=== PATIENT | male | born 1960 | race Caucasian/White ===

== ENCOUNTER 2017-03-08 12:59 | Observation (INO) | payer OTHER ==
--- NOTE | 2017-03-08 13:35 | PDOC ---
History of Present Illness - General Chief Complaint: Chest Pain Stated Complaint: CHEST PAIN Time Seen by Provider: 03/08/17 13:27 History Source: Safe Expert Used ([id number]) Exam Limitations: No Limitations - History of Present Illness Initial Comments: 56 yo Belarusian speaking M with h/o HTN, HLD, CAD s/p stent and [place] on coumadin and ASA, systolic CHF, embolic CVA, IDDM, ESRD on dialysis (M,W,F), and depression who presents to the ER along with his with chest pain since 10am. Patient's Rwandan is limited and cyrocom is used ([id number]). The pain occurred within half hour after breakfast, located in L chest, pressure-like intermittent, non-radiating, 10/10 at worst, 1-2/10 right now, associated with nausea and shortness of breath. Per , he stopped taking omeprazole 40mg daily 2 weeks ago. He also c/o neck pain on exertion, lower legs pain and abd pain located in upper quadrants which have been chronic. Denies fever, chills, headache, sore throat, constipation, diarrhea, urinary and bowel symptoms. Presenting Symptoms: Nausea, Short of Breath Timing/Duration: reports: intermittent Severity/Quality: reports: pressure Location: reports: other (L chest) Chest Pain Radiation: reports: no radiation Activities at Onset: reports: none Prior Chest Pain/Cardiac Workup: reports: Cardiac Cath Past History - Travel Traveled outside of the country in the last 30 days: No Close contact w/someone who was outside of country & ill: No - Past Medical History Allergies/Adverse Reactions: Allergies Allergy/AdvReac Type Severity Reaction Status Date / Time No Known Allergies Allergy Verified 03/08/17 13:06 Home Medications: Ambulatory Orders Aspirin [ASA -] 81 mg PO DAILY 03/08/17 Atorvastatin Ca [Lipitor] 40 mg PO HS 03/08/17 Calcitriol [Rocaltrol -] 0.25 mcg PO DAILY 03/08/17 Calcium Acetate [Phoslo -] 667 mg PO DAILY 03/08/17 Carvedilol [Coreg] 6.25 mg PO BID 03/08/17 Insulin Glargine,Hum.rec.anlog [Lantus (nf)] 0 units SQ HS 03/08/17 Isosorbide Mononitrate [Imdur -] 60 mg PO DAILY 03/08/17 Omeprazole 40 mg PO DAILY 03/08/17 Sevelamer Carbonate [Renvela *Powder Packet*] 2.4 gm PO DAILY 03/08/17 Warfarin Sodium [Coumadin] 2 mg PO DAILY 03/08/17 Anemia: Yes Cardiac Disorders: Yes (ppm,cad, WI,) Diabetes: Yes Dialysis: Yes (mon, wed , monday) Disorders: Yes (minimally urinates) HTN: Yes Hypercholesterolemia: Yes Suicide Attempt (Hx): No - Surgical History Cardiac Surgery: Yes (Stents) Orthopedic Surgery: Yes - Immunization History Immunization Up to Date: No - Psycho/Social/Smoking Cessation Hx Anxiety: No Suicidal Ideation: No Smoking Status: No Smoking History: Never smoked Have you smoked in the past 12 months: No Number of Cigarettes Smoked Daily: 0 If you are a former smoker, when did you quit?: 17 yrs ago Information on smoking cessation initiated: No 'Breaking Loose' booklet given: 12/12/15 Hx Alcohol Use: No Drug/Substance Use Hx: No Substance Use Type: None Hx Substance Use Treatment: No Cardiac Specific PMH - Complaint Specific PMHX Cardiac Stent: Yes Myocardial Infarction: Yes Review of Systems - Review of Systems Able to Perform ROS?: Yes Is the patient limited Rwandan proficient: Yes Constitutional: Yes: Night Sweats Respiratory: Yes: SOB with Exertion. No: SOB at Rest Cardiac (ROS): Yes: Chest Pain, Lightheadedness ABD/GI: Yes: Abdominal Distended, Nausea. No: Vomiting : Yes: Other (anuria) *Physical Exam - Vital Signs Last Vital Signs Temp Pulse Resp BP Pulse Ox 98.1 F 69 16 122/65 99 03/08/17 13:05 03/08/17 21:33 03/08/17 21:33 03/08/17 21:33 03/08/17 21:33 - Physical Exam General Appearance: Yes: Mild Distress, Cachetic HEENT: positive: [place]. negative: Tonsillar Exudate, Tonsillar Erythema Neck: positive: Trachea midline, Supple. negative: Lymphadenopathy (R), Lymphadenopathy (L) Respiratory/Chest: positive: Lungs Clear, Normal Breath Sounds. negative: Crackles, Rales, Rhonchi, Wheezing Cardiovascular: positive: Regular Rhythm, Regular Rate, Systolic Murmur ( holosystolic blowing) Gastrointestinal/Abdominal: positive: Normal Bowel Sounds, Distended, Tenderness (upper quadrants). negative: Rebound Extremity: positive: Tender (lower legs bilaterally). negative: Swelling Neurologic: positive: Fully Oriented, Alert ED Treatment Course - LABORATORY CBC & Chemistry Diagram: 03/09/17 06:45 03/09/17 06:45 - ADDITIONAL ORDERS Additional order review: 03/08/17 14:45 RBC 3.28 L MCV 102.0 H MCHC 33.5 RDW 15.4 D MPV 9.0 Neutrophils % 67.8 D Lymphocytes % 18.4 D Monocytes % 9.3 Eosinophils % 3.3 Basophils % 1.2 - RADIOLOGY Radiology Studies Ordered: Category Date Time Status CXRPORT [CHEST X-RAY PORTABLE*] [RAD] Stat Radiology 03/08/17 14:23 Completed - Medications Given in the ED: ED Medications Discontinued Medications Generic Name Dose Route Start Last Admin Trade Name Freq PRN Reason Stop Dose Admin Aspirin 243 mg 03/08/17 14:33 03/08/17 14:55 Asa - PO 03/08/17 14:34 243 mg ONCE ONE Administration Enoxaparin Sodium 70 mg 03/09/17 03:30 03/09/17 04:00 Lovenox - SQ 70 mg Q12H EVA Administration Warfarin Sodium 3 mg 03/09/17 03:19 03/09/17 04:00 Coumadin - PO 03/09/17 03:20 3 mg NOW ONE Administration Medical Decision Making - Medical Decision Making 03/08/17 14:45 EKG reads 1st degree AV block, rightward axis, intraventruclar block, T wave abnormality, consider inferolateral ischemia Compared to last EKG in 02/2016, there're minimal to moderate morphology changes. Will wait for official interpretation by international trade compliance manager. Will also obtain lab work including lipase, troponins 03/08/17 14:56 1st Trop 0.11 with minimal to moderate EKG morphology changes, heart score of 7 , will admit to obs under hospitalist service *DC/Admit/Observation/Transfer Diagnosis at time of Disposition: Chest pain Qualifiers: Chest pain type: unspecified Qualified Code(s): R07.9 - Chest pain, unspecified - Discharge Dispostion Admit: Yes Decision to Admit order Date/Time: Decision to Admit Order Category Date Time Status Decision to Admit to Hospital Routine Admission 03/08/17 16:37 Active - Referrals
[2017-03-08] MEDS ORDERED: ASPIRIN 81 MG CHEWABLE TABLETS PO ONE (14:33)
[2017-03-08] MEDS ORDERED: ASPIRIN 81 MG CHEWABLE TABLETS ONE (14:51)
--- NOTE | 2017-03-08 14:56 | PDOC ---
Attending Attestation - Resident Resident Name: Piter Myers - ED Attending Attestation I have performed the following: I have examined & evaluated the patient, The case was reviewed & discussed with the resident, I agree w/resident's findings & plan - HPI HPI: 03/08/17 16:51 56 Y M hx of htn, hl, cad s/p stent x 3, chf, esrd (dialysis mwf, last dialysis today), embolic cva on coumadin, presents with complaint of exetional cp radiating up to the L neck for the past several months. Pt also notes he has some epigastric pain after eating breakfast this morning which prompted his visit to the ED. The pt states he is currenlty not in pain. The pts ekg noted for some ST depressions in the lateral leads which were present during previous ekg in december, as pseudonormalization of twi in the inferior leads. pts s/p ASA pts exam was unremarkable, fistula w/ thrill on LUE. The pts labs were reivewed Trop .11 --> unclear significance due to his reanl insufficency - will trend lipase slightly elevated t 400 --> will obtain GB US case dw ALEX Pedersen - agree with observation under dr. srini hankins. Case discussed in detail with admitting physician including history, physical exam and ancillary studies. Admitting physician has assumed care for the patient, will follow all pending diagnostics and will complete the evaluation and treatment. - Physicial Exam PE: 03/09/17 08:40 see above - Medical Decision Making 03/09/17 08:40 see above Heart Score/ECG Review - History History: Slightly suspicious - Electrocardiogram EKG: Non specific repolarization disturbance - Age Age: 45-65 - Risk Factors Risk Factors Heart Score: Yes Hx Hypercholesterolemia, Yes Hx Hypertension, Yes Hx Diabetes Based on the list above the patient has:: >/=3 risk factors or Hx atherosclerotic disease - Troponin Troponin: </= normal limit - Score Heart Score - Total: 4 - ECG Impressions Comment:: 03/08/17 17:01 Twelve-lead EKG was performed and reviewed by me. There is normal sinus rhythm with a rate of 78 rightward axis 1st degree AV block STD in V5v6 (present on prior ekg jan 14 2016) tw flattening in inferior leads -> resolved TWI in inferior leads in prior ekg
[2017-03-08 15:00] LABS: BASOPHIL 1.2 % (0-2.0); EOSINOPHIL 3.3 % (0-4.5); MCH 34.2 pg (25.7-33.7); MCHC 33.5 g/dl (32.0-35.9); NEUTROPHILS 67.8 % (42.8-82.8); PLATELET COUNT 72 K/MM3 (134-434); RDW 15.4 % (11.9-15.9); WHITE BLOOD COUNT 4.1 K/mm3 (4.0-10.0)
[2017-03-08 15:25] LABS: ALBUMIN 3.2 g/dl (3.4-5.0); BILIRUBIN,TOTAL 0.9 mg/dL (0.2-1.0); CALCIUM 8.7 mg/dL (8.5-10.1); CREATININE 4.9 mg/dL (0.7-1.3); TOT PROT 7.3 g/dl (6.4-8.2)
[2017-03-08 15:26] LABS: MAGNESIUM 2.4 mg/dL (1.8-2.4); PHOSPHOROUS 3.3 mg/dL (2.5-4.9)
[2017-03-08 15:28] LABS: TROPONIN I 0.11 ng/ml (0.00-0.05)
--- NOTE | 2017-03-08 17:27 | HP ---
CHIEF COMPLAINT: chest pain PCP: HISTORY OF PRESENT ILLNESS: 56 yo who presents to the ER along with his with chest pain since 10am today. He had HD this morning prior to CP started. The pain occurred within half hour after breakfast, located in L chest, pressure-like intermittent, non- radiating, 10/10 at worst, 1-2/10 right now, associated with nausea and shortness of breath. Per , he stopped taking omeprazole 40mg daily 2 weeks ago due to prescription refill. He also c/o neck pain on exertion, lower legs pain and abd pain located in upper quadrants which have been chronic. Denies fever, chills, headache, sore throat, constipation, diarrhea, urinary and bowel symptoms. ER course was notable for: (1) cardiac work up; trop 0.11, flipped T in lateral leads, asa given (2) abd pain, lipase elevated, GB u/s ordered (3) Recent Travel: none PAST MEDICAL HISTORY: HTN, HLD, CAD s/p stent and [place] on coumadin and ASA, systolic CHF, embolic CVA, IDDM, ESRD on dialysis (M,W,F), and depression PAST SURGICAL HISTORY: Social History: Smoking: Alcohol: Drugs: Family History: Allergies NKA No Known Allergies Allergy (Verified 03/08/17 13:06) HOME MEDICATIONS: Home Medications Medication Instructions Recorded Aspirin [ASA -] 81 mg PO DAILY 03/08/17 Atorvastatin Ca [Lipitor] 40 mg PO HS 03/08/17 Calcitriol [Rocaltrol -] 0.25 mcg PO DAILY 03/08/17 Calcium Acetate [Phoslo -] 667 mg PO DAILY 03/08/17 Carvedilol [Coreg] 6.25 mg PO BID 03/08/17 Insulin Glargine,Hum.rec.anlog 0 units SQ HS 03/08/17 [Lantus (nf)] Isosorbide Mononitrate [Imdur -] 60 mg PO DAILY 03/08/17 Omeprazole 40 mg PO DAILY 03/08/17 Sevelamer Carbonate [Renvela 2.4 gm PO DAILY 03/08/17 *Powder Packet*] Warfarin Sodium [Coumadin] 2 mg PO DAILY 03/08/17 REVIEW OF SYSTEMS CONSTITUTIONAL: Absent: fever, chills, diaphoresis, generalized weakness, malaise, loss of appetite, weight change HEENT: Absent: rhinorrhea, nasal congestion, throat pain, throat swelling, difficulty swallowing, mouth swelling, ear pain, eye pain, visual changes CARDIOVASCULAR: Positive for left side chest pain, without syncope, palpitations, irregular heart rate, lightheadedness, peripheral edema RESPIRATORY: Absent: cough, shortness of breath, dyspnea with exertion, orthopnea, wheezing, stridor, hemoptysis GASTROINTESTINAL: Absent: abdominal distension, nausea, vomiting, diarrhea, constipation, melena, hematochezia with positive LUQ pain GENITOURINARY: Absent: dysuria, frequency, urgency, hesitancy, hematuria, flank pain, genital pain MUSCULOSKELETAL: Absent: myalgia, arthralgia, joint swelling, back pain, neck pain SKIN: Absent: rash, itching, pallor HEMATOLOGIC/IMMUNOLOGIC: Absent: easy bleeding, easy bruising, lymphadenopathy, frequent infections ENDOCRINE: Absent: unexplained weight gain, unexplained weight loss, heat intolerance, cold intolerance NEUROLOGIC: Absent: headache, focal weakness or paresthesias, dizziness, unsteady gait, seizure, mental status changes, bladder or bowel incontinence PSYCHIATRIC: Absent: anxiety, depression, suicidal or homicidal ideation, hallucinations. PHYSICAL EXAMINATION Vital Signs - 24 hr 03/08/17 13:05 Temperature 98.1 F Pulse Rate 76 Respiratory 18 Rate Blood Pressure 118/61 O2 Sat by Pulse 97 Oximetry (%) GENERAL: Awake, alert, and fully oriented, in no acute distress. Denies chest pain at current time HEAD: Normal with no signs of trauma. NECK: Normal range of motion, supple without lymphadenopathy, JVD, or masses. LUNGS: Breath sounds equal, clear to auscultation bilaterally. No wheezes, and no crackles. No accessory muscle use. HEART: Regular rate and rhythm, normal S1 and S2 without murmur, rub or gallop. ABDOMEN: Soft, nontender, not distended, normoactive bowel sounds, no guarding, no rebound, no masses. No hepatomegaly or splenomegaly. MUSCULOSKELETAL: Normal range of motion at all joints. No bony deformities or tenderness. No CVA tenderness. LUE with + AV fistula with + thrill UPPER EXTREMITIES: 2+ pulses, warm, well-perfused. No cyanosis. No clubbing. No peripheral edema. LOWER EXTREMITIES: 2+ pulses, warm, well-perfused. No calf tenderness. No peripheral edema. NEUROLOGICAL: Cranial nerves II-XII intact. Normal speech. Normal gait. PSYCHIATRIC: Cooperative. Good eye contact. Appropriate mood and affect. SKIN: Warm, dry, normal turgor, no rashes or lesions noted, normal capillary refill. Laboratory Results - last 24 hr 03/08/17 03/08/17 03/08/17 14:45 14:45 14:45 WBC 4.1 RBC 3.28 L Hgb 11.2 L Hct 33.5 L MCV 102.0 H MCHC 33.5 RDW 15.4 D Plt Count 72 L D MPV 9.0 Neutrophils % 67.8 D Lymphocytes % 18.4 D Monocytes % 9.3 Eosinophils % 3.3 Basophils % 1.2 Sodium 138 Potassium 3.8 D Chloride 98 Carbon Dioxide 27 Anion Gap 13 BUN 31 H D Creatinine 4.9 H D Creat Clearance w eGFR 12.31 Random Glucose 118 H D Calcium 8.7 Phosphorus 3.3 D Magnesium 2.4 Total Bilirubin 0.9 D AST 13 L ALT 14 Alkaline Phosphatase 182 H D Creatine Kinase 101 Troponin I 0.11 H D Total Protein 7.3 Albumin 3.2 L Lipase 03/08/17 14:45 WBC RBC Hgb Hct MCV MCHC RDW Plt Count MPV Neutrophils % Lymphocytes % Monocytes % Eosinophils % Basophils % Sodium Potassium Chloride Carbon Dioxide Anion Gap BUN Creatinine Creat Clearance w eGFR Random Glucose Calcium Phosphorus Magnesium Total Bilirubin AST ALT Alkaline Phosphatase Creatine Kinase Troponin I Total Protein Albumin Lipase 400 H ASSESSMENT/PLAN: A/P: 1. Chest pain -admit to obs/tele for cardiac rule/out -trops Q8h, next at 11 pm today -consult placed to cards, spoke with Dr. Sanchez -asa given in ER -no pain at this time, hemodynamic stable 2. ESRD -monitor labs/electrolytes -consult to Dr. Farooq -strict I and O 3. Diabetes -FS Qac and hs -diabetic diet -continue coverage of home meds 4. AFib -continue coumadin -monitor PT 5. Abd pain vs chest pain -elevated lipase, repeat monitor -ultrasound GB -restart omeprozole Visit type - Emergency Visit Emergency Visit: Yes ED Registration Date: 03/08/17 Care time: The patient presented to the Emergency Department on the above date and was hospitalized for further evaluation of their emergent condition. - New Patient This patient is new to me today: Yes Date on this admission: 03/08/17 - Critical Care Critical Care patient: No
--- NOTE | 2017-03-08 19:24 | CON.CARD ---
Cardiology Consult (text) - Consultation Consultation Note: 56 year old male with a significant past medical history of HTN, HPL, embolic cva, cad s/p multiple pci (states last was 6 months ago) who presents with cp. states he developed severe chest and LUQ abdominal pain with associatded nausea after eating. Lasted for a few hours, now resolved. non-exertional. not typical of his prior anginal pain. at baseline has chronic mild dyspnea on exertion, leg fatigue with exertion, stable. chronic neuropathy. intermittent abdominal pain. No loc, pnd, orthopnea, le edema, palps, dizziness. No cp/sob at present. PMhx: per hpi Past Surgical History: Yes: None, AV Fistula/Graft Social hx: Former smoker, no etoh or illicits Family Disease History: Heart Disease: Father ROS: Per hpi no cough, f/c/s, vomiting, diarrhea, cough, congestion, headache, visual disturbances, rash. Ambulatory Orders Aspirin [ASA -] 81 mg PO DAILY 03/08/17 Atorvastatin Ca [Lipitor] 40 mg PO HS 03/08/17 Calcitriol [Rocaltrol -] 0.25 mcg PO DAILY 03/08/17 Calcium Acetate [Phoslo -] 667 mg PO DAILY 03/08/17 Carvedilol [Coreg] 6.25 mg PO BID 03/08/17 Insulin Glargine,Hum.rec.anlog [Lantus (nf)] 0 units SQ HS 03/08/17 Isosorbide Mononitrate [Imdur -] 60 mg PO DAILY 03/08/17 Omeprazole 40 mg PO DAILY 03/08/17 Sevelamer Carbonate [Renvela *Powder Packet*] 2.4 gm PO DAILY 03/08/17 Warfarin Sodium [Coumadin] 2 mg PO DAILY 03/08/17 Current Medications Calcitriol (Rocaltrol -) 0.25 mcg PO DAILY [facility] Calcium Acetate (Phoslo -) 667 mg PO TIDCM [facility] Carvedilol (Coreg -) 6.25 mg PO BID EVA Isosorbide Mononitrate (Imdur -) 60 mg PO DAILY [facility] Pantoprazole Sodium (Protonix -) 40 mg PO DAILY [facility] Sevelamer Carbonate (Renvela Powder Packet -) 0.8 gm PO TIDCM [facility] Warfarin Sodium (Coumadin -) 2 mg PO DAILY [facility] Vital Signs - 24 hr 03/08/17 13:05 Temperature 98.1 F Pulse Rate 76 Respiratory 18 Rate Blood Pressure 118/61 O2 Sat by Pulse 97 Oximetry (%) Intake & Output 03/06/17 03/07/17 03/08/17 03/09/17 07:59 07:59 07:59 07:59 Weight 150 lb Nad, calm jvd flat, neck supple ctab, nl effor rrr nl s1, s2 no mrg + bs soft nt nd ext without e/c/c aaoxe no carotid bruit diminished dp/pt CBC, BMP 03/08/17 14:45 03/08/17 14:45 Laboratory Tests 03/08/17 03/08/17 03/08/17 14:45 14:45 14:45 Magnesium 2.4 Total Bilirubin 0.9 D AST 13 L ALT 14 Alkaline Phosphatase 182 H D Creatine Kinase 101 Troponin I 0.11 H D Albumin 3.2 L Lipase 400 H ekg: sr, rightward axis av delay, ivcd. inferolateral TWI, similar to priors echo 12/2015: low nl lvef, no wma, mild lvh, nl rv, mild lae, mod mr, mac, mild tr, rvsp 50-60 persantine MIBI here (12/2015): no ST changes vs baseline; large area of inferior and inferolat infarct (with akinesis) with small samantha-infarct ischemia ; EF 35% Cath/PCI @ [facility] 05/2015: Diag 2 : 100 % ISR of prior BMS at [facility] [place], distal LAD 90 % (small vessel), OM1 90%, large RPL stented (ESME)--felt to be culprit Assessment/Plan CAD - patient with intermediate range troponin in setting of ESRD. No elevation in ck or mb. EKG unchanged. CP atypical. Low suspicion for acs. Con't eric - paitent with known infarct, multiple ISR. States he may have had stent placed 6 months ago. 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 -cont ASA, AC, statin (resume), bb, imdur -cath @ [facility] 05/2015: Diag 2: 100 % ISR of prior BMS, distal LAD 90% (small vessel), OM1 90%, large RPL stented (ESME)--felt to be culprit lesion then; -cath 08/2015: cutting balloon ptca for ISR of RPL stent, no new stent placed; + residual dz: Diag 2: 100 % ISR of prior BMS, distal LAD 90% (small vessel), OM1 90%. -given that he has had recurrent and rapid in-stent restenosis (both BMS in Diag and then involving RPL ESME), and residual CAD is confined to branch disease or distal vessel dz and hence is low risk for CAD mortality, dr amin decided at that time he is likely not a good candidate for stent strategy and planned to continue aggressive OMT strategy only going forward; h/o embolic cva: -no hx afib, con't tele monitoring - prior tte/benson w/o etiology -cont asa, coumadin statin . INR dosing per pmd. ESRD on HD -HD per renal HTN: -controlled on current meds HPL: -continue statin
[2017-03-08 21:00] LABS: INR 1.36 (0.82-1.09)
[2017-03-08 21:51] LABS: TROPONIN I 0.35 ng/ml (0.00-0.05)
[2017-03-08] MEDS ORDERED: CARVEDILOL 3.125 MG TABLET (FP) ONE (22:35)
[2017-03-08] MEDS: CARVEDILOL 6.25 MG TABLET (FP) PO SCH (22:40)
[2017-03-09] MEDS ORDERED: WARFARIN NA 3 MG TABLET PO ONE (03:19)
[2017-03-09 03:30] LABS: TROPONIN I 0.57 ng/ml (0.00-0.05)
[2017-03-09] MEDS ORDERED: ENOXAPARIN NA (PORCINE) 80 MG/0.8 ML DISP.SYRIN SQ SCH (03:30)
--- NOTE | 2017-03-09 03:39 | HOSP ---
Physical Examination Vital Signs: Vital Signs Temperature 98.1 F 03/08/17 13:05 Pulse Rate 69 03/08/17 21:33 Respiratory Rate 16 03/08/17 21:33 Blood Pressure 122/65 03/08/17 21:33 O2 Sat by Pulse Oximetry (%) 99 03/08/17 21:33 Hospitalist Encounter Assessment: Troponin climbing 0.11, 0.35, 0.57. Pt already on ASA, BB. Pt on coumadin for CVA PPX at home but subtherapeutic. Will start lovenox for bridge and increase warfarin to 3mg.
[2017-03-09] MEDS ORDERED: WARFARIN NA 1 MG TABLET (FP) ONE (05:25)
[2017-03-09] MEDS ORDERED: ENOXAPARIN NA (PORCINE) 80 MG/0.8 ML DISP.SYRIN SQ ONE (05:26)
[2017-03-09 07:42] LABS: MCHC 34.1 g/dl (32.0-35.9); MEAN CELL VOLUME 102.6 fl (80-96); PLATELET COUNT 68 K/MM3 (134-434); RDW 15.7 % (11.9-15.9); WHITE BLOOD COUNT 3.9 K/mm3 (4.0-10.0)
[2017-03-09 08:08] LABS: ALBUMIN 3.1 g/dl (3.4-5.0); CALCIUM 8.7 mg/dL (8.5-10.1); MAGNESIUM 2.4 mg/dL (1.8-2.4); PHOSPHOROUS 5.6 mg/dL (2.5-4.9)
[2017-03-09 08:25] LABS: BILIRUBIN,TOTAL 0.8 mg/dL (0.2-1.0); COCKROFT - GAULT 12.44; CREATININE 6.3 mg/dL (0.7-1.3); TOT PROT 7.1 g/dl (6.4-8.2)
[2017-03-09] MEDS: PANTOPRAZOLE 40 MG TABLET (FP) PO SCH (10:13)
[2017-03-09] MEDS: CALCIUM ACETATE 667 MG CAPSULE (FP) PO SCH ×3 (10:13→18:44)
[2017-03-09] MEDS: CARVEDILOL 6.25 MG TABLET (FP) PO SCH ×2 (10:13→21:48)
[2017-03-09] MEDS: SEVELAMER CARBONATE 0.8 GM POWDER PACKET PO SCH ×2 (10:13→14:19)
[2017-03-09] MEDS: ISOSORBIDE MONONITRATE 60 MG TAB.SR.24H (FP) PO SCH (10:13)
[2017-03-09] MEDS: CALCITRIOL 0.25 MCG CAPSULE (FP) PO SCH (10:14)
--- NOTE | 2017-03-09 11:42 | EKG ---
Test Reason : Blood Pressure : / mmHG Vent. Rate : 078 BPM Atrial Rate : 078 BPM P-R Int : 258 ms QRS Dur : 126 ms QT Int : 424 ms P-R-T Axes : 085 101 183 degrees QTc Int : 483 ms SINUS RHYTHM WITH 1ST DEGREE A-V BLOCK RIGHTWARD AXIS NON-SPECIFIC INTRA-VENTRICULAR CONDUCTION BLOCK T WAVE ABNORMALITY, CONSIDER INFEROLATERAL ISCHEMIA ABNORMAL ECG WHEN COMPARED WITH ECG OF 22-MAR-2016 17:27, QRS DURATION HAS INCREASED T WAVE INVERSION LESS EVIDENT IN INFERIOR LEADS Confirmed by TAVIA MAYFIELD MD ([id number]) on 03/09/2017 11:42:29 AM Referred By: Confirmed By:TAVIA MAYFIELD MD
--- NOTE | 2017-03-09 12:53 | CONSULT ---
Consult - text type - Consultation Consultation Note: Renal Consult for ESRD on HD This is a 56 year old Gentleman with PMhx of ESRD on HD (MWF), CAD s/p NV and PCI, Hypertension, IDDM, Hyperlipidemia who presented with chest pain that started yesterday and admitted for r/o ACS. Pt reports that he developed the CP yesterday during dialysis. He had associated palliations but no Nausea, diaphoresis or radiation. Currently he does not have any chest pain. No fever, chills, CUADRA, SOB, abd pain. He does reports chronic claudication pain in b/l lower ext. Had a complete hd yesterday. No swelling in Legs. PMhx: As above Allergies: NKDA Family Hx: NC Social Hx: No T/A/D ROS: as per HPI Home Meds: Home Medications Medication Instructions Recorded Aspirin [ASA -] 81 mg PO DAILY 03/08/17 Atorvastatin Ca [Lipitor] 40 mg PO HS 03/08/17 Calcitriol [Rocaltrol -] 0.25 mcg PO DAILY 03/08/17 Calcium Acetate [Phoslo -] 667 mg PO DAILY 03/08/17 Carvedilol [Coreg] 6.25 mg PO BID 03/08/17 Insulin Glargine,Hum.rec.anlog 0 units SQ HS 03/08/17 [Lantus (nf)] Isosorbide Mononitrate [Imdur -] 60 mg PO DAILY 03/08/17 Omeprazole 40 mg PO DAILY 03/08/17 Sevelamer Carbonate [Renvela 2.4 gm PO DAILY 03/08/17 *Powder Packet*] Warfarin Sodium [Coumadin] 2 mg PO DAILY 03/08/17 Vital Signs Temperature 97.8 F 03/09/17 09:30 Pulse Rate 56 L 03/09/17 09:30 Respiratory Rate 18 03/09/17 09:30 Blood Pressure 107/59 03/09/17 09:30 O2 Sat by Pulse Oximetry (%) 99 03/08/17 21:33 Intake & Output 03/06/17 03/07/17 03/08/17 03/09/17 23:59 23:59 23:59 23:59 Weight 150 lb Gen: NAD, awake and alert HEENT: NC/AT, MMM, No JVD, Neck Supple CVS: RRR, No M/R Lungs: CTA, no rales or wheeze Abd: soft NT/ND Ext: No edema, clubbing or cyanosis. Decreased LE pulses Neuro: AAOx3, no focal defects Access: left ARM AVF + bruit CBC, BMP 03/09/17 06:45 03/09/17 06:45 Laboratory Tests 03/09/17 06:45 Calcium 8.7 Phosphorus 5.6 H D Magnesium 2.4 B-Natriuretic Peptide 372345.03 H Total Protein 7.1 Albumin 3.1 L Current Medications Calcitriol (Rocaltrol -) 0.25 mcg PO DAILY [facility] Last Admin: 03/09/17 10:14 Dose: 0.25 mcg Calcium Acetate (Phoslo -) 667 mg PO TIDCM [facility] Last Admin: 03/09/17 10:13 Dose: 667 mg Carvedilol (Coreg -) 6.25 mg PO BID [facility] Last Admin: 03/09/17 10:13 Dose: 6.25 mg Isosorbide Mononitrate (Imdur -) 60 mg PO DAILY [facility] Last Admin: 03/09/17 10:13 Dose: 60 mg Pantoprazole Sodium (Protonix -) 40 mg PO DAILY [facility] Last Admin: 03/09/17 10:13 Dose: 40 mg Sevelamer Carbonate (Renvela Powder Packet -) 0.8 gm PO TIDCM [facility] Last Admin: 03/09/17 10:13 Dose: 0.8 gm A/P 56 year old Gentleman with PMhx of ESRD on HD (MWF), CAD s/p NV and PCI, Hypertension, IDDM, Hyperlipidemia who presented with chest pain that started yesterday and admitted for r/o ACS. #Chest pain r/o ACS Troponin with mild up trend however CK stable Cardiology following #ESRD on HD no acute indication for dialysis today next treatment planned for tomorrow
[2017-03-09 15:54] VITALS: BMI 23.0
--- NOTE | 2017-03-09 17:40 | PN ---
Progress Note (short form) - Note Progress Note: CC: CP S: no further cp. no palps, dizziness, sob. Current Medications Calcitriol (Rocaltrol -) 0.25 mcg PO DAILY [facility] Last Admin: 03/09/17 10:14 Dose: 0.25 mcg Calcium Acetate (Phoslo -) 667 mg PO TIDCM [facility] Last Admin: 03/09/17 14:19 Dose: 667 mg Carvedilol (Coreg -) 6.25 mg PO BID [facility] Last Admin: 03/09/17 10:13 Dose: 6.25 mg Isosorbide Mononitrate (Imdur -) 60 mg PO DAILY [facility] Last Admin: 03/09/17 10:13 Dose: 60 mg Pantoprazole Sodium (Protonix -) 40 mg PO DAILY [facility] Last Admin: 03/09/17 10:13 Dose: 40 mg Sevelamer Carbonate (Renvela Powder Packet -) 0.8 gm PO TIDCM [facility] Last Admin: 03/09/17 14:19 Dose: 0.8 gm Vital Signs - 24 hr 03/08/17 03/09/17 03/09/17 21:33 09:00 09:30 Temperature 97.8 F Pulse Rate 56 L Pulse Rate [ 69 Left] Respiratory 16 20 18 Rate Blood Pressure 107/59 Blood Pressure 122/65 [Arm] O2 Sat by Pulse 99 99 Oximetry (%) 03/09/17 03/09/17 03/09/17 13:00 14:00 17:00 Temperature 97.4 F L 97.4 F L Pulse Rate 53 L 53 L Pulse Rate [ Left] Respiratory 20 16 16 Rate Blood Pressure 97/52 97/52 Blood Pressure [Arm] O2 Sat by Pulse 100 100 Oximetry (%) Intake & Output 03/07/17 03/08/17 03/09/17 03/10/17 07:59 07:59 07:59 07:59 Intake Total 300 Balance 300 Weight 150 lb 130 lb Nad, calm jvd flat, neck supple ctab, nl effor rrr nl s1, s2 no mrg + bs soft nt nd ext without e/c/c aaox3 no carotid bruit diminished dp/pt CBC, BMP 03/09/17 06:45 03/09/17 06:45 Laboratory Tests 03/08/17 03/08/17 03/08/17 14:45 20:25 20:30 INR 1.36 H D Magnesium Total Bilirubin AST ALT Alkaline Phosphatase Creatine Kinase 89 Troponin I 0.35 H D Albumin Lipase 400 H 03/09/17 03/09/17 02:40 06:45 INR Magnesium 2.4 Total Bilirubin 0.8 AST 9 L D ALT 13 Alkaline Phosphatase 174 H Creatine Kinase 82 Troponin I 0.57 H D Albumin 3.1 L Lipase ekg: sr, rightward axis av delay, ivcd. inferolateral TWI, similar to priors tele: SB 50's echo 12/2015: low nl lvef, no wma, mild lvh, nl rv, mild lae, mod mr, mac, mild tr, rvsp 50-60 librarian states most recent echo shows mildly depressed EF 40% persantine MIBI here (12/2015): no ST changes vs baseline; large area of inferior and inferolat infarct (with akinesis) with small samantha-infarct ischemia ; EF 35% -cath @ [facility] 05/2015: Diag 2: 100 % ISR of prior BMS, distal LAD 90% (small vessel), OM1 90%, large RPL stented (ESME)--felt to be culprit lesion then; -cath 08/2015: cutting balloon ptca for ISR of RPL stent, no new stent placed; + residual dz: Diag 2: 100 % ISR of prior BMS, distal LAD 90% (small vessel), OM1 90% Assessment/Plan 56 year old male with a significant past medical history of HTN, HPL, embolic cva, cad s/p multiple pci who presents with cp. CAD - patient with intermediate range troponin in setting of ESRD. No elevation in ck or mb. EKG unchanged. CP atypical. Low suspicion for acs. Con't eric - patient with known infarct, multiple ISR. I spoke with patient's librarian and last cardiac catheterizations showed small distal vessel disease not amenable to intervention. Therefore, would not recommend further ischemic work up. con't medical management. - low suspicion that this is cardiac pain and nor further recurrence, so will not adjust anti-anginals at this time. If recurs, can uptitrate regimen at that time. -cont ASA, AC, statin (resume), bb, imdur - eval/management of abdominal pain component of cp per pm. h/o embolic cva: -no hx afib, con't tele monitoring - prior tte/benson w/o etiology -cont asa, coumadin statin . INR dosing per pmd. ESRD on HD -HD per renal HTN: -controlled on current meds HPL: -continue statin
--- NOTE | 2017-03-09 17:45 | PN ---
Physical Exam: SUBJECTIVE: Patient seen and examined in ED. He c/o of abd pain referring to chest. Denies fever, chills, n/v. OBJECTIVE: Vital Signs Period Temp Pulse Resp BP Sys/Pahram Pulse Ox Last 24 Hr 97.4 F-97.8 F 53-69 16-20 97-122/52-65 99-100 PE Neuro: alert, awake, cn 2-12 intact Pulm: CTAB CV: s1 s2 rrr 2/6 systolic murmur Abd: distended, +bs no massess appreciated, tenderness Ext: no le edema CBCD WBC 3.9 K/mm3 (4.0-10.0) L 03/09/17 06:45 RBC 3.25 M/mm3 (4.00-5.60) L 03/09/17 06:45 Hgb 11.4 GM/dL (11.7-16.9) L 03/09/17 06:45 Hct 33.4 % (35.4-49) L 03/09/17 06:45 MCV 102.6 fl (80-96) H 03/09/17 06:45 MCHC 34.1 g/dl (32.0-35.9) 03/09/17 06:45 RDW 15.7 % (11.9-15.9) 03/09/17 06:45 Plt Count 68 K/MM3 (134-434) L 03/09/17 06:45 MPV 9.0 fl (7.5-11.1) 03/09/17 06:45 CMP Sodium 137 mmol/L (136-145) 03/09/17 06:45 Potassium 4.5 mmol/L (3.5-5.1) 03/09/17 06:45 Chloride 96 mmol/L (98-107) L 03/09/17 06:45 Carbon Dioxide 28 mmol/L (21-32) 03/09/17 06:45 Anion Gap 13 (8-16) 03/09/17 06:45 BUN 45 mg/dL (7-18) H D 03/09/17 06:45 Creatinine 6.3 mg/dL (0.7-1.3) H D 03/09/17 06:45 Creat Clearance w eGFR 9.21 (>60) 03/09/17 06:45 Calcium 8.7 mg/dL (8.5-10.1) 03/09/17 06:45 Total Bilirubin 0.8 mg/dL (0.2-1.0) 03/09/17 06:45 AST 9 U/L (15-37) L D 03/09/17 06:45 ALT 13 U/L (12-78) 03/09/17 06:45 Alkaline Phosphatase 174 U/L (45-117) H 03/09/17 06:45 Total Protein 7.1 g/dl (6.4-8.2) 03/09/17 06:45 Albumin 3.1 g/dl (3.4-5.0) L 03/09/17 06:45 03/08/17 03/08/17 03/08/17 14:45 14:45 20:25 Troponin I 0.11 H D 0.35 H D B-Natriuretic Peptide Lipase 400 H 03/09/17 03/09/17 02:40 06:45 Troponin I 0.57 H D B-Natriuretic Peptide 320230.03 H Lipase 393 Active Medications Generic Name Dose Route Start Last Admin Trade Name Freq PRN Reason Stop Dose Admin Calcitriol 0.25 mcg 03/09/17 10:00 03/09/17 10:14 Rocaltrol - PO 0.25 mcg DAILY [facility] Administration Calcium Acetate 667 mg 03/09/17 08:00 03/09/17 14:19 Phoslo - PO 667 mg TIDCM [facility] Administration Carvedilol 6.25 mg 03/08/17 22:00 03/09/17 10:13 Coreg - PO 6.25 mg BID [facility]A Administration Isosorbide Mononitrate 60 mg 03/09/17 10:00 03/09/17 10:13 Imdur - PO 60 mg DAILY [facility] Administration Pantoprazole Sodium 40 mg 03/09/17 10:00 03/09/17 10:13 Protonix - PO 40 mg DAILY [facility] Administration Sevelamer Carbonate 0.8 gm 03/09/17 08:00 03/09/17 14:19 Renvela Powder Packet - PO 0.8 gm TIDCM [facility]A Administration Assessment: 56 year old Gentleman with PMhx of ESRD on HD (MWF), CAD s/p RI and PCI, HTN, IDDM, Hyperlipidemia admitted with CP in HD. Plan: 1. Atypical Chest pain - Trops mid range - No ck changes - EKG no ischemia - CP possibly due to gallbladder - Cont ASA. statin - Coreg 6.25mg bID - Imdur 60mg daily 2. Abd pain/distention - Cholelithiasis seen on US, mild diffuse non specific wall thickening, ?acute jose raul - HIDA in AM - NPO after midnight 2. ESRD - Cont renvela - Cont phoslo - Cont Calcitriol - HD per renal service 3. DM II - ISS, BGM ACHS 4. AFib - Coumadin 5mg tonight - INR daily Visit type - Emergency Visit Emergency Visit: Yes ED Registration Date: 03/08/17 Care time: The patient presented to the Emergency Department on the above date and was hospitalized for further evaluation of their emergent condition. - New Patient This patient is new to me today: Yes Date on this admission: 03/09/17 - Critical Care Critical Care patient: No
[2017-03-09] MEDS ORDERED: WARFARIN NA 2 MG TABLET (UD) PO SCH (18:00)
[2017-03-09] MEDS ORDERED: WARFARIN NA 5 MG TABLET (UD) PO ONE (18:00)
[2017-03-09] MEDS: INSULIN SLIDING SCALE (NOVOLOG) 1 VIAL SQ SCH (21:49)
[2017-03-10] MEDS: INSULIN SLIDING SCALE (NOVOLOG) 1 VIAL SQ SCH ×4 (06:05→22:16)
[2017-03-10] MEDS: CALCIUM ACETATE 667 MG CAPSULE (FP) PO SCH ×3 (08:05→17:40)
[2017-03-10] MEDS: SEVELAMER CARBONATE 0.8 GM POWDER PACKET PO SCH ×3 (08:05→17:55)
--- NOTE | 2017-03-10 10:55 | PN ---
Progress Note (short form) - Note Progress Note: S: no further cp. no palps, dizziness, sob. having diarrhea today o: Vital Signs Period Temp Pulse Resp BP Sys/Parham Pulse Ox Last 24 Hr 97.2 F-98.8 F 52-58 16-20 93-112/46-58 98-100 Nad, calm jvd flat, neck supple cta bl, nl effor rrr nl s1, s2 no mrg + bs soft nt nd ext without e/c/c aaox3 no jaundice diaphoresis Current Medications Generic Name Dose Route Start Last Admin Trade Name Freq PRN Reason Stop Dose Admin Atorvastatin Calcium 40 mg 03/10/17 22:00 Lipitor - PO HS EV[facility] Calcitriol 0.25 mcg 03/09/17 10:00 03/09/17 10:14 Rocaltrol - PO 0.25 mcg DAILY [facility] Administration Calcium Acetate 667 mg 03/09/17 08:00 03/10/17 08:05 Phoslo - PO Not Given TIDCM [facility] Carvedilol 6.25 mg 03/08/17 22:00 03/09/17 21:48 Coreg - PO 6.25 mg BID [facility] Administration Epoetin Nolberto 2,000 units 03/10/17 12:00 Epogen - IVPUSH 03/10/17 12:01 ONCE ONE Insulin Aspart 1 vial 03/09/17 22:00 03/10/17 06:05 Novolog Vial Sliding Scale - SQ Not Given ACHS [facility] Protocol Isosorbide Mononitrate 60 mg 03/09/17 10:00 03/09/17 10:13 Imdur - PO 60 mg DAILY [facility] Administration Pantoprazole Sodium 40 mg 03/09/17 10:00 03/09/17 10:13 Protonix - PO 40 mg DAILY [facility] Administration Sevelamer Carbonate 0.8 gm 03/09/17 08:00 03/10/17 08:05 Renvela Powder Packet - PO Not Given TIDCM [facility] ekg: sr, rightward axis av delay, ivcd. 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 states most recent echo shows mildly depressed EF 40% persantine MIBI here (12/2015): no ST changes vs baseline; large area of inferior and inferolat infarct (with akinesis) with small samantha-infarct ischemia ; EF 35% -cath @ [facility] 05/2015: Diag 2: 100 % ISR of prior BMS, distal LAD 90% (small vessel), OM1 90%, large RPL stented (ESME)--felt to be culprit lesion then; -cath 08/2015: cutting balloon ptca for ISR of RPL stent, no new stent placed; + residual dz: Diag 2: 100 % ISR of prior BMS, distal LAD 90% (small vessel), OM1 90% Assessment/Plan 56 year old male with a significant past medical history of HTN, HPL, embolic cva, cad s/p multiple pci who presents with cp. CAD - patient with intermediate range troponin in setting of ESRD. No elevation in ck or mb. EKG unchanged. CP atypical. Low suspicion for acs. - patient with known infarct, multiple ISR. Spoke with patient's professor of history and last cardiac catheterizations showed small distal vessel disease not amenable to intervention. Therefore, would not recommend further ischemic work up. con't medical management. - low suspicion that this is cardiac pain and nor further recurrence, so will not adjust anti-anginals at this time. If recurs, can uptitrate regimen at that time. -cont ASA, AC, statin, bb, imdur - eval/management of abdominal pain component of cp per pmd. h/o embolic cva: -no hx afib, con't tele monitoring -prior tte/benson w/o etiology -cont asa, coumadin statin . INR dosing per pmd. ESRD on HD -HD per renal HTN: -controlled on current meds HPL: -continue statin can dc tele
[2017-03-10 11:03] LABS: MCH 34.8 pg (25.7-33.7); MCHC 33.9 g/dl (32.0-35.9); MEAN CELL VOLUME 102.8 fl (80-96); MEAN PLT VOLUME 9.1 fl (7.5-11.1); PLATELET COUNT 67 K/MM3 (134-434); RDW 15.4 % (11.9-15.9); WHITE BLOOD COUNT 3.6 K/mm3 (4.0-10.0)
[2017-03-10] MEDS: CARVEDILOL 6.25 MG TABLET (FP) PO SCH ×2 (11:17→22:09)
[2017-03-10] MEDS: PANTOPRAZOLE 40 MG TABLET (FP) PO SCH (11:17)
[2017-03-10] MEDS: ISOSORBIDE MONONITRATE 60 MG TAB.SR.24H (FP) PO SCH (11:17)
[2017-03-10] MEDS: CALCITRIOL 0.25 MCG CAPSULE (FP) PO SCH (11:18)
[2017-03-10 11:23] LABS: ALBUMIN 3.4 g/dl (3.4-5.0); BILIRUBIN,TOTAL 0.8 mg/dL (0.2-1.0); CALCIUM 8.9 mg/dL (8.5-10.1); PHOSPHOROUS 6.1 mg/dL (2.5-4.9)
[2017-03-10 11:30] LABS: TOT PROT 7.7 g/dl (6.4-8.2)
[2017-03-10] MEDS ORDERED: EPOETIN ALFA 2,000 UNITS/1 ML VIAL IVPUSH ONE (12:00)
--- NOTE | 2017-03-10 12:42 | PN ---
Progress Note (short form) - Note Progress Note: Renal follow up for ESRD on HD Pt seen and examined during dialysis bP stable, goal UF is 2L aVF with good flow no acute complaints no N/V/D Vital Signs Temperature 97.9 F 03/10/17 10:30 Pulse Rate 59 L 03/10/17 12:05 Respiratory Rate 18 03/10/17 12:05 Blood Pressure 109/59 03/10/17 12:05 O2 Sat by Pulse Oximetry (%) 98 03/10/17 09:00 Intake & Output 03/07/17 03/08/17 03/09/17 03/10/17 23:59 23:59 23:59 23:59 Intake Total 730 Balance 730 Weight 150 lb 130 lb 140 lb 2 oz Gen: NAD, awake and alert CVS: RRR, No M/R Lungs: CTA, no rales or wheeze Abd: soft NT/ND Ext: No edema, clubbing or cyanosis. Access: left ARM AVF + bruit CBC, BMP 03/10/17 10:35 03/10/17 10:35 Current Medications Atorvastatin Calcium (Lipitor -) 40 mg PO [facility] Calcitriol (Rocaltrol -) 0.25 mcg PO DAILY [facility] Last Admin: 03/10/17 11:18 Dose: Not Given Calcium Acetate (Phoslo -) 667 mg PO TIDCM [facility] Last Admin: 03/10/17 08:05 Dose: Not Given Carvedilol (Coreg -) 6.25 mg PO BID [facility] Last Admin: 03/10/17 11:17 Dose: Not Given Insulin Aspart (Novolog Vial Sliding Scale -) 1 vial SQ ACHS [facility] PRN Reason: Protocol Last Admin: 03/10/17 11:18 Dose: Not Given Isosorbide Mononitrate (Imdur -) 60 mg PO DAILY [facility] Last Admin: 03/10/17 11:17 Dose: Not Given Pantoprazole Sodium (Protonix -) 40 mg PO DAILY [facility] Last Admin: 03/10/17 11:17 Dose: Not Given Sevelamer Carbonate (Renvela Powder Packet -) 0.8 gm PO TIDCM [facility] Last Admin: 03/10/17 08:05 Dose: Not Given A/P 56 year old Gentleman with PMhx of ESRD on HD (MWF), CAD s/p DC and PCI, Hypertension, IDDM, Hyperlipidemia who presented with chest pain that started yesterday and admitted for r/o ACS. #Chest pain r/o ACS Cardiology following no chest pain at the present time #ESRD on HD/Hyperkalemia tolerating HD well UF goal 2L Renal diet #Cholecysitis HIDA scan pending GI Follow up #Thrombocytopenia Chronic no heparin with HD Thank you Yonis Farooq DO
--- NOTE | 2017-03-10 16:16 | PN ---
Physical Exam: SUBJECTIVE: Patient seen and examined in HD. He says he started having diarrhea in the middle of the night and x2 on HD. OBJECTIVE: Vital Signs Period Temp Pulse Resp BP Sys/Parham Pulse Ox Last 24 Hr 97.2 F-98.8 F 52-60 16-20 93-124/46-64 98-100 PE Neuro: alert, awake, cn 2-12 intact Pulm: CTAB CV: s1 s2 rrr 2/6 systolic murmur Abd: abd tenderness + diarrhea soft Ext: no le edema Laboratory Results - last 24 hr 03/10/17 03/10/17 10:35 10:35 WBC 3.6 L RBC 3.50 L Hgb 12.2 Hct 36.0 MCV 102.8 H MCHC 33.9 RDW 15.4 Plt Count 67 L MPV 9.1 Sodium 132 L Potassium 6.4 H* D Chloride 99 Carbon Dioxide 21 D Anion Gap 12 BUN 67 H D Creatinine 8.0 H* D Creat Clearance w eGFR 6.96 POC Glucometer Random Glucose 118 H Calcium 8.9 Phosphorus 6.1 H Total Bilirubin 0.8 AST 10 L ALT 13 Alkaline Phosphatase 181 H Total Protein 7.7 Albumin 3.4 Active Medications Generic Name Dose Route Start Last Admin Trade Name Freq PRN Reason Stop Dose Admin Atorvastatin Calcium 40 mg 03/10/17 22:00 Lipitor - PO HS [facility] Calcitriol 0.25 mcg 03/09/17 10:00 03/10/17 11:18 Rocaltrol - PO Not Given DAILY [facility] Calcium Acetate 667 mg 03/09/17 08:00 03/10/17 08:05 Phoslo - PO Not Given TIDCM [facility] Carvedilol 6.25 mg 03/08/17 22:00 03/10/17 11:17 Coreg - PO Not Given BID [facility] Insulin Aspart 1 vial 03/09/17 22:00 03/10/17 11:18 Novolog Vial Sliding Scale - SQ Not Given ACHS [facility] Protocol Isosorbide Mononitrate 60 mg 03/09/17 10:00 03/10/17 11:17 Imdur - PO Not Given DAILY [facility] Pantoprazole Sodium 40 mg 03/09/17 10:00 03/10/17 11:17 Protonix - PO Not Given DAILY [facility] Sevelamer Carbonate 0.8 gm 03/09/17 08:00 03/10/17 08:05 Renvela Powder Packet - PO Not Given TIDCM [facility] Imaging: - Cholelithiasis seen on US, mild diffuse non specific wall thickening, ?acute jose raul Assessment: 56 year old Gentleman with PMhx of ESRD on HD (MWF), CAD s/p DC and PCI, HTN, IDDM, Hyperlipidemia admitted with CP in HD. Plan: 1. Atypical Chest pain - Cardiac work up w/ mild trops - CP possibly due to gallbladder - Cont ASA/Statin - Coreg 6.25mg BID - Imdur 60mg daily - Cardiology seeing 2. Diarrhea - Stool cx - C diff 3. Abd pain/distention - HIDA scan done, awaiting results 4. ESRD - HD today - Cont renvela - Cont phoslo - Cont Calcitriol - HD per renal service 5. DM II - ISS, BGM ACHS 6. A Fib - Coumadin 5mg HS - INR daily Visit type - Emergency Visit Emergency Visit: Yes ED Registration Date: 03/08/17 Care time: The patient presented to the Emergency Department on the above date and was hospitalized for further evaluation of their emergent condition. - New Patient This patient is new to me today: No - Critical Care Critical Care patient: No
[2017-03-10] MEDS: ATORVASTATIN CA 40 MG TABLET (FP) PO SCH (22:09)
[2017-03-11] MEDS: INSULIN SLIDING SCALE (NOVOLOG) 1 VIAL SQ SCH ×5 (00:50→21:28)
[2017-03-11] MEDS ORDERED: PT OWN MED DRAWER 7, Y5N ONE ×3 (08:04→17:25)
[2017-03-11] MEDS: CALCIUM ACETATE 667 MG CAPSULE (FP) PO SCH ×3 (08:18→17:26)
[2017-03-11] MEDS: SEVELAMER CARBONATE 0.8 GM POWDER PACKET PO SCH ×4 (08:19→17:26)
[2017-03-11 08:35] LABS: INR 1.72 (0.82-1.09); PROTHROMBIN TIME (PATIENT) 19.1 SEC (9.98-11.88)
[2017-03-11 08:39] LABS: ALBUMIN 3.2 g/dl (3.4-5.0); CALCIUM 8.9 mg/dL (8.5-10.1); MAGNESIUM 2.2 mg/dL (1.8-2.4)
[2017-03-11 08:40] LABS: BILIRUBIN,TOTAL 0.8 mg/dL (0.2-1.0); COCKROFT - GAULT 12.08; CREATININE 5.9 mg/dL (0.7-1.3); TOT PROT 7.2 g/dl (6.4-8.2)
[2017-03-11] MEDS: PANTOPRAZOLE 40 MG TABLET (FP) PO SCH (09:54)
[2017-03-11] MEDS: CARVEDILOL 6.25 MG TABLET (FP) PO SCH ×2 (09:54→21:29)
[2017-03-11] MEDS: ISOSORBIDE MONONITRATE 60 MG TAB.SR.24H (FP) PO SCH (09:54)
[2017-03-11] MEDS: CALCITRIOL 0.25 MCG CAPSULE (FP) PO SCH (09:56)
--- NOTE | 2017-03-11 10:27 | PN ---
Physical Exam: SUBJECTIVE: Patient seen and examined Pt c/p mild LUQ pain, denies N/V/D, cp, sot palpitations. OBJECTIVE: Vital Signs Period Temp Pulse Resp BP Sys/Parham Pulse Ox Last 24 Hr 97.8 F-98 F 52-60 18-18 93-124/50-83 98-98 GENERAL: The patient is awake, alert, and fully oriented, in no acute distress. HEAD: Normal with no signs of trauma. EYES: PERRL, extraocular movements intact, sclera anicteric, conjunctiva clear. No ptosis. ENT: Ears normal, nares patent, oropharynx clear without exudates, moist mucous membranes. NECK: Trachea midline, full range of motion, supple. LUNGS: Breath sounds equal, clear to auscultation bilaterally, no wheezes, no crackles, no accessory muscle use. HEART: Regular rate and rhythm, S1, S2 without murmur, rub or gallop. ABDOMEN: Soft, nontender, nondistended, normoactive bowel sounds, no guarding, no rebound, no hepatosplenomegaly, no masses. EXTREMITIES: 2+ pulses, warm, well-perfused, no edema. NEUROLOGICAL: Cranial nerves II through XII grossly intact. Normal speech, gait not observed. PSYCH: Normal mood, normal affect. SKIN: Warm, dry, normal turgor, no rashes or lesions noted Laboratory Results - last 24 hr 03/10/17 03/10/17 03/10/17 10:12 10:35 10:35 WBC 3.6 L RBC 3.50 L Hgb 12.2 Hct 36.0 MCV 102.8 H MCHC 33.9 RDW 15.4 Plt Count 67 L MPV 9.1 INR Sodium 132 L Potassium 6.4 H* D Chloride 99 Carbon Dioxide 21 D Anion Gap 12 BUN 67 H D Creatinine 8.0 H* D Creat Clearance w eGFR 6.96 POC Glucometer 114 Random Glucose 118 H Calcium 8.9 Phosphorus 6.1 H Magnesium Total Bilirubin 0.8 AST 10 L ALT 13 Alkaline Phosphatase 181 H Total Protein 7.7 Albumin 3.4 Hepatitis C Antibody 03/10/17 03/10/17 03/10/17 10:35 17:37 22:14 WBC RBC Hgb Hct MCV MCHC RDW Plt Count MPV INR Sodium Potassium Chloride Carbon Dioxide Anion Gap BUN Creatinine Creat Clearance w eGFR POC Glucometer 224 89 Random Glucose Calcium Phosphorus Magnesium Total Bilirubin AST ALT Alkaline Phosphatase Total Protein Albumin Hepatitis C Antibody <0.1 03/11/17 03/11/17 03/11/17 00:43 05:38 05:38 WBC RBC Hgb Hct MCV MCHC RDW Plt Count MPV INR 1.72 H Sodium 141 Potassium 4.1 D Chloride 101 Carbon Dioxide 30 D Anion Gap 10 BUN 38 H D Creatinine 5.9 H D Creat Clearance w eGFR 9.90 POC Glucometer 194 Random Glucose 108 H Calcium 8.9 Phosphorus 4.0 D Magnesium 2.2 Total Bilirubin 0.8 AST 11 L ALT 12 Alkaline Phosphatase 180 H Total Protein 7.2 Albumin 3.2 L Hepatitis C Antibody 03/11/17 06:23 WBC RBC Hgb Hct MCV MCHC RDW Plt Count MPV INR Sodium Potassium Chloride Carbon Dioxide Anion Gap BUN Creatinine Creat Clearance w eGFR POC Glucometer 108 Random Glucose Calcium Phosphorus Magnesium Total Bilirubin AST ALT Alkaline Phosphatase Total Protein Albumin Hepatitis C Antibody Active Medications Generic Name Dose Route Start Last Admin Trade Name Freq PRN Reason Stop Dose Admin Atorvastatin Calcium 40 mg 03/10/17 22:00 03/10/17 22:09 Lipitor - PO 40 mg HS [facility] Administration Calcitriol 0.25 mcg 03/09/17 10:00 03/11/17 09:56 Rocaltrol - PO 0.25 mcg DAILY [facility] Administration Calcium Acetate 667 mg 03/09/17 08:00 03/11/17 08:18 Phoslo - PO 667 mg TIDCM [facility] Administration Carvedilol 6.25 mg 03/08/17 22:00 03/11/17 09:54 Coreg - PO 6.25 mg BID [facility] Administration Insulin Aspart 1 vial 03/09/17 22:00 03/11/17 06:40 Novolog Vial Sliding Scale - SQ Not Given ACHS [facility] Protocol Isosorbide Mononitrate 60 mg 03/09/17 10:00 03/11/17 09:54 Imdur - PO 60 mg DAILY [facility] Administration Pantoprazole Sodium 40 mg 03/09/17 10:00 03/11/17 09:54 Protonix - PO 40 mg DAILY [facility] Administration Sevelamer Carbonate 0.8 gm 03/09/17 08:00 03/11/17 08:22 Renvela Powder Packet - PO Not Given TIDCM [facility] Imaging: - Cholelithiasis seen on US, mild diffuse non specific wall thickening, ?acute jose raul Ekg: sr, rightward axis av delay, ivcd. 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 states most recent echo shows mildly depressed EF 40% persantine MIBI here (12/2015): no ST changes vs baseline; large area of inferior and inferolat infarct (with akinesis) with small samantha-infarct ischemia ; EF 35% -cath @ [facility] 05/2015: Diag 2: 100 % ISR of prior BMS, distal LAD 90% (small vessel), OM1 90%, large RPL stented (ESME)--felt to be culprit lesion then; -cath 08/2015: cutting balloon ptca for ISR of RPL stent, no new stent placed; + residual dz: Diag 2: 100 % ISR of prior BMS, distal LAD 90% (small vessel), OM1 90% Assessment: This is a 56 year old Gentleman with PMhx of ESRD on HD (MWF), CAD s/p RI and PCI, HTN, IDDM, Hyperlipidemia admitted with CP in HD. *Atypical Chest pain - resolved -abnormal Trop in setting of ESRD. - cardiology input appreciated - Cont ASA/Statin,Coreg 6.25mg BID and Imdur 60mg daily * Diarrhea- no further diarrhea reported - Stool cx - C diff *Abd pain/distention- improving - HIDA scan done, awaiting results - ALK- 180 *ESRD-(MWF) - Cont renvela, phoslo,Calcitriol - HD per renal service * DM II - ISS, BGM ACHS * Hx of CVA - Coumadin 5mg HS - INR 1.72 - will cont on Coumadin Visit type - Emergency Visit Emergency Visit: Yes ED Registration Date: 03/08/17 Care time: The patient presented to the Emergency Department on the above date and was hospitalized for further evaluation of their emergent condition. - New Patient This patient is new to me today: Yes Date on this admission: 03/11/17 - Critical Care Critical Care patient: No
--- NOTE | 2017-03-11 11:36 | PN ---
Progress Note (short form) - Note Progress Note: Renal follow up for ESRD on HD Pt seen and examined at the bedside reports RUQ pain no sob or chest pain s/p HIDA yesterday Vital Signs Temperature 98 F 03/11/17 09:00 Pulse Rate 59 L 03/11/17 09:00 Respiratory Rate 18 03/11/17 09:00 Blood Pressure 104/52 03/11/17 09:00 O2 Sat by Pulse Oximetry (%) 98 03/11/17 01:00 Intake & Output 03/08/17 03/09/17 03/10/17 03/11/17 23:59 23:59 23:59 23:59 Intake Total 730 Balance 730 Weight 150 lb 130 lb 140 lb 2 oz 138 lb Gen: NAD, awake and alert CVS: RRR, No M/R Lungs: CTA, no rales or wheeze Abd: soft NT/ND Ext: No edema, clubbing or cyanosis. Access: left ARM AVF + bruit CBC, BMP 03/10/17 10:35 03/11/17 05:38 Laboratory Tests 03/11/17 05:38 Calcium 8.9 Phosphorus 4.0 D Magnesium 2.2 Albumin 3.2 L Current Medications Atorvastatin Calcium (Lipitor -) 40 mg PO HS [facility] Last Admin: 03/10/17 22:09 Dose: 40 mg Calcitriol (Rocaltrol -) 0.25 mcg PO DAILY [facility] Last Admin: 03/11/17 09:56 Dose: 0.25 mcg Calcium Acetate (Phoslo -) 667 mg PO TIDCM [facility] Last Admin: 03/11/17 08:18 Dose: 667 mg Carvedilol (Coreg -) 6.25 mg PO BID [facility] Last Admin: 03/11/17 09:54 Dose: 6.25 mg Insulin Aspart (Novolog Vial Sliding Scale -) 1 vial SQ ACHS [facility] PRN Reason: Protocol Last Admin: 03/11/17 06:40 Dose: Not Given Isosorbide Mononitrate (Imdur -) 60 mg PO DAILY [facility] Last Admin: 03/11/17 09:54 Dose: 60 mg Pantoprazole Sodium (Protonix -) 40 mg PO DAILY [facility] Last Admin: 03/11/17 09:54 Dose: 40 mg Sevelamer Carbonate (Renvela Powder Packet -) 0.8 gm PO TIDCM [facility] Last Admin: 04/15/17 08:22 Dose: Not Given Warfarin Sodium (Coumadin -) 5 mg PO DAILY@1800 [facility] A/P 56 year old Gentleman with PMhx of ESRD on HD (MWF), CAD s/p [place] and PCI, Hypertension, IDDM, Hyperlipidemia who presented with chest pain that started yesterday and admitted for r/o ACS. #ESRD on HD/Hyperkalemia no acute inidcation for AIR BRAKE TESTER today REnal diet #Choleliathisis s/p HIDA scan - report pending GI follow up pain control #Thrombocytopenia Chronic no heparin with HD Thank you Yonis Farooq DO
[2017-03-11 16:11] LABS: HEP B SURFACE AB Reactive (.)
[2017-03-11] MEDS: WARFARIN NA 5 MG TABLET (UD) PO SCH (17:26)
[2017-03-11] MEDS ORDERED: INSULIN (NOVOLOG) ASPART 100 UNITS/ML 10ML VIAL ONE (21:27)
[2017-03-11] MEDS: ATORVASTATIN CA 40 MG TABLET (FP) PO SCH (21:28)
[2017-03-12] MEDS ORDERED: morphine CARPU-JECT 2 MG/1 ML DISP.SYRIN IVPUSH ONE (06:03)
[2017-03-12] MEDS: INSULIN SLIDING SCALE (NOVOLOG) 1 VIAL SQ SCH ×4 (06:26→21:38)
[2017-03-12 06:43] LABS: INR 1.66 (0.82-1.09); PROTHROMBIN TIME (PATIENT) 18.4 SEC (9.98-11.88)
[2017-03-12] MEDS ORDERED: PT OWN MED DRAWER 7, Y5N ONE ×3 (08:44→17:38)
[2017-03-12] MEDS: CALCIUM ACETATE 667 MG CAPSULE (FP) PO SCH ×3 (08:46→17:50)
[2017-03-12] MEDS: SEVELAMER CARBONATE 0.8 GM POWDER PACKET PO SCH ×3 (08:46→17:50)
--- NOTE | 2017-03-12 09:26 | PN ---
Physical Exam: SUBJECTIVE: Patient seen and examined. He complains of RUQ abdominal pain and dizziness when he is walking. OBJECTIVE: Vital Signs Period Temp Pulse Resp BP Sys/Parham Pulse Ox Last 24 Hr 97.8 F-98.1 F 56-58 18-19 100-104/50-50 98-98 GENERAL: The patient is awake, alert, and fully oriented, in no acute distress. LUNGS: Breath sounds equal, clear to auscultation bilaterally, no wheezes, no crackles, no accessory muscle use. HEART: Regular rate and rhythm, S1, S2 without murmur, rub or gallop. ABDOMEN: Soft, (+) RUQ tenderness, nondistended, normoactive bowel sounds, no guarding, no rebound, no hepatosplenomegaly, no masses. EXTREMITIES: 2+ pulses, warm, well-perfused, no edema. Laboratory Results - last 24 hr 03/10/17 03/11/17 03/11/17 10:35 10:55 16:58 INR POC Glucometer 318 58 Hep A IgM Ab Confirm Negative Hepatitis A Ab Total Positive H Hep Bs Antigen Negative Hep Bs Antibody Reactive Hep B Core Total Ab Negative 03/11/17 03/11/17 03/12/17 17:22 21:25 04:33 INR POC Glucometer 69 258 75 Hep A IgM Ab Confirm Hepatitis A Ab Total Hep Bs Antigen Hep Bs Antibody Hep B Core Total Ab 03/12/17 03/12/17 05:32 06:23 INR 1.66 H POC Glucometer 139 Hep A IgM Ab Confirm Hepatitis A Ab Total Hep Bs Antigen Hep Bs Antibody Hep B Core Total Ab Active Medications Generic Name Dose Route Start Last Admin Trade Name Tino PRN Reason Stop Dose Admin Atorvastatin Calcium 40 mg 03/10/17 22:00 03/11/17 21:28 Lipitor - PO 40 mg HS EVA Administration Calcitriol 0.25 mcg 03/09/17 10:00 03/11/17 09:56 Rocaltrol - PO 0.25 mcg DAILY EVA Administration Calcium Acetate 667 mg 03/09/17 08:00 03/12/17 08:46 Phoslo - PO 667 mg TIDCM EVA Administration Carvedilol 6.25 mg 03/08/17 22:00 03/11/17 21:29 Coreg - PO 6.25 mg BID EVA Administration Insulin Aspart 1 vial 03/09/17 22:00 03/12/17 06:26 Novolog Vial Sliding Scale - SQ Not Given ACHS [facility] Protocol Isosorbide Mononitrate 60 mg 03/09/17 10:00 03/11/17 09:54 Imdur - PO 60 mg DAILY EVA Administration Pantoprazole Sodium 40 mg 03/09/17 10:00 03/11/17 09:54 Protonix - PO 40 mg DAILY EVA Administration Sevelamer Carbonate 0.8 gm 03/09/17 08:00 03/12/17 08:46 Renvela Powder Packet - PO 0.8 gm TIDCM EVA Administration Warfarin Sodium 5 mg 03/11/17 18:00 03/11/17 17:26 Coumadin - PO 5 mg DAILY@1800 EVA Administration ASSESSMENT/PLAN: This is a 56-year-old man with a history of ESRD on HD, CAD, IL and PCI, HTN, type 2 DM, hyperlipidemia who was admitted for evaluation of chest pain. 1. Atypical chest pain, RUQ abdominal pain - Probable biliary colic - Abnormal troponin thought to be secondary to ESRD - RUQ US showed cholelithiasis and mild diffuse wall thickening - HIDA scan pending 2. Diarrhea - Resolved 3. ESRD - Continue Renvela, PhosLo, Calcitriol - Continue HD 4. CAD, history of IL, PCI - Continue Coreg, Imdur, Lipitor 5. Hyperlipidemia - Continue Lipitor 6. 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 - New Patient This patient is new to me today: Yes Date on this admission: 03/12/17 - Critical Care Critical Care patient: No - Discharge Referral Referred to [facility] Med P.C.: No
[2017-03-12] MEDS ORDERED: morphine CARPU-JECT 2 MG/1 ML DISP.SYRIN IVPUSH PRN (09:53)
[2017-03-12] MEDS: PANTOPRAZOLE 40 MG TABLET (FP) PO SCH (10:54)
[2017-03-12] MEDS: CARVEDILOL 6.25 MG TABLET (FP) PO SCH ×2 (10:54→21:35)
[2017-03-12] MEDS: ASPIRIN 81 MG CHEWABLE TABLETS PO SCH (10:54)
[2017-03-12] MEDS: ISOSORBIDE MONONITRATE 60 MG TAB.SR.24H (FP) PO SCH (10:54)
[2017-03-12] MEDS: CALCITRIOL 0.25 MCG CAPSULE (FP) PO SCH (10:54)
[2017-03-12] MEDS: WARFARIN NA 5 MG TABLET (UD) PO SCH (17:50)
[2017-03-12] MEDS: ATORVASTATIN CA 40 MG TABLET (FP) PO SCH (21:35)
[2017-03-13] MEDS: INSULIN SLIDING SCALE (NOVOLOG) 1 VIAL SQ SCH ×4 (06:25→16:54)
[2017-03-13 07:57] LABS: BASOPHIL 1.1 % (0-2.0); EOSINOPHIL 3.3 % (0-4.5); MCH 34.3 pg (25.7-33.7); MCHC 33.1 g/dl (32.0-35.9); MEAN CELL VOLUME 103.6 fl (80-96); MEAN PLT VOLUME 8.6 fl (7.5-11.1); NEUTROPHILS 55.5 % (42.8-82.8); PLATELET COUNT 61 K/MM3 (134-434); RDW 15.5 % (11.9-15.9); WHITE BLOOD COUNT 4.2 K/mm3 (4.0-10.0)
[2017-03-13 08:17] LABS: INR 1.92 (0.82-1.09); PROTHROMBIN TIME (PATIENT) 21.4 SEC (9.98-11.88)
[2017-03-13 08:22] LABS: CALCIUM 9.6 mg/dL (8.5-10.1)
[2017-03-13 08:29] LABS: COCKROFT - GAULT 8.12
[2017-03-13] MEDS ORDERED: PT OWN MED DRAWER 7, Y5N ONE ×2 (08:45→14:42)
[2017-03-13 08:47] LABS: CREATININE 9.1 mg/dL (0.7-1.3)
[2017-03-13] MEDS: CALCIUM ACETATE 667 MG CAPSULE (FP) PO SCH ×3 (08:58→16:55)
[2017-03-13] MEDS: SEVELAMER CARBONATE 0.8 GM POWDER PACKET PO SCH ×3 (08:59→16:55)
[2017-03-13] MEDS ORDERED: SODIUM POLYSTYRENE SULFONATE 15 GM/60 ML BOTTLE PO ONE (10:03)
--- NOTE | 2017-03-13 10:09 | PN ---
Physical Exam: SUBJECTIVE: Patient seen and examined. Having mild RUQ pain. No nausea/ vomiting. OBJECTIVE: K. 5.5 > given kayexalate x 1 Dialysis today (MWF) + bruit + thrill on left upper arm fistula Pt still has mild RUQ pain, without any nausea/vomiting/diarrhea No chest pain Follow up with outpatient GI HID Scan reviewed Vital Signs Period Temp Pulse Resp BP Sys/Parham Pulse Ox Last 24 Hr 97.9 F-98.2 F 20-53 18-20 98-111/53-57 98-98 GENERAL: The patient is awake, alert, and fully oriented, in no acute distress. HEAD: Normal with no signs of trauma. LUNGS: Breath sounds equal, clear to auscultation bilaterally, no wheezes, no crackles, no accessory muscle use. HEART: Regular rate and rhythm, S1, S2 without murmur, rub or gallop. ABDOMEN: Soft, nontender, nondistended, normoactive bowel sounds, no guarding, no EXTREMITIES: 2+ pulses, warm, well-perfused, no edema. NEUROLOGICAL: Normal speech, gait not observed. PSYCH: Normal mood, normal affect. SKIN: Warm, dry, normal turgor, no rashes or lesions noted Laboratory Results - last 24 hr 03/12/17 03/12/17 03/12/17 11:22 16:46 19:51 WBC RBC Hgb Hct MCV MCHC RDW Plt Count MPV Neutrophils % Lymphocytes % Monocytes % Eosinophils % Basophils % INR Sodium Potassium Chloride Carbon Dioxide Anion Gap BUN Creatinine POC Glucometer 205 104 233 Random Glucose Calcium 03/12/17 03/13/17 03/13/17 21:36 05:38 07:10 WBC RBC Hgb Hct MCV MCHC RDW Plt Count MPV Neutrophils % Lymphocytes % Monocytes % Eosinophils % Basophils % INR 1.92 H Sodium Potassium Chloride Carbon Dioxide Anion Gap BUN Creatinine POC Glucometer 196 116 Random Glucose Calcium 03/13/17 03/13/17 07:10 07:10 WBC 4.2 RBC 3.36 L Hgb 11.5 L Hct 34.8 L MCV 103.6 H MCHC 33.1 RDW 15.5 Plt Count 61 L MPV 8.6 Neutrophils % 55.5 Lymphocytes % 32.0 D Monocytes % 8.1 Eosinophils % 3.3 Basophils % 1.1 INR Sodium 134 L Potassium 5.9 H D Chloride 95 L Carbon Dioxide 26 Anion Gap 13 BUN 73 H D Creatinine 9.1 H* D POC Glucometer Random Glucose 139 H D Calcium 9.6 Active Medications Generic Name Dose Route Start Last Admin Trade Name Freq PRN Reason Stop Dose Admin Aspirin 81 mg 03/12/17 10:00 03/12/17 10:54 Asa - PO 81 mg DAILY EVA Administration Atorvastatin Calcium 40 mg 03/10/17 22:00 03/12/17 21:35 Lipitor - PO 40 mg HS EVA Administration Calcitriol 0.25 mcg 03/09/17 10:00 03/12/17 10:54 Rocaltrol - PO 0.25 mcg DAILY EVA Administration Calcium Acetate 667 mg 03/09/17 08:00 03/13/17 08:58 Phoslo - PO 667 mg TIDCM EVA Administration Carvedilol 6.25 mg 03/08/17 22:00 03/12/17 21:35 Coreg - PO 6.25 mg BID EVA Administration Insulin Aspart 1 vial 03/09/17 22:00 03/13/17 06:25 Novolog Vial Sliding Scale - SQ Not Given ACHS [facility] Protocol Isosorbide Mononitrate 60 mg 03/09/17 10:00 03/12/17 10:54 Imdur - PO 60 mg DAILY EVA Administration Morphine Sulfate 1 mg 03/12/17 09:53 Morphine Injection - IVPUSH Q4H PRN PAIN Pantoprazole Sodium 40 mg 03/09/17 10:00 03/12/17 10:54 Protonix - PO 40 mg DAILY EVA Administration Sevelamer Carbonate 0.8 gm 03/09/17 08:00 03/13/17 08:59 Renvela Powder Packet - PO 0.8 gm TIDCM EVA Administration Sodium Polystyrene Sulfonate 30 gm 03/13/17 10:03 Kayexalate - PO 03/13/17 10:04 ONCE ONE Warfarin Sodium 5 mg 03/11/17 18:00 03/12/17 17:50 Coumadin - PO 5 mg DAILY@1800 EVA Administration ASSESSMENT/PLAN: Patient is a 56 year old Gentleman with PMhx of ESRD on HD (MWF), CAD s/p [place], Hypertension, diabetes, hyperlipidemia. He presented to the ED on 03/08/2017 with chest pain and admitted to r/o ACS. Chest Pain-atypical/RUQ abdominal pain - mild/improving Assessment/Plan: Troponinins 0.11>0.35>0.57, likely secondary to ESRD As per cardiology, low suspicion for ACS Atypical chest pain, RUQ abdominal pain - mild - improving HIDA scan negative/no obstruction GI/surgical consult as an outpatient Denies chest pain, denies shortness of breath Surgical and GI evaluation as outpatient He is tolerating diet, no nausea/vomiting CAD Assessment/Plan: CAD s/p [place] On Coreq, Imdur and Lipitor Neuro: CVA history Assessment/Plan: On Coumadin Monitor INR Renal: End Stage Renal Disease Assessment/Plan: On dialysis MWF - for dialysis today Left arm fistula +bruit + thrill Hematology: Thrombocytopenia - chronic Assessment/Plan: no heparin with dialysis Disposition: d/c today with PCP followup. Follow up with GI/Surgery as outpatient. Full Code. Visit type - Emergency Visit Emergency Visit: Yes ED Registration Date: 03/08/17 Care time: The patient presented to the Emergency Department on the above date and was hospitalized for further evaluation of their emergent condition. - New Patient This patient is new to me today: Yes Date on this admission: 03/17/17 - Critical Care Critical Care patient: No - Discharge Referral Referred to [facility] Med P.C.: No
[2017-03-13 11:29] LABS: MCH 34.1 pg (25.7-33.7); MCHC 32.8 g/dl (32.0-35.9); MEAN CELL VOLUME 103.9 fl (80-96); MEAN PLT VOLUME 8.8 fl (7.5-11.1); PLATELET COUNT 62 K/MM3 (134-434); RDW 15.6 % (11.9-15.9); WHITE BLOOD COUNT 4.4 K/mm3 (4.0-10.0)
[2017-03-13 11:57] LABS: ALBUMIN 3.4 g/dl (3.4-5.0); BILIRUBIN,TOTAL 0.8 mg/dL (0.2-1.0); CALCIUM 9.1 mg/dL (8.5-10.1); PHOSPHOROUS 4.6 mg/dL (2.5-4.9); TOT PROT 7.5 g/dl (6.4-8.2)
--- NOTE | 2017-03-13 11:58 | PN ---
Progress Note (short form) - Note Progress Note: Renal follow up for ESRD on HD Pt seen and examined during dialysis BP stable Goal UF is 2.5L has mild abd pain still low appetite Vital Signs Temperature 97.4 F L 03/13/17 10:40 Pulse Rate 58 L 03/13/17 11:45 Respiratory Rate 18 03/13/17 11:45 Blood Pressure 102/56 03/13/17 11:45 O2 Sat by Pulse Oximetry (%) 98 03/13/17 01:00 Intake & Output 03/10/17 03/11/17 03/12/17 03/13/17 23:59 23:59 23:59 23:59 Intake Total 600 Output Total 0 1 Balance 0 599 Weight 140 lb 2 oz 138 lb 142 lb 143 lb 3 oz Gen: NAD, awake and alert CVS: RRR, No M/R Lungs: CTA, no rales or wheeze Abd: soft NT/ND Ext: No edema, clubbing or cyanosis. Access: left ARM AVF + bruit CBC, BMP 03/13/17 10:45 Current Medications Aspirin (Asa -) 81 mg PO DAILY [facility] Last Admin: 03/12/17 10:54 Dose: 81 mg Atorvastatin Calcium (Lipitor -) 40 mg PO HS [facility] Last Admin: 03/12/17 21:35 Dose: 40 mg Calcitriol (Rocaltrol -) 0.25 mcg PO DAILY [facility] Last Admin: 03/12/17 10:54 Dose: 0.25 mcg Calcium Acetate (Phoslo -) 667 mg PO TIDCM [facility] Last Admin: 03/13/17 08:58 Dose: 667 mg Carvedilol (Coreg -) 6.25 mg PO BID EVA Last Admin: 03/12/17 21:35 Dose: 6.25 mg Insulin Aspart (Novolog Vial Sliding Scale -) 1 vial SQ ACHS EVA PRN Reason: Protocol Last Admin: 03/13/17 06:25 Dose: Not Given Isosorbide Mononitrate (Imdur -) 60 mg PO DAILY [facility] Last Admin: 03/12/17 10:54 Dose: 60 mg Morphine Sulfate (Morphine Injection -) 1 mg IVPUSH Q4H PRN PRN Reason: PAIN Pantoprazole Sodium (Protonix -) 40 mg PO DAILY [facility] Last Admin: 03/12/17 10:54 Dose: 40 mg Sevelamer Carbonate (Renvela Powder Packet -) 0.8 gm PO TIDCM [facility] Last Admin: 03/13/17 08:59 Dose: 0.8 gm Warfarin Sodium (Coumadin -) 5 mg PO DAILY@1800 [facility] Last Admin: 03/12/17 17:50 Dose: 5 mg A/P 56 year old Gentleman with PMhx of ESRD on HD (MWF), CAD s/p [place] and PCI, Hypertension, IDDM, Hyperlipidemia who presented with chest pain that started yesterday and admitted for r/o ACS. #ESRD on HD/Hyperkalemia tolerating dialysis well continue HD on MWF scheudle #Choleliathisis HIDA showed no obstruction pt continues to have Consider GI/Surgial Eval #Thrombocytopenia Chronic no heparin with HD Thank you Yonis Farooq DO
[2017-03-13 12:05] LABS: COCKROFT - GAULT 8.12
[2017-03-13 12:20] LABS: CREATININE 9.1 mg/dL (0.7-1.3)
--- NOTE | 2017-03-13 14:03 | PN ---
Physical Exam: SUBJECTIVE: Patient seen and examined OBJECTIVE: Vital Signs Period Temp Pulse Resp BP Sys/Parham Pulse Ox Last 24 Hr 97.4 F-98.2 F 20-59 18-20 93-117/50-61 98-98 GENERAL: The patient is awake, alert, and fully oriented, in no acute distress. HEAD: Normal with no signs of trauma. EYES: PERRL, extraocular movements intact, sclera anicteric, conjunctiva clear. No ptosis. ENT: Ears normal, nares patent, oropharynx clear without exudates, moist mucous membranes. NECK: Trachea midline, full range of motion, supple. LUNGS: Breath sounds equal, clear to auscultation bilaterally, no wheezes, no crackles, no accessory muscle use. HEART: Regular rate and rhythm, S1, S2 without murmur, rub or gallop. ABDOMEN: Soft, nontender, nondistended, normoactive bowel sounds, no guarding, no rebound, no hepatosplenomegaly, no masses. EXTREMITIES: 2+ pulses, warm, well-perfused, no edema. NEUROLOGICAL: Cranial nerves II through XII grossly intact. Normal speech, gait not observed. PSYCH: Normal mood, normal affect. SKIN: Warm, dry, normal turgor, no rashes or lesions noted Laboratory Results - last 24 hr 03/12/17 03/12/17 03/12/17 16:46 19:51 21:36 WBC RBC Hgb Hct MCV MCHC RDW Plt Count MPV Neutrophils % Lymphocytes % Monocytes % Eosinophils % Basophils % INR Sodium Potassium Chloride Carbon Dioxide Anion Gap BUN Creatinine Creat Clearance w eGFR POC Glucometer 104 233 196 Random Glucose Calcium Phosphorus Total Bilirubin AST ALT Alkaline Phosphatase Total Protein Albumin 03/13/17 03/13/17 03/13/17 05:38 07:10 07:10 WBC 4.2 RBC 3.36 L Hgb 11.5 L Hct 34.8 L MCV 103.6 H MCHC 33.1 RDW 15.5 Plt Count 61 L MPV 8.6 Neutrophils % 55.5 Lymphocytes % 32.0 D Monocytes % 8.1 Eosinophils % 3.3 Basophils % 1.1 INR 1.92 H Sodium Potassium Chloride Carbon Dioxide Anion Gap BUN Creatinine Creat Clearance w eGFR POC Glucometer 116 Random Glucose Calcium Phosphorus Total Bilirubin AST ALT Alkaline Phosphatase Total Protein Albumin 03/13/17 03/13/17 03/13/17 07:10 10:45 10:45 WBC 4.4 RBC 3.44 L Hgb 11.7 Hct 35.8 MCV 103.9 H MCHC 32.8 RDW 15.6 Plt Count 62 L MPV 8.8 Neutrophils % Lymphocytes % Monocytes % Eosinophils % Basophils % INR Sodium 134 L 134 L Potassium 5.9 H D 5.9 H Chloride 95 L 96 L Carbon Dioxide 26 23 Anion Gap 13 15 BUN 73 H D 76 H Creatinine 9.1 H* D 9.1 H* Creat Clearance w eGFR 6.00 POC Glucometer Random Glucose 139 H D 166 H Calcium 9.6 9.1 Phosphorus 4.6 Total Bilirubin 0.8 AST 7 L D ALT 12 Alkaline Phosphatase 166 H Total Protein 7.5 Albumin 3.4 Active Medications Generic Name Dose Route Start Last Admin Trade Name Freq PRN Reason Stop Dose Admin Aspirin 81 mg 03/12/17 10:00 03/12/17 10:54 Asa - PO 81 mg DAILY EVA Administration Atorvastatin Calcium 40 mg 03/10/17 22:00 03/12/17 21:35 Lipitor - PO 40 mg HS EVA Administration Calcitriol 0.25 mcg 03/09/17 10:00 03/12/17 10:54 Rocaltrol - PO 0.25 mcg DAILY EVA Administration Calcium Acetate 667 mg 03/09/17 08:00 03/13/17 08:58 Phoslo - PO 667 mg TIDCM EVA Administration Carvedilol 6.25 mg 03/08/17 22:00 03/12/17 21:35 Coreg - PO 6.25 mg BID EVA Administration Insulin Aspart 1 vial 03/09/17 22:00 03/13/17 06:25 Novolog Vial Sliding Scale - SQ Not Given ACHS [facility] Protocol Isosorbide Mononitrate 60 mg 03/09/17 10:00 03/12/17 10:54 Imdur - PO 60 mg DAILY EVA Administration Morphine Sulfate 1 mg 03/12/17 09:53 Morphine Injection - IVPUSH Q4H PRN PAIN Pantoprazole Sodium 40 mg 03/09/17 10:00 03/12/17 10:54 Protonix - PO 40 mg DAILY EVA Administration Sevelamer Carbonate 0.8 gm 03/09/17 08:00 03/13/17 08:59 Renvela Powder Packet - PO 0.8 gm TIDCM EVA Administration Warfarin Sodium 5 mg 03/11/17 18:00 03/12/17 17:50 Coumadin - PO 5 mg DAILY@1800 [facility] Administration ASSESSMENT/PLAN:
[2017-03-13] MEDS: ISOSORBIDE MONONITRATE 60 MG TAB.SR.24H (FP) PO SCH (14:45)
[2017-03-13] MEDS: PANTOPRAZOLE 40 MG TABLET (FP) PO SCH (14:45)
[2017-03-13] MEDS: ASPIRIN 81 MG CHEWABLE TABLETS PO SCH (14:45)
[2017-03-13] MEDS: CALCITRIOL 0.25 MCG CAPSULE (FP) PO SCH (14:46)
[2017-03-13 14:48] VITALS: PULSE 55
[2017-03-13 14:49] VITALS: BP 124/68
[2017-03-13 14:56] VITALS: TEMP 97.3
--- NOTE | 2017-03-13 14:56 | DS ---
Physical Exam: SUBJECTIVE: Patient seen and examined. Reports mild RUQ discomfort. No Nausea/vomiting/diarrhea. OBJECTIVE: K. 5.5 > given kayexalate x 1 Dialysis today (MWF) + bruit + thrill on left upper arm fistula Pt still has mild RUQ pain, without any nausea/vomiting/diarrhea No chest pain Follow up with outpatient GI HIDA Scan reviewed Vital Signs Period Temp Pulse Resp BP Sys/Parham Pulse Ox Last 24 Hr 97.3 F-98.2 F 20-59 17-20 93-127/50-68 98-98 PHYSICAL EXAM GENERAL: The patient is awake, alert, and fully oriented, in no acute distress. HEAD: Normal with no signs of trauma. LUNGS: Breath sounds equal, clear to auscultation bilaterally, no wheezes, no crackles, no accessory muscle use. HEART: Regular rate and rhythm, S1, S2 without murmur, rub or gallop. ABDOMEN: Soft, nontender, nondistended, normoactive bowel sounds, no guarding, no EXTREMITIES: 2+ pulses, warm, well-perfused, no edema. NEUROLOGICAL: Normal speech, gait not observed. PSYCH: Normal mood, normal affect. SKIN: Warm, dry, normal turgor, no rashes or lesions noted LABS Laboratory Results - last 24 hr 03/12/17 03/12/17 03/12/17 16:46 19:51 21:36 WBC RBC Hgb Hct MCV MCHC RDW Plt Count MPV Neutrophils % Lymphocytes % Monocytes % Eosinophils % Basophils % INR Sodium Potassium Chloride Carbon Dioxide Anion Gap BUN Creatinine Creat Clearance w eGFR POC Glucometer 104 233 196 Random Glucose Calcium Phosphorus Total Bilirubin AST ALT Alkaline Phosphatase Total Protein Albumin 03/13/17 03/13/17 03/13/17 05:38 07:10 07:10 WBC 4.2 RBC 3.36 L Hgb 11.5 L Hct 34.8 L MCV 103.6 H MCHC 33.1 RDW 15.5 Plt Count 61 L MPV 8.6 Neutrophils % 55.5 Lymphocytes % 32.0 D Monocytes % 8.1 Eosinophils % 3.3 Basophils % 1.1 INR 1.92 H Sodium Potassium Chloride Carbon Dioxide Anion Gap BUN Creatinine Creat Clearance w eGFR POC Glucometer 116 Random Glucose Calcium Phosphorus Total Bilirubin AST ALT Alkaline Phosphatase Total Protein Albumin 03/13/17 03/13/17 03/13/17 07:10 10:45 10:45 WBC 4.4 RBC 3.44 L Hgb 11.7 Hct 35.8 MCV 103.9 H MCHC 32.8 RDW 15.6 Plt Count 62 L MPV 8.8 Neutrophils % Lymphocytes % Monocytes % Eosinophils % Basophils % INR Sodium 134 L 134 L Potassium 5.9 H D 5.9 H Chloride 95 L 96 L Carbon Dioxide 26 23 Anion Gap 13 15 BUN 73 H D 76 H Creatinine 9.1 H* D 9.1 H* Creat Clearance w eGFR 6.00 POC Glucometer Random Glucose 139 H D 166 H Calcium 9.6 9.1 Phosphorus 4.6 Total Bilirubin 0.8 AST 7 L D ALT 12 Alkaline Phosphatase 166 H Total Protein 7.5 Albumin 3.4 HOSPITAL COURSE: Date of Admission:03/08/17 Date of Discharge: 03/13/17 ASSESSMENT/PLAN: Patient is a 56 year old Gentleman with PMhx of ESRD on HD (MWF), CAD s/p [place], Hypertension, diabetes, hyperlipidemia. He presented to the ED on 03/08/2017 with chest pain and admitted to r/o ACS. Chest Pain-atypical/RUQ abdominal pain - resolved Assessment/Plan: Troponinins 0.11>0.35>0.57, likely secondary to ESRD As per cardiology, low suspicion for ACS Atypical chest pain, RUQ abdominal pain - mild - improving HIDA scan negative/no obstruction GI/surgical consult as an outpatient Denies chest pain, denies shortness of breath Surgical and GI evaluation as outpatient He is tolerating diet, no nausea/vomiting CAD Assessment/Plan: CAD s/p [place] On Coreq, Imdur and Lipitor Neuro: CVA history Assessment/Plan: On Coumadin - continue home dose Monitor INR Renal: End Stage Renal Disease Assessment/Plan: On dialysis MWF Left arm fistula +bruit + thrill Hematology: Thrombocytopenia - chronic Assessment/Plan: no heparin with dialysis Minutes to complete discharge: 45 Discharge Summary Reason For Visit: CHEST PAIN Current Active Problems 1St degree AV block (Acute) CHF (congestive heart failure) (Acute) Cardiac ischemia (Acute) Chest pain (Acute) Confusion and disorientation (Acute) DVT prophylaxis (Acute) Diabetes (Acute) Diarrhea (Acute) Dizziness (Acute) Dizzy spells (Acute) ESRD on hemodialysis (Acute) Headache (Acute) Stroke (Acute) DM Diabetes mellitus type 2 (Chronic) Condition: Stable - Instructions Diet, Activity, Other Instructions: Dr. Anthony for Gi follow up Please return to the ER with persistent or worsening symptoms. Referrals: Chico Anthony MD [Staff Physician] - Radha Zarate MD [Staff Physician] - Disposition: HOME - Home Medications Comprehensive Discharge Medication List: Ambulatory Orders Aspirin [ASA -] 81 mg PO DAILY 03/08/17 Atorvastatin Ca [Lipitor] 40 mg PO HS 03/08/17 Calcitriol [Calcitriol -] 0.25 mcg PO DAILY 03/08/17 Calcium Acetate [Phoslo -] 667 mg PO DAILY 03/08/17 Carvedilol [Coreg] 6.25 mg PO BID 03/08/17 Insulin Glargine,Hum.rec.anlog [Lantus (10mL VIAL) -] 5 units SQ HS 03/08/17 Isosorbide Mononitrate [Imdur -] 60 mg PO DAILY 03/08/17 Omeprazole 40 mg PO DAILY 03/08/17 Sevelamer Carbonate [Renvela Powder Packet -] 2.4 gm PO DAILY 03/08/17 Warfarin Sodium [Coumadin] 2 mg PO DAILY 03/08/17 This patient is new to me today: Yes Date on this admission: 03/13/17 Emergency Visit: Yes ED Registration Date: 03/08/17 Care time: The patient presented to the Emergency Department on the above date and was hospitalized for further evaluation of their emergent condition. Critical Care patient: No - Discharge Referral Referred to [facility] Med P.C.: No
[2017-03-13] MEDS: CARVEDILOL 6.25 MG TABLET (FP) PO SCH (15:01)
[2017-03-13 15:26] LABS: CALCIUM 8.7 mg/dL (8.5-10.1); COCKROFT - GAULT 18.49
[2017-03-13] MEDS: WARFARIN NA 5 MG TABLET (UD) PO SCH (16:56)
== END 2017-03-13 18:21 | disposition home or self-care (01) ==
LOC: JER 12:59 → INTOOBSV 16:37 → JERBED 16:37 → UNDOADMOB 16:37 → JERBED 17:30 → J4W 03-09 18:05 → J6S 03-10 11:14
PROVIDERS: ADMIT Internal Medicine; ATTEND Nurse Practitioner Family
PROC: 3E033NZ Introduction of Analgesics, Hypnotics, Sedatives into Peripheral Vein, Percutaneous Approach (ICD-10-PCS; principal; 2017-03-09)
PROC: 3E033GC Introduction of Other Therapeutic Substance into Peripheral Vein, Percutaneous Approach (ICD-10-PCS; 2017-03-09)
PROC: 3E013GC Introduction of Other Therapeutic Substance into Subcutaneous Tissue, Percutaneous Approach (ICD-10-PCS; 2017-03-09)
PROC: 3E013VG Introduction of Insulin into Subcutaneous Tissue, Percutaneous Approach (ICD-10-PCS; 2017-03-09)
DX: R07.89 Other chest pain (principal); I12.0 Hypertensive chronic kidney disease with stage 5 chronic kidney disease or end stage renal disease; E11.22 Type 2 diabetes mellitus with diabetic chronic kidney disease; N18.6 End stage renal disease; Z99.2 Dependence on renal dialysis; Z79.4 Long term (current) use of insulin; I44.0 Atrioventricular block, first degree; I25.10 Atherosclerotic heart disease of native coronary artery without angina pectoris; I48.91 Unspecified atrial fibrillation; Z79.01 Long term (current) use of anticoagulants; I25.2 Old myocardial infarction; I50.20 Unspecified systolic (congestive) heart failure; E78.5 Hyperlipidemia, unspecified; F32.9 Major depressive disorder, single episode, unspecified; D64.9 Anemia, unspecified; D69.6 Thrombocytopenia, unspecified; K80.20 Calculus of gallbladder without cholecystitis without obstruction; R19.7 Diarrhea, unspecified; R10.31 Right lower quadrant pain; R14.0 Abdominal distension (gaseous); Z86.73 Personal history of transient ischemic attack (TIA), and cerebral infarction without residual deficits; Z79.82 Long term (current) use of aspirin; Z95.0 Presence of cardiac pacemaker; Z95.5 Presence of coronary angioplasty implant and graft
CPT/HCPCS: 36415; 71010-TC; 76705-TC; 78226-TC; 80048; 80053; 82150; 82550; 83690; 83735; 83880; 84100; 84484; 85025; 85027; 85610; 86704; 86706; 86708; 87340; 93005; 93010; 99285-25; A9537; G0378; J0885

== ENCOUNTER 2017-04-04 07:24 | Observation (INO) | payer OTHER ==
--- NOTE | 2017-04-04 07:59 | PDOC ---
History of Present Illness - General Chief Complaint: Injury Stated Complaint: FALL, LEG PAIN Time Seen by Provider: 04/04/17 07:42 History Source: Patient Exam Limitations: No Limitations - History of Present Illness Initial Comments: 04/04/17 07:54 57-year-old male currently on Coumadin and receiving hemodialysis had fallen yesterday now presenting with left shoulder and left hip pain. Patient states was trying to change a light bulb while standing or chair when the chair had slipped causing him to land on his left side including the left side of his head. Patient states had no LOC but today the pain to his hip increase so decided come to the ER. Occurred: reports: yesterday Severity: reports: moderate, severe Pain Location: reports: head, lower extremity, upper extremity Method of Injury: Yes: direct blow, fall Loss of Consciousness: no loss of consciousness Associated Symptoms (Fall): trouble walking Past History - Past Medical History Allergies/Adverse Reactions: Allergies Allergy/AdvReac Type Severity Reaction Status Date / Time No Known Allergies Allergy Verified 04/04/17 07:26 Home Medications: Ambulatory Orders Aspirin [ASA -] 81 mg PO DAILY 03/08/17 Atorvastatin Ca [Lipitor] 40 mg PO HS 03/08/17 Calcitriol [Calcitriol -] 0.25 mcg PO DAILY 03/08/17 Calcium Acetate [Phoslo -] 667 mg PO DAILY 03/08/17 Carvedilol [Coreg] 6.25 mg PO BID 03/08/17 Insulin Glargine,Hum.rec.anlog [Lantus (10mL VIAL) -] 5 units SQ HS 03/08/17 Isosorbide Mononitrate [Imdur -] 60 mg PO DAILY 03/08/17 Omeprazole 40 mg PO DAILY 03/08/17 Sevelamer Carbonate [Renvela Powder Packet -] 2.4 gm PO DAILY 03/08/17 Warfarin Sodium [Coumadin] 2 mg PO DAILY 03/08/17 Anemia: Yes Cardiac Disorders: Yes (ppm,cad, PA,) CHF: Yes Diabetes: Yes (iddm) Dialysis: Yes (m-w-f lt arm fistula) Disorders: Yes (minimally urinates) HTN: Yes Hypercholesterolemia: Yes Suicide Attempt (Hx): No - Surgical History Cardiac Surgery: Yes (Stents) Orthopedic Surgery: Yes - Immunization History Immunization Up to Date: No - Psycho/Social/Smoking Cessation Hx Anxiety: No Suicidal Ideation: No Smoking Status: No Smoking History: Never smoked Have you smoked in the past 12 months: No Number of Cigarettes Smoked Daily: 0 If you are a former smoker, when did you quit?: 17 yrs ago Information on smoking cessation initiated: No 'Breaking Loose' booklet given: 12/12/15 Hx Alcohol Use: No Drug/Substance Use Hx: No Substance Use Type: None Hx Substance Use Treatment: No Patient Lives Alone: No Lives with/in: spouse/SO Review of Systems - Review of Systems Able to Perform ROS?: Yes Constitutional: No: Symptoms Reported HEENTM: No: Symptoms Reported, Blurred Vision Respiratory: No: Symptoms reported Cardiac (ROS): No: Symptoms Reported ABD/GI: No: Symptoms Reported : No: Symptoms Reported Musculoskeletal: Yes: Joint Pain (left shoulder) Integumentary: No: Symptoms Reported, Erythema, Lumps Neurological: No: Headache, Weakness, Dizziness Hematologic/Lymphatic: Yes: Easy Bleeding *Physical Exam - Vital Signs Last Vital Signs Temp Pulse Resp BP Pulse Ox 98.0 F 65 18 107/65 95 04/04/17 07:29 04/04/17 07:29 04/04/17 07:29 04/04/17 07:29 04/04/17 07:29 - Physical Exam General Appearance: Yes: Nourished, Appropriately Dressed. No: Apparent Distress HEENT: positive: EOMI, SOCORRO (noted bilateral cataract surgery), TMs Normal, Pharynx Normal. negative: Pale Conjunctivae Neck: positive: Supple Respiratory/Chest: positive: Lungs Clear, Normal Breath Sounds. negative: Chest Tender, Respiratory Distress, Accessory Muscle Use Cardiovascular: positive: Regular Rhythm, Regular Rate. negative: Murmur Gastrointestinal/Abdominal: positive: Soft. negative: Tenderness Extremity: positive: Normal Capillary Refill, Normal Inspection, Normal Range of Motion (left shoulder), Tender (to posterior aspect of left shoulder, generalized tenderness to left hip region. No srepitus of deformity with full weight bearing noted) Integumentary: positive: Normal Color, Warm, Moist. negative: Swelling, Ecchymosis Neurologic: positive: Motor Strength 5/5 (ambulatory) Heart Score/ECG Review - ECG Intrepretation Rhythm: Regular Rhythm (rate [address] depression in V5 V6 unchanged from previous February 2016) ED Treatment Course - LABORATORY CBC & Chemistry Diagram: 04/04/17 08:25 04/04/17 08:25 - RADIOLOGY Radiology Studies Ordered: Category Date Time Status CERVICAL SPINE CT W/O CONTR [CT] Stat CT Scan 04/04/17 07:[address] WITHOUT CONTRAST [CT] Stat CT Scan 04/04/17 07:51 Ordered CHEST X-RAY PORTABLE* [RAD] Stat Radiology 04/04/17 07:52 Ordered HIP & PELVIS-LEFT [RAD] Stat Radiology 04/04/17 07:51 Ordered SHOULDER-LEFT [RAD] Stat Radiology 04/04/17 07:51 Ordered Medical Decision Making - Medical Decision Making 04/04/17 08:18 Patient status post fall off a chair yesterday on his left side.. Patient currently on Coumadin secondary to permanent pacemaker and is on dialysis. Patient did strike his head on the floor but complaining of left hip and left shoulder pain. Patient ordered for her head and neck CT, labs including coags, shoulder and left hip and pelvis x-ray. 04/04/17 10:47 04/04/17 10:47 Laboratory Tests 03/08/17 03/09/17 03/13/17 20:25 02:40 07:10 WBC Hgb Hct Plt Count 61 L Sodium Potassium Chloride Carbon Dioxide Anion Gap BUN Creatinine Creat Clearance w eGFR Random Glucose Calcium Total Bilirubin AST ALT Alkaline Phosphatase Creatine Kinase Troponin I 0.35 H D 0.57 H D Total Protein Blood Type 03/13/17 04/04/17 04/04/17 10:45 08:25 08:25 WBC 3.9 L Hgb 11.7 Hct 34.7 L Plt Count 62 L 63 L Sodium 135 L Potassium 5.1 D Chloride 96 L Carbon Dioxide 26 D Anion Gap 13 BUN 49 H D Creatinine 6.9 H D Creat Clearance w eGFR 8.26 Random Glucose 252 H D Calcium 9.2 Total Bilirubin 0.9 AST 17 D ALT 18 D Alkaline Phosphatase 204 H D Creatine Kinase 139 Troponin I 0.34 H D Total Protein 8.0 Blood Type 04/04/17 08:25 WBC Hgb Hct Plt Count Sodium Potassium Chloride Carbon Dioxide Anion Gap BUN Creatinine Creat Clearance w eGFR Random Glucose Calcium Total Bilirubin AST ALT Alkaline Phosphatase Creatine Kinase Troponin I Total Protein Blood Type A POSITIVE 04/04/17 10:[address] negative for acute findings. Cervical CT negative for acute findings. Patient shoulder x-ray shows degenerative changes along with his left hip showing degenerative changes. Chest x-ray shows no acute disease and notes cardiomegaly. 04/04/17 11:00 Patient requesting something for pain to the groin .and one Percocet was ordered. Patient reports he did not take his medication this morning and will admit to hospital since Dr. Mcguire his PCP does not admit here. Call also placed to Dr. Roxanna Laughlin, patient's genetics nurse since he is due for dialysis tomorrow at 5 AM. *DC/Admit/Observation/Transfer Diagnosis at time of Disposition: ESRD on hemodialysis, Anticoagulated with warfarin Injury of head Qualifiers: Encounter type: initial encounter Qualified Code(s): S09.90XA - Unspecified injury of head, initial encounter - Discharge Dispostion Admit: Yes - Referrals Referrals: Radha Zarate MD [Primary Care Provider] -
[2017-04-04 08:40] LABS: EOSINOPHIL 2.4 % (0-4.5); MCHC 33.8 g/dl (32.0-35.9); MEAN CELL VOLUME 103.7 fl (80-96); MEAN PLT VOLUME 9.1 fl (7.5-11.1); NEUTROPHILS 67.3 % (42.8-82.8); PLATELET COUNT 63 K/MM3 (134-434); WHITE BLOOD COUNT 3.9 K/mm3 (4.0-10.0)
[2017-04-04 09:05] LABS: INR 1.66 (0.82-1.09); PROTHROMBIN TIME (PATIENT) 18.4 SEC (9.98-11.88)
[2017-04-04 09:07] LABS: ALBUMIN 3.5 g/dl (3.4-5.0); BILIRUBIN,TOTAL 0.9 mg/dL (0.2-1.0); CALCIUM 9.2 mg/dL (8.5-10.1); COCKROFT - GAULT 10.1; CREATININE 6.9 mg/dL (0.7-1.3)
[2017-04-04 09:09] LABS: TROPONIN I 0.34 ng/ml (0.00-0.05)
--- NOTE | 2017-04-04 10:35 | EKG ---
Test Reason : Blood Pressure : / mmHG Vent. Rate : 061 BPM Atrial Rate : 061 BPM P-R Int : 236 ms QRS Dur : 116 ms QT Int : 458 ms P-R-T Axes : 065 123 -87 degrees QTc Int : 461 ms SINUS RHYTHM WITH 1ST DEGREE A-V BLOCK LEFT POSTERIOR FASCICULAR BLOCK PROLONGED QT ABNORMAL ECG WHEN COMPARED WITH ECG OF 08-MAR-2017 13:02, T WAVE INVERSION MORE EVIDENT IN INFERIOR LEADS CLINICAL CORRELATION IS RECOMMENDED Confirmed by GERMAN DALTON, KATIE ([id number]) on 04/04/2017 10:34:32 AM Referred By: Confirmed By:KATIE PORTER MD
[2017-04-04] MEDS ORDERED: OXYCODONE/APAP 5/325MG COMBO TABLET PO ONE (10:59)
[2017-04-04] MEDS ORDERED: OXYCODONE/APAP 5/325MG COMBO TABLET ONE (11:41)
[2017-04-04] MEDS ORDERED: ACETAMINOPHEN 325 MG TABLET (FP) PO PRN (12:01)
--- NOTE | 2017-04-04 13:09 | HP ---
CHIEF COMPLAINT: I fell PCP: Dr. Mcguire Lining Stitcher: Dr. Laughlin Assembler Musical Instruments: Dr. Ambriz Neurologist: Dr. Espinosa HISTORY OF PRESENT ILLNESS: 56 yo Mexican speaking M with h/o HTN, HLD, CAD s/p stent and [place] on coumadin and ASA, systolic CHF, embolic CVA, IDDM, ESRD on dialysis (M,W,F), and depression who presents to the ER s/p mechanical fall. Patient was standing on a chair and changing a light bulb in his house. He lost balance, chair collapsed , and he fell onto the floor on his L side. He stated he hurt his entire L side including his leg, arm, and head and his inner thigh hurts the most. Denies loss of consciousness, confusion, chest pain, pain on breathing, shortness of breath. ER course was notable for: (1) All lab works at baseline (2) Negative CT head andspine, X-ray of shoulder, chest, and pelvis Recent Travel: Denies PAST MEDICAL HISTORY: As above PAST SURGICAL HISTORY: None Social History: Smoking: Denies Alcohol: Denies Drugs: Denies Family History: Non-contributory Allergies No Known Allergies Allergy (Verified 04/04/17 07:26) HOME MEDICATIONS: Home Medications Medication Instructions Recorded Aspirin [ASA -] 81 mg PO DAILY 03/08/17 Atorvastatin Ca [Lipitor] 40 mg PO HS 03/08/17 Calcitriol [Calcitriol -] 0.25 mcg PO DAILY 03/08/17 Calcium Acetate [Phoslo -] 667 mg PO DAILY 03/08/17 Carvedilol [Coreg] 6.25 mg PO BID 03/08/17 Insulin Glargine,Hum.rec.anlog 5 units SQ HS 03/08/17 [Lantus (10mL VIAL) -] Isosorbide Mononitrate [Imdur -] 60 mg PO DAILY 03/08/17 Omeprazole 40 mg PO DAILY 03/08/17 Sevelamer Carbonate [Renvela 2.4 gm PO DAILY 03/08/17 Powder Packet -] Warfarin Sodium [Coumadin] 2 mg PO DAILY 03/08/17 REVIEW OF SYSTEMS CONSTITUTIONAL: Absent: fever, chills, diaphoresis, generalized weakness, malaise, loss of appetite, weight change HEENT: Absent: rhinorrhea, nasal congestion, throat pain, throat swelling, difficulty swallowing, mouth swelling, ear pain, eye pain, visual changes CARDIOVASCULAR: Absent: chest pain, syncope, palpitations, irregular heart rate, lightheadedness , peripheral edema RESPIRATORY: Absent: cough, shortness of breath, dyspnea with exertion, orthopnea, wheezing, stridor, hemoptysis GASTROINTESTINAL: Absent: abdominal pain, abdominal distension, nausea, vomiting, diarrhea, constipation, melena, hematochezia GENITOURINARY: Absent: dysuria, frequency, urgency, hesitancy, hematuria, flank pain, genital pain MUSCULOSKELETAL: L arm pain, L thigh pain Absent: myalgia, arthralgia, joint swelling, back pain, neck pain SKIN: Absent: rash, itching, pallor HEMATOLOGIC/IMMUNOLOGIC: Absent: easy bleeding, easy bruising, lymphadenopathy, frequent infections ENDOCRINE: Absent: unexplained weight gain, unexplained weight loss, heat intolerance, cold intolerance NEUROLOGIC: Absent: headache, focal weakness or paresthesias, dizziness, unsteady gait, seizure, mental status changes, bladder or bowel incontinence PSYCHIATRIC: Absent: anxiety, depression, suicidal or homicidal ideation, hallucinations. PHYSICAL EXAMINATION GENERAL: AAO x 3, not in cardiopulmonary distress HEAD: NC, AT EYES: extraocular movements intact, sclera anicteric, conjunctiva clear. No lid lag. LUNGS: CTAB. No wheezes, and no crackles. No accessory muscle use. HEART: Regular rate and rhythm, normal S1 and S2 without murmur, rub or gallop. ABDOMEN: Soft, nontender, not distended, normoactive bowel sounds, no guarding, no rebound, no masses. MUSCULOSKELETAL: Normal range of motion at all joints. UPPER EXTREMITIES: L lateral arm tenderness upon pressing LOWER EXTREMITIES: L medial and lateral thigh tenderness upon pressing NEUROLOGICAL: Cranial nerves II-XII intact. Normal speech. Normal gait. SKIN: bruises on L arm and lateral thigh CBCD WBC 3.9 K/mm3 (4.0-10.0) L 04/04/17 08:25 RBC 3.34 M/mm3 (4.00-5.60) L 04/04/17 08:25 Hgb 11.7 GM/dL (11.7-16.9) 04/04/17 08:25 Hct 34.7 % (35.4-49) L 04/04/17 08:25 MCV 103.7 fl (80-96) H 04/04/17 08:25 MCHC 33.8 g/dl (32.0-35.9) 04/04/17 08:25 RDW 16.0 % (11.9-15.9) H 04/04/17 08:25 Plt Count 63 K/MM3 (134-434) L 04/04/17 08:25 MPV 9.1 fl (7.5-11.1) 04/04/17 08:25 CMP Sodium 135 mmol/L (136-145) L 04/04/17 08:25 Potassium 5.1 mmol/L (3.5-5.1) D 04/04/17 08:25 Chloride 96 mmol/L (98-107) L 04/04/17 08:25 Carbon Dioxide 26 mmol/L (21-32) D 04/04/17 08:25 Anion Gap 13 (8-16) 04/04/17 08:25 BUN 49 mg/dL (7-18) H D 04/04/17 08:25 Creatinine 6.9 mg/dL (0.7-1.3) H D 04/04/17 08:25 Creat Clearance w eGFR 8.26 (>60) 04/04/17 08:25 Calcium 9.2 mg/dL (8.5-10.1) 04/04/17 08:25 Total Bilirubin 0.9 mg/dL (0.2-1.0) 04/04/17 08:25 AST 17 U/L (15-37) D 04/04/17 08:25 ALT 18 U/L (12-78) D 04/04/17 08:25 Alkaline Phosphatase 204 U/L (45-117) H D 04/04/17 08:25 Total Protein 8.0 g/dl (6.4-8.2) 04/04/17 08:25 Albumin 3.5 g/dl (3.4-5.0) 04/04/17 08:25 Imaging: CXR on 04/04: Cardiomegaly, no acute disease. X-ray of pelvis, shoulder: Mild degenerative arthritis with no fracture or acute bone CT head and cervical spine on 04/04: no fracture or bleed ASSESSMENT/PLAN: 56 yo Mexican speaking M admitted for s/p mechanical fall while on coumadin. L sided bodily contusion, s/p mechanical fall - Accident, mild injury - On coumadin, HGB at baseline, INR therapeutic - Tynelol for pain control - Head and cervical CT and X-ray of L extremity negative - Repeat head CT tomorrow h/o A-fib and CAD s/p stent and [place] - Cont. coreg, liptor, coumadin and ASA ESRD on HD - Scheduled in-house HD tomorrow - Dr. Laughlin aware - Cont. renvela, phoslo and calcitriol - Monitor BMP IDDM - On sliding scale and lantus 2 units HS - BGM FEN - IVF not indicated - Cont. to monitor lytes - Diabetic diet Prophylaxis - DVT: On coumadin and asa - GI: on home PPI Disposition - March discharge after HD and CT head tomorrow Code status - Full code Visit type - Emergency Visit Emergency Visit: Yes ED Registration Date: 04/04/17 Care time: The patient presented to the Emergency Department on the above date and was hospitalized for further evaluation of their emergent condition. - New Patient This patient is new to me today: Yes Date on this admission: 04/04/17 - Critical Care Critical Care patient: No
[2017-04-04] MEDS ORDERED: ACETAMINOPHEN 325 MG TABLET (FP) ONE (14:52)
[2017-04-04] MEDS ORDERED: PANTOPRAZOLE 40 MG TABLET (FP) ONE (14:53)
[2017-04-04] MEDS ORDERED: ASPIRIN 81 MG CHEWABLE TABLETS ONE (14:53)
[2017-04-04] MEDS: CARVEDILOL 6.25 MG TABLET (FP) PO SCH ×2 (14:53→21:36)
[2017-04-04] MEDS: WARFARIN NA 2 MG TABLET (UD) PO SCH (14:53)
[2017-04-04] MEDS: ASPIRIN 81 MG CHEWABLE TABLETS PO SCH (14:53)
[2017-04-04] MEDS ORDERED: ISOSORBIDE MONONITRATE 60 MG TAB.SR.24H (FP) PO ONE (14:54)
[2017-04-04] MEDS ORDERED: HEPARIN NA (PORCINE) 5,000 UNITS/ML 1ML VIAL ONE (14:55)
[2017-04-04] MEDS ORDERED: WARFARIN NA 1 MG TABLET (FP) ONE (14:56)
[2017-04-04] MEDS: HEPARIN NA (PORCINE) 5,000 UNITS/ML 1ML VIAL SQ SCH ×2 (14:57→21:38)
[2017-04-04] MEDS: ISOSORBIDE MONONITRATE 60 MG TAB.SR.24H (FP) PO SCH (14:57)
[2017-04-04] MEDS: PANTOPRAZOLE 40 MG TABLET (FP) PO SCH (14:57)
--- NOTE | 2017-04-04 15:12 | PN ---
Teaching Attending Note Name of Resident: Piter Myers ATTENDING PHYSICIAN STATEMENT I saw and evaluated the patient. I reviewed the resident's note and discussed the case with the resident. I agree with the resident's findings and plan as documented. SUBJECTIVE: This is a 57-year-old man with a history of CAD, DE, stents, pacemaker, type 2 DM, ESRD on HD, CVA, chronic systolic heart failure, depression who came to the ER with left shoulder and left hip pain after falling yesterday. While standing on a chair changing a light bulb, he lost his balance and the chair slid out from under him. He fell, landing on his left side , hitting the left side of his head. He denies LOC. OBJECTIVE: Vital Signs Period Temp Pulse Resp BP Sys/Parham Pulse Ox Last 24 Hr 98.0 F 65 18 107/65 95 HEART: S1S2, RRR LUNGS: Clear ABDOMEN: Soft, non-tender, non-distended, normal BS EXTREMITIES: No edema, FROM, ecchymoses left arm and thigh ASSESSMENT AND PLAN: This is a 57-year-old man with a history of CAD, DE, stents, pacemaker, type 2 DM, ESRD on HD, CVA, chronic systolic heart failure, depression who fell yesterday and presents to the ER today with left shoulder and left hip pain. 1. Fall with head trauma and contusions of left arm and left thigh - Head CT negative - CT C-spine negative for fracture - Left hip and pelvis x-rays negative for fracture - Patient is on Coumadin so will place in observation and repeat head CT tomorrow 2. ESRD - Continue HD M/W/F - Continue Renvela, Rocaltrol 3. Chronic systolic heart failure - Stable 4. CAD, history of DE, stents - Continue Coreg, Imdur, Lipitor 5. Type 2 diabetes mellitus - Continue Lantus 6. History of pacemaker 7. Depression
[2017-04-04] MEDS: INSULIN SLIDING SCALE (NOVOLOG) 1 VIAL SQ SCH ×2 (18:34→21:34)
[2017-04-04 20:42] VITALS: BMI 25.1
[2017-04-04 20:52] LABS: TROPONIN I 0.29 ng/ml (0.00-0.05)
[2017-04-04] MEDS: CALCIUM ACETATE 667 MG CAPSULE (FP) PO SCH (21:36)
[2017-04-04] MEDS: SEVELAMER CARBONATE 2.4 GM POWDER PACKET PO SCH (21:36)
[2017-04-04] MEDS: CALCITRIOL 0.25 MCG CAPSULE (FP) PO SCH (21:37)
[2017-04-04] MEDS ORDERED: ATORVASTATIN CA 40 MG TABLET (FP) PO SCH (22:00)
[2017-04-04] MEDS ORDERED: INSULIN GLARGINE SQ SCH (22:00)
[2017-04-04] MEDS ORDERED: INSULIN GLARGINE HUM REC ANLOG 5 UNIT SQ SCH (22:00)
[2017-04-04] MEDS ORDERED: INSULIN DETEMIR 100 UNITS/ML MDV SQ SCH (22:00)
[2017-04-05] MEDS: HEPARIN NA (PORCINE) 5,000 UNITS/ML 1ML VIAL SQ SCH ×2 (06:36→15:14)
[2017-04-05] MEDS: INSULIN SLIDING SCALE (NOVOLOG) 1 VIAL SQ SCH ×3 (06:38→17:39)
[2017-04-05 07:44] LABS: INR 1.58 (0.82-1.09); PROTHROMBIN TIME (PATIENT) 17.5 SEC (9.98-11.88)
[2017-04-05 07:47] LABS: ACTIVATED PTT 39.5 SECONDS (26.9-34.4)
[2017-04-05 08:08] LABS: CALCIUM 9.2 mg/dL (8.5-10.1)
[2017-04-05 08:24] LABS: PHOSPHOROUS 5.2 mg/dL (2.5-4.9); TROPONIN I 0.24 ng/ml (0.00-0.05)
[2017-04-05 08:37] LABS: CREATININE 8.2 mg/dL (0.7-1.3)
[2017-04-05 09:11] LABS: MCH 34.6 pg (25.7-33.7); MCHC 33.3 g/dl (32.0-35.9); MEAN CELL VOLUME 104.2 fl (80-96); MEAN PLT VOLUME 9.1 fl (7.5-11.1); PLATELET COUNT 60 K/MM3 (134-434); RDW 16.1 % (11.9-15.9); WHITE BLOOD COUNT 3.6 K/mm3 (4.0-10.0)
--- NOTE | 2017-04-05 11:34 | CONSULT ---
Consult - text type - Consultation Consultation Note: Renal Consult for ESRD on HD This is a 56 year old Gentleman with PMhx of ESRD on HD (MWF), CAD s/p CT and PCI, Hypertension, IDDM, Hyperlipidemia who presented s/p fall at home with complaints of left sided shoulder, rib and leg pain. Pt did have head trauma but did not have any LOC. Last dialysis was on Monday. Denies any chest pain, sob, fever or chills. Imaging studies showed no fractures. CT of the head showed no bleed. Pt is currently on dialysis. Tolerating it well. PMhx: As above Allergies: NKDA Family Hx: NC Social Hx: No T/A/D ROS: as per HPI Home Meds: Home Medications Medication Instructions Recorded Aspirin [ASA -] 81 mg PO DAILY 03/08/17 Atorvastatin Ca [Lipitor] 40 mg PO HS 03/08/17 Calcitriol [Calcitriol -] 0.5 mcg PO .TUTHFR DAILY 03/08/17 Calcium Acetate [Phoslo -] 1,134 mg PO TIDCM 03/08/17 Carvedilol [Coreg] 6.25 mg PO BID 03/08/17 Insulin Glargine,Hum.rec.anlog 5 units SQ HS 03/08/17 [Lantus (10mL VIAL) -] Isosorbide Mononitrate [Imdur -] 60 mg PO DAILY 03/08/17 Omeprazole 40 mg PO DAILY 03/08/17 Sevelamer Carbonate [Renvela 2.4 gm PO DAILY 03/08/17 Powder Packet -] Warfarin Sodium [Coumadin] 2 mg PO DAILY 03/08/17 Vital Signs Temperature 97.8 F 04/05/17 06:00 Pulse Rate 55 L 04/05/17 09:50 Respiratory Rate 18 04/05/17 09:50 Blood Pressure 116/63 04/05/17 09:50 O2 Sat by Pulse Oximetry (%) 95 04/04/17 20:58 Intake & Output 04/02/17 04/03/17 04/04/17 04/05/17 23:59 23:59 23:59 23:59 Intake Total 100 300 Balance 100 300 Weight 142 lb 143 lb 4.8 oz Gen: NAD, awake and alert HEENT: NC/AT, MMM, NO JVD, neck supple CVS: RRR, No M/R Lungs: CTA Abd: Soft NT/ND Ext: No edema, clubbing or cyanosis MS: left sided rib pain, mild, left thigh pain, no bruising or hematoma seen Access: Left ARM AVF CBC, BMP 04/05/17 08:30 04/05/17 06:15 Laboratory Tests 04/04/17 04/04/17 04/05/17 08:25 20:00 06:15 Random Glucose 89 D Calcium 9.2 Phosphorus 5.2 H Troponin I 0.34 H D 0.29 H 04/05/17 06:15 Random Glucose Calcium Phosphorus Troponin I 0.24 H Current Medications Acetaminophen (Tylenol -) 650 mg PO Q4H PRN PRN Reason: FEVER OR PAIN Aspirin (Asa -) 81 mg PO DAILY [facility] Last Admin: 04/04/17 14:53 Dose: 81 mg Atorvastatin Calcium (Lipitor -) 40 mg PO HS [facility] Last Admin: 04/04/17 21:37 Dose: 40 mg Calcitriol (Rocaltrol -) 0.25 mcg PO DAILY [facility] Last Admin: 04/04/17 21:37 Dose: 0.25 mcg Calcium Acetate (Phoslo -) 667 mg PO DAILY [facility] Last Admin: 04/04/17 21:36 Dose: 667 mg Carvedilol (Coreg -) 6.25 mg PO BID [facility] Last Admin: 04/04/17 21:36 Dose: 6.25 mg Heparin Sodium (Porcine) (Heparin -) 5,000 unit SQ TID [facility] Last Admin: 04/05/17 06:36 Dose: 5,000 unit Insulin Aspart (Novolog Vial Sliding Scale -) 1 vial SQ [facility] PRN Reason: Protocol Last Admin: 04/05/17 06:38 Dose: Not Given Insulin Detemir (Levemir Vial) 5 units SQ HS [facility] Last Admin: 04/04/17 21:35 Dose: 5 unit Isosorbide Mononitrate (Imdur -) 60 mg PO DAILY [facility] Last Admin: 04/04/17 14:57 Dose: 60 mg Pantoprazole Sodium (Protonix -) 40 mg PO DAILY [facility] Last Admin: 04/04/17 14:57 Dose: 40 mg Sevelamer Carbonate (Renvela Powder Packet -) 2.4 gm PO DAILY [facility] Last Admin: 05/09/17 21:36 Dose: 2.4 gm Warfarin Sodium (Coumadin -) 2 mg PO DAILY [facility] Last Admin: 04/04/17 14:53 Dose: 2 mg A/P 56 year old Gentleman with PMhx of ESRD on HD (MWF), CAD s/p CT and PCI, Hypertension, IDDM, Hyperlipidemia who presented s/p fall at home with complaints of left sided shoulder, rib and leg pain #S/p Mechanical fall on Coumadin imaging studies showed no fractures CT head showed no bleeding pt continues to have thigh pain, if persists may be prudent to image the thigh to r/o hematoma #ESRD on HD Pt is currently on dialysis Will continue HD on MW schedule Dose all meds for intermittent HD #Renal Osteodystrphy continue RenJuan main D/c Phos low trend phos #CAD Continue Coreg, ASA Thank you Will follow Yonis Farooq DO
[2017-04-05] MEDS: WARFARIN NA 2 MG TABLET (UD) PO SCH (12:36)
[2017-04-05] MEDS: CARVEDILOL 6.25 MG TABLET (FP) PO SCH (12:36)
[2017-04-05] MEDS: ASPIRIN 81 MG CHEWABLE TABLETS PO SCH (12:36)
[2017-04-05] MEDS: ISOSORBIDE MONONITRATE 60 MG TAB.SR.24H (FP) PO SCH (12:36)
[2017-04-05] MEDS: CALCIUM ACETATE 667 MG CAPSULE (FP) PO SCH (12:36)
[2017-04-05] MEDS: SEVELAMER CARBONATE 2.4 GM POWDER PACKET PO SCH (12:37)
[2017-04-05] MEDS: PANTOPRAZOLE 40 MG TABLET (FP) PO SCH (12:37)
[2017-04-05] MEDS: CALCITRIOL 0.25 MCG CAPSULE (FP) PO SCH (12:37)
--- NOTE | 2017-04-05 16:52 | DS ---
Physical Exam: SUBJECTIVE: Patient seen and examined at bedside. He's getting ready for dialysis. c/o persistent L inner thigh pain which prevents him from ambulating. Denies fever, chills, chest pain, sob, urinary or bowel symptoms. OBJECTIVE: Vital Signs Period Temp Pulse Resp BP Sys/Parham Pulse Ox Last 24 Hr 97.9 F-98.1 F 52-62 18-18 103-122/50-72 95 PHYSICAL EXAM GENERAL: AAO x 3, not in cardiopulmonary distress HEAD: NC, AT EYES: extraocular movements intact, sclera anicteric, conjunctiva clear. No lid lag. LUNGS: CTAB. No wheezes, and no crackles. No accessory muscle use. HEART: Regular rate and rhythm, normal S1 and S2 without murmur, rub or gallop. ABDOMEN: Soft, nontender, not distended, normoactive bowel sounds, no guarding, no rebound, no masses. MUSCULOSKELETAL: Normal range of motion at all joints. UPPER EXTREMITIES: L lateral arm tenderness upon pressing LOWER EXTREMITIES: L medial and lateral thigh tenderness upon pressing NEUROLOGICAL: Cranial nerves II-XII intact. Normal speech. Normal gait. SKIN: bruises on L arm and lateral thigh LABS Laboratory Results - last 24 hr 04/05/17 04/05/17 04/05/17 08:30 12:00 12:00 WBC 3.6 L RBC 3.40 L Hgb 11.8 Hct 35.5 MCV 104.2 H MCHC 33.3 RDW 16.1 H Plt Count 60 L MPV 9.1 BUN 18 D Creatinine 2.7 H HOSPITAL COURSE: Date of Admission:04/05/17 56 yo Divehi speaking M admitted for s/p mechanical fall while on coumadin. On admission, his first CT head was negative and repeat CT today was negative too. CXR showed Cardiomegaly, no acute disease. X-ray of pelvis, shoulder show mild degenerative arthritis with no fracture or acute bone. Today he received hemodialysis in the hospital but he still c/o persistent L inner thigh pain on ambulation, CT pelvis and hip does not show any fracture. He's now in stable condition to be discharged home and follow up with his piccoloist for ESRD management. Date of Discharge: 04/05/17 Minutes to complete discharge: 35 Discharge Summary Reason For Visit: HEAD INJURY Current Active Problems Accident due to mechanical fall without injury (Acute) ESRD on hemodialysis (Acute) Head injury (Acute) Condition: Stable - Instructions Diet, Activity, Other Instructions: You were admitted to the hospital after a mechanical fall. All imaging of your brain and bones are negative for bleed or fracture. You also received hemodialysis during your stay. You are not in stable condition to be discharged. You may take motrin 600mg as needed for musculoskeletal pain. Referrals: Roxanna Laughlin MD [Staff Physician] - Radha Zarate MD [Primary Care Provider] - Disposition: HOME - Home Medications Comprehensive Discharge Medication List: Ambulatory Orders Aspirin [ASA -] 81 mg PO DAILY 03/08/17 Atorvastatin Ca [Lipitor] 40 mg PO HS 03/08/17 Calcitriol [Calcitriol -] 0.5 mcg PO .TUTHFR DAILY 03/08/17 Calcium Acetate [Phoslo -] 1,134 mg PO TIDCM 03/08/17 Carvedilol [Coreg] 6.25 mg PO BID 03/08/17 Insulin Glargine,Hum.rec.anlog [Lantus (10mL VIAL) -] 5 units SQ HS 03/08/17 Isosorbide Mononitrate [Imdur -] 60 mg PO DAILY 03/08/17 Omeprazole 40 mg PO DAILY 03/08/17 Sevelamer Carbonate [Renvela Powder Packet -] 2.4 gm PO DAILY 03/08/17 Warfarin Sodium [Coumadin] 2 mg PO DAILY 03/08/17 This patient is new to me today: No Emergency Visit: No Critical Care patient: No - Discharge Referral Referred to [facility] No
--- NOTE | 2017-04-05 17:54 | PN ---
Teaching Attending Note Name of Resident: Piter Myers ATTENDING PHYSICIAN STATEMENT I saw and evaluated the patient. I reviewed the resident's note and discussed the case with the resident. I agree with the resident's findings and plan as documented. SUBJECTIVE: OBJECTIVE: Vital Signs Period Temp Pulse Resp BP Sys/Parham Pulse Ox Last 24 Hr 97.2 F-98.1 F 52-65 18-20 93-124/50-72 95-95 HEART: S1S2, RRR LUNGS: Clear ABDOMEN: Soft, non-tender, non-distended, normal BS EXTREMITIES: No edema, FROM, ecchymoses left arm and thigh ASSESSMENT AND PLAN: This is a 57-year-old man with a history of CAD, ND, stents, pacemaker, type 2 DM, ESRD on HD, CVA, chronic systolic heart failure, depression who presented to the ER with left shoulder and left hip pain one day after falling. 1. Fall with head trauma and contusions of left arm and left thigh - Repeat head CT negative - Ok for discharge home 2. ESRD - Continue HD M/W/F - Continue Renvela, Rocaltrol 3. Chronic systolic heart failure - Stable 4. CAD, history of ND, stents - Continue Coreg, Imdur, Lipitor 5. Type 2 diabetes mellitus - Continue Lantus 6. History of pacemaker 7. Depression
[2017-04-05] MEDS ORDERED: WARFARIN NA 2 MG TABLET (UD) PO SCH (18:00)
[2017-04-05 18:45] VITALS: BP 108/48; PULSE 68; TEMP 97.7
== END 2017-04-05 20:38 | disposition home or self-care (01) ==
LOC: JER 07:24 → JERBED 11:02 → UNDOADMOB 11:02 → INTOOBSV 12:03 → OBSVTOIN 12:03 → JERBED 18:05 → J8W 18:05 → JERBED 04-05 08:00
PROVIDERS: ADMIT Internal Medicine; ATTEND Internal Medicine
PROC: 3E013VG Introduction of Insulin into Subcutaneous Tissue, Percutaneous Approach (ICD-10-PCS; principal; 2017-04-05)
DX: S09.90XA Unspecified injury of head, initial encounter (principal); I12.0 Hypertensive chronic kidney disease with stage 5 chronic kidney disease or end stage renal disease; E11.22 Type 2 diabetes mellitus with diabetic chronic kidney disease; N18.6 End stage renal disease; Z99.2 Dependence on renal dialysis; Z79.4 Long term (current) use of insulin; Z79.01 Long term (current) use of anticoagulants; Z79.82 Long term (current) use of aspirin; E78.5 Hyperlipidemia, unspecified; D64.9 Anemia, unspecified; I25.10 Atherosclerotic heart disease of native coronary artery without angina pectoris; I25.2 Old myocardial infarction; I50.20 Unspecified systolic (congestive) heart failure; Z95.0 Presence of cardiac pacemaker; Z86.79 Personal history of other diseases of the circulatory system; S40.022A Contusion of left upper arm, initial encounter; S70.12XA Contusion of left thigh, initial encounter; W07.XXXA Fall from chair, initial encounter; Y93.89 Activity, other specified; Y92.009 Unspecified place in unspecified non-institutional (private) residence as the place of occurrence of the external cause
CPT/HCPCS: 36415; 70450-TC; 71010-TC; 72125-TC; 72192-TC; 73030-TC-LT; 73523-TC; 73700-TC-RT; 80048; 80053; 82550; 82565; 84100; 84484; 84520; 85025; 85027; 85610; 85730; 86850; 86900; 86901; 93005; 93010; 99283-25; G0378; J1644

== ENCOUNTER 2017-05-17 03:47 | Inpatient (IN) | payer OTHER ==
--- NOTE | 2017-05-17 04:14 | PDOC ---
History of Present Illness - General Stated Complaint: DIFFICULTY BREATHING, PAIN/NECK Time Seen by Provider: 05/17/17 03:52 - History of Present Illness Initial Comments: 05/17/17 04:13 CHIEF COMPLAINT: SOB, headache, neck pain HISTORY OF PRESENT ILLNESS: 57 yo M with h/o HTN, HLD, CAD s/p stent and MN on coumadin and ASA, systolic CHF, embolic CVA, IDDM, ESRD on dialysis (M,W,F), and depression presents to ED s/p syncopal episode with c/o of SOB, left sided head/neck pain. Patient's is at bedside and reports that approximately on hour ago, he lost consciousness in bed sitting next to her but then regained consciousness. He went to the bathroom twice and after the second time when he sat back down on the bed felt as if he were going to lose consciousness again. He reports severe pain to the left side of his head and neck. He reports minimal chest pain but does report that he is having difficulty breathing. PAST MEDICAL HISTORY: Denies past medical history FAMILY HISTORY: Denies SOCIAL HISTORY: Denies tobacco, alcohol, illicit drug use. SURGICAL HISTORY: Denies ALLERGIES: No known drug allergies REVIEW OF SYSTEMS General/Constitutional: Denies fever or chills. Denies weakness, weight change. HEENT: Denies change in vision. Denies ear pain or discharge. Denies sore throat. Cardiovascular: Denies chest pain or shortness of breath. Respiratory: Denies cough, wheezing, or hemoptysis. Gastrointestinal: Denies nausea, vomiting, diarrhea or constipation. Denies rectal bleeding. Genitourinary: Denies dysuria, frequency, or change in urination. Musculoskeletal: Denies joint or muscle swelling or pain. Denies neck or back pain. Skin and breasts: Denies rash or easy bruising. Neurologic: Syncope with LOC. L sided headache. Denies loss of sensation. PHYSICAL EXAM General Appearance: Well-appearing, appropriately dressed. No apparent distress , no intoxication. HEENT: Bilateral irregularly shaped pupils with minimal constriction s/p cataract surgery. No conjunctival pallor. No photophobia, scleral icterus. Neck: Supple. Trachea midline. No tenderness, rigidity, carotid bruit, stridor , lymphadenopathy, or thyromegaly. Respiratory/Chest: Lungs CTAB. No shortness of breath, chest tenderness, respiratory distress, accessory muscle use. No crackles, rales, rhonchi, stridor , wheezing, dullness Cardiovascular: RRR. S1, S2. No JVD, murmur, bradycardia, tachycardia. Vascular Pulses: Dorsalis-Pedis (R): 2+, Dorsalis-Pedis (L): 2+ Gastrointestinal/Abdominal: Normal bowel sounds. Abdomen soft, non-distended. No tenderness or rebound tenderness. No organomegaly, pulsatile mass, guarding , hernia, hepatomegaly, splenomegaly. Lymphatic: No adenopathy, tenderness. Musculoskeletal/Extremities: Dialysis shunt to left upper arm. Normal inspection. FROM of all extremities, normal capillary refill. Pelvis Stable. No CVA tenderness. No tenderness to extremities, pedal edema, swelling, erythema or deformity. Integumentary: Appropriate color, dry, warm. 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 Fully oriented, alert. Appropriate mood/affect. Motor strength 5/5. No appreciable EOM palsy, facial droop or sensory deficit. 05/17/17 04:49 Past History - Past Medical History Allergies/Adverse Reactions: Allergies Allergy/AdvReac Type Severity Reaction Status Date / Time No Known Allergies Allergy Verified 05/17/17 04:51 Home Medications: Ambulatory Orders Aspirin [ASA -] 81 mg PO DAILY 03/08/17 Atorvastatin Ca [Lipitor] 40 mg PO HS 03/08/17 Calcitriol [Calcitriol -] 0.5 mcg PO .TUTHFR DAILY 03/08/17 Isosorbide Mononitrate [Imdur -] 30 mg PO DAILY 03/08/17 Omeprazole 40 mg PO DAILY 03/08/17 Sevelamer Carbonate [Renvela Powder Packet -] 2.4 gm PO DAILY 03/08/17 Warfarin Sodium [Coumadin] 2 mg PO DAILY 03/08/17 Calcium Acetate [Phoslo -] 667 mg PO DAILY 05/17/17 Carvedilol [Coreg -] 3.125 mg PO BID 05/17/17 Insulin Glargine,Hum.rec.anlog [Lantus (nf)] 0 units SQ DAILY 05/17/17 Anemia: Yes Cardiac Disorders: (,stent) CHF: Yes Diabetes: Yes Dialysis: Yes (m-w-f lt arm fistula) Disorders: Yes (minimally urinates) HTN: Yes Hypercholesterolemia: Yes Suicide Attempt (Hx): No - Surgical History Cardiac Surgery: Yes (Stents) Orthopedic Surgery: Yes - Immunization History Immunization Up to Date: No - Psycho/Social/Smoking Cessation Hx Anxiety: No Suicidal Ideation: No Smoking Status: No Smoking History: Never smoked Have you smoked in the past 12 months: No Number of Cigarettes Smoked Daily: 0 If you are a former smoker, when did you quit?: 17 yrs ago 'Breaking Loose' booklet given: 12/12/15 Hx Alcohol Use: No Drug/Substance Use Hx: No Substance Use Type: None Hx Substance Use Treatment: No Cardiac Specific PMH - Complaint Specific PMHX Cardiac Stent: Yes *Physical Exam - Vital Signs Last Vital Signs Temp Pulse Resp BP Pulse Ox 97.7 F 53 L 20 105/53 95 05/21/17 17:30 05/21/17 17:30 05/21/17 17:30 05/21/17 17:30 05/21/17 16:22 ED Treatment Course - LABORATORY CBC & Chemistry Diagram: 05/21/17 06:25 05/21/17 06:25 - ADDITIONAL ORDERS Additional order review: 05/19/17 05/19/17 05/18/17 06:01 03:08 22:00 RBC MCV MCHC RDW MPV Neutrophils % Lymphocytes % Monocytes % Eosinophils % Basophils % POC Glucometer 119 172 179 05/18/17 05/18/17 05/18/17 15:59 10:54 06:00 RBC 3.46 L MCV 105.9 H MCHC 32.9 RDW 16.6 H MPV 9.3 Neutrophils % 65.4 Lymphocytes % 18.9 Monocytes % 8.7 Eosinophils % 5.8 H Basophils % 1.2 POC Glucometer 205 83 05/18/17 05/18/17 05/18/17 05:27 02:58 02:06 RBC MCV MCHC RDW MPV Neutrophils % Lymphocytes % Monocytes % Eosinophils % Basophils % POC Glucometer 113 170 48 05/17/17 05/17/17 05/17/17 21:02 17:20 12:38 RBC MCV MCHC RDW MPV Neutrophils % Lymphocytes % Monocytes % Eosinophils % Basophils % POC Glucometer 174 185 125.04259 05/17/17 04:25 RBC 3.26 L MCV 105.8 H MCHC 32.4 RDW 17.1 H MPV 9.2 Neutrophils % 64.4 Lymphocytes % 22.2 Monocytes % 8.6 Eosinophils % 3.5 Basophils % 1.3 POC Glucometer - RADIOLOGY Radiology Studies Ordered: Category Date Time Status CHEST CTA [CT] Stat CT Scan 05/17/17 05:[address] WITHOUT CONTRAST [CT] Stat CT Scan 05/17/17 04:22 Completed CHEST PA & LAT [RAD] Stat Radiology 05/17/17 04:07 Completed - Medications Given in the ED: ED Medications Discontinued Medications Generic Name Dose Route Start Last Admin Trade Name Aidanq PRN Reason Stop Dose Admin Aspirin 81 mg 05/21/17 10:00 05/21/17 09:33 Asa - PO 81 mg DAILY EVA Administration Dextrose 50 ml 05/18/17 02:14 05/18/17 02:23 D50w (Vial) - IVPUSH 05/18/17 02:15 50 ml NOW ONE Administration Sodium Chloride 1,000 mls @ 75 mls/hr 05/17/17 13:00 05/17/17 13:30 Normal Saline - IV 75 mls/hr ASDIR EVA Administration Metronidazole 100 mls @ 100 mls/hr 05/19/17 10:00 05/20/17 17:46 Flagyl 500mg Premixed Ivpb - IVPB 100 mls/hr Q8H-IV EVA Administration Isosorbide Mononitrate 60 mg 05/17/17 11:00 05/17/17 12:31 Imdur - PO Not Given DAILY EVA Isosorbide Mononitrate 30 mg 05/18/17 10:00 05/21/17 09:33 Imdur - PO 30 mg DAILY EVA Administration Metronidazole 500 mg 05/18/17 15:00 05/19/17 06:07 Flagyl - PO 500 mg TID EVA Administration Sodium Chloride 500 ml 05/17/17 05:43 05/17/17 05:48 Normal Saline - IV 05/17/17 05:44 500 ml ONCE ONE Administration Warfarin Sodium 5 mg 05/17/17 18:00 05/17/17 17:07 Coumadin - PO Not Given DAILY@1800 EVA Warfarin Sodium 3 mg 05/17/17 18:00 05/17/17 17:45 Coumadin - PO 3 mg DAILY@1800 EVA Administration Medical Decision Making - Medical Decision Making 05/17/17 04:55 57 yo M with h/o HTN, HLD, CAD s/p stent and MN on coumadin and ASA, systolic CHF, embolic CVA, IDDM, ESRD on dialysis (M,W,F), and depression presents to ED s/p syncopal episode with c/o of SOB, left sided head/neck pain. -EKG, CXR -CBC, CMP, PT/INR, Mg, D-dimer, BNP, card profile -Head CT EKG unchanged from prior. Labs: D-dimer 1031 CTA indicated. Patient with ESRD, will consult nephrology for dialysis in am. 05/17/17 05:[address]: FINDINGS:Brain parenchyma is normal in attenuation with no mass or hematoma. There is no midline shift. Desai and white matter differentiation is normal. Ventricles are normal. Sulci and extra-axial CSF spaces are normal. Intracranial vascular structures are normal in attenuation. There is no calvarial fracture. There is mucosal thickening and fluid in the inferior right maxillary sinus and to a lesser degree the left maxillary sinus. Read by : Rock Thakkar MD Troponin 0.43, will repeat 6 hours from initial draw as well as repeat EKG. Case discussed in detail with oncoming emergency provider including history, physical exam and ancillary studies. In brief, this patient is being seen in the ED for a chief complaint of: I have completed the initial assessment interview note and have ordered the following labs: as above I have reviewed the following results: labs, head CT Pending results: CTA Please call the PCP: Tessa Plan for disposition as follows: admit Oncoming BERRY Servin has assumed care for the patient and will complete the evaluation and treatment. *DC/Admit/Observation/Transfer Diagnosis at time of Disposition: ESRD on hemodialysis, DM Diabetes mellitus type 2 Chest pain Qualifiers: Qualified Code(s): R07.9 - Chest pain, unspecified Syncope Qualifiers: Qualified Code(s): R55 - Syncope and collapse
[2017-05-17 04:30] LABS: BASOPHIL 1.3 % (0-2.0); EOSINOPHIL 3.5 % (0-4.5); MCH 34.3 pg (25.7-33.7); MCHC 32.4 g/dl (32.0-35.9); MEAN CELL VOLUME 105.8 fl (80-96); NEUTROPHILS 64.4 % (42.8-82.8); RDW 17.1 % (11.9-15.9); WHITE BLOOD COUNT 4.2 K/mm3 (4.0-10.0)
[2017-05-17 04:43] LABS: INR 1.58 (0.82-1.09); PROTHROMBIN TIME (PATIENT) 17.5 SEC (9.98-11.88)
[2017-05-17 05:07] LABS: ALBUMIN 3.3 g/dl (3.4-5.0); ANION GAP 9 (8-16); BILIRUBIN,TOTAL 0.9 mg/dL (0.2-1.0); CALCIUM 8.7 mg/dL (8.5-10.1); CO2 30 mmol/L (21-32); GLUCOSE,RANDOM 76 mg/dL (74-106); MAGNESIUM 2.6 mg/dL (1.8-2.4); SGOT/AST 9 U/L (15-37); SGPT/ALT 12 U/L (12-78); TOT PROT 7.3 g/dl (6.4-8.2)
[2017-05-17 05:12] LABS: ALK PHOS 163 U/L (45-117); TROPONIN I 0.43 ng/ml (0.00-0.05)
[2017-05-17 05:38] LABS: CREATININE 7.6 mg/dL (0.7-1.3)
[2017-05-17] MEDS ORDERED: SODIUM CHLORIDE 0.9% 1000 ML INFUS.BAG IV ONE (05:43)
[2017-05-17 06:38] LABS: MEAN PLT VOLUME 9.2 fl (7.5-11.1); PLATELET COUNT 58 K/MM3 (134-434)
--- NOTE | 2017-05-17 07:02 | PDOC ---
*Physical Exam - Vital Signs Last Vital Signs Temp Pulse Resp BP Pulse Ox 98.3 F 83 18 106/57 98 05/17/17 03:50 05/17/17 03:50 05/17/17 03:50 05/17/17 03:50 05/17/17 03:50 ED Treatment Course - LABORATORY CBC & Chemistry Diagram: 05/17/17 04:25 05/17/17 04:25 - ADDITIONAL ORDERS Additional order review: Laboratory Results 05/17/17 05/17/17 05/17/17 04:25 04:25 04:25 INR D-Dimer 1031 H Sodium Potassium Chloride Carbon Dioxide Anion Gap BUN Creatinine Creat Clearance w eGFR Random Glucose Calcium Magnesium Total Bilirubin AST ALT Alkaline Phosphatase Creatine Kinase Creatine Kinase Index CK-MB (CK-2) CK-MB (CK-2) Rel Index Cancelled Troponin I B-Natriuretic Peptide 403059.6 H Total Protein Albumin 05/17/17 05/17/17 04:25 04:25 INR 1.58 H D-Dimer Sodium 137 Potassium 4.6 D Chloride 98 Carbon Dioxide 30 D Anion Gap 9 BUN 47 H D Creatinine 7.6 H* Creat Clearance w eGFR 7.39 Random Glucose 76 Calcium 8.7 Magnesium 2.6 H Total Bilirubin 0.9 AST 9 L D ALT 12 D Alkaline Phosphatase 163 H D Creatine Kinase 155 D Creatine Kinase Index 1.7 CK-MB (CK-2) 2.596 CK-MB (CK-2) Rel Index Troponin I 0.43 H D B-Natriuretic Peptide Total Protein 7.3 Albumin 3.3 L 05/17/17 04:25 RBC 3.26 L MCV 105.8 H MCHC 32.4 RDW 17.1 H MPV 9.2 Neutrophils % 64.4 Lymphocytes % 22.2 Monocytes % 8.6 Eosinophils % 3.5 Basophils % 1.3 - Medications Given in the ED: ED Medications Discontinued Medications Generic Name Dose Route Start Last Admin Trade Name Freq PRN Reason Stop Dose Admin Sodium Chloride 500 ml 05/17/17 05:43 05/17/17 05:48 Normal Saline - IV 05/17/17 05:44 500 ml ONCE ONE Administration Medical Decision Making - Medical Decision Making 05/17/17 06:02 Patient received in sign out from ALEX Rios. Patient is syncopal episode and mild shortness of breath. Patient also with complaints of chest pain. Patient had elevated d-dimer is pending a chest CTA. Patient receives dialysis Monday and Monday. Patient will be admitted with consultation to nephrology 05/17/17 09:05 Patient CTA shows no emboli but notes a 1.6 right pretracheal node that will need follow-up. There is noted cholelithiasis without cholecystitis. There is a small amount of ascites and possible cirrhosis . Awaiting callback from hospitalist for admission. Awaiting callback from Veneer Redrier. 05/17/17 09:21 Awaiting callback from [employer] [facility] the [employer] director. Case discussed with hospitalist team and patient will be admitted to telemetry for syncopal episode and chest pain. *DC/Admit/Observation/Transfer Diagnosis at time of Disposition: ESRD on hemodialysis, DM Diabetes mellitus type 2, Syncope Chest pain Qualifiers: Chest pain type: unspecified Qualified Code(s): R07.9 - Chest pain, unspecified - Discharge Dispostion Admit: Yes
--- NOTE | 2017-05-17 09:19 | HP ---
CHIEF COMPLAINT: "I passed out and my neck hurts." PCP: Kasey HISTORY OF PRESENT ILLNESS: This is a 57 yo man with h/o HTN, HLD, CAD s/p stent and HI on coumadin and ASA, systolic CHF, embolic CVA, IDDM, ESRD on dialysis (M,W,F), and depression presents to ED s/p syncopal episode with c/o of SOB, left sided head/neck pain. Patient states he lost consciousness in bed sitting next to his but then regained consciousness. He went to the bathroom twice and after the second time when he sat back down on the bed felt as if he were going to lose consciousness again. He reports severe pain to the left side of his head and neck. He reports minimal chest pain but does report that he is having difficulty breathing. ER course was notable for: (1) troponin 0.43 (2) subtherapuetic INR, thrombocytopenia (3) CTA negative for PE Recent Travel: denies PAST MEDICAL HISTORY: see HPI PAST SURGICAL HISTORY: see HPI Social History: Smoking: denies Alcohol: denies Drugs: denies Family History: Allergies No Known Allergies Allergy (Verified 05/17/17 04:51) HOME MEDICATIONS: Home Medications 3 Medication Instructions Recorded Aspirin [ASA -] 81 mg PO DAILY 03/08/17 Atorvastatin Ca [Lipitor] 40 mg PO HS 03/08/17 Calcitriol [Calcitriol -] 0.5 mcg PO .TUTHFR DAILY 03/08/17 Isosorbide Mononitrate [Imdur -] 30 mg PO DAILY 03/08/17 Omeprazole 40 mg PO DAILY 03/08/17 Sevelamer Carbonate [Renvela 2.4 gm PO DAILY 03/08/17 Powder Packet -] Warfarin Sodium [Coumadin] 2 mg PO DAILY 03/08/17 Calcium Acetate [Phoslo -] 667 mg PO DAILY 05/17/17 Carvedilol [Coreg -] 3.125 mg PO BID 05/17/17 Insulin Glargine,Hum.rec.anlog 0 units SQ DAILY 05/17/17 [Lantus (nf)] REVIEW OF SYSTEMS CONSTITUTIONAL: Absent: fever, chills, diaphoresis, generalized weakness, malaise, loss of appetite, weight change HEENT: Present- left lateral neck pain Absent: rhinorrhea, nasal congestion, throat pain, throat swelling, difficulty swallowing, mouth swelling, ear pain, eye pain, visual changes CARDIOVASCULAR: Absent: chest pain, syncope, palpitations, irregular heart rate, lightheadedness , peripheral edema RESPIRATORY: Absent: cough, shortness of breath, dyspnea with exertion, orthopnea, wheezing, stridor, hemoptysis GASTROINTESTINAL: Absent: abdominal pain, abdominal distension, nausea, vomiting, diarrhea, constipation, melena, hematochezia GENITOURINARY: Absent: dysuria, frequency, urgency, hesitancy, hematuria, flank pain, genital pain MUSCULOSKELETAL: Absent: myalgia, arthralgia, joint swelling, back pain, neck pain SKIN: Absent: rash, itching, pallor HEMATOLOGIC/IMMUNOLOGIC: Absent: easy bleeding, easy bruising, lymphadenopathy, frequent infections ENDOCRINE: Absent: unexplained weight gain, unexplained weight loss, heat intolerance, cold intolerance NEUROLOGIC: Present- dizziness Absent: headache, focal weakness or paresthesias, unsteady gait, seizure, mental status changes, bladder or bowel incontinence PSYCHIATRIC: Absent: anxiety, depression, suicidal or homicidal ideation, hallucinations. PHYSICAL EXAMINATION Vital Signs - 24 hr 3 05/17/17 05/17/17 03:50 07:50 Temperature 98.3 F 97.6 F Pulse Rate 83 Pulse Rate [ 62 Apical] Respiratory 18 Rate Blood Pressure 106/57 Blood Pressure 165/57 [Left Arm] O2 Sat by Pulse 98 97 Oximetry (%) GENERAL: Awake, alert, and fully oriented, in no acute distress. HEAD: Normal with no signs of trauma. EYES: Pupils equal, round and non-reactive to light s/p cataract surgery, extraocular movements intact, sclera anicteric, conjunctiva clear. No lid lag. EARS, NOSE, THROAT: Ears normal, nares patent, oropharynx clear without exudates. Moist mucous membranes. NECK: Normal range of motion, supple without lymphadenopathy, or masses. JVD present>10cm. LUNGS: Breath sounds equal, clear to auscultation bilaterally. No wheezes. Fine crackles bibasally. No accessory muscle use. HEART: Regular rate and rhythm, normal S1 and S2 without murmur, rub or gallop. Increased dizziness with change of position from sitting to standing. No othostatic changes. Transient hypotension while supine. No changes on telemetry during episode of dizziness. ABDOMEN: Soft, nontender, not distended, normoactive bowel sounds, no guarding, no rebound, no masses. No hepatomegaly or splenomegaly. MUSCULOSKELETAL: Normal range of motion at all joints. No bony deformities or tenderness. No CVA tenderness. UPPER EXTREMITIES: 2+ pulses, warm, well-perfused. No cyanosis. No clubbing. No peripheral edema. LUE dialysis shunt. +bruit. +thrill LOWER EXTREMITIES: 2+ pulses, warm, well-perfused. No calf tenderness. No peripheral edema. NEUROLOGICAL: Cranial nerves II-XII intact. Normal speech. Normal gait. PSYCHIATRIC: Cooperative. Good eye contact. Appropriate mood and affect. SKIN: Warm, dry, normal turgor, no rashes or lesions noted, normal capillary refill. Laboratory Results - last 24 hr 3 05/17/17 05/17/17 05/17/17 04:25 04:25 04:25 WBC 4.2 RBC 3.26 L Hgb 11.2 L Hct 34.5 L MCV 105.8 H MCHC 32.4 RDW 17.1 H Plt Count 58 L MPV 9.2 Neutrophils % 64.4 Lymphocytes % 22.2 Monocytes % 8.6 Eosinophils % 3.5 Basophils % 1.3 Platelet Comment No clumping noted INR 1.58 H D-Dimer Sodium 137 Potassium 4.6 D Chloride 98 Carbon Dioxide 30 D Anion Gap 9 BUN 47 H D Creatinine 7.6 H* Creat Clearance w eGFR 7.39 Random Glucose 76 Calcium 8.7 Magnesium 2.6 H Total Bilirubin 0.9 AST 9 L D ALT 12 D Alkaline Phosphatase 163 H D Creatine Kinase 155 D Creatine Kinase Index 1.7 CK-MB (CK-2) 2.596 CK-MB (CK-2) Rel Index Troponin I 0.43 H D B-Natriuretic Peptide Total Protein 7.3 Albumin 3.3 L 3 05/17/17 05/17/17 05/17/17 04:25 04:25 04:25 WBC RBC Hgb Hct MCV MCHC RDW Plt Count MPV Neutrophils % Lymphocytes % Monocytes % Eosinophils % Basophils % Platelet Comment INR D-Dimer 1031 H Sodium Potassium Chloride Carbon Dioxide Anion Gap BUN Creatinine Creat Clearance w eGFR Random Glucose Calcium Magnesium Total Bilirubin AST ALT Alkaline Phosphatase Creatine Kinase Creatine Kinase Index CK-MB (CK-2) CK-MB (CK-2) Rel Index Cancelled Troponin I B-Natriuretic Peptide 433402.6 H Total Protein Albumin EKG- sinus rhythm with 1 degree AV block Repeat unchanged from initial Last stress 12/2015- Large zone of inferolateral focal deficit c/w infarct with small samantha-infarct ischemia. EF-35% CTA read by Errol- No emboli seen. Prominent 1.6 cm right peritracheal node. Cholelithiasis, ascites and possible cirrhosis. ASSESSMENT/PLAN: A: 57 yo man with ESRD on HD , HTN, IDDM, CAD s/p stent and HI on coumadin and ASA, systolic CHF, embolic CVA and HLD who presents with multiple syncopal episodes over the past 2 days. Patient reports epistaxis and hematuria 3 weeks ago. No bleeding since then. Sudden onset RUQ pain radiating to epigastrum and left sided chest pain. Denies nausea or vomiting. P: 1. Syncope - trend troponins - echo - carotid dopplers - repeat EKG - cards consult Daniel - telemetry monitoring - hold antihypertensives now - orthostatics 2. CAD - ASA 81 - telemetry - Cards consult Daniel 3. CHF - echo - HD -- 4. ESRD - renal [place] following - HD - - Phoslo 667 - renagel- 2.4 - calcitriol 0.5 5. RUQ pain - sono abdomen - trend LFT's 6. Subtherapuetic INR - increase coumadin from 2mg to 3mg - daily INR - hold for bleeding 7. Thrombocytopenia - no active bleeding - currently near baseline per previous admissions - trend CBC 8. HLD - home liptior 40 - AM lipid panel 9. HTN - hold antihypertensives given episodes of hypotension - restart home Coreg 3.125 and Isosorbide MN 30 if hypotension resolves 10. IDDM - FSBG qACHS - ISS 11. F/E/N - diabetic diet - replete prn 12. PPX - Omeprazole 40 - Warfarin as above Dispo- patient requires inpatient care of his acute medical condition. Visit type - Emergency Visit Emergency Visit: Yes ED Registration Date: 05/17/17 Care time: The patient presented to the Emergency Department on the above date and was hospitalized for further evaluation of their emergent condition. - New Patient This patient is new to me today: Yes Date on this admission: 05/17/17 - Critical Care Critical Care patient: No
[2017-05-17] MEDS ORDERED: ISOSORBIDE MONONITRATE 60 MG TAB.SR.24H (FP) PO SCH ×2 (11:00→18:18)
[2017-05-17 12:09] LABS: TROPONIN I 0.38 ng/ml (0.00-0.05)
--- NOTE | 2017-05-17 12:40 | CONSULT ---
Consult - text type - Consultation Consultation Note: Renal Consult for ESRD on HD with fluid overload This is a 56 year old Gentleman with PMhx of ESRD on HD (MWF), CAD s/p DC and PCI, Hypertension, IDDM, Hyperlipidemia who presented with syncope and SOB and found to have fluid overload. Pt last had dialysis on Monday w/o complication. Denies any chest pain. Started to feel very dizzy yesterday afternoon and had improved but now again in the ED has dizziness. Pt was intially hypertensive on presentation but not low low/marginal BP. Denies any N/V/D. No cough. + orthopnea. No CUADRA, confusion, lethargy, weakness. PMhx: As above Allergies: NKDA Family Hx: NC Social Hx: No T/A/D ROS: as per HPI Home Meds: Home Medications Medication Instructions Recorded Aspirin [ASA -] 81 mg PO DAILY 03/08/17 Atorvastatin Ca [Lipitor] 40 mg PO HS 03/08/17 Calcitriol [Calcitriol -] 0.5 mcg PO .TUTHFR DAILY 03/08/17 Isosorbide Mononitrate [Imdur -] 30 mg PO DAILY 03/08/17 Omeprazole 40 mg PO DAILY 03/08/17 Sevelamer Carbonate [Renvela 2.4 gm PO DAILY 03/08/17 Powder Packet -] Warfarin Sodium [Coumadin] 2 mg PO DAILY 03/08/17 Calcium Acetate [Phoslo -] 667 mg PO DAILY 05/17/17 Carvedilol [Coreg -] 3.125 mg PO BID 05/17/17 Insulin Glargine,Hum.rec.anlog 0 units SQ DAILY 05/17/17 [Lantus (nf)] Vital Signs Temperature 97.6 F 05/17/17 10:50 Pulse Rate 60 05/17/17 10:50 Respiratory Rate 18 05/17/17 03:50 Blood Pressure 99/54 05/17/17 10:50 O2 Sat by Pulse Oximetry (%) 95 05/17/17 10:50 Intake & Output 05/14/17 05/15/17 05/16/17 05/17/17 23:59 23:59 23:59 23:59 Weight 138 lb Gen: NAD, awake and alert HEENT: NC/AT, + JVD, Neck supple CVS: RRR, No M/R Lungs: + rales at lung bases Abd: soft NT/ND Ext: Trace edema in LE Neuro: no focal defects Access: left ARM AVF CBC, BMP 05/17/17 04:25 05/17/17 04:25 Laboratory Tests 05/17/17 05/17/17 04:25 11:11 Calcium 8.7 Magnesium 2.6 H Troponin I 0.43 H D 0.38 H Albumin 3.3 L Current Medications Aspirin (Asa -) 81 mg PO DAILY [facility] Atorvastatin Calcium (Lipitor -) 40 mg PO HS [facility] Calcitriol (Rocaltrol -) 0.5 mcg PO TuThFr@1000 [facility] Calcium Acetate (Phoslo -) 667 mg PO DAILY@0800 [facility] Carvedilol (Coreg -) 3.125 mg PO BID [facility] Insulin Aspart (Novolog Vial Sliding Scale -) 1 vial SQ ACHS [facility] PRN Reason: Protocol Isosorbide Mononitrate (Imdur -) 60 mg PO DAILY [facility] Last Admin: 05/17/17 12:31 Dose: Not Given Pantoprazole Sodium (Protonix -) 40 mg PO DAILY [facility] Sevelamer Carbonate (Renvela Powder Packet -) 2.4 gm PO DAILY [facility] Warfarin Sodium (Coumadin -) 5 mg PO DAILY@1800 [facility] A/P 56 year old Gentleman with PMhx of ESRD on HD (MWF), CAD s/p DC and PCI, Hypertension, IDDM, Hyperlipidemia who presented with syncope and SOB and found to have fluid overload. Pt last had dialysis on Monday w/o complication. Denies any chest pain. #ESRD on HD with fluid overload will plan for HD as inpatient with UF as tolerated Dose all meds for intermittent HD 1.2L fluid restriction daily low salt diet #Syncope Tele monitoring Cardiology follow up CTA showed no acute pathology #CHF UF with HD as tolerated Fluid and salt restriction #CAD Cardiology follow up #Hx of Hypertension now with marginal BP hold BP meds for now pending dialysis #Renal Osteodystrophy Trend Phos levels continue Renvela TID with meals Thank you Yonis Farooq DO
[2017-05-17] MEDS: INSULIN SLIDING SCALE (NOVOLOG) 1 VIAL SQ SCH ×4 (12:46→21:10)
[2017-05-17] MEDS: CALCITRIOL 0.25 MCG CAPSULE (FP) PO SCH (12:48)
[2017-05-17] MEDS ORDERED: SODIUM CHLORIDE 1,000 ML IV SCH (13:00)
--- NOTE | 2017-05-17 13:38 | EKG ---
Test Reason : Blood Pressure : / mmHG Vent. Rate : 063 BPM Atrial Rate : 063 BPM P-R Int : 230 ms QRS Dur : 118 ms QT Int : 460 ms P-R-T Axes : 056 128 265 degrees QTc Int : 470 ms SINUS RHYTHM WITH 1ST DEGREE A-V BLOCK LEFT POSTERIOR FASCICULAR BLOCK PROLONGED QT ABNORMAL ECG WHEN COMPARED WITH ECG OF 17-MAY-2017 04:09, NO SIGNIFICANT CHANGE WAS FOUND Confirmed by CARLYLE FOURNIER MD ([id number]) on 05/17/2017 1:38:41 PM Referred By: Confirmed By:CARLYLE FOURNIER MD
--- NOTE | 2017-05-17 13:39 | EKG ---
Test Reason : Blood Pressure : / mmHG Vent. Rate : 062 BPM Atrial Rate : 062 BPM P-R Int : 242 ms QRS Dur : 120 ms QT Int : 458 ms P-R-T Axes : 086 121 248 degrees QTc Int : 464 ms SINUS RHYTHM WITH 1ST DEGREE A-V BLOCK RIGHT AXIS DEVIATION PULMONARY DISEASE PATTERN NON-SPECIFIC INTRA-VENTRICULAR CONDUCTION DELAY ABNORMAL ECG WHEN COMPARED WITH ECG OF 04-APR-2017 09:31, NO SIGNIFICANT CHANGE WAS FOUND Confirmed by CARLYLE FOURNIER MD ([id number]) on 05/17/2017 1:39:33 PM Referred By: Confirmed By:CARLYLE FOURNIER MD
[2017-05-17 16:33] VITALS: BMI 23.9
--- NOTE | 2017-05-17 17:02 | CON.CARD ---
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 Pateint states he has been having dizziness with exertion for the past few months. Symptoms of associated with distension/discomfort of neck veins. By history (describes sensation as spinning-vertigo like). Recently saw his veterinary livestock inspector who decreased his imdur and coreg doses. Last night had episode of severe dizziness that woke him up from sleep. Was lying down when symptoms occurred. Over the past few months also with symptoms of worsened lower extremity edema and decreased blood pressure. (denies reduced HD sessions as a result). at baseline has chronic mild dyspnea on exertion, leg fatigue with exertion, stable. chronic neuropathy. intermittent abdominal pain. No loc, pnd, orthopnea, palps, dizziness. Since arriving denies recurrence of syncope. + chest discomfort/reproducible to palpation after initiation of dialysis. PMhx: per hpi Past Surgical History: Yes: None, AV Fistula/Graft Social hx: Former smoker, no etoh or illicits Family Disease History: Heart Disease: Father ROS: Per hpi no cough, f/c/s, vomiting, diarrhea, cough, congestion, headache, visual disturbances, rash. Ambulatory Orders Aspirin [ASA -] 81 mg PO DAILY 03/08/17 Atorvastatin Ca [Lipitor] 40 mg PO HS 03/08/17 Calcitriol [Calcitriol -] 0.5 mcg PO .TUTHFR DAILY 03/08/17 Isosorbide Mononitrate [Imdur -] 30 mg PO DAILY 03/08/17 Omeprazole 40 mg PO DAILY 03/08/17 Sevelamer Carbonate [Renvela Powder Packet -] 2.4 gm PO DAILY 03/08/17 Warfarin Sodium [Coumadin] 2 mg PO DAILY 03/08/17 Calcium Acetate [Phoslo -] 667 mg PO DAILY 05/17/17 Carvedilol [Coreg -] 3.125 mg PO BID 05/17/17 Insulin Glargine,Hum.rec.anlog [Lantus (nf)] 0 units SQ DAILY 06/21/17 Current Medications Aspirin (Asa -) 81 mg PO DAILY [facility] Atorvastatin Calcium (Lipitor -) 40 mg PO HS [facility] Calcitriol (Rocaltrol -) 0.5 mcg PO TuThFr@1000 [facility] Last Admin: 05/17/17 12:48 Dose: Not Given Calcium Acetate (Phoslo -) 667 mg PO DAILY@0800 [facility] Carvedilol (Coreg -) 3.125 mg PO BID [facility] Sodium Chloride (Normal Saline -) 1,000 mls @ 75 mls/hr IV ASDIR [facility] Last Admin: 05/17/17 13:30 Dose: 75 mls/hr Insulin Aspart (Novolog Vial Sliding Scale -) 1 vial SQ ACHS [facility] PRN Reason: Protocol Last Admin: 05/17/17 12:46 Dose: Not Given Isosorbide Mononitrate (Imdur -) 60 mg PO DAILY [facility] Last Admin: 05/17/17 12:31 Dose: Not Given Pantoprazole Sodium (Protonix -) 40 mg PO DAILY [facility] Sevelamer Carbonate (Renvela Powder Packet -) 2.4 gm PO DAILY [facility] Warfarin Sodium (Coumadin -) 5 mg PO DAILY@1800 [facility] Vital Signs - 24 hr 05/17/17 05/17/17 05/17/17 03:50 07:50 10:50 Temperature 98.3 F 97.6 F 97.6 F Pulse Rate 83 Pulse Rate [ 62 60 Apical] Respiratory 18 Rate Blood Pressure 106/57 Blood Pressure 165/57 99/54 [Left Arm] O2 Sat by Pulse 98 97 95 Oximetry (%) 05/17/17 05/17/17 05/17/17 12:50 15:01 15:40 Temperature 97.9 F Pulse Rate 65 Pulse Rate [ 65 66 Apical] Respiratory 18 Rate Blood Pressure 107/47 Blood Pressure 137/68 135/77 [Left Arm] O2 Sat by Pulse 97 95 Oximetry (%) 05/17/17 05/17/17 05/17/17 15:45 16:15 16:18 Temperature 98.0 F Pulse Rate 59 L 65 64 Pulse Rate [ Apical] Respiratory 18 18 20 Rate Blood Pressure 103/47 116/42 116/66 Blood Pressure [Left Arm] O2 Sat by Pulse Oximetry (%) Intake & Output 05/15/17 05/16/17 05/17/17 05/18/17 07:59 07:59 07:59 07:59 Weight 138 lb 135 lb Nad, calm jvd distended, neck supple bibasilar rales, nl effor rrr nl s1, s2 2/6 murmur at apex ttp of sternum + bs soft nt nd ext with trace edema. no c/c aaox3 no carotid bruit diminished dp/pt no jaundice, diaphoresis CBC, BMP 05/17/17 04:25 05/17/17 04:25 Laboratory Tests 04/05/17 05/17/17 05/17/17 06:15 04:25 04:25 INR 1.58 H D-Dimer Magnesium 2.6 H Total Bilirubin 0.9 ALT 12 D Alkaline Phosphatase 163 H D Troponin I 0.24 H 0.43 H D Creatine Kinase 155 D Creatine Kinase Index 1.7 CK-MB (CK-2) 2.596 Albumin 3.3 L 05/17/17 05/17/17 04:25 11:11 INR D-Dimer 1031 H Magnesium Total Bilirubin ALT Alkaline Phosphatase Troponin I 0.38 H Creatine Kinase 142 Creatine Kinase Index CK-MB (CK-2) Albumin ekg: sr, rightward axis av delay, ivcd. inferolateral TWI, similar to priors tele: sr echo here 04/2017: mild lv dilation. mod-sev decreased LV fn (global). nl rv mild eli. 1+ mr, severe tr. echo 12/2015: low nl lvef, no wma, mild lvh, nl rv, mild lae, mod mr, mac, mild tr, rvsp 50-60 persantine MIBI here (12/2015): no ST changes vs baseline; large area of inferior and inferolat infarct (with akinesis) with small samantha-infarct ischemia ; EF 35% Cath/PCI @ [place] 08/2015 : CBPTCA of ISR of RPL stent , rest of anatomy unchanged from 05/2015--decided not to stent OM or RPL--he has recurrent and fast ISR of stents and likely will not do not well with PCI strategy Cath/PCI @ [facility] 05/2015: Diag 2 : 100 % ISR of prior BMS at [facility], distal LAD 90 % (small vessel), OM1 90%, large RPL stented (ESME)--felt to be culprit Assessment/Plan 57 yo with h/o HTN, HPL, 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 CAD/ischemic CM/elevated troponin - patient with intermediate range troponin in setting of ESRD. No elevation in ck or mb. EKG unchanged. CP atypical. Low suspicion for acs. - Per outpatient cardiology record has known systolic cardiomyopathy, which is also seen on echo from today. Will discuss with his outpatient veterinary livestock inspector tomorrow to clarify. - currently with significant thrombocytopenia without clear etiology. Would hold coumadin and ASA for now. Consider hematology consult to guide anti- platelet therapy, patient with high risk of ISR. -cont statin. con't bb, imdur for now. monitor for hypotension/bradycardia. Low threshold to hold. h/o embolic cva/s/p loop recorder now removed/afib - with afib on hx from outpatient veterinary livestock inspector. On coumadin. Currently in SR. given low platelets will hold coumadin as mentioned above. Telemetry monitoring to observe for conversion to afib. presyncope - will get carotid ultrasound. Tele monitoring. - head CT negative for bleed - orthostatic vitals - tsh - additional work up per pmd thrombocytopenia - holding antiplatelets/AC as mentioned. -W0uld benefit form hematology consult, will discuss with pmd. ESRD on HD -HD per renal HTN: -running low on current meds, monitor HPL: -continue statin
[2017-05-17] MEDS: ACETAMINOPHEN 325 MG TABLET (FP) PO PRN (17:45)
[2017-05-17] MEDS ORDERED: WARFARIN NA 3 MG TABLET PO SCH (18:00)
[2017-05-17] MEDS ORDERED: WARFARIN NA 5 MG TABLET (UD) PO SCH (18:00)
[2017-05-17] MEDS: ATORVASTATIN CA 40 MG TABLET (FP) PO SCH (21:13)
[2017-05-17] MEDS ORDERED: CARVEDILOL 3.125 MG TABLET (FP) PO SCH (22:00)
[2017-05-18] MEDS ORDERED: DEXTROSE 50%-WATER - 25 GM/50 ML VIAL IVPUSH ONE (02:14)
[2017-05-18] MEDS ORDERED: DEXTROSE 50%-WATER 50 ML DISP.SYRIN ONE (02:16)
[2017-05-18] MEDS: INSULIN SLIDING SCALE (NOVOLOG) 1 VIAL SQ SCH ×4 (06:18→22:01)
[2017-05-18 07:18] LABS: BASOPHIL 1.2 % (0-2.0); EOSINOPHIL 5.8 % (0-4.5); MCH 34.9 pg (25.7-33.7); MCHC 32.9 g/dl (32.0-35.9); MEAN CELL VOLUME 105.9 fl (80-96); MEAN PLT VOLUME 9.3 fl (7.5-11.1); NEUTROPHILS 65.4 % (42.8-82.8); PLATELET COUNT 55 K/MM3 (134-434); RDW 16.6 % (11.9-15.9); WHITE BLOOD COUNT 3.6 K/mm3 (4.0-10.0)
[2017-05-18 07:44] LABS: MAGNESIUM 2.2 mg/dL (1.8-2.4); PHOSPHOROUS 3.9 mg/dL (2.5-4.9)
[2017-05-18 07:46] LABS: ALBUMIN 3.3 g/dl (3.4-5.0); ANION GAP 10 (8-16); CALCIUM 8.8 mg/dL (8.5-10.1); CO2 32 mmol/L (21-32); GLUCOSE,RANDOM 86 mg/dL (74-106)
[2017-05-18 07:51] LABS: ALK PHOS 165 U/L (45-117); BILIRUBIN,TOTAL 1.2 mg/dL (0.2-1.0); CHOLESTEROL 106 mg/dL (50-200); CREATININE 5.3 mg/dL (0.7-1.3); LDL CHOLESTEROL (ONLY SJRH) 67 mg/dL (5-100); SGOT/AST 11 U/L (15-37); SGPT/ALT 11 U/L (12-78); TOT PROT 7.5 g/dl (6.4-8.2)
[2017-05-18 07:53] LABS: INR 1.76 (0.82-1.09); PROTHROMBIN TIME (PATIENT) 19.6 SEC (9.98-11.88)
[2017-05-18] MEDS: CALCIUM ACETATE 667 MG CAPSULE (FP) PO SCH (09:09)
[2017-05-18] MEDS: ISOSORBIDE MONONITRATE 30 MG TAB.SR.24H (FP) PO SCH ×2 (09:21→11:13)
[2017-05-18] MEDS: CARVEDILOL 3.125 MG TABLET (FP) PO SCH ×3 (09:21→21:55)
[2017-05-18] MEDS: CALCITRIOL 0.25 MCG CAPSULE (FP) PO SCH (09:21)
[2017-05-18] MEDS: SEVELAMER CARBONATE 2.4 GM POWDER PACKET PO SCH (09:21)
[2017-05-18] MEDS: PANTOPRAZOLE 40 MG TABLET (FP) PO SCH ×2 (09:21→11:13)
[2017-05-18] MEDS ORDERED: ASPIRIN 81 MG CHEWABLE TABLETS PO SCH (10:00)
--- NOTE | 2017-05-18 11:09 | PN ---
Progress Note (short form) - Note Progress Note: s: feeling better, no sob palps dizzy cp o: Vital Signs Period Temp Pulse Resp BP Sys/Parham Pulse Ox Last 24 Hr 97.9 F-98.9 F 59-77 18-20 98-158/40-102 95-98 Nad, calm no jvd cta bl nl eff rrr nl s1, s2 2/6 murmur at apex + bs soft nt nd no le e/c/c aaox3 no jaundice, diaphoresis Current Medications Generic Name Dose Route Start Last Admin Trade Name Freq PRN Reason Stop Dose Admin Acetaminophen 650 mg 05/17/17 17:11 05/17/17 17:45 Tylenol - PO 650 mg Q6H PRN Administration FEVER OR PAIN Atorvastatin Calcium 40 mg 05/17/17 22:00 05/17/17 21:13 Lipitor - PO 40 mg HS [facility] Administration Calcitriol 0.5 mcg 05/17/17 10:15 05/18/17 09:21 Rocaltrol - PO Not Given TuThFr@1000 [facility] Calcium Acetate 667 mg 05/18/17 10:00 05/18/17 09:09 Phoslo - PO Not Given DAILY@0800 [facility] Carvedilol 3.125 mg 05/18/17 10:00 05/18/17 09:21 Coreg - PO Not Given BID [facility] Insulin Aspart 1 vial 05/17/17 11:00 05/18/17 06:18 Novolog Vial Sliding Scale - SQ Not Given ACHS [facility] Protocol Isosorbide Mononitrate 30 mg 05/18/17 10:00 05/18/17 09:21 Imdur - PO Not Given DAILY [facility] Pantoprazole Sodium 40 mg 05/18/17 10:00 05/18/17 09:21 Protonix - PO Not Given DAILY [facility] Sevelamer Carbonate 2.4 gm 05/18/17 10:00 05/18/17 09:21 Renvela Powder Packet - PO Not Given DAILY [facility] CBC, BMP 05/18/17 06:00 05/18/17 06:00 ekg: sr, rightward axis av delay, ivcd. inferolateral TWI, similar to priors tele: sr carotids 04/2017: mod diz, no sig stenosis echo here 04/2017: mild lv dilation. mod-sev decreased LV fn (global). nl rv mild eli. 1+ mr, severe tr. echo 12/2015: low nl lvef, no wma, mild lvh, nl rv, mild lae, mod mr, mac, mild tr, rvsp 50-60 persantine MIBI here (12/2015): no ST changes vs baseline; large area of inferior and inferolat infarct (with akinesis) with small samantha-infarct ischemia ; EF 35% Cath/PCI @ [place] 08/2015 : CBPTCA of ISR of RPL stent , rest of anatomy unchanged from 05/2015--decided not to stent OM or RPL--he has recurrent and fast ISR of stents and likely will not do not well with PCI strategy Cath/PCI @ [facility] 05/2015: Diag 2 : 100 % ISR of prior BMS at [facility], distal LAD 90 % (small vessel), OM1 90%, large RPL stented (ESME)--felt to be culprit Assessment/Plan 57 yo with h/o HTN, HPL, 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 CAD/ischemic CM/elevated troponin - patient with intermediate range troponin in setting of ESRD. No elevation in ck or mb. EKG unchanged. CP atypical. No suspicion of acs. - Per outpatient cardiology record has known systolic cardiomyopathy, which is also seen on echo here. - currently with significant thrombocytopenia without clear etiology. Would hold coumadin and ASA for now. Consider hematology consult to guide anti- platelet therapy, patient with high risk of ISR. -cont statin. con't bb, imdur for now. 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 On coumadin. Currently in SR. given low platelets will hold coumadin as mentioned above. - in sr now presyncope - carotid us, tele unremarkable - head CT negative for bleed - additional work up per pmd thrombocytopenia -holding antiplatelets/AC as mentioned. -consider hematology consult ESRD on HD -HD per renal HTN: -running low on current meds, monitor HPL: -continue statin
--- NOTE | 2017-05-18 12:24 | EKG ---
Test Reason : Blood Pressure : / mmHG Vent. Rate : 063 BPM Atrial Rate : 063 BPM P-R Int : 222 ms QRS Dur : 116 ms QT Int : 464 ms P-R-T Axes : 074 112 200 degrees QTc Int : 474 ms POOR DATA QUALITY, INTERPRETATION MAY BE ADVERSELY AFFECTED SINUS RHYTHM WITH 1ST DEGREE A-V BLOCK LEFT POSTERIOR FASCICULAR BLOCK PROLONGED QT ABNORMAL ECG WHEN COMPARED WITH ECG OF 17-MAY-2017 11:02, NO SIGNIFICANT CHANGE WAS FOUND Confirmed by TAVIA MAYFIELD MD ([id number]) on 05/18/2017 12:24:37 PM Referred By: Confirmed By:TAVIA MAYFIELD MD
--- NOTE | 2017-05-18 15:26 | PN ---
Progress Note (short form) - Note Progress Note: Renal Follow up for ESRD on HD Pt seen and examined at the bedside s/p dialysis yesterday, pt had chills during hd but was using a low temp HD bath as pt with marginal BP no chest pain or sob has some tenderness on the left side of his neck no N/V/D Vital Signs Temperature 97.7 F 05/18/17 14:00 Pulse Rate 62 05/18/17 14:00 Respiratory Rate 20 05/18/17 14:00 Blood Pressure 104/67 05/18/17 14:00 O2 Sat by Pulse Oximetry (%) 98 05/18/17 09:51 Intake & Output 05/15/17 05/16/17 05/17/17 05/18/17 23:59 23:59 23:59 23:59 Intake Total 440 240 Balance 440 240 Weight 135 lb 148 lb 4 oz Gen: NAD, awake and alert CVS: RRR, No M/R Lungs: + rales at lung bases Abd: soft NT/ND Ext: Trace edema in LE Access: left ARM AVF CBC, BMP 05/18/17 06:00 05/18/17 06:00 Current Medications Acetaminophen (Tylenol -) 650 mg PO Q6H PRN PRN Reason: FEVER OR PAIN Last Admin: 05/17/17 17:45 Dose: 650 mg Atorvastatin Calcium (Lipitor -) 40 mg PO HS [facility] Last Admin: 05/17/17 21:13 Dose: 40 mg Calcitriol (Rocaltrol -) 0.5 mcg PO TuThFr@1000 [facility] Last Admin: 05/18/17 09:21 Dose: Not Given Calcium Acetate (Phoslo -) 667 mg PO DAILY@0800 [facility] Last Admin: 05/18/17 09:09 Dose: Not Given Carvedilol (Coreg -) 3.125 mg PO BID [facility] Last Admin: 05/18/17 11:13 Dose: 3.125 mg Insulin Aspart (Novolog Vial Sliding Scale -) 1 vial SQ ACHS [facility] PRN Reason: Protocol Last Admin: 05/18/17 11:12 Dose: Not Given Isosorbide Mononitrate (Imdur -) 30 mg PO DAILY [facility] Last Admin: 05/18/17 11:13 Dose: 30 mg Metronidazole (Flagyl -) 500 mg PO TID [facility] Pantoprazole Sodium (Protonix -) 40 mg PO DAILY [facility] Last Admin: 05/18/17 11:13 Dose: 40 mg Sevelamer Carbonate (Renvela Powder Packet -) 2.4 gm PO DAILY [facility] Last Admin: 05/18/17 09:21 Dose: Not Given A/P 56 year old Gentleman with PMhx of ESRD on HD (MWF), CAD s/p MN and PCI, Hypertension, IDDM, Hyperlipidemia who presented with syncope and SOB and found to have fluid overload. Pt last had dialysis on Monday w/o complication. Denies any chest pain. #ESRD on HD with fluid overload no acute indication for dialysis today next treatment is tomorrow UF as tolerated #Syncope Tele monitoring Cardiology follow up CTA showed no acute pathology #CHF UF with HD as tolerated Fluid and salt restriction #CAD Cardiology follow up #Hx of Hypertension now with marginal BP hold BP meds for now pending dialysis #Renal Osteodystrophy Trend Phos levels continue Renvela TID with meals Thank you Yonis Farooq DO
--- NOTE | 2017-05-18 15:30 | PN ---
Teaching Attending Note Name of Resident: Chandler Duncan ATTENDING PHYSICIAN STATEMENT I saw and evaluated the patient. I reviewed the resident's note and discussed the case with the resident. I agree with the resident's findings and plan as documented. SUBJECTIVE: Comfrotablle c/o having Diarrhea OBJECTIVE: Vital Signs Temperature 97.7 F 05/18/17 14:00 Pulse Rate 62 05/18/17 14:00 Respiratory Rate 20 05/18/17 14:00 Blood Pressure 104/67 05/18/17 14:00 O2 Sat by Pulse Oximetry (%) 98 05/18/17 09:51 CBCD WBC 3.6 K/mm3 (4.0-10.0) L 05/18/17 06:00 RBC 3.46 M/mm3 (4.00-5.60) L 05/18/17 06:00 Hgb 12.1 GM/dL (11.7-16.9) 05/18/17 06:00 Hct 36.6 % (35.4-49) 05/18/17 06:00 MCV 105.9 fl (80-96) H 05/18/17 06:00 MCHC 32.9 g/dl (32.0-35.9) 05/18/17 06:00 RDW 16.6 % (11.9-15.9) H 05/18/17 06:00 Plt Count 55 K/MM3 (134-434) L 05/18/17 06:00 MPV 9.3 fl (7.5-11.1) 05/18/17 06:00 CMP Sodium 142 mmol/L (136-145) 05/18/17 06:00 Potassium 4.0 mmol/L (3.5-5.1) 05/18/17 06:00 Chloride 100 mmol/L (98-107) 05/18/17 06:00 Carbon Dioxide 32 mmol/L (21-32) 05/18/17 06:00 Anion Gap 10 (8-16) 05/18/17 06:00 BUN 28 mg/dL (7-18) H D 05/18/17 06:00 Creatinine 5.3 mg/dL (0.7-1.3) H D 05/18/17 06:00 Creat Clearance w eGFR 11.20 (>60) 05/18/17 06:00 Random Glucose 86 mg/dL (74-106) 05/18/17 06:00 Calcium 8.8 mg/dL (8.5-10.1) 05/18/17 06:00 Total Bilirubin 1.2 mg/dL (0.2-1.0) H D 05/18/17 06:00 AST 11 U/L (15-37) L D 05/18/17 06:00 ALT 11 U/L (12-78) L 05/18/17 06:00 Alkaline Phosphatase 165 U/L (45-117) H 05/18/17 06:00 Total Protein 7.5 g/dl (6.4-8.2) 05/18/17 06:00 Albumin 3.3 g/dl (3.4-5.0) L 05/18/17 06:00 CARDIAC ENZYMES Creatine Kinase 142 IU/L (39-308) 05/17/17 11:11 Troponin I 0.31 ng/ml (0.00-0.05) H 05/17/17 17:10 Current Medications Generic Name Dose Route Start Last Admin Trade Name Freq PRN Reason Stop Dose Admin Acetaminophen 650 mg 05/17/17 17:11 05/17/17 17:45 Tylenol - PO 650 mg Q6H PRN Administration FEVER OR PAIN Atorvastatin Calcium 40 mg 05/17/17 22:00 05/17/17 21:13 Lipitor - PO 40 mg HS [facility] Administration Calcitriol 0.5 mcg 05/17/17 10:15 05/18/17 09:21 Rocaltrol - PO Not Given TuThFr@1000 [facility] Calcium Acetate 667 mg 05/18/17 10:00 05/18/17 09:09 Phoslo - PO Not Given DAILY@0800 [facility] Carvedilol 3.125 mg 05/18/17 10:00 05/18/17 11:13 Coreg - PO 3.125 mg BID [facility] Administration Insulin Aspart 1 vial 05/17/17 11:00 05/18/17 11:12 Novolog Vial Sliding Scale - SQ Not Given ACHS [facility] Protocol Isosorbide Mononitrate 30 mg 05/18/17 10:00 05/18/17 11:13 Imdur - PO 30 mg DAILY [facility] Administration Metronidazole 500 mg 05/18/17 15:00 Flagyl - PO TID [facility] Pantoprazole Sodium 40 mg 05/18/17 10:00 05/18/17 11:13 Protonix - PO 40 mg DAILY [facility] Administration Sevelamer Carbonate 2.4 gm 05/18/17 10:00 05/18/17 09:21 Renvela Powder Packet - PO Not Given DAILY [facility] Home Medications Medication Instructions Recorded Aspirin [ASA -] 81 mg PO DAILY 03/08/17 Atorvastatin Ca [Lipitor] 40 mg PO HS 03/08/17 Calcitriol [Calcitriol -] 0.5 mcg PO .TUTHFR DAILY 03/08/17 Isosorbide Mononitrate [Imdur -] 30 mg PO DAILY 03/08/17 Omeprazole 40 mg PO DAILY 03/08/17 Sevelamer Carbonate [Renvela 2.4 gm PO DAILY 03/08/17 Powder Packet -] Warfarin Sodium [Coumadin] 2 mg PO DAILY 03/08/17 Calcium Acetate [Phoslo -] 667 mg PO DAILY 05/17/17 Carvedilol [Coreg -] 3.125 mg PO BID 05/17/17 Insulin Glargine,Hum.rec.anlog 0 units SQ DAILY 05/17/17 [Lantus (nf)] ASSESSMENT AND PLAN: 57 yo man with ESRD on HD --, HTN, IDDM, CAD s/p stent and KS on coumadin and ASA, systolic CHF, embolic CVA and HLD who presents with multiple syncopal episodes over the past 2 days # Acute syncope :Echo shows global decrease in LV function , carotid shows no significant stenosis. CT head was negative for IC bleed. # Acute Diarrhea stool for O&P ,cultures ,C-diff ,will start the patient on PO Flagyl #Ischemic cardiomyopathy systolic cardiomyopathy appreciated on ECHO # CAD (coronary artery disease) Low suspicion for ACS given no EKG changes and elevated trops in setting of ESRD. # ESRD on hemodialysis MWF dialysis scheduled # Hyperlipidemia continue statin therapy. # H/O: CVA (cerebrovascular accident) ;ASA held secondary to thrombocytopenia # Thrombocytopenia continues with worsening discussed with landing support specialist , will need Hem consult to evaluate further ,since it's important for the patient on aspirin. Consult
--- NOTE | 2017-05-18 15:47 | PN ---
Physical Exam: SUBJECTIVE: Patient seen and examined at bedside. No overnight events. He continues to have loose foul smelling stools x5 which he describes as yellow and very watery. He also reports continued dizziness. Denies CP,CUADRA, SOB, palpitations, N/V. OBJECTIVE: Vital Signs Period Temp Pulse Resp BP Sys/Parham Pulse Ox Last 24 Hr 97.5 F-98.9 F 59-91 18-20 98-158/40-102 95-98 GENERAL: AAOx3, mild distress. HEAD: AT/NC EYES: PERRL, EOMI, sclera anicteric, conjunctiva clear. No ptosis. ENT: moist mucous membranes. NECK: supple, JVD LUNGS:CTAB, no wheezing or rales. HEART: RRR, No M/G/R ABDOMEN: distended, tympanic, epigastric tenderness, normal bowel sounds EXTREMITIES: 2+ pulses, warm, well-perfused, no edema. NEUROLOGICAL: Cranial nerves II through XII grossly intact. Normal speech, gait not observed. PSYCH: Normal mood, normal affect. SKIN: Bilateral LE stasis dermatitis. Laboratory Results - last 24 hr 05/17/17 05/17/17 05/17/17 12:38 15:45 17:10 WBC RBC Hgb Hct MCV MCHC RDW Plt Count MPV Neutrophils % Lymphocytes % Monocytes % Eosinophils % Basophils % INR Sodium Potassium Chloride Carbon Dioxide Anion Gap BUN Creatinine Creat Clearance w eGFR POC Glucometer [phone] Random Glucose Calcium Phosphorus Magnesium Total Bilirubin AST ALT Alkaline Phosphatase Troponin I 0.31 H Total Protein Albumin Triglycerides Cholesterol Total LDL Cholesterol HDL Cholesterol Hepatitis C Antibody Cancelled 05/17/17 05/17/17 05/18/17 17:20 21:02 02:06 WBC RBC Hgb Hct MCV MCHC RDW Plt Count MPV Neutrophils % Lymphocytes % Monocytes % Eosinophils % Basophils % INR Sodium Potassium Chloride Carbon Dioxide Anion Gap BUN Creatinine Creat Clearance w eGFR POC Glucometer 185 174 48 Random Glucose Calcium Phosphorus Magnesium Total Bilirubin AST ALT Alkaline Phosphatase Troponin I Total Protein Albumin Triglycerides Cholesterol Total LDL Cholesterol HDL Cholesterol Hepatitis C Antibody 05/18/17 05/18/17 05/18/17 02:58 05:27 06:00 WBC 3.6 L RBC 3.46 L Hgb 12.1 Hct 36.6 MCV 105.9 H MCHC 32.9 RDW 16.6 H Plt Count 55 L MPV 9.3 Neutrophils % 65.4 Lymphocytes % 18.9 Monocytes % 8.7 Eosinophils % 5.8 H Basophils % 1.2 INR Sodium Potassium Chloride Carbon Dioxide Anion Gap BUN Creatinine Creat Clearance w eGFR POC Glucometer 170 113 Random Glucose Calcium Phosphorus Magnesium Total Bilirubin AST ALT Alkaline Phosphatase Troponin I Total Protein Albumin Triglycerides Cholesterol Total LDL Cholesterol HDL Cholesterol Hepatitis C Antibody 05/18/17 05/18/17 05/18/17 06:00 06:00 06:00 WBC RBC Hgb Hct MCV MCHC RDW Plt Count MPV Neutrophils % Lymphocytes % Monocytes % Eosinophils % Basophils % INR 1.76 H Sodium 142 Potassium 4.0 Chloride 100 Carbon Dioxide 32 Anion Gap 10 BUN 28 H D Creatinine 5.3 H D Creat Clearance w eGFR 11.20 POC Glucometer Random Glucose 86 Calcium 8.8 Phosphorus 3.9 D Magnesium 2.2 Total Bilirubin 1.2 H D AST 11 L D ALT 11 L Alkaline Phosphatase 165 H Troponin I Total Protein 7.5 Albumin 3.3 L Triglycerides 75 D Cholesterol 106 D Total LDL Cholesterol 67 D HDL Cholesterol 39 L D Hepatitis C Antibody 05/18/17 10:54 WBC RBC Hgb Hct MCV MCHC RDW Plt Count MPV Neutrophils % Lymphocytes % Monocytes % Eosinophils % Basophils % INR Sodium Potassium Chloride Carbon Dioxide Anion Gap BUN Creatinine Creat Clearance w eGFR POC Glucometer 83 Random Glucose Calcium Phosphorus Magnesium Total Bilirubin AST ALT Alkaline Phosphatase Troponin I Total Protein Albumin Triglycerides Cholesterol Total LDL Cholesterol HDL Cholesterol Hepatitis C Antibody Active Medications Generic Name Dose Route Start Last Admin Trade Name Freq PRN Reason Stop Dose Admin Acetaminophen 650 mg 05/17/17 17:11 05/17/17 17:45 Tylenol - PO 650 mg Q6H PRN Administration FEVER OR PAIN Atorvastatin Calcium 40 mg 05/17/17 22:00 05/17/17 21:13 Lipitor - PO 40 mg HS EVA Administration Calcitriol 0.5 mcg 05/17/17 10:15 05/18/17 09:21 Rocaltrol - PO Not Given TuThFr@1000 [facility] Calcium Acetate 667 mg 05/18/17 10:00 05/18/17 09:09 Phoslo - PO Not Given DAILY@0800 [facility] Carvedilol 3.125 mg 05/18/17 10:00 05/18/17 11:13 Coreg - PO 3.125 mg BID EVA Administration Insulin Aspart 1 vial 05/17/17 11:00 05/18/17 11:12 Novolog Vial Sliding Scale - SQ Not Given ACHS [facility] Protocol Isosorbide Mononitrate 30 mg 05/18/17 10:00 05/18/17 11:13 Imdur - PO 30 mg DAILY [facility] Administration Metronidazole 500 mg 05/18/17 15:00 Flagyl - PO TID EVA Pantoprazole Sodium 40 mg 05/18/17 10:00 05/18/17 11:13 Protonix - PO 40 mg DAILY [facility] Administration Sevelamer Carbonate 2.4 gm 05/18/17 10:00 05/18/17 09:21 Renvela Powder Packet - PO Not Given DAILY [facility] IMAGING: * Ekg: Sinus Rhythm , rightward axis av delay, ivcd. inferolateral TWI, similar to priors tele: Sinus Rhythm * Carotids 04/2017: mod diz, no sig stenosis * Echo 04/2017: mild lv dilation. mod-sev decreased LV fn (global). nl rv mild eli. 1+ mr, severe tr. ASSESSMENT/PLAN: 57 yo man with ESRD on HD --, HTN, IDDM, CAD s/p stent and [place] on coumadin and ASA, systolic CHF, embolic CVA and HLD who presents with multiple syncopal episodes over the past 2 days Problem List - Problems (1) Syncope Assessment/Plan: * Echo shows global decrease in LV funciton. * Carotid shows no significant stenosis. * CT head was negative for IC bleed. * Continue tele monitoring. (2) Diarrhea Assessment/Plan: * Stool for O&P * Stool cultures * C-diff sent * Started on PO Flagyl (3) Ischemic cardiomyopathy Assessment/Plan: * Systolic cardiomyopathy appreciated on ECHO * Fluid and salt restriction. (4) CAD (coronary artery disease) Assessment/Plan: * Low suspicion for ACS given no EKG changes and elevated trops in setting of ESRD. (5) ESRD on hemodialysis Assessment/Plan: * MWF dialysis scheduled * Renal consult appreciated * UF as tolerated * trend phos. levels (6) Hyperlipidemia Assessment/Plan: * Continue statin therapy. (7) H/O: CVA (cerebrovascular accident) Assessment/Plan: * ASA held secondary to thrombocytopenia * Neuro checks qshift. (8) Thrombocytopenia Assessment/Plan: * Chronic issue * Possible secondary to hypersplenism noted on abd. US Visit type - Emergency Visit Emergency Visit: Yes ED Registration Date: 05/17/17 Care time: The patient presented to the Emergency Department on the above date and was hospitalized for further evaluation of their emergent condition. - New Patient This patient is new to me today: Yes Date on this admission: 05/18/17 - Critical Care Critical Care patient: No - Discharge Referral Referred to [facility] No
[2017-05-18] MEDS: metroNIDAZOLE 250 MG TABLET PO SCH ×3 (16:07→21:55)
[2017-05-18] MEDS ORDERED: PT OWN MED DRAWER 7, Y5N ONE (21:52)
[2017-05-18] MEDS: SIMETHICONE 80 MG TAB.CHEW (FP) PO PRN (21:54)
[2017-05-18] MEDS: ATORVASTATIN CA 40 MG TABLET (FP) PO SCH (21:55)
[2017-05-19] MEDS: INSULIN SLIDING SCALE (NOVOLOG) 1 VIAL SQ SCH ×4 (06:04→21:45)
[2017-05-19] MEDS: metroNIDAZOLE 250 MG TABLET PO SCH (06:07)
[2017-05-19] MEDS: CALCIUM ACETATE 667 MG CAPSULE (FP) PO SCH (10:03)
[2017-05-19] MEDS: CARVEDILOL 3.125 MG TABLET (FP) PO SCH ×2 (10:03→21:46)
[2017-05-19] MEDS: CALCITRIOL 0.25 MCG CAPSULE (FP) PO SCH (10:04)
[2017-05-19] MEDS: METRONIDAZOLE 500 MG PREMIXED 100 ML IVPB SCH ×2 (10:04→17:16)
[2017-05-19] MEDS: PANTOPRAZOLE 40 MG TABLET (FP) PO SCH (10:04)
[2017-05-19] MEDS: ISOSORBIDE MONONITRATE 30 MG TAB.SR.24H (FP) PO SCH (10:04)
[2017-05-19] MEDS: SEVELAMER CARBONATE 2.4 GM POWDER PACKET PO SCH (10:04)
--- NOTE | 2017-05-19 10:51 | PN ---
Progress Note (short form) - Note Progress Note: s: no sob palps cp; still with occasional dizziness o: Vital Signs Period Temp Pulse Resp BP Sys/Parham Pulse Ox Last 24 Hr 97.2 F-98.6 F 59-91 18-20 93-135/29-67 98-98 Nad, calm no jvd cta bl nl eff rrr nl s1, s2 2/6 murmur at apex + bs soft nt nd no le e/c/c aaox3 no jaundice, diaphoresis Current Medications Generic Name Dose Route Start Last Admin Trade Name Freq PRN Reason Stop Dose Admin Acetaminophen 650 mg 05/17/17 17:11 05/17/17 17:45 Tylenol - PO 650 mg Q6H PRN Administration FEVER OR PAIN Atorvastatin Calcium 40 mg 05/17/17 22:00 05/18/17 21:55 Lipitor - PO 40 mg HS EVA Administration Calcitriol 0.5 mcg 05/17/17 10:15 05/19/17 10:04 Rocaltrol - PO Not Given TuThFr@1000 [facility] Calcium Acetate 667 mg 05/18/17 10:00 05/19/17 10:03 Phoslo - PO Not Given DAILY@0800 [facility] Carvedilol 3.125 mg 05/18/17 10:00 05/19/17 10:03 Coreg - PO Not Given BID [facility] Metronidazole 100 mls @ 100 mls/hr 05/19/17 10:00 05/19/17 10:04 Flagyl 500mg Premixed Ivpb - IVPB Not Given Q8H-IV [facility] Insulin Aspart 1 vial 05/17/17 11:00 05/19/17 06:04 Novolog Vial Sliding Scale - SQ Not Given ACHS [facility] Protocol Isosorbide Mononitrate 30 mg 05/18/17 10:00 05/19/17 10:04 Imdur - PO Not Given DAILY [facility] Pantoprazole Sodium 40 mg 05/18/17 10:00 05/19/17 10:04 Protonix - PO Not Given DAILY [facility] Sevelamer Carbonate 2.4 gm 05/18/17 10:00 05/19/17 10:04 Renvela Powder Packet - PO Not Given DAILY [facility] Simethicone 80 mg 05/18/17 15:46 05/18/17 21:54 Mylicon - PO 80 mg QID PRN Administration GAS CBC, BMP 06/22/17 06:00 05/18/17 06:00 ekg: sr, rightward axis av delay, ivcd. inferolateral TWI, similar to priors tele: sr carotids 04/2017: mod diz, no sig stenosis echo here 04/2017: mild lv dilation. mod-sev decreased LV fn (global). nl rv mild eli. 1+ mr, severe tr. echo 12/2015: low nl lvef, no wma, mild lvh, nl rv, mild lae, mod mr, mac, mild tr, rvsp 50-60 persantine MIBI here (12/2015): no ST changes vs baseline; large area of inferior and inferolat infarct (with akinesis) with small samantha-infarct ischemia ; EF 35% Cath/PCI @ [place] 08/2015 : CBPTCA of ISR of RPL stent , rest of anatomy unchanged from 05/2015--decided not to stent OM or RPL--he has recurrent and fast ISR of stents and likely will not do not well with PCI strategy Cath/PCI @ [facility] 05/2015: Diag 2 : 100 % ISR of prior [place] [facility] [place], distal LAD 90 % (small vessel), OM1 90%, large RPL stented (ESME)--felt to be culprit Assessment/Plan 57 yo with h/o HTN, HPL, 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 CAD/ischemic CM/elevated troponin - patient with intermediate range troponin in setting of ESRD. No elevation in ck or mb. EKG unchanged. CP atypical. No suspicion of acs. - Per outpatient cardiology record has known systolic cardiomyopathy, which is also seen on echo here. - currently with significant thrombocytopenia without clear etiology. Would hold coumadin and ASA for now. Consider hematology consult to guide anti- platelet therapy, patient with high risk of ISR. -cont statin. con't bb, imdur for now. 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 On coumadin. Currently in SR. given low platelets will hold coumadin as mentioned above. - in sr now presyncope - carotid us, tele unremarkable - head CT negative for bleed - check orthostatics - additional work up per pmd thrombocytopenia -holding antiplatelets/AC as mentioned. -hematology consulted ESRD on HD -HD per renal HTN: -running low on current meds, monitor HPL: -continue statin
--- NOTE | 2017-05-19 12:13 | PN ---
Physical Exam: SUBJECTIVE: Patient seen and examined at bedside. No overnight events. No new complaints. One loose yellow watery BM since last encounter. Continues to have neck discomfort and dizziness. Denies CP, palpitations, SOB,N/V. OBJECTIVE: Vital Signs Period Temp Pulse Resp BP Sys/Parham Pulse Ox Last 24 Hr 97.2 F-98.6 F 59-62 18-20 93-135/29-67 98-98 GENERAL: AAOx3,no acute distress. HEAD: AT/NC EYES: PERRL, EOMI, sclera anicteric, conjunctiva clear. No ptosis. ENT: moist mucous membranes. NECK: supple, (+) JVD on left side LUNGS:CTAB, no wheezing or rales. HEART: RRR, No M/G/R ABDOMEN: soft, NT, mild distention improved. normal bowel sounds EXTREMITIES: 2+ pulses, warm, well-perfused, no edema. NEUROLOGICAL: Cranial nerves II through XII grossly intact. Normal speech, gait not observed. PSYCH: Normal mood, normal affect. SKIN: Bilateral LE stasis dermatitis. Laboratory Results - last 24 hr 05/17/17 05/18/17 05/18/17 15:45 15:59 22:00 POC Glucometer 205 179 Vitamin B12 Serum Folate Hepatitis A Ab Total Positive Hep Bs Antigen Negative Hep Bs Antibody Reactive Hep B Core Total Ab Negative Hepatitis C Antibody <0.1 05/19/17 05/19/17 05/19/17 03:08 06:01 09:55 POC Glucometer 172 119 Vitamin B12 1424 H D Serum Folate 7 Hepatitis A Ab Total Hep Bs Antigen Hep Bs Antibody Hep B Core Total Ab Hepatitis C Antibody Active Medications Generic Name Dose Route Start Last Admin Trade Name Freq PRN Reason Stop Dose Admin Acetaminophen 650 mg 05/17/17 17:11 05/17/17 17:45 Tylenol - PO 650 mg Q6H PRN Administration FEVER OR PAIN Atorvastatin Calcium 40 mg 05/17/17 22:00 05/18/17 21:55 Lipitor - PO 40 mg HS EVA Administration Calcitriol 0.5 mcg 05/17/17 10:15 05/19/17 10:04 Rocaltrol - PO Not Given TuThFr@1000 [facility] Calcium Acetate 667 mg 05/18/17 10:00 05/19/17 10:03 Phoslo - PO Not Given DAILY@0800 [facility] Carvedilol 3.125 mg 05/18/17 10:00 05/19/17 10:03 Coreg - PO Not Given BID [facility] Metronidazole 100 mls @ 100 mls/hr 05/19/17 10:00 05/19/17 10:04 Flagyl 500mg Premixed Ivpb - IVPB Not Given Q8H-IV [facility] Insulin Aspart 1 vial 05/17/17 11:00 05/19/17 06:04 Novolog Vial Sliding Scale - SQ Not Given ACHS [facility] Protocol Isosorbide Mononitrate 30 mg 05/18/17 10:00 05/19/17 10:04 Imdur - PO Not Given DAILY [facility] Pantoprazole Sodium 40 mg 05/18/17 10:00 05/19/17 10:04 Protonix - PO Not Given DAILY [facility] Sevelamer Carbonate 2.4 gm 05/18/17 10:00 05/19/17 10:04 Renvela Powder Packet - PO Not Given DAILY [facility] Simethicone 80 mg 05/18/17 15:46 05/18/17 21:54 Mylicon - PO 80 mg QID PRN Administration GAS IMAGING: * Ekg: Sinus Rhythm , rightward axis av delay, ivcd. inferolateral TWI, similar to priors tele: Sinus Rhythm * Carotids 04/2017: mod diz, no sig stenosis * Echo 04/2017: mild lv dilation. mod-sev decreased LV fn (global). nl rv mild eli. 1+ mr, severe tr. ASSESSMENT/PLAN: 57 yo man with ESRD on HD M-W-F, HTN, IDDM, CAD s/p stent and [place] on coumadin and ASA, systolic CHF, embolic CVA and HLD who presents with multiple syncopal episodes . Problem List - Problems (1) Syncope Assessment/Plan: * Continues to have neck pain and dizziness- will consult Dr. Schwab * Orthostatic blood pressure as this could be carotid sinus dysfunction. * Echo shows global decrease in LV funciton. * Carotid shows no significant stenosis. * CT head was negative for IC bleed. * Continue tele monitoring. (2) Diarrhea Assessment/Plan: * improved; only one loose BM in 24hrs * Stool for O&P * Stool cultures * C-diff sent * continue Flagyl 500mg IV Q8H (3) Ischemic cardiomyopathy Assessment/Plan: * Systolic cardiomyopathy appreciated on ECHO * Fluid and salt restriction. * daily weights and strict I/O's (4) CAD (coronary artery disease) Assessment/Plan: * Low suspicion for ACS given no EKG changes and elevated trops in setting of ESRD. (5) ESRD on hemodialysis Assessment/Plan: * dialyzed today * Renal consult appreciated * UF as tolerated * trend phos. levels (6) Hyperlipidemia Assessment/Plan: * Continue statin therapy. (7) H/O: CVA (cerebrovascular accident) Assessment/Plan: * ASA held secondary to thrombocytopenia * Neuro checks qshift. (8) Thrombocytopenia Assessment/Plan: * Chronic issue * Possible secondary to hypersplenism noted on abd. US * Heme consult Visit type - Emergency Visit Emergency Visit: Yes ED Registration Date: 05/19/17 Care time: The patient presented to the Emergency Department on the above date and was hospitalized for further evaluation of their emergent condition. - New Patient This patient is new to me today: No - Critical Care Critical Care patient: No
[2017-05-19 15:18] LABS: CREATININE 2.4 mg/dL (0.7-1.3)
--- NOTE | 2017-05-19 15:42 | PN ---
Progress Note (short form) - Note Progress Note: Renal Follow up for ESRD on HD Pt seen and examined during dialysis BP stable, AVF with good flow, UF goal is 3L no acute complaints Vital Signs Temperature 97.2 F L 05/19/17 06:00 Pulse Rate 95 H 05/19/17 14:00 Respiratory Rate 18 05/19/17 14:00 Blood Pressure 116/61 05/19/17 14:00 O2 Sat by Pulse Oximetry (%) 98 05/19/17 14:00 Intake & Output 05/16/17 05/17/17 05/18/17 05/19/17 23:59 23:59 23:59 23:59 Intake Total 440 840 20 Output Total 0 Balance 440 840 20 Weight 135 lb 148 lb 4 oz 149 lb 3.2 oz Gen: NAD, awake and alert CVS: RRR, No M/R Lungs: + rales at lung bases Abd: soft NT/ND Ext: Trace edema in LE Access: left ARM AVF CBC, BMP 05/18/17 06:00 05/19/17 13:50 Current Medications Acetaminophen (Tylenol -) 650 mg PO Q6H PRN PRN Reason: FEVER OR PAIN Last Admin: 05/17/17 17:45 Dose: 650 mg Atorvastatin Calcium (Lipitor -) 40 mg PO HS [facility] Last Admin: 05/18/17 21:55 Dose: 40 mg Calcitriol (Rocaltrol -) 0.5 mcg PO TuThFr@1000 [facility] Last Admin: 05/19/17 10:04 Dose: Not Given Calcium Acetate (Phoslo -) 667 mg PO DAILY@0800 [facility] Last Admin: 05/19/17 10:03 Dose: Not Given Carvedilol (Coreg -) 3.125 mg PO BID [facility] Last Admin: 05/19/17 10:03 Dose: Not Given Metronidazole (Flagyl 500mg Premixed Ivpb -) 100 mls @ 100 mls/hr IVPB Q8H-IV [facility] Last Admin: 05/19/17 10:04 Dose: Not Given Insulin Aspart (Novolog Vial Sliding Scale -) 1 vial SQ ACHS [facility] PRN Reason: Protocol Last Admin: 05/19/17 12:29 Dose: Not Given Isosorbide Mononitrate (Imdur -) 30 mg PO DAILY [facility] Last Admin: 05/19/17 10:04 Dose: Not Given Pantoprazole Sodium (Protonix -) 40 mg PO DAILY [facility] Last Admin: 05/19/17 10:04 Dose: Not Given Sevelamer Carbonate (Renvela Powder Packet -) 2.4 gm PO DAILY [facility] Last Admin: 05/19/17 10:04 Dose: Not Given Simethicone (Mylicon -) 80 mg PO QID PRN PRN Reason: GAS Last Admin: 05/18/17 21:54 Dose: 80 mg A/P 56 year old Gentleman with PMhx of ESRD on HD (MWF), CAD s/p NC and PCI, Hypertension, IDDM, Hyperlipidemia who presented with syncope and SOB and found to have fluid overload. Pt last had dialysis on Monday w/o complication. Denies any chest pain. #ESRD on HD with fluid overload tolerating HD well will maintain on [facility] HD schedule as inpatient #Syncope Tele monitoring Cardiology follow up CTA showed no acute pathology #CHF UF with HD as tolerated Fluid and salt restriction #CAD Cardiology follow up #Hx of Hypertension now with marginal BP hold BP meds for now pending dialysis #Renal Osteodystrophy Trend Phos levels continue Renvela TID with meals Thank you Yonis Farooq DO
[2017-05-19] MEDS: ATORVASTATIN CA 40 MG TABLET (FP) PO SCH (21:46)
[2017-05-19] MEDS: SIMETHICONE 80 MG TAB.CHEW (FP) PO PRN (21:47)
--- NOTE | 2017-05-19 23:23 | CONSULT ---
Consult - text type - Consultation Consultation Note: This is a 56 year old Gentleman with PMhx of ESRD on HD (MWF), CAD s/p SC and PCI, Hypertension, IDDM, Hyperlipidemia who presented with syncope and SOB and found to have fluid overload. Denies any N/V/D. No cough. + orthopnea. No CUADRA, confusion, lethargy, weakness. PMhx: As above Allergies: NKDA Family Hx: NC Social Hx: No T/A/D ROS: as per HPI Home Meds: Home Medications Medication Instructions Recorded Aspirin [ASA -] 81 mg PO DAILY 03/08/17 Atorvastatin Ca [Lipitor] 40 mg PO HS 03/08/17 Calcitriol [Calcitriol -] 0.5 mcg PO .TUTHFR DAILY 03/08/17 Isosorbide Mononitrate [Imdur -] 30 mg PO DAILY 03/08/17 Omeprazole 40 mg PO DAILY 03/08/17 Sevelamer Carbonate [Renvela 2.4 gm PO DAILY 03/08/17 Powder Packet -] Warfarin Sodium [Coumadin] 2 mg PO DAILY 03/08/17 Calcium Acetate [Phoslo -] 667 mg PO DAILY 05/17/17 Carvedilol [Coreg -] 3.125 mg PO BID 05/17/17 Insulin Glargine,Hum.rec.anlog 0 units SQ DAILY 05/17/17 [Lantus (nf)] Last Vital Signs Temp Pulse Resp BP Pulse Ox 97.9 F 58 L 18 105/66 98 05/20/17 09:04 05/20/17 09:04 05/20/17 09:04 05/20/17 09:04 05/19/17 22:00 Gen: NAD, awake and alert HEENT: NC/AT, + JVD, Neck supple CVS: RRR, No M/R Lungs: + rales at lung bases Abd: soft NT/ND Ext: Trace edema in LE Neuro: no focal defects Access: left ARM AVF Abnormal Lab Results 05/17/17 05/19/17 05/19/17 15:45 09:55 13:50 WBC RBC MCV RDW Plt Count Chloride BUN Creatinine 2.4 H D Random Glucose Total Bilirubin AST ALT Alkaline Phosphatase Vitamin B12 1424 H D Hepatitis A Ab Total Positive H 05/20/17 05/20/17 06:00 06:00 WBC 3.8 L RBC 3.53 L MCV 106.1 H RDW 16.6 H Plt Count 55 L Chloride 95 L BUN 35 H D Creatinine 5.4 H D Random Glucose 120 H D Total Bilirubin 1.2 H AST 13 L ALT 11 L Alkaline Phosphatase 186 H Vitamin B12 Hepatitis A Ab Total Active Medications Generic Name Dose Route Start Last Admin Trade Name Freq PRN Reason Stop Dose Admin Acetaminophen 650 mg 05/17/17 17:11 05/17/17 17:45 Tylenol - PO 650 mg Q6H PRN Administration FEVER OR PAIN Atorvastatin Calcium 40 mg 05/17/17 22:00 05/19/17 21:46 Lipitor - PO 40 mg HS EVA Administration Calcitriol 0.5 mcg 05/17/17 10:15 05/20/17 08:49 Rocaltrol - PO 0.5 mcg TuThFr@1000 [facility] Administration Calcium Acetate 667 mg 05/18/17 10:00 05/20/17 08:47 Phoslo - PO 667 mg DAILY@0800 [facility] Administration Carvedilol 3.125 mg 05/18/17 10:00 05/20/17 09:03 Coreg - PO 3.125 mg BID [facility] Administration Metronidazole 100 mls @ 100 mls/hr 05/19/17 10:00 05/20/17 09:03 Flagyl 500mg Premixed Ivpb - IVPB 100 mls/hr Q8H-IV [facility] Administration Insulin Aspart 1 vial 05/17/17 11:00 05/20/17 06:47 Novolog Vial Sliding Scale - SQ Not Given ACHS [facility] Protocol Isosorbide Mononitrate 30 mg 05/18/17 10:00 05/20/17 09:03 Imdur - PO 30 mg DAILY [facility] Administration Pantoprazole Sodium 40 mg 05/18/17 10:00 05/20/17 09:03 Protonix - PO 40 mg DAILY [facility] Administration Sevelamer Carbonate 2.4 gm 05/18/17 10:00 05/20/17 09:03 Renvela Powder Packet - PO 2.4 gm DAILY [facility] Administration Simethicone 80 mg 05/18/17 15:46 05/19/17 21:47 Mylicon - PO 80 mg QID PRN Administration GAS A/P 56 year old Gentleman with PMhx of ESRD on HD (MWF), CAD s/p SC and PCI, Hypertension, IDDM, Hyperlipidemia who presented with syncope and SOB and found to have fluid overload. Chronic thrombocytopenia also macrocytosis worsening since 12/12 differential is liver disease with hypersplenism, ascites, versus MDS versus passive congestion from CHF check B12/folate/TSH Patient had been on asa/coumadin would continue aslong as platelets > 50,000 will discuss with cardiology
[2017-05-20 00:07] LABS: HEP B SURFACE AB Reactive (.)
[2017-05-20] MEDS: METRONIDAZOLE 500 MG PREMIXED 100 ML IVPB SCH ×3 (03:08→17:46)
[2017-05-20] MEDS: INSULIN SLIDING SCALE (NOVOLOG) 1 VIAL SQ SCH ×4 (06:47→21:03)
[2017-05-20 08:35] LABS: BASOPHIL 1.1 % (0-2.0); EOSINOPHIL 3.6 % (0-4.5); MCH 35.3 pg (25.7-33.7); MCHC 33.3 g/dl (32.0-35.9); MEAN CELL VOLUME 106.1 fl (80-96); MEAN PLT VOLUME 9.1 fl (7.5-11.1); PLATELET COUNT 55 K/MM3 (134-434); RDW 16.6 % (11.9-15.9); WHITE BLOOD COUNT 3.8 K/mm3 (4.0-10.0)
[2017-05-20 08:42] LABS: ALBUMIN 3.4 g/dl (3.4-5.0); ANION GAP 11 (8-16); BILIRUBIN,TOTAL 1.2 mg/dL (0.2-1.0); CALCIUM 9.1 mg/dL (8.5-10.1); CO2 30 mmol/L (21-32); CREATININE 5.4 mg/dL (0.7-1.3); GLUCOSE,RANDOM 120 mg/dL (74-106); SGOT/AST 13 U/L (15-37); SGPT/ALT 11 U/L (12-78); TOT PROT 7.6 g/dl (6.4-8.2)
[2017-05-20 08:43] LABS: ALK PHOS 186 U/L (45-117)
[2017-05-20] MEDS: CALCIUM ACETATE 667 MG CAPSULE (FP) PO SCH (08:47)
[2017-05-20] MEDS: CALCITRIOL 0.25 MCG CAPSULE (FP) PO SCH (08:49)
[2017-05-20] MEDS: CARVEDILOL 3.125 MG TABLET (FP) PO SCH ×2 (09:03→21:05)
[2017-05-20] MEDS: PANTOPRAZOLE 40 MG TABLET (FP) PO SCH (09:03)
[2017-05-20] MEDS: ISOSORBIDE MONONITRATE 30 MG TAB.SR.24H (FP) PO SCH (09:03)
[2017-05-20] MEDS: SEVELAMER CARBONATE 2.4 GM POWDER PACKET PO SCH (09:03)
--- NOTE | 2017-05-20 09:22 | PN ---
Progress Note (short form) - Note Progress Note: Renal Follow up for ESRD on HD Pt seen and examined at the bedside reported a left sided occipital headache and nausea this am now resolved no sob or chest pain s/p HD yesterday Vital Signs Temperature 97.9 F 05/20/17 09:04 Pulse Rate 58 L 05/20/17 09:04 Respiratory Rate 18 05/20/17 09:04 Blood Pressure 105/66 05/20/17 09:04 O2 Sat by Pulse Oximetry (%) 98 05/19/17 22:00 Intake & Output 05/17/17 05/18/17 05/19/17 05/20/17 23:59 23:59 23:59 23:59 Intake Total 440 840 840 100 Output Total 0 Balance 440 840 840 100 Weight 135 lb 148 lb 4 oz 149 lb 3.2 oz Gen: NAD, awake and alert CVS: RRR, No M/R Lungs: + rales at lung bases Abd: soft NT/ND Ext: Trace edema in LE Access: left ARM AVF CBC, BMP 05/20/17 06:00 05/20/17 06:00 Current Medications Acetaminophen (Tylenol -) 650 mg PO Q6H PRN PRN Reason: FEVER OR PAIN Last Admin: 05/17/17 17:45 Dose: 650 mg Atorvastatin Calcium (Lipitor -) 40 mg PO HS [facility] Last Admin: 05/19/17 21:46 Dose: 40 mg Calcitriol (Rocaltrol -) 0.5 mcg PO TuThFr@1000 [facility] Last Admin: 05/20/17 08:49 Dose: 0.5 mcg Calcium Acetate (Phoslo -) 667 mg PO DAILY@0800 [facility] Last Admin: 05/20/17 08:47 Dose: 667 mg Carvedilol (Coreg -) 3.125 mg PO BID [facility] Last Admin: 05/20/17 09:03 Dose: 3.125 mg Metronidazole (Flagyl 500mg Premixed Ivpb -) 100 mls @ 100 mls/hr IVPB Q8H-IV [facility] Last Admin: 05/20/17 09:03 Dose: 100 mls/hr Insulin Aspart (Novolog Vial Sliding Scale -) 1 vial SQ ACHS [facility] PRN Reason: Protocol Last Admin: 05/20/17 06:47 Dose: Not Given Isosorbide Mononitrate (Imdur -) 30 mg PO DAILY [facility] Last Admin: 05/20/17 09:03 Dose: 30 mg Pantoprazole Sodium (Protonix -) 40 mg PO DAILY [facility] Last Admin: 05/20/17 09:03 Dose: 40 mg Sevelamer Carbonate (Renvela Powder Packet -) 2.4 gm PO DAILY [facility] Last Admin: 05/20/17 09:03 Dose: 2.4 gm Simethicone (Mylicon -) 80 mg PO QID PRN PRN Reason: GAS Last Admin: 05/19/17 21:47 Dose: 80 mg A/P 56 year old Gentleman with PMhx of ESRD on HD (MWF), CAD s/p VT and PCI, Hypertension, IDDM, Hyperlipidemia who presented with syncope and SOB and found to have fluid overload. Pt last had dialysis on Monday w/o complication. Denies any chest pain. 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
--- NOTE | 2017-05-20 10:46 | CON.NEURO ---
Consult Consult Specialty:: neurology - History of Present Illness History of Present Illness: 57 yo man with h/o HTN, HLD, CAD s/p stent and NM on coumadin and ASA, systolic CHF, embolic CVA, IDDM, ESRD on dialysis (M,W,F), and depression presents to ED s/p syncopal episode with c/o of SOB, left sided head/neck pain. Patient states he lost consciousness in bed sitting next to his but then regained consciousness. He went to the bathroom twice and after the second time when he sat back down on the bed felt as if he were going to lose consciousness again. After he fell, He reports severe pain to the left side of his head and neck. dizziness positional initially, though this has imporved. Was able to walk back and fourth without sig issue. legs feels tired. no focal weakness, no hx of seizure. CTA negative for PE. CT HD : sinusitis, no acute CVA. 05/17/17 CT/HEAD CT WITHOUT CONTRAST HISTORY PROVIDED: Head and neck pain TECHNIQUE: Sequential axial images were obtained from the base of the skull to the vertex. There is no evidence of acute intracranial hemorrhage, mass lesions or infarctions. There is a mild degree of diffuse cerebral atrophy with sulcal widening and ventricular dilatation. There is partial opacification of both maxillary sinuses, right greater than left, as well as fluid within the left sphenoid sinus. This suggests acute/chronic sinusitis. Clinical correlation is advised. IMPRESSION: No evidence of acute intracranial pathology. Acute/chronic sinusitis as described above. - Past Medical History Cardio/Vascular: Yes: CAD (patient reports having cath and PCI one year ago at [facility]), HTN, Hyperlipdemia Renal/: Yes: Renal Failure, Hemodialysis Endocrine: Yes: Diabetes Mellitus - Past Surgical History Past Surgical History: Yes: None, AV Fistula/Graft - Alcohol/Substance Use Hx Alcohol Use: No History of Substance Use: reports: None - Smoking History Smoking history: Never smoked Have you smoked in the past 12 months: No Aproximately how many cigarettes per day: 0 If you are a former smoker, when did you quit?: 17 yrs ago - Social History ADL: Independent History of Recent Travel: No Home Medications - Allergies Allergies/Adverse Reactions: Allergies Allergy/AdvReac Type Severity Reaction Status Date / Time No Known Allergies Allergy Verified 05/17/17 04:51 - Home Medications Home Medications: Ambulatory Orders Aspirin [ASA -] 81 mg PO DAILY 03/08/17 Atorvastatin Ca [Lipitor] 40 mg PO HS 03/08/17 Calcitriol [Calcitriol -] 0.5 mcg PO .TUTHFR DAILY 03/08/17 Isosorbide Mononitrate [Imdur -] 30 mg PO DAILY 03/08/17 Omeprazole 40 mg PO DAILY 03/08/17 Sevelamer Carbonate [Renvela Powder Packet -] 2.4 gm PO DAILY 03/08/17 Warfarin Sodium [Coumadin] 2 mg PO DAILY 03/08/17 Calcium Acetate [Phoslo -] 667 mg PO DAILY 05/17/17 Carvedilol [Coreg -] 3.125 mg PO BID 05/17/17 Insulin Glargine,Hum.rec.anlog [Lantus (nf)] 0 units SQ DAILY 05/17/17 Family Disease History - Family Disease History Family Disease History: Heart Disease: Father Physical Exam-Neuro Vital Signs: Vital Signs Temperature 97.9 F 05/20/17 09:04 Pulse Rate 58 L 05/20/17 09:04 Respiratory Rate 18 05/20/17 09:04 Blood Pressure 105/66 05/20/17 09:04 O2 Sat by Pulse Oximetry (%) 98 05/19/17 22:00 Constitutional: Yes: Well Nourished, No Distress Labs: CBC, BMP 05/20/17 06:00 05/20/17 06:00 INR, PTT INR 1.76 (0.82-1.09) H 05/18/17 06:00 - Neuro Exam Level Of Consciousness: Yes: Alert, Oriented to Person (awake and conversive, no dysrthria, no aphasia, EOMI, VFF, no facial, motor 5/5, no drift, no asterxis or tremor, reflexes trace) NIH Stroke Scale - Total Score NIH Stroke Scale Score: 0 Imaging - Results Cat Scan: Report Reviewed, Image Reviewed Problem List - Problems (1) Accident due to mechanical fall without injury Code(s): W19.XXXA - UNSPECIFIED FALL, INITIAL ENCOUNTER (2) CAD (coronary artery disease) Code(s): I25.10 - ATHSCL HEART DISEASE OF [place] CORONARY ARTERY W/O ANG PCTRS Qualifiers: Coronary Disease-Associated Artery/Lesion type: [place] artery [place] vs. transplanted heart: [place] heart Associated angina: with stable angina Qualified Code(s): I25.118 - Atherosclerotic heart disease of [place] coronary artery with other forms of angina pectoris (3) ESRD on hemodialysis Code(s): N18.6 - END STAGE RENAL DISEASE Z99.2 - DEPENDENCE ON RENAL DIALYSIS (4) Syncope Code(s): R55 - SYNCOPE AND COLLAPSE Qualifiers: Syncope type: unspecified Qualified Code(s): R55 - Syncope and collapse Assessment/Plan 57 yo man with h/o HTN, HLD, CAD s/p stent and NM on coumadin and ASA, systolic CHF, embolic CVA, IDDM, ESRD on dialysis (M,W,F), and depression presents to ED s/p syncopal episode with c/o of SOB, left sided head/neck pain. Patient states he lost consciousness in bed sitting next to his but then regained consciousness. He went to the bathroom twice and after the second time when he sat back down on the bed felt as if he were going to lose consciousness again. no hx of seizure. CTA negative for PE. vertigo has improved and neuro status at baseline. CT HD : sinusitis, no acute CVA/bleed. Dopplers (-) for Hemodynamic stenosis Syncope likely vasovagal vs cardiac (known Afib , cardiomyopathy) ; no evidence of stroke or vertbrobasilar insufficiency/TIA less likely. No clear evidence for a seizure. --FU CARD rec --low platelets, AC on hold-await HEM eval. Dr Chaparro (covering for Dr Schwab) [phone]
--- NOTE | 2017-05-20 15:30 | PN ---
Physical Exam: SUBJECTIVE: Patient seen and examined Patient is comfortable today with no acute distress. No further diarrhea today but feels bloated on IV Flagyl. OBJECTIVE: Vital Signs Temperature 98.3 F 05/20/17 14:35 Pulse Rate 60 05/20/17 14:35 Respiratory Rate 16 05/20/17 14:35 Blood Pressure 129/57 05/20/17 14:35 O2 Sat by Pulse Oximetry (%) 97 05/20/17 17:31 GENERAL: The patient is awake, alert, and fully oriented, in no acute distress. HEAD: Normal with no signs of trauma. EYES: PERRL, extraocular movements intact, sclera anicteric, conjunctiva clear. ENT: Ears normal, oropharynx clear without exudates, moist mucous membranes. NECK: Trachea midline, full range of motion, supple. LUNGS: Breath sounds equal, clear to auscultation bilaterally, no wheezes, no crackles, no accessory muscle use. HEART: Regular rate and rhythm, S1, S2 , YAAKOV 2/6 . ABDOMEN: Soft, mildly distended ,NT, normoactive bowel sounds, no guarding, no rebound, no hepatosplenomegaly, no masses. EXTREMITIES: 2+ pulses, warm, well-perfused, no edema. NEUROLOGICAL: Cranial nerves II through XII grossly intact. Normal speech, gait not observed. PSYCH: Normal mood, normal affect. SKIN: Warm, dry, normal turgor, no rashes or lesions noted CBCD WBC 3.8 K/mm3 (4.0-10.0) L 05/20/17 06:00 RBC 3.53 M/mm3 (4.00-5.60) L 05/20/17 06:00 Hgb 12.5 GM/dL (11.7-16.9) 05/20/17 06:00 Hct 37.4 % (35.4-49) 05/20/17 06:00 MCV 106.1 fl (80-96) H 05/20/17 06:00 MCHC 33.3 g/dl (32.0-35.9) 05/20/17 06:00 RDW 16.6 % (11.9-15.9) H 05/20/17 06:00 Plt Count 55 K/MM3 (134-434) L 05/20/17 06:00 MPV 9.1 fl (7.5-11.1) 05/20/17 06:00 CMP Sodium 136 mmol/L (136-145) 05/20/17 06:00 Potassium 4.4 mmol/L (3.5-5.1) 05/20/17 06:00 Chloride 95 mmol/L (98-107) L 05/20/17 06:00 Carbon Dioxide 30 mmol/L (21-32) 05/20/17 06:00 Anion Gap 11 (8-16) 05/20/17 06:00 BUN 35 mg/dL (7-18) H D 05/20/17 06:00 Creatinine 5.4 mg/dL (0.7-1.3) H D 05/20/17 06:00 Creat Clearance w eGFR 10.96 (>60) 05/20/17 06:00 Random Glucose 120 mg/dL (74-106) H D 05/20/17 06:00 Calcium 9.1 mg/dL (8.5-10.1) 05/20/17 06:00 Total Bilirubin 1.2 mg/dL (0.2-1.0) H 05/20/17 06:00 AST 13 U/L (15-37) L 05/20/17 06:00 ALT 11 U/L (12-78) L 05/20/17 06:00 Alkaline Phosphatase 186 U/L (45-117) H 05/20/17 06:00 Total Protein 7.6 g/dl (6.4-8.2) 05/20/17 06:00 Albumin 3.4 g/dl (3.4-5.0) 05/20/17 06:00 CARDIAC ENZYMES Creatine Kinase 142 IU/L (39-308) 05/17/17 11:11 Troponin I 0.31 ng/ml (0.00-0.05) H 05/17/17 17:10 Active Medications Generic Name Dose Route Start Last Admin Trade Name Freq PRN Reason Stop Dose Admin Acetaminophen 650 mg 05/17/17 17:11 05/17/17 17:45 Tylenol - PO 650 mg Q6H PRN Administration FEVER OR PAIN Atorvastatin Calcium 40 mg 05/17/17 22:00 05/19/17 21:46 Lipitor - PO 40 mg HS [facility]A Administration Calcitriol 0.5 mcg 05/17/17 10:15 05/20/17 08:49 Rocaltrol - PO 0.5 mcg TuThFr@1000 [facility] Administration Calcium Acetate 667 mg 05/18/17 10:00 05/20/17 08:47 Phoslo - PO 667 mg DAILY@0800 [facility] Administration Carvedilol 3.125 mg 05/18/17 10:00 05/20/17 09:03 Coreg - PO 3.125 mg BID EVA Administration Metronidazole 100 mls @ 100 mls/hr 05/19/17 10:00 05/20/17 09:03 Flagyl 500mg Premixed Ivpb - IVPB 100 mls/hr Q8H-IV [facility] Administration Insulin Aspart 1 vial 05/17/17 11:00 05/20/17 12:21 Novolog Vial Sliding Scale - SQ 2 units ACHS [facility] Administration Protocol Isosorbide Mononitrate 30 mg 05/18/17 10:00 05/20/17 09:03 Imdur - PO 30 mg DAILY [facility] Administration Pantoprazole Sodium 40 mg 05/18/17 10:00 05/20/17 09:03 Protonix - PO 40 mg DAILY [facility] Administration Sevelamer Carbonate 2.4 gm 05/18/17 10:00 05/20/17 09:03 Renvela Powder Packet - PO 2.4 gm DAILY [facility] Administration Simethicone 80 mg 05/18/17 15:46 05/19/17 21:47 Mylicon - PO 80 mg QID PRN Administration GAS Home Medications Medication Instructions Recorded Aspirin [ASA -] 81 mg PO DAILY 03/08/17 Atorvastatin Ca [Lipitor] 40 mg PO HS 03/08/17 Calcitriol [Calcitriol -] 0.5 mcg PO .TUTHFR DAILY 03/08/17 Isosorbide Mononitrate [Imdur -] 30 mg PO DAILY 03/08/17 Omeprazole 40 mg PO DAILY 03/08/17 Sevelamer Carbonate [Renvela 2.4 gm PO DAILY 03/08/17 Powder Packet -] Warfarin Sodium [Coumadin] 2 mg PO DAILY 03/08/17 Calcium Acetate [Phoslo -] 667 mg PO DAILY 05/17/17 Carvedilol [Coreg -] 3.125 mg PO BID 05/17/17 Insulin Glargine,Hum.rec.anlog 0 units SQ DAILY 05/17/17 [Lantus (nf)] Microbiology 05/19/17 10:30 Stool Gram Stain - Final 05/19/17 10:30 Stool Salmonella/Shigella Culture - Preliminary Pending Organism Non Lactose Fermenting Gnb 05/19/17 10:30 Stool Yersinia Culture - Preliminary NO ENTERIC PATHOGENS, 24 HOURS, ON PRIMARY PLATES 05/19/17 10:30 Stool Vibrio Culture - Preliminary NO ENTERIC PATHOGENS, 24 HOURS, ON PRIMARY PLATES 05/19/17 10:30 Stool Escherichia coli 0157 Culture - Preliminary NO ENTERIC PATHOGENS, 24 HOURS, ON PRIMARY PLATES 05/19/17 10:30 Stool Clostridium difficile Antigen (VANI) - Final 05/19/17 10:30 Stool Clostridium difficile Toxin Assay - Final ASSESSMENT/PLAN: Patient is a 57 yo man with ESRD on HD , HTN, IDDM, CAD s/p stent and OK on coumadin and ASA, systolic CHF, embolic CVA and HLD who presents with multiple syncopal episodes over the past 2 days. # s/p Acute Diarrhea resolved , Stool cdiff negative, will dc the Flagyl IV tool for O&P ,cultures ,C-diff still pending the final result. On Iv Flagyl continue. # Acute syncope ,presyncope :Echo shows global decrease in LV function , carotid shows no significant stenosis. CT head was negative for IC bleed. #Ischemic cardiomyopathy with with systolic CM with CAD, with elevated troponin in the setting of ESRD. without any elevation of CKMB , no change in EKG, As per glass tinter with hx of embolic cva/s/p loop recorder which was removed showed afib, was on coumadin. Currently in SR. given low platelets held coumadin was held, as per traffic engineer; OK to resume asa/coumadin as long as platelets are > 50. cont statin, bb, imdur for now. # CAD (coronary artery disease) Low suspicion for ACS given no EKG changes and elevated trops in setting of ESRD. # ESRD on hemodialysis MWF dialysis scheduled # Hyperlipidemia continue statin therapy. # H/O: CVA (cerebrovascular accident) ;ASA held secondary to thrombocytopenia # Acute thrombocytopenia continues ,Hem. consult possible dc in am. Visit type - Emergency Visit Emergency Visit: Yes ED Registration Date: 05/19/17 Care time: The patient presented to the Emergency Department on the above date and was hospitalized for further evaluation of their emergent condition. - New Patient This patient is new to me today: No - Critical Care Critical Care patient: No
--- NOTE | 2017-05-20 15:31 | PN ---
Teaching Attending Note Name of Resident: Chandler Duncan ATTENDING PHYSICIAN STATEMENT I saw and evaluated the patient. I reviewed the resident's note and discussed the case with the resident. I agree with the resident's findings and plan as documented. SUBJECTIVE: No new complaints. One loose watery BM. OBJECTIVE: Period Temp Pulse Resp BP Sys/[place] Pulse Ox Last 24 Hr 97.2 F-98.6 F 59-62 18-20 93-135/29-67 98-98 Laboratory Results - last 24 hr 05/17/17 05/18/17 05/18/17 15:45 15:59 22:00 POC Glucometer 205 179 Vitamin B12 Serum Folate Hepatitis A Ab Total Positive Hep Bs Antigen Negative Hep Bs Antibody Reactive Hep B Core Total Ab Negative Hepatitis C Antibody <0.1 05/19/17 05/19/17 05/19/17 03:08 06:01 09:55 POC Glucometer 172 119 Vitamin B12 1424 H D Serum Folate 7 Hepatitis A Ab Total Hep Bs Antigen Hep Bs Antibody Hep B Core Total Ab Hepatitis C Antibody Active Medications Generic Name Dose Route Start Last Admin Trade Name Freq PRN Reason Stop Dose Admin Acetaminophen 650 mg 05/17/17 17:11 05/17/17 17:45 Tylenol - PO 650 mg Q6H PRN Administration FEVER OR PAIN Atorvastatin Calcium 40 mg 05/17/17 22:00 05/18/17 21:55 Lipitor - PO 40 mg HS EVA Administration Calcitriol 0.5 mcg 05/17/17 10:15 05/19/17 10:04 Rocaltrol - PO Not Given TuThFr@1000 [facility] Calcium Acetate 667 mg 05/18/17 10:00 05/19/17 10:03 Phoslo - PO Not Given DAILY@0800 [facility] Carvedilol 3.125 mg 05/18/17 10:00 05/19/17 10:03 Coreg - PO Not Given BID [facility] Metronidazole 100 mls @ 100 mls/hr 05/19/17 10:00 05/19/17 10:04 Flagyl 500mg Premixed Ivpb - IVPB Not Given Q8H-IV [facility] Insulin Aspart 1 vial 05/17/17 11:00 05/19/17 06:04 Novolog Vial Sliding Scale - SQ Not Given ACHS [facility] Protocol Isosorbide Mononitrate 30 mg 05/18/17 10:00 05/19/17 10:04 Imdur - PO Not Given DAILY [facility] Pantoprazole Sodium 40 mg 05/18/17 10:00 05/19/17 10:04 Protonix - PO Not Given DAILY [facility] Sevelamer Carbonate 2.4 gm 05/18/17 10:00 05/19/17 10:04 Renvela Powder Packet - PO Not Given DAILY [facility] Simethicone 80 mg 05/18/17 15:46 05/18/17 21:54 Mylicon - PO 80 mg QID PRN Administration GAS Microbiology 05/19/17 10:30 Stool Gram Stain - Final 05/19/17 10:30 Stool Salmonella/Shigella Culture - Preliminary Pending Organism Non Lactose Fermenting Gnb 05/19/17 10:30 Stool Yersinia Culture - Preliminary NO ENTERIC PATHOGENS, 24 HOURS, ON PRIMARY PLATES 05/19/17 10:30 Stool Vibrio Culture - Preliminary NO ENTERIC PATHOGENS, 24 HOURS, ON PRIMARY PLATES 05/19/17 10:30 Stool Escherichia coli 0157 Culture - Preliminary NO ENTERIC PATHOGENS, 24 HOURS, ON PRIMARY PLATES 05/19/17 10:30 Stool Clostridium difficile Antigen (VANI) - Final 05/19/17 10:30 Stool Clostridium difficile Toxin Assay - Final PE: per resident's note ASSESSMENT AND PLAN: 57 yo man with ESRD on HD , HTN, IDDM, CAD s/p stent and MD on coumadin and ASA, systolic CHF, embolic CVA and HLD who presents with multiple syncopal episodes over the past 2 days. # Acute Diarrhea continues x 1 only last night ,stool for O&P ,cultures ,C-diff still pending the final result. On Iv Flagyl continue. # Acute syncope :Echo shows global decrease in LV function , carotid shows no significant stenosis. CT head was negative for IC bleed. #Ischemic cardiomyopathy systolic cardiomyopathy appreciated on ECHO # CAD (coronary artery disease) Low suspicion for ACS given no EKG changes and elevated trops in setting of ESRD. # ESRD on hemodialysis MWF dialysis scheduled # Hyperlipidemia continue statin therapy. # H/O: CVA (cerebrovascular accident) ;ASA held secondary to thrombocytopenia # Acute thrombocytopenia continues ,Hem. consult
--- NOTE | 2017-05-20 15:49 | PN ---
Progress Note (short form) - Note Progress Note: CC: syncope s: no sob palps cp bleeding; still with occasional dizziness o: Current Medications Acetaminophen (Tylenol -) 650 mg PO Q6H PRN PRN Reason: FEVER OR PAIN Last Admin: 05/17/17 17:45 Dose: 650 mg Atorvastatin Calcium (Lipitor -) 40 mg PO HS [facility] Last Admin: 05/19/17 21:46 Dose: 40 mg Calcitriol (Rocaltrol -) 0.5 mcg PO TuThFr@1000 [facility] Last Admin: 05/20/17 08:49 Dose: 0.5 mcg Calcium Acetate (Phoslo -) 667 mg PO DAILY@0800 [facility] Last Admin: 05/20/17 08:47 Dose: 667 mg Carvedilol (Coreg -) 3.125 mg PO BID [facility] Last Admin: 05/20/17 09:03 Dose: 3.125 mg Metronidazole (Flagyl 500mg Premixed Ivpb -) 100 mls @ 100 mls/hr IVPB Q8H-IV [facility] Last Admin: 05/20/17 09:03 Dose: 100 mls/hr Insulin Aspart (Novolog Vial Sliding Scale -) 1 vial SQ ACHS [facility] PRN Reason: Protocol Last Admin: 05/20/17 12:21 Dose: 2 units Isosorbide Mononitrate (Imdur -) 30 mg PO DAILY [facility] Last Admin: 05/20/17 09:03 Dose: 30 mg Pantoprazole Sodium (Protonix -) 40 mg PO DAILY [facility] Last Admin: 05/20/17 09:03 Dose: 40 mg Sevelamer Carbonate (Renvela Powder Packet -) 2.4 gm PO DAILY [facility] Last Admin: 05/20/17 09:03 Dose: 2.4 gm Simethicone (Mylicon -) 80 mg PO QID PRN PRN Reason: GAS Last Admin: 05/19/17 21:47 Dose: 80 mg Vital Signs - 24 hr 05/19/17 05/19/17 05/19/17 16:05 18:45 22:00 Temperature 98.5 F 97.9 F Pulse Rate 63 62 Pulse Rate [ 65 Right side Sitting] Pulse Rate [ 62 Right side Supine] Pulse Rate [ 68 Standing] Respiratory 18 18 18 Rate Blood Pressure 124/55 126/63 Blood Pressure 128/35 [Right side Sitting] Blood Pressure 126/35 [Right side Supine] Blood Pressure 119/38 [Standing] O2 Sat by Pulse 98 Oximetry (%) 05/20/17 05/20/17 05/20/17 02:00 05:41 09:04 Temperature 99.5 F 97.9 F Pulse Rate 60 58 L Pulse Rate [ 58 L Right side Sitting] Pulse Rate [ 59 L Right side Supine] Pulse Rate [ 59 L Standing] Respiratory 18 18 Rate Blood Pressure 100/26 105/66 Blood Pressure 121/29 [Right side Sitting] Blood Pressure 114/35 [Right side Supine] Blood Pressure 135/37 [Standing] O2 Sat by Pulse Oximetry (%) 05/20/17 05/20/17 11:46 14:35 Temperature 98.3 F Pulse Rate 67 60 Pulse Rate [ Right side Sitting] Pulse Rate [ Right side Supine] Pulse Rate [ Standing] Respiratory 16 Rate Blood Pressure 129/57 Blood Pressure [Right side Sitting] Blood Pressure [Right side Supine] Blood Pressure [Standing] O2 Sat by Pulse 97 Oximetry (%) Intake & Output 05/18/17 05/19/17 05/20/17 05/21/17 07:59 07:59 07:59 07:59 Intake Total 680 680 246 1341 Output Total 0 Balance 680 538 470 3785 Weight 148 lb 4 oz 149 lb 3.2 oz Nad, calm no jvd cta bl nl eff rrr nl s1, s2 2/6 murmur at apex + bs soft nt nd no le e/c/c aaox3 no jaundice, diaphoresis CBC, BMP 05/20/17 06:00 05/20/17 06:00 Laboratory Tests 05/20/17 06:00 Total Bilirubin 1.2 H AST 13 L ALT 11 L Alkaline Phosphatase 186 H Albumin 3.4 ekg: sr, rightward axis av delay, ivcd. inferolateral TWI, similar to priors tele: sr carotids 04/2017: mod diz, no sig stenosis echo here 04/2017: mild lv dilation. mod-sev decreased LV fn (global). nl rv mild eli. 1+ mr, severe tr. echo 12/2015: low nl lvef, no wma, mild lvh, nl rv, mild lae, mod mr, mac, mild tr, rvsp 50-60 persantine MIBI here (12/2015): no ST changes vs baseline; large area of inferior and inferolat infarct (with akinesis) with small samantha-infarct ischemia ; EF 35% Cath/PCI @ [place] 08/2015 : CBPTCA of ISR of RPL stent , rest of anatomy unchanged from 05/2015--decided not to stent OM or RPL--he has recurrent and fast ISR of stents and likely will not do not well with PCI strategy Cath/PCI @ [facility] 05/2015: Diag 2 : 100 % ISR of prior [place] [facility] distal LAD 90 % (small vessel), OM1 90%, large RPL stented (ESME)--felt to be culprit Assessment/Plan 57 yo with h/o HTN, HPL, 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 CAD/ischemic CM/elevated troponin - patient with intermediate range troponin in setting of ESRD. No elevation in ck or mb. EKG unchanged. CP atypical. No suspicion of acs. - Per outpatient cardiology record has known systolic cardiomyopathy, which is also seen on echo here. - currently with significant thrombocytopenia without clear etiology. Held coumadin and ASA. Per hematology, OK to resume asa/coumadin as long as platelets are > 50. Patient with high risk of ISR and h/o possible embolic CVA. Will resume ASA/coumadin. -cont statin. con't bb, imdur for now. h/o embolic cva/s/p loop recorder now removed/afib - with afib on hx from outpatient diagnostic technologist. On coumadin. Currently in SR. given low platelets held coumadin. Per hematology, OK to resume asa/coumadin as long as platelets are > 50. Can resume coumadin. - in sr now presyncope - carotid us, tele unremarkable - head CT negative for bleed - orthostatics negative - additional work up per pmd thrombocytopenia -holding antiplatelets/AC as mentioned. -hematology consulted ESRD on HD -HD per renal HTN: -running low on current meds, monitor HPL: -continue statin
[2017-05-20] MEDS: WARFARIN NA 2 MG TABLET (UD) PO SCH (18:45)
[2017-05-20] MEDS: ATORVASTATIN CA 40 MG TABLET (FP) PO SCH (21:05)
[2017-05-21] MEDS: ACETAMINOPHEN 325 MG TABLET (FP) PO PRN (02:30)
[2017-05-21] MEDS: INSULIN SLIDING SCALE (NOVOLOG) 1 VIAL SQ SCH ×4 (06:16→21:23)
[2017-05-21 07:33] LABS: BASOPHIL 1.4 % (0-2.0); EOSINOPHIL 3.2 % (0-4.5); MCH 34.8 pg (25.7-33.7); MCHC 33.2 g/dl (32.0-35.9); MEAN CELL VOLUME 104.6 fl (80-96); MEAN PLT VOLUME 8.8 fl (7.5-11.1); NEUTROPHILS 56.6 % (42.8-82.8); PLATELET COUNT 52 K/MM3 (134-434); RDW 15.9 % (11.9-15.9); WHITE BLOOD COUNT 3.5 K/mm3 (4.0-10.0)
[2017-05-21 07:47] LABS: INR 1.58 (0.82-1.09); PROTHROMBIN TIME (PATIENT) 17.5 SEC (9.98-11.88)
[2017-05-21 08:12] LABS: ANION GAP 13 (8-16); CO2 27 mmol/L (21-32); CREATININE 7.1 mg/dL (0.7-1.3); GLUCOSE,RANDOM 133 mg/dL (74-106)
[2017-05-21 08:48] LABS: FREE T4 0.33 ng/dl (0.76-1.16)
[2017-05-21] MEDS ORDERED: PT OWN MED DRAWER 7, Y5N ONE (08:51)
[2017-05-21] MEDS: CARVEDILOL 3.125 MG TABLET (FP) PO SCH ×2 (09:33→21:17)
[2017-05-21] MEDS: ISOSORBIDE MONONITRATE 30 MG TAB.SR.24H (FP) PO SCH (09:33)
[2017-05-21] MEDS: PANTOPRAZOLE 40 MG TABLET (FP) PO SCH (09:33)
[2017-05-21] MEDS: CALCIUM ACETATE 667 MG CAPSULE (FP) PO SCH (09:33)
[2017-05-21] MEDS: SEVELAMER CARBONATE 2.4 GM POWDER PACKET PO SCH (09:33)
[2017-05-21] MEDS ORDERED: ASPIRIN 81 MG CHEWABLE TABLETS PO SCH (10:00)
[2017-05-21] MEDS: WARFARIN NA 2 MG TABLET (UD) PO SCH (18:02)
--- NOTE | 2017-05-21 18:25 | PN ---
Progress Note (short form) - Note Progress Note: CC: syncope s: no sob palps cp bleeding; still with occasional dizziness waking him up from sleep. endorses mild le edema today. o: Current Medications Acetaminophen (Tylenol -) 650 mg PO Q6H PRN PRN Reason: FEVER OR PAIN Last Admin: 05/21/17 02:30 Dose: 650 mg Aspirin (Asa -) 81 mg PO DAILY [facility] Last Admin: 05/21/17 09:33 Dose: 81 mg Atorvastatin Calcium (Lipitor -) 40 mg PO HS [facility] Last Admin: 05/20/17 21:05 Dose: 40 mg Calcitriol (Rocaltrol -) 0.5 mcg PO TuThFr@1000 [facility] Last Admin: 05/20/17 08:49 Dose: 0.5 mcg Calcium Acetate (Phoslo -) 667 mg PO DAILY@0800 [facility] Last Admin: 05/21/17 09:33 Dose: 667 mg Carvedilol (Coreg -) 3.125 mg PO BID [facility] Last Admin: 05/21/17 09:33 Dose: 3.125 mg Insulin Aspart (Novolog Vial Sliding Scale -) 1 vial SQ ACHS [facility] PRN Reason: Protocol Last Admin: 05/21/17 18:01 Dose: Not Given Isosorbide Mononitrate (Imdur -) 30 mg PO DAILY [facility] Last Admin: 05/21/17 09:33 Dose: 30 mg Pantoprazole Sodium (Protonix -) 40 mg PO DAILY [facility] Last Admin: 05/21/17 09:33 Dose: 40 mg Sevelamer Carbonate (Renvela Powder Packet -) 2.4 gm PO DAILY [facility] Last Admin: 05/21/17 09:33 Dose: 2.4 gm Simethicone (Mylicon -) 80 mg PO QID PRN PRN Reason: GAS Last Admin: 05/19/17 21:47 Dose: 80 mg Warfarin Sodium (Coumadin -) 2 mg PO DAILY@1800 [facility] Last Admin: 05/21/17 18:02 Dose: 2 mg Vital Signs - 24 hr 05/20/17 05/21/17 05/21/17 22:00 01:59 06:00 Temperature 98.0 F 97.6 F 98.0 F Pulse Rate 60 58 L 57 L Respiratory 18 18 18 Rate Blood Pressure 99/71 94/43 107/39 O2 Sat by Pulse 96 96 Oximetry (%) 05/21/17 05/21/17 05/21/17 09:34 10:48 14:00 Temperature 98.0 F Pulse Rate 58 L 57 L Respiratory 18 18 Rate Blood Pressure 98/38 O2 Sat by Pulse 95 95 Oximetry (%) 05/21/17 05/21/17 05/21/17 14:43 16:22 17:30 Temperature 97.7 F 97.7 F Pulse Rate 56 L 53 L Respiratory 18 20 Rate Blood Pressure 108/53 105/53 O2 Sat by Pulse 95 Oximetry (%) Intake & Output 05/19/17 05/20/17 05/21/17 05/22/17 07:59 07:59 07:59 07:59 Intake Total 657 745 9739 300 Output Total 0 Balance 689 628 3878 300 Weight 149 lb 3.2 oz 149 lb Nad, calm no jvd cta bl nl eff rrr nl s1, s2 2/6 murmur at apex + bs soft nt nd no le e/c/c aaox3 no jaundice, diaphoresis CBC, BMP 05/21/17 06:25 05/21/17 06:25 Laboratory Tests 05/21/17 05/21/17 05/21/17 06:25 06:25 06:25 INR 1.58 H TSH Pending Free T4 0.33 L ekg 05/17 4am: sr, rightward axis av delay, ivcd. inferolateral TWI, similar to priors tele: SB 50's, av delay carotids 04/2017: mod diz, no sig stenosis echo here 04/2017: mild lv dilation. mod-sev decreased LV fn (global). nl rv mild eli. 1+ mr, severe tr. echo 12/2015: low nl lvef, no wma, mild lvh, nl rv, mild lae, mod mr, mac, mild tr, rvsp 50-60 persantine MIBI here (12/2015): no ST changes vs baseline; large area of inferior and inferolat infarct (with akinesis) with small samantha-infarct ischemia ; EF 35% Cath/PCI @ [place] 08/2015 : CBPTCA of ISR of RPL stent , rest of anatomy unchanged from 05/2015--decided not to stent OM or RPL--he has recurrent and fast ISR of stents and likely will not do not well with PCI strategy Cath/PCI @ [facility] 05/2015: Diag 2 : 100 % ISR of prior BMS at [facility] [place], distal LAD 90 % (small vessel), OM1 90%, large RPL stented (ESME)--felt to be culprit Assessment/Plan 57 yo with h/o HTN, HPL, 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 CAD/ischemic CM/elevated troponin - patient with intermediate range troponin in setting of ESRD. No elevation in ck or mb. EKG unchanged. CP atypical. No suspicion of acs. - Per outpatient cardiology record has known systolic cardiomyopathy, which is also seen on echo here. Not a candidate for further revascularization due to coagulopathy. - currently with significant thrombocytopenia without clear etiology. Held coumadin and ASA. Per heme, asa/coumadin OK as long as platelets are > 50. Patient with high risk of ISR and h/o possible embolic CVA. Resumed ASA/ coumadin 05/20 - 05/21 platelets con't to trend down, now 52. Discussed with pmd, will hold ASA /coumadin. -cont statin. con't bb (monitor for worsening hypotension/bradycardia), Will stop imdur 05/21 bp's trending down. ischemic cardiomyopathy - Per outpatient cardiology record has known systolic cardiomyopathy, which is also seen on echo here. - Was not on ADELINE, will defer to renal/outpatient cardiology. Con't coreg for now with tele monitoring for worsened bradycardia given ongoing dizziness. Management of thyroid abnormalities per pmd. 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 Currently in SR. Coumadin as discussed above. - in sr now presyncope - carotid us without significant stenosis. head CT negative for bleed - orthostatics negative - additional work up per pmd - patient with progression of bradycardia on tele. ? contribution to dizziness. Currently SB in 50's with AV delay. con't coreg b/c of cardiomyopathy. sinus bradycardia - Also with underlying conduction abnormality, AV delay, LPFB. - FT4 low, ? contributing factore. Monitor while on coreg. Thyroid management per pmd. thrombocytopenia -holding antiplatelets/AC as mentioned. -hematology consulted ESRD on HD -HD per renal HTN: -running low on current meds, monitor HPL: -continue statin discussed with pmd.
--- NOTE | 2017-05-21 18:41 | PN ---
Progress Note (short form) - Note Progress Note: Has no new complains. feels tired. Temperature 97.7 F 05/21/17 17:30 Pulse Rate 53 L 05/21/17 17:30 Respiratory Rate 20 05/21/17 17:30 Blood Pressure 105/53 05/21/17 17:30 O2 Sat by Pulse Oximetry (%) 95 05/21/17 16:22 GENERAL: The patient is awake, alert, and fully oriented, in no acute distress. HEAD: Normal with no signs of trauma. EYES: PERRL, extraocular movements intact, sclera anicteric, conjunctiva clear. ENT: Ears normal, oropharynx clear without exudates, moist mucous membranes. NECK: Trachea midline, full range of motion, supple. LUNGS: Breath sounds equal, clear to auscultation bilaterally, no wheezes, no crackles, no accessory muscle use. HEART: Regular rate and rhythm, S1, S2 , YAAKOV 2/6 . ABDOMEN: Soft, mildly distended ,NT, normoactive bowel sounds, no guarding, no rebound, no hepatosplenomegaly, no masses appreciated. EXTREMITIES: 2+ pulses, warm, well-perfused, no edema. NEUROLOGICAL: Cranial nerves II through XII grossly intact. Normal speech, gait is stable. PSYCH: Normal mood, normal affect. SKIN: Warm, dry, normal turgor, no rashes or lesions noted CBCD WBC 3.5 K/mm3 (4.0-10.0) L 05/21/17 06:25 RBC 3.33 M/mm3 (4.00-5.60) L 05/21/17 06:25 Hgb 11.6 GM/dL (11.7-16.9) L 05/21/17 06:25 Hct 34.8 % (35.4-49) L 05/21/17 06:25 MCV 104.6 fl (80-96) H 05/21/17 06:25 MCHC 33.2 g/dl (32.0-35.9) 05/21/17 06:25 RDW 15.9 % (11.9-15.9) 05/21/17 06:25 Plt Count 52 K/MM3 (134-434) L 05/21/17 06:25 MPV 8.8 fl (7.5-11.1) 05/21/17 06:25 CMP Sodium 136 mmol/L (136-145) 05/21/17 06:25 Potassium 4.7 mmol/L (3.5-5.1) 05/21/17 06:25 Chloride 96 mmol/L (98-107) L 05/21/17 06:25 Carbon Dioxide 27 mmol/L (21-32) 05/21/17 06:25 Anion Gap 13 (8-16) 05/21/17 06:25 BUN 57 mg/dL (7-18) H D 05/21/17 06:25 Creatinine 7.1 mg/dL (0.7-1.3) H D 05/21/17 06:25 Creat Clearance w eGFR 10.96 (>60) 05/20/17 06:00 Random Glucose 133 mg/dL (74-106) H 05/21/17 06:25 Calcium 9.0 mg/dL (8.5-10.1) 05/21/17 06:25 Total Bilirubin 1.2 mg/dL (0.2-1.0) H 05/20/17 06:00 AST 13 U/L (15-37) L 05/20/17 06:00 ALT 11 U/L (12-78) L 05/20/17 06:00 Alkaline Phosphatase 186 U/L (45-117) H 05/20/17 06:00 Total Protein 7.6 g/dl (6.4-8.2) 05/20/17 06:00 Albumin 3.4 g/dl (3.4-5.0) 05/20/17 06:00 CARDIAC ENZYMES Creatine Kinase 142 IU/L (39-308) 05/17/17 11:11 Troponin I 0.31 ng/ml (0.00-0.05) H 05/17/17 17:10 Current Medications Generic Name Dose Route Start Last Admin Trade Name Freq PRN Reason Stop Dose Admin Acetaminophen 650 mg 05/17/17 17:11 05/21/17 02:30 Tylenol - PO 650 mg Q6H PRN Administration FEVER OR PAIN Atorvastatin Calcium 40 mg 05/17/17 22:00 05/20/17 21:05 Lipitor - PO 40 mg HS [facility] Administration Calcitriol 0.5 mcg 05/17/17 10:15 05/20/17 08:49 Rocaltrol - PO 0.5 mcg TuThFr@1000 REPLACED BY [facility] Administration Calcium Acetate 667 mg 05/18/17 10:00 05/21/17 09:33 Phoslo - PO 667 mg DAILY@0800 REPLACED BY [facility] Administration Carvedilol 3.125 mg 05/18/17 10:00 05/21/17 09:33 Coreg - PO 3.125 mg BID REPLACED BY [facility] Administration Insulin Aspart 1 vial 05/17/17 11:00 05/21/17 18:01 Novolog Vial Sliding Scale - SQ Not Given [facility] Protocol Pantoprazole Sodium 40 mg 05/18/17 10:00 05/21/17 09:33 Protonix - PO 40 mg DAILY REPLACED BY [facility] Administration Sevelamer Carbonate 2.4 gm 05/18/17 10:00 05/21/17 09:33 Renvela Powder Packet - PO 2.4 gm DAILY REPLACED BY [facility] Administration Simethicone 80 mg 05/18/17 15:46 05/19/17 21:47 Mylicon - PO 80 mg QID PRN Administration GAS Warfarin Sodium 2 mg 05/20/17 18:00 05/21/17 18:02 Coumadin - PO 2 mg DAILY@1800 REPLACED BY [facility] Administration Home Medications Medication Instructions Recorded Aspirin [ASA -] 81 mg PO DAILY 03/08/17 Atorvastatin Ca [Lipitor] 40 mg PO HS 03/08/17 Calcitriol [Calcitriol -] 0.5 mcg PO .TUTHFR DAILY 03/08/17 Isosorbide Mononitrate [Imdur -] 30 mg PO DAILY 03/08/17 Omeprazole 40 mg PO DAILY 03/08/17 Sevelamer Carbonate [Renvela 2.4 gm PO DAILY 03/08/17 Powder Packet -] Warfarin Sodium [Coumadin] 2 mg PO DAILY 03/08/17 Calcium Acetate [Phoslo -] 667 mg PO DAILY 05/17/17 Carvedilol [Coreg -] 3.125 mg PO BID 05/17/17 Insulin Glargine,Hum.rec.anlog 0 units SQ DAILY 05/17/17 [Lantus (nf)] Microbiology 05/19/17 10:30 Stool Salmonella/Shigella Culture - Final 05/19/17 10:30 Stool Campylobacter Culture - Final NO GROWTH OF CAMPYLOBACTER SPECIES OBTAINED 05/19/17 10:30 Stool Yersinia Culture - Final NO GROWTH OF YERSINIA SPECIES OBTAINED 05/19/17 10:30 Stool Vibrio Culture - Final NO GROWTH OF VIBRIO SPECIES OBTAINED 05/19/17 10:30 Stool Escherichia coli 0157 Culture - Final NO GROWTH OF E COLI 0157 OBTAINED 05/20/17 10:30 Blood - Peripheral Venous Blood Culture - Preliminary NO GROWTH OBTAINED AFTER 24 HOURS, INCUBATION TO CONTINUE FOR 4 DAYS. 05/20/17 10:30 Blood - Peripheral Venous Blood Culture - Preliminary NO GROWTH OBTAINED AFTER 24 HOURS, INCUBATION TO CONTINUE FOR 4 DAYS. 05/19/17 10:30 Stool Gram Stain - Final 05/19/17 10:30 Stool Clostridium difficile Antigen (VANI) - Final 05/19/17 10:30 Stool Clostridium difficile Toxin Assay - Final A/P: Patient is a 57 yo man with ESRD on HD , HTN, IDDM, CAD s/p stent and [place] on coumadin and ASA, systolic CHF, embolic CVA and HLD who presents with multiple syncopal episodes over the past 2 days. # s/p Acute Diarrhea resolved , Stool cdiff negative, will dc the Flagyl IV , stool for O&P ,cultures ,C-diff still pending the final result. # Acute syncope ,presyncope :Echo shows global decrease in LV function , carotid shows no significant stenosis. CT head was negative for IC bleed. #Ischemic cardiomyopathy with with systolic CM with CAD, with elevated troponin in the setting of ESRD. without any elevation of CKMB , no change in EKG, As per master in chancery with hx of embolic cva/s/p loop recorder which was removed showed afib, was on coumadin. Currently in SR. given low platelets coumadin was on hold, as per internal control analyst; OK to resume asa/coumadin as long as platelets are > 50. Today Platelets dropped to 52K, Discussed with master in chancery ,will hold the coumadin since patient is at risk for Bleed. # Acute sinus bradycardia on low dose Coreg, patient has underlying conduction abnormality, AV delay, LPFB. Pending thyroid function w/u , FT4 low, possible contributing factor. Patient might need a pacemaker, discussed with master in chancery. # CAD (coronary artery disease) Low suspicion for ACS given no EKG changes and elevated trops in setting of ESRD. # ESRD on hemodialysis MWF dialysis scheduled # Hyperlipidemia continue statin therapy. # H/O: CVA (cerebrovascular accident) ;ASA held secondary to thrombocytopenia # Acute thrombocytopenia continues ,Hem. consult DVT Px: warfarin but will discontinue for now since he is a high risk for bleed. Visit type - Emergency Visit Emergency Visit: Yes ED Registration Date: 05/19/17 Care time: The patient presented to the Emergency Department on the above date and was hospitalized for further evaluation of their emergent condition. - New Patient This patient is new to me today: No - Critical Care Critical Care patient: No
[2017-05-21] MEDS: ATORVASTATIN CA 40 MG TABLET (FP) PO SCH (21:22)
[2017-05-22] MEDS: SIMETHICONE 80 MG TAB.CHEW (FP) PO PRN (03:20)
[2017-05-22] MEDS: ACETAMINOPHEN 325 MG TABLET (FP) PO PRN ×2 (03:20→23:28)
[2017-05-22] MEDS: INSULIN SLIDING SCALE (NOVOLOG) 1 VIAL SQ SCH ×4 (06:20→21:13)
[2017-05-22 08:08] LABS: BASOPHIL 1.7 % (0-2.0); MCH 35.4 pg (25.7-33.7); MCHC 33.5 g/dl (32.0-35.9); MEAN CELL VOLUME 105.6 fl (80-96); MEAN PLT VOLUME 8.8 fl (7.5-11.1); NEUTROPHILS 61.3 % (42.8-82.8); PLATELET COUNT 58 K/MM3 (134-434); RDW 16.3 % (11.9-15.9); WHITE BLOOD COUNT 3.3 K/mm3 (4.0-10.0)
[2017-05-22 08:26] LABS: INR 1.45 (0.82-1.09); PROTHROMBIN TIME (PATIENT) 16.1 SEC (9.98-11.88)
[2017-05-22 08:50] LABS: ALBUMIN 3.3 g/dl (3.4-5.0); ANION GAP 12 (8-16); BILIRUBIN,DIRECT 0.5 mg/dL (0.0-0.2); BILIRUBIN,TOTAL 1.2 mg/dL (0.2-1.0); CALCIUM 9.3 mg/dL (8.5-10.1); CO2 28 mmol/L (21-32); GLUCOSE,RANDOM 171 mg/dL (74-106); MAGNESIUM 2.1 mg/dL (1.8-2.4); SGOT/AST 7 U/L (15-37); SGPT/ALT 10 U/L (12-78); TOT PROT 7.2 g/dl (6.4-8.2)
[2017-05-22 09:02] LABS: ALK PHOS 161 U/L (45-117)
[2017-05-22 09:24] LABS: CREATININE 8.4 mg/dL (0.7-1.3)
--- NOTE | 2017-05-22 10:00 | PN ---
Progress Note, Physician Chief Complaint: presyncope History of Present Illness: a little sob no cp no leg swelling no palpitations - Current Medication List Current Medications: Active Medications Acetaminophen (Tylenol -) 650 mg PO Q6H PRN PRN Reason: FEVER OR PAIN Last Admin: 05/22/17 03:20 Dose: 650 mg Atorvastatin Calcium (Lipitor -) 40 mg PO HS [facility] Last Admin: 05/21/17 21:22 Dose: 40 mg Calcitriol (Rocaltrol -) 0.5 mcg PO TuThFr@1000 [facility] Last Admin: 05/20/17 08:49 Dose: 0.5 mcg Calcium Acetate (Phoslo -) 667 mg PO DAILY@0800 [facility] Last Admin: 05/21/17 09:33 Dose: 667 mg Carvedilol (Coreg -) 3.125 mg PO BID [facility] Last Admin: 05/21/17 21:17 Dose: Not Given Insulin Aspart (Novolog Vial Sliding Scale -) 1 vial SQ ACHS [facility] PRN Reason: Protocol Last Admin: 05/22/17 06:20 Dose: Not Given Pantoprazole Sodium (Protonix -) 40 mg PO DAILY [facility] Last Admin: 05/21/17 09:33 Dose: 40 mg Sevelamer Carbonate (Renvela Powder Packet -) 2.4 gm PO DAILY [facility] Last Admin: 05/21/17 09:33 Dose: 2.4 gm Simethicone (Mylicon -) 80 mg PO QID PRN PRN Reason: GAS Last Admin: 05/22/17 03:20 Dose: 80 mg - Objective Vital Signs: Vital Signs Temperature 98.1 F 05/22/17 06:00 Pulse Rate 57 L 05/22/17 06:00 Respiratory Rate 20 05/22/17 06:00 Blood Pressure 112/58 05/22/17 06:00 O2 Sat by Pulse Oximetry (%) 98 05/21/17 22:00 Constitutional: Yes: No Distress, Calm Eyes: No: Sclera Icterus HENT: No: Nasal Congestion Cardiovascular: Yes: Regular Rate and Rhythm, S1, S2, Other (PMI non diplaced). No: JVD, Gallop, Murmur Respiratory: Yes: CTA Bilaterally. No: Accessory Muscle Use, Rales, Wheezes Gastrointestinal: Yes: Normal Bowel Sounds, Soft. No: Tenderness Musculoskeletal: Yes: Other (No kyphosis) Extremities: No: Cold Edema: No Integumentary: No: Jaundice Neurological: Yes: Alert. No: Seizure Psychiatric: No: Agitated Labs: CBC, BMP 05/22/17 06:00 05/22/17 06:00 INR, PTT INR 1.45 (0.82-1.09) H 05/22/17 06:00 - ....Imaging EKG: Other (tele: sinus hung 50s) Assessment/Plan ekg 05/17 4am: sr, rightward axis av delay, ivcd. inferolateral TWI, similar to priors echo here 04/2017: mild lv dilation. mod-sev decreased LV fn (global). nl rv mild eli. 1+ mr, severe tr. echo 12/2015: low nl lvef, no wma, mild lvh, nl rv, mild lae, mod mr, mac, mild tr, rvsp 50-60 persantine MIBI here (12/2015): no ST changes vs baseline; large area of inferior and inferolat infarct (with akinesis) with small samantha-infarct ischemia ; EF 35% Cath/PCI @ [place] 08/2015 : CBPTCA of ISR of RPL stent , rest of anatomy unchanged from 05/2015--decided not to stent OM or RPL--he has recurrent and fast ISR of stents and likely will not do not well with PCI strategy Cath/PCI @ [facility] 05/2015: Diag 2 : 100 % ISR of prior BMS at [facility] [place], distal LAD 90 % (small vessel), OM1 90%, large RPL stented (ESME)--felt to be culprit Assessment/Plan 57 yo with h/o HTN, HPL, 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 CAD/ischemic CM/elevated troponin (sees dr portillo at [facility] for cardio): - patient with intermediate range troponin in setting of ESRD. No elevation in ck or mb. EKG unchanged. CP atypical. No suspicion of acs. - per outpatient cardiology record has known systolic cardiomyopathy, which is also seen on echo here. - currently with significant thrombocytopenia without clear etiology. Held coumadin and ASA. Per heme, asa/coumadin OK as long as platelets are > 50. Patient with high risk of ISR and h/o possible embolic CVA. - 05/22: ASA and AC on hold for PLTs 50sK--thus far holding in this range; if remains stable, consider resuming one or both anti-thrombotic agents in am -cont statin. con't bb (monitor for worsening hypotension/bradycardia). - imdur held for low bp's ischemic cardiomyopathy - Per outpatient cardiology record, pt has known systolic cardiomyopathy, which is also seen on echo here. - Was not on ADELINE, will defer to renal/outpatient cardiology. Con't coreg for now with tele monitoring for worsened bradycardia given ongoing dizziness. - Management of thyroid abnormalities per pmd. 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 Currently in SR. Coumadin as discussed above. - further f/u with dr portillo after discharge presyncope - carotid us without significant stenosis. head CT negative for bleed - orthostatics negative - patient with mild bradycardia on tele (HR reported in 50s since admit), ? contribution to dizziness--suspect this will improve once his severe hypothyroidism is corrected (TSH > 200!) - no indication for pacemaker at present - cont tele hypothyroidism, uncontrolled - replacement per hospitalist thrombocytopenia - stable 50sK at present - w/u per heme - ASA/AC decisions as above ESRD on HD -HD per renal HTN: -running low on current meds, monitor HPL: -continue statin
[2017-05-22] MEDS ORDERED: LEVOTHYROXINE NA 50 MCG TABLET (FP) PO ONE (10:10)
[2017-05-22] MEDS ORDERED: PT OWN MED DRAWER 7, Y5N ONE (11:20)
[2017-05-22] MEDS: CALCIUM ACETATE 667 MG CAPSULE (FP) PO SCH (11:27)
[2017-05-22] MEDS: CARVEDILOL 3.125 MG TABLET (FP) PO SCH ×2 (11:27→21:09)
[2017-05-22] MEDS: PANTOPRAZOLE 40 MG TABLET (FP) PO SCH (11:27)
[2017-05-22] MEDS: SEVELAMER CARBONATE 2.4 GM POWDER PACKET PO SCH (11:28)
--- NOTE | 2017-05-22 14:22 | PN ---
Physical Exam: SUBJECTIVE:Patient seen and examined at bedside. No overnight events. No new complaints. Denies CP, palpitations, SOB,N/V. OBJECTIVE: Vital Signs Period Temp Pulse Resp BP Sys/Parham Pulse Ox Last 24 Hr 97.7 F-98.1 F 53-57 18-20 98-112/45-58 95-100 GENERAL: AAOx3,no acute distress. HEAD: AT/NC EYES: PERRL, EOMI, sclera anicteric, conjunctiva clear. No ptosis. ENT: moist mucous membranes. NECK: supple, LUNGS:CTAB, no wheezing or rales. HEART: RRR, No M/G/R ABDOMEN: soft, NT, mild distention normal bowel sounds EXTREMITIES: 2+ pulses, warm, well-perfused, no edema. NEUROLOGICAL: Cranial nerves II through XII grossly intact. Normal speech, gait not observed. PSYCH: Normal mood, normal affect. SKIN: Bilateral LE stasis dermatitis. Laboratory Results - last 24 hr 05/21/17 05/21/17 05/21/17 06:25 17:10 21:20 WBC RBC Hgb Hct MCV MCHC RDW Plt Count MPV Neutrophils % Lymphocytes % Monocytes % Eosinophils % Basophils % INR Sodium 136 Potassium 4.7 Chloride 96 L Carbon Dioxide 27 Anion Gap 13 BUN 57 H D Creatinine 7.1 H D Creat Clearance w eGFR POC Glucometer 134 181 Random Glucose 133 H Calcium 9.0 Magnesium Total Bilirubin Direct Bilirubin AST ALT Alkaline Phosphatase Total Protein Albumin TSH 219.00 H D 05/22/17 05/22/17 05/22/17 05:50 06:00 06:00 WBC 3.3 L RBC 3.35 L Hgb 11.8 Hct 35.3 L MCV 105.6 H MCHC 33.5 RDW 16.3 H Plt Count 58 L MPV 8.8 Neutrophils % 61.3 Lymphocytes % 25.7 Monocytes % 8.3 Eosinophils % 3.0 Basophils % 1.7 INR 1.45 H Sodium Potassium Chloride Carbon Dioxide Anion Gap BUN Creatinine Creat Clearance w eGFR POC Glucometer 159 Random Glucose Calcium Magnesium Total Bilirubin Direct Bilirubin AST ALT Alkaline Phosphatase Total Protein Albumin TSH 05/22/17 05/22/17 06:00 11:13 WBC RBC Hgb Hct MCV MCHC RDW Plt Count MPV Neutrophils % Lymphocytes % Monocytes % Eosinophils % Basophils % INR Sodium 135 L Potassium 5.1 Chloride 95 L Carbon Dioxide 28 Anion Gap 12 BUN 70 H D Creatinine 8.4 H* Creat Clearance w eGFR 6.58 POC Glucometer 255 Random Glucose 171 H D Calcium 9.3 Magnesium 2.1 Total Bilirubin 1.2 H Direct Bilirubin 0.5 H AST 7 L D ALT 10 L Alkaline Phosphatase 161 H Total Protein 7.2 Albumin 3.3 L TSH Active Medications Generic Name Dose Route Start Last Admin Trade Name Freq PRN Reason Stop Dose Admin Acetaminophen 650 mg 05/17/17 17:11 05/22/17 03:20 Tylenol - PO 650 mg Q6H PRN Administration FEVER OR PAIN Atorvastatin Calcium 40 mg 05/17/17 22:00 05/21/17 21:22 Lipitor - PO 40 mg HS EVA Administration Calcitriol 0.5 mcg 05/17/17 10:15 05/20/17 08:49 Rocaltrol - PO 0.5 mcg TuThFr@1000 EVA Administration Calcium Acetate 667 mg 05/18/17 10:00 05/22/17 11:27 Phoslo - PO 667 mg DAILY@0800 EVA Administration Carvedilol 3.125 mg 05/18/17 10:00 05/22/17 11:27 Coreg - PO 3.125 mg BID EVA Administration Cholestyramine Resin 8 gm 05/22/17 22:00 Questran Light Packet - PO BID EVA Insulin Aspart 1 vial 05/17/17 11:00 05/22/17 11:31 Novolog Vial Sliding Scale - SQ 4 units ACHS EVA Administration Protocol Levothyroxine Sodium 50 mcg 05/23/17 07:00 Synthroid - PO DAILY@0700 EVA Pantoprazole Sodium 40 mg 05/18/17 10:00 05/22/17 11:27 Protonix - PO 40 mg DAILY EVA Administration Sevelamer Carbonate 2.4 gm 05/18/17 10:00 05/22/17 11:28 Renvela Powder Packet - PO 2.4 gm DAILY EVA Administration Simethicone 80 mg 05/18/17 15:46 05/22/17 03:20 Mylicon - PO 80 mg QID PRN Administration GAS ASSESSMENT/PLAN: IMAGING: * Ekg: Sinus Rhythm , rightward axis av delay, ivcd. inferolateral TWI, similar to priors tele: Sinus Rhythm * Carotids 04/2017: mod diz, no sig stenosis * Echo 04/2017: mild lv dilation. mod-sev decreased LV fn (global). nl rv mild eli. 1+ mr, severe tr. ASSESSMENT/PLAN: 57 yo man with ESRD on HD M-W-F, HTN, IDDM, CAD s/p stent and [place] on coumadin and ASA, systolic CHF, embolic CVA and HLD who presents with multiple syncopal episodes . Problem List - Problems (1) Syncope Assessment/Plan: * Neuro consult appreciated. * Patient found to have TSH >200; Will start Levothyroxin 50mcg po daily. * Echo shows global decrease in LV funciton. * Carotid shows no significant stenosis. * CT head was negative for IC bleed. * Continue tele monitoring. (2) Hypothyroidism Assessment/Plan: * TSH 219 and Free T4 0.33 * Will start thyroid replacement therapy with Levothyroxin 50mcg PO daily * Endocrine consult pending. (3) Diarrhea Assessment/Plan: * Continues to have intermittent diarrhea. * Stool cultures have been negative. * This could represent IBS will start on Cholestyramine 4mg BID * Also consider hypothyroidism as cause of diarrhea. * Stool for O&P was negative * Stool cultures negative * C-diff negative. (4) Ischemic cardiomyopathy Assessment/Plan: * Systolic cardiomyopathy appreciated on ECHO * Fluid and salt restriction. * daily weights and strict I/O's (5) CAD (coronary artery disease) Assessment/Plan: * Low suspicion for ACS given no EKG changes and elevated trops in setting of ESRD. * continue Coreg 3.125mg PO BID and lipitor 40mg PO HS (6) ESRD on hemodialysis Assessment/Plan: * dialyzed today * Renal consult appreciated * UF as tolerated * trend phos. levels (7) Hyperlipidemia Assessment/Plan: * Continue statin therapy. (8) H/O: CVA (cerebrovascular accident) Assessment/Plan: * ASA held secondary to thrombocytopenia * Neuro checks qshift. (9) Thrombocytopenia Assessment/Plan: * Chronic issue * Possible secondary to hypersplenism noted on abd. US * Heme consult appreciated * will restart anticoagulation with ASA. Visit type - Emergency Visit Emergency Visit: Yes ED Registration Date: 05/19/17 Care time: The patient presented to the Emergency Department on the above date and was hospitalized for further evaluation of their emergent condition. - New Patient This patient is new to me today: No - Critical Care Critical Care patient: No - Discharge Referral Referred to [facility] No
[2017-05-22] MEDS ORDERED: EPOETIN ALFA 3,000 UNIT/1 ML ML IVPUSH ONE (16:00)
--- NOTE | 2017-05-22 19:03 | PN ---
Progress Note (short form) - Note Progress Note: Last Vital Signs Temp Pulse Resp BP Pulse Ox 98.6 F 55 L 18 119/61 100 05/22/17 14:00 05/22/17 18:15 05/22/17 18:15 05/22/17 18:15 05/22/17 11:25 Cor: RSR, No murmurs, No gallops Lungs: Clear to P&A Abd: Soft, Normal bowel sounds, No organomegaly Ext:No significant edema Skin: No rashes, Integument intact Abnormal Lab Results 05/21/17 05/22/17 05/22/17 06:25 06:00 06:00 WBC 3.3 L RBC 3.35 L Hct 35.3 L MCV 105.6 H RDW 16.3 H Plt Count 58 L INR 1.45 H Sodium Chloride 96 L BUN 57 H D Creatinine 7.1 H D Random Glucose 133 H Total Bilirubin Direct Bilirubin AST ALT Alkaline Phosphatase Albumin TSH 219.00 H D 05/22/17 06:00 WBC RBC Hct MCV RDW Plt Count INR Sodium 135 L Chloride 95 L BUN 70 H D Creatinine 8.4 H* Random Glucose 171 H D Total Bilirubin 1.2 H Direct Bilirubin 0.5 H AST 7 L D ALT 10 L Alkaline Phosphatase 161 H Albumin 3.3 L TSH Home Medication List Medication Instructions Recorded Confirmed Type Aspirin [ASA -] 81 mg PO DAILY 03/08/17 05/17/17 History Atorvastatin Ca [Lipitor] 40 mg PO HS 03/08/17 05/17/17 History Calcitriol [Calcitriol -] 0.5 mcg PO .TUTHFR DAILY 03/08/17 05/17/17 History Isosorbide Mononitrate [Imdur -] 30 mg PO DAILY 03/08/17 05/17/17 History Omeprazole 40 mg PO DAILY 03/08/17 05/17/17 History Sevelamer Carbonate [Renvela 2.4 gm PO DAILY 03/08/17 05/17/17 History Powder Packet -] Warfarin Sodium [Coumadin] 2 mg PO DAILY 03/08/17 05/17/17 History Calcium Acetate [Phoslo -] 667 mg PO DAILY 05/17/17 05/17/17 History Carvedilol [Coreg -] 3.125 mg PO BID 05/17/17 05/17/17 History Insulin Glargine,Hum.rec.anlog 0 units SQ DAILY 05/17/17 05/17/17 History [Lantus (nf)] Active Medications Generic Name Dose Route Start Last Admin Trade Name Freq PRN Reason Stop Dose Admin Acetaminophen 650 mg 05/17/17 17:11 05/22/17 03:20 Tylenol - PO 650 mg Q6H PRN Administration FEVER OR PAIN Atorvastatin Calcium 40 mg 05/17/17 22:00 05/21/17 21:22 Lipitor - PO 40 mg HS EVA Administration Calcitriol 0.5 mcg 05/17/17 10:15 05/20/17 08:49 Rocaltrol - PO 0.5 mcg TuThFr@1000 EVA Administration Calcium Acetate 667 mg 05/18/17 10:00 05/22/17 11:27 Phoslo - PO 667 mg DAILY@0800 EVA Administration Carvedilol 3.125 mg 05/18/17 10:00 05/22/17 11:27 Coreg - PO 3.125 mg BID EVA Administration Cholestyramine Resin 4 gm 05/22/17 22:00 Questran Light Packet - PO BID EVA Insulin Aspart 1 vial 05/17/17 11:00 05/22/17 17:35 Novolog Vial Sliding Scale - SQ Not Given ACHS [facility] Protocol Levothyroxine Sodium 50 mcg 05/23/17 07:00 Synthroid - PO DAILY@0700 EVA Pantoprazole Sodium 40 mg 05/18/17 10:00 05/22/17 11:27 Protonix - PO 40 mg DAILY EVA Administration Sevelamer Carbonate 2.4 gm 05/18/17 10:00 05/22/17 11:28 Renvela Powder Packet - PO 2.4 gm DAILY EVA Administration Simethicone 80 mg 05/18/17 15:46 05/22/17 03:20 Mylicon - PO 80 mg QID PRN Administration GAS A/P 57 year old Gentleman with PMhx of ESRD on HD (MWF), CAD s/p [place] and PCI, Hypertension, IDDM, Hyperlipidemia who presented with syncope and SOB and found to have fluid overload. Chronic thrombocytopenia also macrocytosis worsening since 12/12 SUSPECT DUE TO LIVER DISEASE( CIRRHOSIS/ASCITES/SPLENOMEGALY) noted on CTA--- GI consult Also severe hypothyroidism--- TSH --219---endocrine consult B12 high folate nl ASA/Coumadin to be decided by cardio/GI Platelets<50,000 are a relative contraindication but patients plts have been above 50,000 to get GI input on varices /liver disease
--- NOTE | 2017-05-22 20:23 | PN ---
Progress Note, Physician Chief Complaint: The patient seen on dialysis. Has abdominal pain, and frequent loose BM. Stool cultures and C. diff negative. BP and other vital signs are stable on dialysis. - Current Medication List Current Medications: Active Medications Acetaminophen (Tylenol -) 650 mg PO Q6H PRN PRN Reason: FEVER OR PAIN Last Admin: 05/22/17 03:20 Dose: 650 mg Atorvastatin Calcium (Lipitor -) 40 mg PO HS [facility] Last Admin: 05/21/17 21:22 Dose: 40 mg Calcitriol (Rocaltrol -) 0.5 mcg PO TuThFr@1000 [facility] Last Admin: 05/20/17 08:49 Dose: 0.5 mcg Calcium Acetate (Phoslo -) 667 mg PO DAILY@0800 [facility] Last Admin: 05/22/17 11:27 Dose: 667 mg Carvedilol (Coreg -) 3.125 mg PO BID [facility] Last Admin: 05/22/17 11:27 Dose: 3.125 mg Cholestyramine Resin (Questran Light Packet -) 4 gm PO BID [facility] Insulin Aspart (Novolog Vial Sliding Scale -) 1 vial SQ ACHS [facility] PRN Reason: Protocol Last Admin: 05/22/17 17:35 Dose: Not Given Levothyroxine Sodium (Synthroid -) 50 mcg PO DAILY@0700 [facility] Pantoprazole Sodium (Protonix -) 40 mg PO DAILY [facility] Last Admin: 05/22/17 11:27 Dose: 40 mg Sevelamer Carbonate (Renvela Powder Packet -) 2.4 gm PO DAILY [facility] Last Admin: 05/22/17 11:28 Dose: 2.4 gm Simethicone (Mylicon -) 80 mg PO QID PRN PRN Reason: GAS Last Admin: 05/22/17 03:20 Dose: 80 mg - Objective Vital Signs: Vital Signs Temperature 98.2 F 05/22/17 18:45 Pulse Rate 58 L 05/22/17 19:00 Respiratory Rate 18 05/22/17 19:00 Blood Pressure 119/67 05/22/17 19:00 O2 Sat by Pulse Oximetry (%) 100 05/22/17 11:25 Constitutional: Yes: Anxious, Mild Distress, Moderate Distress (abd pain) Eyes: Yes: Conjunctiva Clear HENT: Yes: Atraumatic Neck: Yes: Trachea Midline Cardiovascular: Yes: S1, S2 Respiratory: Yes: CTA Bilaterally Gastrointestinal: Yes: Distention, Hyperactive Bowel Sounds, Hypoactive Bowel Sounds, Tenderness Edema: No Neurological: Yes: Alert, Oriented Psychiatric: Yes: Oriented Labs: CBC, BMP 05/22/17 06:00 05/22/17 06:00 INR, PTT INR 1.45 (0.82-1.09) H 05/22/17 06:00 Problem List - Problems (1) CAD (coronary artery disease) Code(s): I25.10 - ATHSCL HEART DISEASE OF [place] CORONARY ARTERY W/O ANG PCTRS Qualifiers: Coronary Disease-Associated Artery/Lesion type: [place] artery [place] vs. transplanted heart: [place] heart Associated angina: with stable angina Qualified Code(s): I25.118 - Atherosclerotic heart disease of [place] coronary artery with other forms of angina pectoris (2) ESRD on hemodialysis Code(s): N18.6 - END STAGE RENAL DISEASE Z99.2 - DEPENDENCE ON RENAL DIALYSIS (3) H/O: CVA (cerebrovascular accident) Code(s): Z86.73 - PRSNL HX OF TIA (TIA), AND CEREB INFRC W/O RESID DEFICITS (4) DM Diabetes mellitus type 2 Code(s): E11.9 - TYPE 2 DIABETES MELLITUS WITHOUT COMPLICATIONS (5) Pulmonary edema Code(s): J81.1 - CHRONIC PULMONARY EDEMA (6) CHF (congestive heart failure) Code(s): I50.9 - HEART FAILURE, UNSPECIFIED (7) Cardiac ischemia Code(s): I25.9 - CHRONIC ISCHEMIC HEART DISEASE, UNSPECIFIED (8) Diabetes Code(s): E11.9 - TYPE 2 DIABETES MELLITUS WITHOUT COMPLICATIONS (9) Diarrhea Code(s): R19.7 - DIARRHEA, UNSPECIFIED Qualifiers: Diarrhea type: unspecified type Qualified Code(s): R19.7 - Diarrhea , unspecified (10) Anemia in CKD (chronic kidney disease) Code(s): N18.9 - CHRONIC KIDNEY DISEASE, UNSPECIFIED D63.1 - ANEMIA IN CHRONIC KIDNEY DISEASE (11) ESRD (end stage renal disease) Code(s): N18.6 - END STAGE RENAL DISEASE (12) Hypertension Code(s): I10 - ESSENTIAL (PRIMARY) HYPERTENSION Qualifiers: Hypertension type: renovascular hypertension Qualified Code(s): I15.0 - Renovascular hypertension Assessment/Plan 57 y/o male with ESRD, admitted with syncope. Work up so far inconclusive. The patient has profound diarrhea. [place] studies are negative so far. The patient was seen on Hemodialysis today. Tolerated well. The TSH was markedly elevated, and is now on Synthroid. Will need to monitor the TFT's to ensure that the patient attains euthyroid status. Concur with the work up in progress. Roxanna Laughlin MD
[2017-05-22] MEDS: ATORVASTATIN CA 40 MG TABLET (FP) PO SCH (21:09)
[2017-05-22] MEDS: CHOLESTYRAMINE/ASPARTAME 4 GM PACKET PO SCH (21:10)
[2017-05-22] MEDS ORDERED: INSULIN (NOVOLOG) ASPART 100 UNITS/ML 10ML VIAL ONE (21:16)
--- NOTE | 2017-05-22 21:19 | PN ---
Teaching Attending Note Name of Resident: Chandler Duncan ATTENDING PHYSICIAN STATEMENT I saw and evaluated the patient. I reviewed the resident's note and discussed the case with the resident. I agree with the resident's findings and plan as documented. SUBJECTIVE: Lower extremities weakness improved , No acute distress.No fever or chills. OBJECTIVE: Vital Signs Temperature 98.2 F 05/22/17 18:45 Pulse Rate 58 L 05/22/17 19:00 Respiratory Rate 18 05/22/17 19:00 Blood Pressure 119/67 05/22/17 19:00 O2 Sat by Pulse Oximetry (%) 100 05/22/17 11:25 CBCD WBC 3.3 K/mm3 (4.0-10.0) L 05/22/17 06:00 RBC 3.35 M/mm3 (4.00-5.60) L 05/22/17 06:00 Hgb 11.8 GM/dL (11.7-16.9) 05/22/17 06:00 Hct 35.3 % (35.4-49) L 05/22/17 06:00 MCV 105.6 fl (80-96) H 05/22/17 06:00 MCHC 33.5 g/dl (32.0-35.9) 05/22/17 06:00 RDW 16.3 % (11.9-15.9) H 05/22/17 06:00 Plt Count 58 K/MM3 (134-434) L 05/22/17 06:00 MPV 8.8 fl (7.5-11.1) 05/22/17 06:00 CMP Sodium 135 mmol/L (136-145) L 05/22/17 06:00 Potassium 5.1 mmol/L (3.5-5.1) 05/22/17 06:00 Chloride 95 mmol/L (98-107) L 05/22/17 06:00 Carbon Dioxide 28 mmol/L (21-32) 05/22/17 06:00 Anion Gap 12 (8-16) 05/22/17 06:00 BUN 70 mg/dL (7-18) H D 05/22/17 06:00 Creatinine 8.4 mg/dL (0.7-1.3) H* 05/22/17 06:00 Creat Clearance w eGFR 6.58 (>60) 05/22/17 06:00 Random Glucose 171 mg/dL (74-106) H D 05/22/17 06:00 Calcium 9.3 mg/dL (8.5-10.1) 05/22/17 06:00 Total Bilirubin 1.2 mg/dL (0.2-1.0) H 05/22/17 06:00 AST 7 U/L (15-37) L D 05/22/17 06:00 ALT 10 U/L (12-78) L 05/22/17 06:00 Alkaline Phosphatase 161 U/L (45-117) H 05/22/17 06:00 Total Protein 7.2 g/dl (6.4-8.2) 05/22/17 06:00 Albumin 3.3 g/dl (3.4-5.0) L 05/22/17 06:00 CARDIAC ENZYMES Creatine Kinase 142 IU/L (39-308) 05/17/17 11:11 Troponin I 0.31 ng/ml (0.00-0.05) H 05/17/17 17:10 Current Medications Generic Name Dose Route Start Last Admin Trade Name Freq PRN Reason Stop Dose Admin Acetaminophen 650 mg 05/17/17 17:11 05/22/17 03:20 Tylenol - PO 650 mg Q6H PRN Administration FEVER OR PAIN Atorvastatin Calcium 40 mg 05/17/17 22:00 05/22/17 21:09 Lipitor - PO 40 mg HS EVA Administration Calcitriol 0.5 mcg 05/17/17 10:15 05/20/17 08:49 Rocaltrol - PO 0.5 mcg TuThFr@1000 EVA Administration Calcium Acetate 667 mg 05/18/17 10:00 05/22/17 11:27 Phoslo - PO 667 mg DAILY@0800 EVA Administration Carvedilol 3.125 mg 05/18/17 10:00 05/22/17 21:09 Coreg - PO 3.125 mg BID EVA Administration Cholestyramine Resin 4 gm 05/22/17 22:00 05/22/17 21:10 Questran Light Packet - PO 4 gm BID EVA Administration Insulin Aspart 1 vial 05/17/17 11:00 05/22/17 21:13 Novolog Vial Sliding Scale - SQ 4 units ACHS EVA Administration Protocol Levothyroxine Sodium 50 mcg 05/23/17 07:00 Synthroid - PO DAILY@0700 EVA Pantoprazole Sodium 40 mg 05/18/17 10:00 05/22/17 11:27 Protonix - PO 40 mg DAILY EVA Administration Sevelamer Carbonate 2.4 gm 05/18/17 10:00 05/22/17 11:28 Renvela Powder Packet - PO 2.4 gm DAILY EVA Administration Simethicone 80 mg 05/18/17 15:46 05/22/17 03:20 Mylicon - PO 80 mg QID PRN Administration GAS Home Medications Medication Instructions Recorded Aspirin [ASA -] 81 mg PO DAILY 03/08/17 Atorvastatin Ca [Lipitor] 40 mg PO HS 03/08/17 Calcitriol [Calcitriol -] 0.5 mcg PO .TUTHFR DAILY 03/08/17 Isosorbide Mononitrate [Imdur -] 30 mg PO DAILY 03/08/17 Omeprazole 40 mg PO DAILY 03/08/17 Sevelamer Carbonate [Renvela 2.4 gm PO DAILY 03/08/17 Powder Packet -] Warfarin Sodium [Coumadin] 2 mg PO DAILY 03/08/17 Calcium Acetate [Phoslo -] 667 mg PO DAILY 05/17/17 Carvedilol [Coreg -] 3.125 mg PO BID 05/17/17 Insulin Glargine,Hum.rec.anlog 0 units SQ DAILY 05/17/17 [Lantus (nf)] PE: per resident's note Microbiology 05/20/17 10:30 Blood - Peripheral Venous Blood Culture - Preliminary NO GROWTH OBTAINED AFTER 96 HOURS, INCUBATION TO CONTINUE FOR 1 DAYS. 05/20/17 10:30 Blood - Peripheral Venous Blood Culture - Preliminary NO GROWTH OBTAINED AFTER 96 HOURS, INCUBATION TO CONTINUE FOR 1 DAYS. 05/19/17 10:30 Stool Salmonella/Shigella Culture - Final 05/19/17 10:30 Stool Campylobacter Culture - Final NO GROWTH OF CAMPYLOBACTER SPECIES OBTAINED 05/19/17 10:30 Stool Yersinia Culture - Final NO GROWTH OF YERSINIA SPECIES OBTAINED 05/19/17 10:30 Stool Vibrio Culture - Final NO GROWTH OF VIBRIO SPECIES OBTAINED 05/19/17 10:30 Stool Escherichia coli 0157 Culture - Final NO GROWTH OF E COLI 0157 OBTAINED 05/19/17 10:30 Stool Gram Stain - Final 05/19/17 10:30 Stool Clostridium difficile Antigen (VANI) - Final 05/19/17 10:30 Stool Clostridium difficile Toxin Assay - Final ASSESSMENT AND PLAN: Patient is a 57 yo man with ESRD on HD --, HTN, IDDM, CAD s/p stent and [place] on coumadin and ASA, systolic CHF, embolic CVA and HLD who presents with multiple syncopal episodes over the past 2 days. # Acute hypothyroidism started on Levoxyl 50mcg improving his symptoms # s/p Acute Diarrhea resolved , Stool cdiff negative, will dc the Flagyl IV . # Acute syncope ,presyncope :Echo shows global decrease in LV function , carotid shows no significant stenosis. CT head was negative for IC bleed. #Ischemic cardiomyopathy with with systolic CM with CAD, with elevated troponin in the setting of ESRD. without any elevation of CKMB , no change in EKG, As per community outreach coordinator with hx of embolic cva/s/p loop recorder which was removed showed afib, was on coumadin. Currently in SR. given low platelets coumadin was on hold, as per sequencing machine operator; OK to resume asa/coumadin as long as platelets are > 50. Today Platelets dropped to 52K-->58 will resume coumadin and dc aspirin as Discussed with community outreach coordinator. # Acute sinus bradycardia on low dose Coreg, patient has underlying conduction abnormality, AV delay, LPFB. started on Levoxyl # CAD (coronary artery disease) Low suspicion for ACS given no EKG changes and elevated trops in setting of ESRD. # ESRD on hemodialysis MWF dialysis scheduled # Hyperlipidemia continue statin therapy. # H/O: CVA (cerebrovascular accident) ;ASA held secondary to thrombocytopenia # Acute thrombocytopenia continues ,Hem. consult DVT Px: warfarin
[2017-05-22] MEDS ORDERED: CHOLESTYRAMINE/ASPARTAME 4 GM PACKET PO SCH (22:00)
--- NOTE | 2017-05-23 00:37 | HOSP ---
Subjective - Review of Symptoms Events since last encounter: called to evaluate patient for bilateral feet swelling. General: Yes: Malaise. No: Chills, Night Sweats HEENT: No: Head Aches, Visual Changes Pulmonary: No: Dyspnea, Cough, Pleuritic Chest Pain Cardiovascular: No: Chest Pain, Palpitations, Orthopnea Gastrointestinal: No: Nausea, Vomiting, Abdominal Pain, Diarrhea Musculoskeletal: Yes: Back Pain, Other (neck pain). No: Muscle Weakness Neurological: No: Weakness, Numbness, Incoordination Physical Examination Vital Signs: Vital Signs Temperature 98.2 F 05/22/17 18:45 Pulse Rate 58 L 05/22/17 19:00 Respiratory Rate 18 05/22/17 19:00 Blood Pressure 119/67 05/22/17 19:00 O2 Sat by Pulse Oximetry (%) 100 05/22/17 11:25 Constitutional: Yes: Well Nourished, No Distress Neck: Yes: Supple, Trachea Midline. No: Rigid, Tenderness Cardiovascular: Yes: Regular Rate and Rhythm, S1, S2. No: Murmur Respiratory: Yes: Regular, CTA Bilaterally Gastrointestinal: Yes: Normal Bowel Sounds, Soft Musculoskeletal: Yes: Back Pain Extremities: Yes: Calf Tenderness, Other (bilateral feet swelling;) Edema: (bilateral feet swelling) Peripheral Pulses: Left Radial: 2+, Right Radial: 2+, Left Doralis Pedis: 2+, Right Dorsalis Pedis: 2+ Neurological: Yes: Alert, Oriented Labs: CBC, BMP 05/22/17 06:00 05/22/17 06:00 Hospitalist Encounter Assessment: 57 yo man with ESRD on HD M-W-, HTN, IDDM, CAD s/p stent and [place] on coumadin and ASA, systolic CHF, embolic CVA and HLD who presents with multiple syncopal episodes. #bilateral feet swelling -nurse states that he had this swelling yesterday as well -patient states that feet are cold; on exam l feet are warm with normal pedal pulses -bilateral duplex r/o dvt -could just be due to CHF vs fluid overload from ESRD -lungs clear/no other signs of fluid overload -not currently on diuretic -ESRD ON HD -CAD -H/O CVA -DM -Pulmonary Edema -sytolic CHF -cardiac ischemia -HTN Visit type - Emergency Visit Emergency Visit: Yes ED Registration Date: 05/19/17 Care time: The patient presented to the Emergency Department on the above date and was hospitalized for further evaluation of their emergent condition. - New Patient This patient is new to me today: Yes Date on this admission: 05/23/17 - Critical Care Critical Care patient: No
[2017-05-23] MEDS: INSULIN SLIDING SCALE (NOVOLOG) 1 VIAL SQ SCH ×4 (06:22→22:44)
[2017-05-23] MEDS: LEVOTHYROXINE NA 50 MCG TABLET (FP) PO SCH (06:25)
[2017-05-23 07:30] LABS: BASOPHIL 1.4 % (0-2.0); EOSINOPHIL 3.1 % (0-4.5); MCHC 33.4 g/dl (32.0-35.9); MEAN CELL VOLUME 104.5 fl (80-96); MEAN PLT VOLUME 8.9 fl (7.5-11.1); NEUTROPHILS 66.4 % (42.8-82.8); PLATELET COUNT 60 K/MM3 (134-434); RDW 16.1 % (11.9-15.9); WHITE BLOOD COUNT 3.4 K/mm3 (4.0-10.0)
[2017-05-23 07:40] LABS: ANION GAP 12 (8-16); CALCIUM 8.9 mg/dL (8.5-10.1); CO2 29 mmol/L (21-32); CREATININE 5.9 mg/dL (0.7-1.3); GLUCOSE,RANDOM 175 mg/dL (74-106)
[2017-05-23 07:46] LABS: INR 1.43 (0.82-1.09); PROTHROMBIN TIME (PATIENT) 15.9 SEC (9.98-11.88)
[2017-05-23] MEDS: CALCIUM ACETATE 667 MG CAPSULE (FP) PO SCH (08:41)
--- NOTE | 2017-05-23 09:13 | CONSULT ---
Consult Consult Specialty:: Endocrinology Referred by:: Dr Musa Reason for Consultation:: Hypothyroidism - History of Present Illness Chief Complaint: Syncope History of Present Illness: This is a 57 yo M with h/o HTN, HLD, CAD s/p stent and CT on coumadin and ASA, systolic CHF, embolic CVA, DM, ESRD on dialysis (M,W,F), and depression Eho was admitted s/p syncopal episode with c/o of SOB, left sided head/neck pain. He lost consciousness in bed sitting next to his but then regained consciousness. He went to the bathroom twice and after the second time when he sat back down on the bed felt as if he were going to lose consciousness again. He reported severe pain to the left side of his head and neck. Also complained of CP and SOB. Pt found to have TSHof 219 and FT4 of 0.33 and referred to evaluation. Pt says he has been feeling tired and cold intolerant for about 3 weeks. Denies any recent wt gain. No family h/o thyroid disorder. - History Source History Provided By: Patient, Medical Record - Past Medical History Cardio/Vascular: Yes: CAD (patient reports having cath and PCI one year ago at [facility]), HTN, Hyperlipdemia Renal/: Yes: Renal Failure, Hemodialysis Endocrine: Yes: Diabetes Mellitus - Past Surgical History Past Surgical History: Yes: None, AV Fistula/Graft - Alcohol/Substance Use Hx Alcohol Use: No History of Substance Use: reports: None - Smoking History Smoking history: Never smoked Have you smoked in the past 12 months: No Aproximately how many cigarettes per day: 0 If you are a former smoker, when did you quit?: 17 yrs ago - Social History ADL: Independent History of Recent Travel: No Home Medications - Allergies Allergies/Adverse Reactions: Allergies Allergy/AdvReac Type Severity Reaction Status Date / Time No Known Allergies Allergy Verified 05/17/17 04:51 - Home Medications Home Medications: Ambulatory Orders Aspirin [ASA -] 81 mg PO DAILY 03/08/17 Atorvastatin Ca [Lipitor] 40 mg PO HS 03/08/17 Calcitriol [Calcitriol -] 0.5 mcg PO .TUTHFR DAILY 03/08/17 Isosorbide Mononitrate [Imdur -] 30 mg PO DAILY 03/08/17 Omeprazole 40 mg PO DAILY 03/08/17 Sevelamer Carbonate [Renvela Powder Packet -] 2.4 gm PO DAILY 03/08/17 Warfarin Sodium [Coumadin] 2 mg PO DAILY 03/08/17 Calcium Acetate [Phoslo -] 667 mg PO DAILY 05/17/17 Carvedilol [Coreg -] 3.125 mg PO BID 05/17/17 Insulin Glargine,Hum.rec.anlog [Lantus (nf)] 0 units SQ DAILY 05/17/17 Family Disease History - Family Disease History Family Disease History: Heart Disease: Father Other Family History: No family h/o thyroid disorder Review of Systems - Review of Systems Constitutional: reports: Other (Tiredness) Eyes: reports: No Symptoms HENT: reports: No Symptoms Neck: reports: No Symptoms Cardiovascular: reports: No Symptoms Respiratory: reports: No Symptoms Gastrointestinal: reports: No Symptoms Genitourinary: reports: No Symptoms Musculoskeletal: reports: Extremity Pain Integumentary: reports: No Symptoms Neurological: reports: No Symptoms Endocrine: reports: No Symptoms Physical Exam Vital Signs: Vital Signs Temperature 99.3 F 05/23/17 06:00 Pulse Rate 59 L 05/23/17 06:00 Respiratory Rate 20 05/23/17 06:00 Blood Pressure 116/62 05/23/17 06:00 O2 Sat by Pulse Oximetry (%) 98 05/22/17 22:00 Constitutional: Yes: No Distress, Calm Eyes: Yes: Conjunctiva Clear, EOM Intact HENT: Yes: Atraumatic, Normocephalic Neck: Yes: Supple, Trachea Midline Cardiovascular: Yes: Regular Rate and Rhythm Respiratory: Yes: Regular, CTA Bilaterally, Other (Basal crackles) Gastrointestinal: Yes: Normal Bowel Sounds, Soft Musculoskeletal: Yes: WNL Extremities: Yes: WNL Edema: Yes (Trace edema of legs) Neurological: Yes: Alert, Oriented Labs: CBC, BMP 05/23/17 06:30 05/23/17 06:30 Imaging - Results Chest X-ray: Report Reviewed Cat Scan: Report Reviewed Problem List - Problems (1) Chest pain Code(s): R07.9 - CHEST PAIN, UNSPECIFIED Qualifiers: Chest pain type: unspecified Qualified Code(s): R07.9 - Chest pain, unspecified (2) ESRD on hemodialysis Code(s): N18.6 - END STAGE RENAL DISEASE Z99.2 - DEPENDENCE ON RENAL DIALYSIS (3) Hypothyroidism Code(s): E03.9 - HYPOTHYROIDISM, UNSPECIFIED Qualifiers: Hypothyroidism type: unspecified Qualified Code(s): E03.9 - Hypothyroidism, unspecified (4) Syncope Code(s): R55 - SYNCOPE AND COLLAPSE Qualifiers: Syncope type: unspecified Qualified Code(s): R55 - Syncope and collapse (5) DM Diabetes mellitus type 2 Code(s): E11.9 - TYPE 2 DIABETES MELLITUS WITHOUT COMPLICATIONS Assessment/Plan AP: Hypotthyroidism: TSH 219 FT4 0.3, TSH was 3.12 on 03/24/16 ?>Secondary to thyroiditis check TPO Ab and repeat TFT Continue LT4 50 for now. Increase dose slowly in view of CAD and CHF DM Syncope ESRD on HD Ischemic Cardiomyopathy
--- NOTE | 2017-05-23 09:30 | PN ---
Progress Note (short form) - Note Progress Note: Chief Complaint: presyncope History of Present Illness: Endorses mild LE edema. dizziness improved. no cp, sob no palpitations never smoker Current Medications Acetaminophen (Tylenol -) 650 mg PO Q6H PRN PRN Reason: FEVER OR PAIN Last Admin: 05/22/17 23:28 Dose: 650 mg Aspirin (Ecotrin -) 81 mg PO DAILY [facility] Atorvastatin Calcium (Lipitor -) 40 mg PO HS [facility] Last Admin: 05/22/17 21:09 Dose: 40 mg Calcitriol (Rocaltrol -) 0.5 mcg PO TuThFr@1000 [facility] Last Admin: 05/20/17 08:49 Dose: 0.5 mcg Calcium Acetate (Phoslo -) 667 mg PO DAILY@0800 [facility] Last Admin: 05/23/17 08:41 Dose: 667 mg Carvedilol (Coreg -) 3.125 mg PO BID [facility] Last Admin: 05/22/17 21:09 Dose: 3.125 mg Cholestyramine Resin (Questran Light Packet -) 4 gm PO BID [facility] Last Admin: 05/22/17 21:10 Dose: 4 gm Insulin Aspart (Novolog Vial Sliding Scale -) 1 vial SQ ACHS [facility] PRN Reason: Protocol Last Admin: 05/23/17 06:22 Dose: Not Given Levothyroxine Sodium (Synthroid -) 50 mcg PO DAILY@0700 [facility] Last Admin: 05/23/17 06:25 Dose: 50 mcg Pantoprazole Sodium (Protonix -) 40 mg PO DAILY [facility] Last Admin: 05/22/17 11:27 Dose: 40 mg Sevelamer Carbonate (Renvela Powder Packet -) 2.4 gm PO DAILY [facility] Last Admin: 05/22/17 11:28 Dose: 2.4 gm Simethicone (Mylicon -) 80 mg PO QID PRN PRN Reason: GAS Last Admin: 05/22/17 03:20 Dose: 80 mg Vital Signs - 24 hr 05/22/17 05/22/17 05/22/17 10:00 11:25 14:00 Temperature 97.5 F L 98.6 F Pulse Rate 54 L 53 L 53 L Respiratory 20 20 Rate Blood Pressure 114/62 112/57 O2 Sat by Pulse 100 Oximetry (%) 05/22/17 05/22/17 05/22/17 15:00 15:15 15:45 Temperature Pulse Rate 53 L 51 L 55 L Respiratory 18 18 18 Rate Blood Pressure 115/66 114/61 114/65 O2 Sat by Pulse Oximetry (%) 05/22/17 05/22/17 05/22/17 16:15 16:45 17:15 Temperature Pulse Rate 52 L 54 L 58 L Respiratory 18 18 18 Rate Blood Pressure 113/63 112/61 114/58 O2 Sat by Pulse Oximetry (%) 05/22/17 05/22/17 05/22/17 17:45 18:15 18:45 Temperature 98.2 F Pulse Rate 54 L 55 L 58 L Respiratory 18 18 18 Rate Blood Pressure 109/59 119/61 117/60 O2 Sat by Pulse Oximetry (%) 05/22/17 05/22/17 05/22/17 19:00 21:00 22:00 Temperature Pulse Rate 58 L Respiratory 18 20 Rate Blood Pressure 119/67 O2 Sat by Pulse 100 98 Oximetry (%) 05/23/17 05/23/17 01:16 06:00 Temperature 99.3 F Pulse Rate 59 L 59 L Respiratory 20 20 Rate Blood Pressure 109/47 116/62 O2 Sat by Pulse Oximetry (%) Intake & Output 05/21/17 05/22/17 05/23/17 05/24/17 07:59 07:59 07:59 07:59 Intake Total 1430 420 320 Output Total 0 Balance 1430 420 320 Weight 149 lb 150 lb 145 lb 6 oz Constitutional: Yes: No Distress, Calm Eyes: No: Sclera Icterus HENT: No: Nasal Congestion Cardiovascular: Yes: Regular Rate and Rhythm, S1, S2, Other (PMI non diplaced). No: JVD, Gallop, Murmur Respiratory: Yes: ctab. No: Accessory Muscle Use, Rales, Wheezes Gastrointestinal: Yes: Normal Bowel Sounds, Soft. No: Tenderness Musculoskeletal: Yes: Other (No kyphosis) Extremities: No: Cold Edema: trace Integumentary: No: Jaundice Neurological: Yes: Alert. No: Seizure Psychiatric: No: Agitated Labs: CBC, BMP 05/23/17 06:30 05/23/17 06:30 - ....Imaging EKG: Other (tele: sinus hung 50s) Assessment/Plan ekg 05/17 4am: sr, rightward axis av delay, ivcd. inferolateral TWI, similar to priors echo here 04/2017: mild lv dilation. mod-sev decreased LV fn (global). nl rv mild eli. 1+ mr, severe tr. echo 12/2015: low nl lvef, no wma, mild lvh, nl rv, mild lae, mod mr, mac, mild tr, rvsp 50-60 persantine MIBI here (12/2015): no ST changes vs baseline; large area of inferior and inferolat infarct (with akinesis) with small samantha-infarct ischemia ; EF 35% Cath/PCI @ [place] 08/2015 : CBPTCA of ISR of RPL stent , rest of anatomy unchanged from 05/2015--decided not to stent OM or RPL--he has recurrent and fast ISR of stents and likely will not do not well with PCI strategy Cath/PCI @ [facility] 05/2015: Diag 2 : 100 % ISR of prior BMS at [facility], distal LAD 90 % (small vessel), OM1 90%, large RPL stented (ESME)--felt to be culprit Assessment/Plan 57 yo with h/o HTN, HPL, 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 CAD/ischemic CM/elevated troponin (sees dr portillo at [facility] for cardio): - patient with intermediate range troponin in setting of ESRD. No elevation in ck or mb. EKG unchanged. CP atypical. No suspicion of acs. - per outpatient cardiology record has known systolic cardiomyopathy, which is also seen on echo here. - currently with significant thrombocytopenia without clear etiology. Held coumadin and ASA. Per heme, asa/coumadin OK as long as platelets are > 50. Patient with high risk of ISR and h/o possible embolic CVA. - 05/22: ASA and AC on hold for PLTs 50sK--thus far holding in this range; if remains stable, consider resuming one or both anti-thrombotic agents in am - 05/23 plat up to 60, ASA resumed -cont statin. con't bb (monitor for worsening hypotension/bradycardia). - imdur held for low bp's ischemic cardiomyopathy - Per outpatient cardiology record, pt has known systolic cardiomyopathy ( confirmed with discussion with outpatient crystal mounter), which is also seen on echo here. - Was not on ADELINE, will defer to renal/outpatient cardiology. Con't coreg for now with tele monitoring for worsened bradycardia given ongoing dizziness. - Management of thyroid abnormalities per pmd. - EF needs precise quantification and ICD decisions need to be made by outpt cardio (dr portillo)--will defer until his hematologic w/u is complete h/o embolic cva/s/p loop recorder now removed/afib - discussed with outpatient crystal mounter --> confirmed afib. Feels coumadin is priority, would prefer continuing coumadin over ASA if one has to take priority over other. Currently in SR. Discussed with pmd and heme --> heme would like to defer heparin bridge until HIT results are available and we have more info regarding patients risk for varices. Will defer to heme/pmd regarding when heparin bridge can be started. - further f/u with dr portillo after discharge presyncope - carotid us without significant stenosis. head CT negative for bleed - orthostatics negative - patient with mild bradycardia on tele (HR reported in 50s since admit), ? contribution to dizziness--suspect this will improve once his severe hypothyroidism is corrected (TSH > 200!), endo following - no indication for pacemaker at present - cont tele hypothyroidism, uncontrolled - replacement per hospitalist/endo thrombocytopenia - stable 50sK-60 at present - w/u per heme - ASA/AC decisions as above ESRD on HD -HD per renal HTN: -running low on current meds, monitor HPL: -continue statin
[2017-05-23] MEDS: CARVEDILOL 3.125 MG TABLET (FP) PO SCH ×2 (09:49→22:44)
[2017-05-23] MEDS: CHOLESTYRAMINE/ASPARTAME 4 GM PACKET PO SCH ×2 (09:49→22:45)
[2017-05-23] MEDS: SEVELAMER CARBONATE 2.4 GM POWDER PACKET PO SCH (09:49)
[2017-05-23] MEDS: PANTOPRAZOLE 40 MG TABLET (FP) PO SCH (09:49)
[2017-05-23] MEDS ORDERED: ASPIRIN COATED 81 MG TABLET.EC PO SCH (10:00)
[2017-05-23] MEDS ORDERED: INSULIN (NOVOLOG) ASPART 100 UNITS/ML 10ML VIAL ONE ×2 (11:42→22:40)
--- NOTE | 2017-05-23 12:33 | PN ---
Progress Note, Physician Chief Complaint: The patient seen on dialysis. Has abdominal pain, and frequent loose BM. Stool cultures and C. diff negative. BP and other vital signs are stable on dialysis. The patient has Coronary artery disease and Cardiomyopathy. - Current Medication List Current Medications: Active Medications Acetaminophen (Tylenol -) 650 mg PO Q6H PRN PRN Reason: FEVER OR PAIN Last Admin: 05/22/17 23:28 Dose: 650 mg Atorvastatin Calcium (Lipitor -) 40 mg PO HS [facility] Last Admin: 05/22/17 21:09 Dose: 40 mg Calcitriol (Rocaltrol -) 0.5 mcg PO TuThFr@1000 [facility] Last Admin: 05/20/17 08:49 Dose: 0.5 mcg Calcium Acetate (Phoslo -) 667 mg PO DAILY@0800 [facility] Last Admin: 05/23/17 08:41 Dose: 667 mg Carvedilol (Coreg -) 3.125 mg PO BID [facility] Last Admin: 05/23/17 09:49 Dose: 3.125 mg Cholestyramine Resin (Questran Light Packet -) 4 gm PO BID [facility] Last Admin: 05/23/17 09:49 Dose: 4 gm Insulin Aspart (Novolog Vial Sliding Scale -) 1 vial SQ ACHS [facility] PRN Reason: Protocol Last Admin: 05/23/17 11:43 Dose: 4 units Levothyroxine Sodium (Synthroid -) 50 mcg PO DAILY@0700 [facility] Last Admin: 05/23/17 06:25 Dose: 50 mcg Pantoprazole Sodium (Protonix -) 40 mg PO DAILY [facility] Last Admin: 05/23/17 09:49 Dose: 40 mg Sevelamer Carbonate (Renvela Powder Packet -) 2.4 gm PO DAILY [facility] Last Admin: 05/23/17 09:49 Dose: 2.4 gm Simethicone (Mylicon -) 80 mg PO QID PRN PRN Reason: GAS Last Admin: 05/22/17 03:20 Dose: 80 mg Warfarin Sodium (Coumadin -) 5 mg PO ONCE@1800 [facility] Stop: 05/23/17 18:01 - Objective Vital Signs: Vital Signs Temperature 98.4 F 05/23/17 09:41 Pulse Rate 59 L 05/23/17 09:41 Respiratory Rate 18 05/23/17 09:41 Blood Pressure 100/52 05/23/17 09:41 O2 Sat by Pulse Oximetry (%) 96 05/23/17 09:00 Constitutional: Yes: Anxious Eyes: Yes: Conjunctiva Clear HENT: Yes: Normocephalic Cardiovascular: Yes: S1, S2 Respiratory: Yes: Diminished, Rales Musculoskeletal: Yes: Back Pain Neurological: Yes: Alert, Oriented Labs: CBC, BMP 05/23/17 06:30 05/23/17 06:30 INR, PTT INR 1.43 (0.82-1.09) H 05/23/17 06:30 Problem List - Problems (1) CAD (coronary artery disease) Code(s): I25.10 - ATHSCL HEART DISEASE OF [place] CORONARY ARTERY W/O ANG PCTRS Qualifiers: Coronary Disease-Associated Artery/Lesion type: [place] artery [place] vs. transplanted heart: [place] heart Associated angina: with stable angina Qualified Code(s): I25.118 - Atherosclerotic heart disease of [place] coronary artery with other forms of angina pectoris (2) ESRD on hemodialysis Code(s): N18.6 - END STAGE RENAL DISEASE Z99.2 - DEPENDENCE ON RENAL DIALYSIS (3) H/O: CVA (cerebrovascular accident) Code(s): Z86.73 - PRSNL HX OF TIA (TIA), AND CEREB INFRC W/O RESID DEFICITS (4) DM Diabetes mellitus type 2 Code(s): E11.9 - TYPE 2 DIABETES MELLITUS WITHOUT COMPLICATIONS (5) Pulmonary edema Code(s): J81.1 - CHRONIC PULMONARY EDEMA (6) CHF (congestive heart failure) Code(s): I50.9 - HEART FAILURE, UNSPECIFIED (7) Cardiac ischemia Code(s): I25.9 - CHRONIC ISCHEMIC HEART DISEASE, UNSPECIFIED (8) Diabetes Code(s): E11.9 - TYPE 2 DIABETES MELLITUS WITHOUT COMPLICATIONS (9) Diarrhea Code(s): R19.7 - DIARRHEA, UNSPECIFIED Qualifiers: Diarrhea type: unspecified type Qualified Code(s): R19.7 - Diarrhea , unspecified (10) Anemia in CKD (chronic kidney disease) Code(s): N18.9 - CHRONIC KIDNEY DISEASE, UNSPECIFIED D63.1 - ANEMIA IN CHRONIC KIDNEY DISEASE (11) ESRD (end stage renal disease) Code(s): N18.6 - END STAGE RENAL DISEASE (12) Hypertension Code(s): I10 - ESSENTIAL (PRIMARY) HYPERTENSION Qualifiers: Hypertension type: renovascular hypertension Qualified Code(s): I15.0 - Renovascular hypertension Assessment/Plan 57 y/o male with ESRD, admitted with syncope. Work up so far inconclusive. Most likely multifactorial in etiology. The stool studies are not conclusive so far. Next HD tomorrow. Concur with the work up in progress. Roxanna Laughlin MD
[2017-05-23] MEDS: CALCITRIOL 0.25 MCG CAPSULE (FP) PO SCH (12:47)
--- NOTE | 2017-05-23 13:12 | PN ---
Progress Note (short form) - Note Progress Note: Please refer patient to gi communications advisor, thank you
--- NOTE | 2017-05-23 16:10 | PN ---
Teaching Attending Note Name of Resident: Chandler Duncan ATTENDING PHYSICIAN STATEMENT I saw and evaluated the patient. I reviewed the resident's note and discussed the case with the resident. I agree with the resident's findings and plan as documented. SUBJECTIVE: Patient is doing better on Levoxyl. does not feel tired and lower extremity weakness improved. OBJECTIVE: Vital Signs Temperature 97.9 F 05/23/17 14:07 Pulse Rate 58 L 05/23/17 14:07 Respiratory Rate 16 05/23/17 14:07 Blood Pressure 106/56 05/23/17 14:07 O2 Sat by Pulse Oximetry (%) 96 05/23/17 14:42 CBCD WBC 3.4 K/mm3 (4.0-10.0) L 05/23/17 06:30 RBC 3.50 M/mm3 (4.00-5.60) L 05/23/17 06:30 Hgb 12.2 GM/dL (11.7-16.9) 05/23/17 06:30 Hct 36.6 % (35.4-49) 05/23/17 06:30 MCV 104.5 fl (80-96) H 05/23/17 06:30 MCHC 33.4 g/dl (32.0-35.9) 05/23/17 06:30 RDW 16.1 % (11.9-15.9) H 05/23/17 06:30 Plt Count 60 K/MM3 (134-434) L 05/23/17 06:30 MPV 8.9 fl (7.5-11.1) 05/23/17 06:30 CMP Sodium 138 mmol/L (136-145) 05/23/17 06:30 Potassium 3.9 mmol/L (3.5-5.1) D 05/23/17 06:30 Chloride 97 mmol/L (98-107) L 05/23/17 06:30 Carbon Dioxide 29 mmol/L (21-32) 05/23/17 06:30 Anion Gap 12 (8-16) 05/23/17 06:30 BUN 39 mg/dL (7-18) H D 05/23/17 06:30 Creatinine 5.9 mg/dL (0.7-1.3) H D 05/23/17 06:30 Creat Clearance w eGFR 6.58 (>60) 05/22/17 06:00 Random Glucose 175 mg/dL (74-106) H 05/23/17 06:30 Calcium 8.9 mg/dL (8.5-10.1) 05/23/17 06:30 Total Bilirubin 1.2 mg/dL (0.2-1.0) H 05/22/17 06:00 AST 7 U/L (15-37) L D 05/22/17 06:00 ALT 10 U/L (12-78) L 05/22/17 06:00 Alkaline Phosphatase 161 U/L (45-117) H 05/22/17 06:00 Total Protein 7.2 g/dl (6.4-8.2) 05/22/17 06:00 Albumin 3.3 g/dl (3.4-5.0) L 05/22/17 06:00 CARDIAC ENZYMES Creatine Kinase 142 IU/L (39-308) 05/17/17 11:11 Troponin I 0.31 ng/ml (0.00-0.05) H 05/17/17 17:10 Current Medications Generic Name Dose Route Start Last Admin Trade Name Freq PRN Reason Stop Dose Admin Acetaminophen 650 mg 05/17/17 17:11 05/22/17 23:28 Tylenol - PO 650 mg Q6H PRN Administration FEVER OR PAIN Atorvastatin Calcium 40 mg 05/17/17 22:00 05/22/17 21:09 Lipitor - PO 40 mg HS [facility] Administration Calcitriol 0.5 mcg 05/17/17 10:15 05/23/17 12:47 Rocaltrol - PO 0.5 mcg TuThFr@1000 [facility] Administration Calcium Acetate 667 mg 05/18/17 10:00 05/23/17 08:41 Phoslo - PO 667 mg DAILY@0800 [facility] Administration Carvedilol 3.125 mg 05/18/17 10:00 05/23/17 09:49 Coreg - PO 3.125 mg BID [facility] Administration Cholestyramine Resin 4 gm 05/22/17 22:00 05/23/17 09:49 Questran Light Packet - PO 4 gm BID [facility] Administration Epoetin Nolberto 10,000 unit 05/24/17 12:34 Procrit - SQ 05/24/17 12:35 ONCE ONE Insulin Aspart 1 vial 05/17/17 11:00 05/23/17 11:43 Novolog Vial Sliding Scale - SQ 4 units ACHS [facility] Administration Protocol Levothyroxine Sodium 50 mcg 05/23/17 07:00 05/23/17 06:25 Synthroid - PO 50 mcg DAILY@0700 [facility] Administration Pantoprazole Sodium 40 mg 05/18/17 10:00 05/23/17 09:49 Protonix - PO 40 mg DAILY [facility] Administration Sevelamer Carbonate 2.4 gm 05/18/17 10:00 05/23/17 09:49 Renvela Powder Packet - PO 2.4 gm DAILY [facility] Administration Simethicone 80 mg 05/18/17 15:46 05/22/17 03:20 Mylicon - PO 80 mg QID PRN Administration GAS Warfarin Sodium 5 mg 05/23/17 18:00 Coumadin - PO 05/23/17 18:01 ONCE@1800 [facility] Home Medications Medication Instructions Recorded Aspirin [ASA -] 81 mg PO DAILY 03/08/17 Atorvastatin Ca [Lipitor] 40 mg PO HS 03/08/17 Calcitriol [Calcitriol -] 0.5 mcg PO .TUTHFR DAILY 03/08/17 Isosorbide Mononitrate [Imdur -] 30 mg PO DAILY 03/08/17 Omeprazole 40 mg PO DAILY 03/08/17 Sevelamer Carbonate [Renvela 2.4 gm PO DAILY 03/08/17 Powder Packet -] Warfarin Sodium [Coumadin] 2 mg PO DAILY 03/08/17 Calcium Acetate [Phoslo -] 667 mg PO DAILY 05/17/17 Carvedilol [Coreg -] 3.125 mg PO BID 05/17/17 Insulin Glargine,Hum.rec.anlog 0 units SQ DAILY 05/17/17 [Lantus (nf)] PE: per resident's note ASSESSMENT AND PLAN: Patient is a 57 yo man with ESRD on HD --, HTN, IDDM, CAD s/p stent and AL on coumadin and ASA, systolic CHF, embolic CVA and HLD who presents with multiple syncopal episodes over the past 2 days. # Acute Diarrhea on and off , clear no smell to it, will add cholestyramine , Stool cdiff negative, s/p dc the Flagyl IV . # Acute sinus bradycardia due to hypothyroidism started on levoxyl 50mcg daily , continue low dose Coreg, patient has underlying conduction abnormality, AV delay, LPFB. # Acute hypothyroidism TSH is in 200's, started on po levoxyl 50mcg # Acute syncope ,presyncope :Echo shows global decrease in LV function , carotid shows no significant stenosis. CT head was negative for IC bleed. #Ischemic cardiomyopathy with with systolic CM with CAD, with elevated troponin in the setting of ESRD. without any elevation of CKMB , no change in EKG, As per production support analyst with hx of embolic cva/s/p loop recorder which was removed showed afib, was on coumadin. Currently in SR. given low platelets coumadin was on hold, as per dressmaker helper; OK to resume asa/coumadin as long as platelets are > 50. as per production support analyst to keep the patient on coumadin and discontinue aspirin . will monitor platelets. # CAD (coronary artery disease) Low suspicion for ACS given no EKG changes and elevated trops in setting of ESRD. # ESRD on hemodialysis MWF dialysis scheduled # Hyperlipidemia continue statin therapy. # H/O: CVA (cerebrovascular accident) ;ASA held secondary to thrombocytopenia # Acute thrombocytopenia continues ,Hem. consult DVT Px: warfarin
[2017-05-23] MEDS ORDERED: WARFARIN NA 5 MG TABLET (UD) PO ONE (18:00)
[2017-05-23] MEDS: ATORVASTATIN CA 40 MG TABLET (FP) PO SCH (22:44)
[2017-05-24] MEDS: INSULIN SLIDING SCALE (NOVOLOG) 1 VIAL SQ SCH ×4 (07:00→21:33)
[2017-05-24] MEDS: LEVOTHYROXINE NA 50 MCG TABLET (FP) PO SCH (07:00)
[2017-05-24 07:16] LABS: BASOPHIL 1.2 % (0-2.0); EOSINOPHIL 3.6 % (0-4.5); MCH 35.3 pg (25.7-33.7); MCHC 33.2 g/dl (32.0-35.9); MEAN CELL VOLUME 106.4 fl (80-96); MEAN PLT VOLUME 9.4 fl (7.5-11.1); NEUTROPHILS 55.1 % (42.8-82.8); RDW 16.4 % (11.9-15.9); WHITE BLOOD COUNT 4.1 K/mm3 (4.0-10.0)
[2017-05-24 07:32] LABS: INR 1.33 (0.82-1.09); PROTHROMBIN TIME (PATIENT) 14.7 SEC (9.98-11.88)
[2017-05-24 07:51] LABS: ANION GAP 12 (8-16); CALCIUM 9.1 mg/dL (8.5-10.1); CO2 27 mmol/L (21-32); CREATININE 7.2 mg/dL (0.7-1.3); GLUCOSE,RANDOM 182 mg/dL (74-106)
[2017-05-24 08:07] LABS: HEMATOCRIT 33.7 % (37.5-51.0)
[2017-05-24 08:17] LABS: PLATELET COUNT 63 K/MM3 (134-434)
[2017-05-24 08:18] LABS: PLATELET ESTIMATE DECREASED (NORMAL)
[2017-05-24] MEDS ORDERED: EPOETIN ALFA 10,000 UNIT/1 ML VIAL IVPUSH ONE (09:30)
--- NOTE | 2017-05-24 11:44 | PN ---
Progress Note (short form) - Note Progress Note: Chief Complaint: presyncope History of Present Illness: dizziness improved. no cp, sob no palpitations Current Medications Generic Name Dose Route Start Last Admin Trade Name Freq PRN Reason Stop Dose Admin Acetaminophen 650 mg 05/17/17 17:11 05/22/17 23:28 Tylenol - PO 650 mg Q6H PRN Administration FEVER OR PAIN Aspirin 81 mg 05/24/17 10:00 Ecotrin - PO DAILY EVA Atorvastatin Calcium 40 mg 05/17/17 22:00 05/23/17 22:44 Lipitor - PO 40 mg HS EVA Administration Calcitriol 0.5 mcg 05/17/17 10:15 05/23/17 12:47 Rocaltrol - PO 0.5 mcg TuThFr@1000 [facility] Administration Calcium Acetate 667 mg 05/18/17 10:00 05/23/17 08:41 Phoslo - PO 667 mg DAILY@0800 [facility]A Administration Carvedilol 3.125 mg 05/18/17 10:00 05/23/17 22:44 Coreg - PO 3.125 mg BID EVA Administration Cholestyramine Resin 4 gm 05/22/17 22:00 05/23/17 22:45 Questran Light Packet - PO 4 gm BID EVA Administration Insulin Aspart 1 vial 05/17/17 11:00 05/24/17 07:00 Novolog Vial Sliding Scale - SQ Not Given ACHS [facility] Protocol Levothyroxine Sodium 50 mcg 05/23/17 07:00 05/24/17 07:00 Synthroid - PO 50 mcg DAILY@0700 [facility] Administration Pantoprazole Sodium 40 mg 05/18/17 10:00 05/23/17 09:49 Protonix - PO 40 mg DAILY [facility]A Administration Sevelamer Carbonate 2.4 gm 05/18/17 10:00 05/23/17 09:49 Renvela Powder Packet - PO 2.4 gm DAILY [facility] Administration Simethicone 80 mg 05/18/17 15:46 05/22/17 03:20 Mylicon - PO 80 mg QID PRN Administration GAS Warfarin Sodium 5 mg 05/24/17 18:00 Coumadin - PO DAILY@1800 [facility] Vital Signs Period Temp Pulse Resp BP Sys/Parham Pulse Ox Last 24 Hr 97.8 F-98.8 F 57-59 16-18 95-115/48-58 96-96 Constitutional: Yes: No Distress, Calm Eyes: No: Sclera Icterus HENT: No: Nasal Congestion Cardiovascular: Yes: Regular Rate and Rhythm, S1, S2, Other (PMI non diplaced). No: JVD, Gallop, Murmur Respiratory: Yes: ctab. No: Accessory Muscle Use, Rales, Wheezes Gastrointestinal: Yes: Normal Bowel Sounds, Soft. No: Tenderness Musculoskeletal: Yes: Other (No kyphosis) Extremities: No: Cold Edema: trace Integumentary: No: Jaundice Neurological: Yes: Alert. No: Seizure Psychiatric: No: Agitated Labs: CBC, BMP 05/24/17 05:35 05/24/17 05:35 tele: sr ekg 05/17 4am: sr, rightward axis av delay, ivcd. inferolateral TWI, similar to priors echo here 04/2017: mild lv dilation. mod-sev decreased LV fn (global). nl rv mild eli. 1+ mr, severe tr. echo 12/2015: low nl lvef, no wma, mild lvh, nl rv, mild lae, mod mr, mac, mild tr, rvsp 50-60 persantine MIBI here (12/2015): no ST changes vs baseline; large area of inferior and inferolat infarct (with akinesis) with small samantha-infarct ischemia ; EF 35% Cath/PCI @ [place] 08/2015 : CBPTCA of ISR of RPL stent , rest of anatomy unchanged from 05/2015--decided not to stent OM or RPL--he has recurrent and fast ISR of stents and likely will not do not well with PCI strategy Cath/PCI @ [facility] 05/2015: Diag 2 : 100 % ISR of prior BMS at [facility], distal LAD 90 % (small vessel), OM1 90%, large RPL stented (ESME)--felt to be culprit Assessment/Plan 57 yo with h/o HTN, HPL, 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 CAD/ischemic CM/elevated troponin (sees dr portillo at [facility] for cardio): - patient with intermediate range troponin in setting of ESRD. No elevation in ck or mb. EKG unchanged. CP atypical. No suspicion of acs. - per outpatient cardiology record has known systolic cardiomyopathy, which is also seen on echo here. - currently with significant thrombocytopenia without clear etiology. Held coumadin and ASA. Per heme, asa/coumadin OK as long as platelets are > 50. Patient with high risk of ISR and h/o possible embolic CVA. - 05/22: ASA and AC on hold for PLTs 50sK--thus far holding in this range; if remains stable, consider resuming one or both anti-thrombotic agents in am - 05/23-: plts up to 60, ASA resumed -cont statin. con't bb. - imdur held for low bp's ischemic cardiomyopathy - Per outpatient cardiology record, pt has known systolic cardiomyopathy ( confirmed with discussion with outpatient psychiatric cns), which is also seen on echo here. - Was not on ADELINE, will defer to renal/outpatient cardiology. Con't coreg for now with tele monitoring for worsened bradycardia given ongoing dizziness. - Management of thyroid abnormalities per pmd. - EF needs precise quantification and ICD decisions need to be made by outpt cardio (dr portillo)--will defer until his hematologic w/u is complete h/o embolic cva/s/p loop recorder now removed/afib - discussed with outpatient psychiatric cns --> confirmed afib. Feels coumadin is priority, would prefer continuing coumadin over ASA if one has to take priority over other. Currently in SR. Discussed with pmd and heme --> heme would like to defer heparin bridge until HIT results are available and we have more info regarding patients risk for varices. Will defer to heme/pmd regarding when heparin bridge can be started. - further f/u with dr portillo after discharge presyncope - carotid us without significant stenosis. head CT negative for bleed - orthostatics negative - patient with mild bradycardia on tele (HR reported in 50s since admit), ? contribution to dizziness--suspect this will improve once his severe hypothyroidism is corrected (TSH > 200!), endo following - no indication for pacemaker at present - cont tele hypothyroidism, uncontrolled - replacement per hospitalist/endo thrombocytopenia - stable 50sK-60 at present - w/u per heme - ASA/AC decisions as above ESRD on HD -HD per renal HTN: -running low on current meds, monitor HPL: -continue statin
--- NOTE | 2017-05-24 12:35 | PN ---
Progress Note, Physician Chief Complaint: The patient seen on dialysis. Feeling better. Vital signs stable. The patient has Coronary artery disease and Cardiomyopathy. The etiology of the sudden syncope remains obscure so far. - Current Medication List Current Medications: Active Medications Acetaminophen (Tylenol -) 650 mg PO Q6H PRN PRN Reason: FEVER OR PAIN Last Admin: 05/22/17 23:28 Dose: 650 mg Aspirin (Ecotrin -) 81 mg PO DAILY [facility] Atorvastatin Calcium (Lipitor -) 40 mg PO HS [facility] Last Admin: 05/23/17 22:44 Dose: 40 mg Calcitriol (Rocaltrol -) 0.5 mcg PO TuThFr@1000 [facility] Last Admin: 05/23/17 12:47 Dose: 0.5 mcg Calcium Acetate (Phoslo -) 667 mg PO DAILY@0800 [facility] Last Admin: 05/23/17 08:41 Dose: 667 mg Carvedilol (Coreg -) 3.125 mg PO BID [facility] Last Admin: 05/23/17 22:44 Dose: 3.125 mg Cholestyramine Resin (Questran Light Packet -) 4 gm PO BID [facility] Last Admin: 05/23/17 22:45 Dose: 4 gm Insulin Aspart (Novolog Vial Sliding Scale -) 1 vial SQ ACHS [facility] PRN Reason: Protocol Last Admin: 05/24/17 07:00 Dose: Not Given Levothyroxine Sodium (Synthroid -) 50 mcg PO DAILY@0700 [facility] Last Admin: 05/24/17 07:00 Dose: 50 mcg Pantoprazole Sodium (Protonix -) 40 mg PO DAILY [facility] Last Admin: 05/23/17 09:49 Dose: 40 mg Sevelamer Carbonate (Renvela Powder Packet -) 2.4 gm PO DAILY [facility] Last Admin: 05/23/17 09:49 Dose: 2.4 gm Simethicone (Mylicon -) 80 mg PO QID PRN PRN Reason: GAS Last Admin: 05/22/17 03:20 Dose: 80 mg Warfarin Sodium (Coumadin -) 5 mg PO DAILY@1800 [facility] - Objective Vital Signs: Vital Signs Temperature 98.3 F 05/24/17 08:55 Pulse Rate 58 L 05/24/17 11:30 Respiratory Rate 18 05/24/17 11:30 Blood Pressure 117/61 05/24/17 11:30 O2 Sat by Pulse Oximetry (%) 96 05/23/17 21:00 Constitutional: Yes: No Distress, Calm HENT: Yes: Normocephalic Cardiovascular: Yes: S1, S2. No: JVD Respiratory: Yes: CTA Bilaterally. No: Rales, Rhonchi Gastrointestinal: Yes: Normal Bowel Sounds, Soft, Abdomen, Obese Genitourinary: No: CVA Tenderness - Left, CVA Tenderness - Right Musculoskeletal: Yes: Back Pain Labs: CBC, BMP 05/24/17 05:35 05/24/17 05:35 INR, PTT INR 1.33 (0.82-1.09) H 05/24/17 05:35 Problem List - Problems (1) CAD (coronary artery disease) Code(s): I25.10 - ATHSCL HEART DISEASE OF [place] CORONARY ARTERY W/O ANG PCTRS Qualifiers: Coronary Disease-Associated Artery/Lesion type: [place] artery [place] vs. transplanted heart: [place] heart Associated angina: with stable angina Qualified Code(s): I25.118 - Atherosclerotic heart disease of [place] coronary artery with other forms of angina pectoris (2) ESRD on hemodialysis Code(s): N18.6 - END STAGE RENAL DISEASE Z99.2 - DEPENDENCE ON RENAL DIALYSIS (3) H/O: CVA (cerebrovascular accident) Code(s): Z86.73 - PRSNL HX OF TIA (TIA), AND CEREB INFRC W/O RESID DEFICITS (4) DM Diabetes mellitus type 2 Code(s): E11.9 - TYPE 2 DIABETES MELLITUS WITHOUT COMPLICATIONS (5) CHF (congestive heart failure) Code(s): I50.9 - HEART FAILURE, UNSPECIFIED (6) Cardiac ischemia Code(s): I25.9 - CHRONIC ISCHEMIC HEART DISEASE, UNSPECIFIED (7) Diabetes Code(s): E11.9 - TYPE 2 DIABETES MELLITUS WITHOUT COMPLICATIONS (8) Diarrhea Code(s): R19.7 - DIARRHEA, UNSPECIFIED Qualifiers: Diarrhea type: unspecified type Qualified Code(s): R19.7 - Diarrhea , unspecified (9) Anemia in CKD (chronic kidney disease) Code(s): N18.9 - CHRONIC KIDNEY DISEASE, UNSPECIFIED D63.1 - ANEMIA IN CHRONIC KIDNEY DISEASE (10) ESRD (end stage renal disease) Code(s): N18.6 - END STAGE RENAL DISEASE (11) Hypertension Code(s): I10 - ESSENTIAL (PRIMARY) HYPERTENSION Qualifiers: Hypertension type: renovascular hypertension Qualified Code(s): I15.0 - Renovascular hypertension Assessment/Plan 57 y/o male with ESRD, admitted with syncope. Work up so far inconclusive. Most likely multifactorial in etiology. The stool studies are not conclusive so far. Hemodialysis uneventful. Concur with the work up and management in progress. Roxanna Laughlin MD
[2017-05-24] MEDS: SEVELAMER CARBONATE 2.4 GM POWDER PACKET PO SCH (12:47)
[2017-05-24] MEDS: CHOLESTYRAMINE/ASPARTAME 4 GM PACKET PO SCH ×2 (12:48→21:33)
[2017-05-24] MEDS: CARVEDILOL 3.125 MG TABLET (FP) PO SCH ×2 (12:49→21:33)
[2017-05-24] MEDS: ASPIRIN COATED 81 MG TABLET.EC PO SCH (12:49)
[2017-05-24] MEDS: PANTOPRAZOLE 40 MG TABLET (FP) PO SCH (12:49)
[2017-05-24] MEDS: CALCIUM ACETATE 667 MG CAPSULE (FP) PO SCH (12:49)
[2017-05-24] MEDS: WARFARIN NA 5 MG TABLET (UD) PO SCH (17:31)
--- NOTE | 2017-05-24 17:50 | PN ---
Teaching Attending Note Name of Resident: Chandler Duncan ATTENDING PHYSICIAN STATEMENT I saw and evaluated the patient. I reviewed the resident's note and discussed the case with the resident. I agree with the resident's findings and plan as documented. SUBJECTIVE:no cp or SOB OBJECTIVE: NAD CV : RRR Lungs : CTAB ext : no edema CV: RRR ASSESSMENT AND PLAN: 57 y/o man with h/o CAD , s/p PCIs , ICMP , IDDM , S CHF , CVA , ESRD, MR , and other medical problems who presented with near syncope 1- near syncope : could be due to bradycardia . cont BB carefully. 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 cont coumadin for therapeutic INR 2-3 d/w Dr. Musa , as long as Plt > 50 OK with anticoagulation 3- CAD , s/p PCI s: cont BB ,statin , and ASA . 4- questionable cirrhosis on CTA , with ascitis . ? possibly form heart failure vs other etiologies. will need w/u and possibly EGD . will need GI eval LFTS abnormalities can be due to that 5- Gall bladder stone , seen on US , with thick gall bladder wall. will have him evaluated by Dr. Palumbo. 6- Diarreha :neg for C diff . possible IBS ( recurrent ) 7- ESRD: cont HD 8- HYpothyroidism: ? Flores's or other ds . comnt synthroid follow TOP abs . we don't have TG abs out pt follow up
[2017-05-24] MEDS ORDERED: ATORVASTATIN CA 20 MG TABLET (FP) ONE (21:30)
[2017-05-24] MEDS ORDERED: INSULIN (NOVOLOG) ASPART 100 UNITS/ML 10ML VIAL ONE (21:30)
[2017-05-24] MEDS: ATORVASTATIN CA 40 MG TABLET (FP) PO SCH (21:33)
--- NOTE | 2017-05-24 23:03 | PN ---
Physical Exam: SUBJECTIVE: Patient seen and examined at bedside. No overnight events. No new complaints. Feeling much better. Denies CP, palpitations, SOB,N/V. OBJECTIVE: Vital Signs Period Temp Pulse Resp BP Sys/Parham Pulse Ox Last 24 Hr 97.5 F-98.8 F 54-61 14-18 95-117/48-64 99-99 GENERAL: AAOx3,no acute distress. HEAD: AT/NC EYES: PERRL, EOMI, sclera anicteric, conjunctiva clear. No ptosis. ENT: moist mucous membranes. NECK: supple, LUNGS:CTAB, no wheezing or rales. HEART: RRR, No M/G/R ABDOMEN: soft, NT, mild distention normal bowel sounds EXTREMITIES: 2+ pulses, warm, well-perfused, no edema. NEUROLOGICAL: Cranial nerves II through XII grossly intact. Normal speech, gait not observed. PSYCH: Normal mood, normal affect. SKIN: Bilateral LE stasis dermatitis. Laboratory Results - last 24 hr 05/21/17 05/24/17 05/24/17 06:25 05:35 05:35 WBC 4.1 RBC 3.48 L Hgb 12.3 Hct 33.7 L 37.0 MCV 106.4 H MCHC 33.2 RDW 16.4 H Plt Count 63 L MPV 9.4 Neutrophils % 55.1 Lymphocytes % 31.4 D Monocytes % 8.7 Eosinophils % 3.6 Basophils % 1.2 Platelet Estimate Decreased Platelet Comment No clumping noted Macrocytosis 2+ INR 1.33 H Sodium Potassium Chloride Carbon Dioxide Anion Gap BUN Creatinine POC Glucometer Random Glucose Calcium Folate 1143 Folate Hemolysate 385.3 TSH 05/24/17 05/24/17 05/24/17 05:35 05:43 12:39 WBC RBC Hgb Hct MCV MCHC RDW Plt Count MPV Neutrophils % Lymphocytes % Monocytes % Eosinophils % Basophils % Platelet Estimate Platelet Comment Macrocytosis INR Sodium 136 Potassium 4.4 Chloride 97 L Carbon Dioxide 27 Anion Gap 12 BUN 54 H D Creatinine 7.2 H D POC Glucometer 185 239 Random Glucose 182 H Calcium 9.1 Folate Folate Hemolysate TSH 241.00 H D 05/24/17 05/24/17 17:29 21:25 WBC RBC Hgb Hct MCV MCHC RDW Plt Count MPV Neutrophils % Lymphocytes % Monocytes % Eosinophils % Basophils % Platelet Estimate Platelet Comment Macrocytosis INR Sodium Potassium Chloride Carbon Dioxide Anion Gap BUN Creatinine POC Glucometer 187 308 Random Glucose Calcium Folate Folate Hemolysate TSH Active Medications Generic Name Dose Route Start Last Admin Trade Name Tino PRN Reason Stop Dose Admin Acetaminophen 650 mg 05/17/17 17:11 05/22/17 23:28 Tylenol - PO 650 mg Q6H PRN Administration FEVER OR PAIN Aspirin 81 mg 05/24/17 10:00 05/24/17 12:49 Ecotrin - PO 81 mg DAILY [facility] Administration Atorvastatin Calcium 40 mg 05/17/17 22:00 05/24/17 21:33 Lipitor - PO 40 mg HS [facility]A Administration Calcitriol 0.5 mcg 05/17/17 10:15 05/23/17 12:47 Rocaltrol - PO 0.5 mcg TuThFr@1000 [facility] Administration Calcium Acetate 667 mg 05/18/17 10:00 05/24/17 12:49 Phoslo - PO 667 mg DAILY@0800 [facility] Administration Carvedilol 3.125 mg 05/18/17 10:00 05/24/17 21:33 Coreg - PO 3.125 mg BID [facility] Administration Cholestyramine Resin 4 gm 05/22/17 22:00 05/24/17 21:33 Questran Light Packet - PO 4 gm BID [facility] Administration Insulin Aspart 1 vial 05/17/17 11:00 05/24/17 21:33 Novolog Vial Sliding Scale - SQ 8 units ACHS [facility] Administration Protocol Levothyroxine Sodium 50 mcg 05/23/17 07:00 05/24/17 07:00 Synthroid - PO 50 mcg DAILY@0700 [facility] Administration Pantoprazole Sodium 40 mg 05/18/17 10:00 05/24/17 12:49 Protonix - PO 40 mg DAILY [facility] Administration Sevelamer Carbonate 2.4 gm 05/18/17 10:00 05/24/17 12:47 Renvela Powder Packet - PO 2.4 gm DAILY [facility] Administration Simethicone 80 mg 05/18/17 15:46 05/22/17 03:20 Mylicon - PO 80 mg QID PRN Administration GAS Warfarin Sodium 5 mg 05/24/17 18:00 05/24/17 17:31 Coumadin - PO 5 mg DAILY@1800 [facility] Administration IMAGING: * Ekg: Sinus Rhythm , rightward axis av delay, ivcd. inferolateral TWI, similar to priors tele: Sinus Rhythm * Carotids 04/2017: mod diz, no sig stenosis * Echo 04/2017: mild lv dilation. mod-sev decreased LV fn (global). nl rv mild eli. 1+ mr, severe tr. ASSESSMENT/PLAN: 57 yo man with ESRD on HD M-W-, HTN, IDDM, CAD s/p stent and NM on coumadin and ASA, systolic CHF, embolic CVA and HLD who presents with multiple syncopal episodes . Problem List - Problems (1) Syncope Assessment/Plan: * Neuro consult appreciated. * Symptoms most likely related to bradycardia * Echo shows global decrease in LV funciton. * Carotid shows no significant stenosis. * CT head was negative for IC bleed. * Continue tele monitoring. (2) Hypothyroidism Assessment/Plan: * TSH 219 and Free T4 0.33 * Continue Levothyroxin 50mcg PO daily * Endocrine consult appreciated * Thyroid Ab pending. (3) Diarrhea Assessment/Plan: * Continues to have intermittent diarrhea. * Stool cultures have been negative. * will continue Cholestyramine 4mg BID * Also consider hypothyroidism as cause of diarrhea. * Stool for O&P was negative * Stool cultures negative * C-diff negative. (4) Ischemic cardiomyopathy Assessment/Plan: * Systolic cardiomyopathy appreciated on ECHO * Fluid and salt restriction. * daily weights and strict I/O's (5) CAD (coronary artery disease) Assessment/Plan: * continue Coreg 3.125mg PO BID and lipitor 40mg PO HS * restarted ASA because of increased risk of re-stenosis of stented arteries. (6) ESRD on hemodialysis Assessment/Plan: * dialyzed today * Renal consult appreciated * UF as tolerated * trend phos. levels (7) Hyperlipidemia Assessment/Plan: * Continue statin therapy. (8) H/O: CVA (cerebrovascular accident) Assessment/Plan: * ASA restarted * Neuro checks qshift. (9) Thrombocytopenia Assessment/Plan: * Chronic issue * Possible secondary to hypersplenism noted on abd. US * Heme consult appreciated * will restart anticoagulation with ASA and coumadin. (10) A-fib Assessment/Plan: * restarted Coumadin at 5mg daily will monitor INR * BB continued * Continue to monitor on tele. * Cardiology consult appreciated. (11) Abnormal LFTs Assessment/Plan: * Possible cirrhosis seen on CTA with ascitis. * GI consult for further w/u and possible EGD (12) Gallstone Assessment/Plan: * Stone seen on US, with thick gallbladder wall * Surgery eval pending. Visit type - Emergency Visit Emergency Visit: Yes ED Registration Date: 05/19/17 Care time: The patient presented to the Emergency Department on the above date and was hospitalized for further evaluation of their emergent condition. - New Patient This patient is new to me today: No - Critical Care Critical Care patient: No - Discharge Referral Referred to [facility] Med P.C.: No
[2017-05-24] MEDS: ACETAMINOPHEN 325 MG TABLET (FP) PO PRN (23:53)
--- NOTE | 2017-05-25 02:04 | PN ---
Progress Note (short form) - Note Progress Note: Patient still complaining of bilateral foot pain, nurse gave Tylenol 650mg with no improvement. Patient states his pain is excruciating, "through the bone" occurring at night. Will give 0.5mg morphine IVP; once Consider starting medication for diabetic neuropathy.
[2017-05-25] MEDS ORDERED: morphine CARPU-JECT 2 MG/1 ML DISP.SYRIN IVPUSH ONE (02:23)
[2017-05-25] MEDS: INSULIN SLIDING SCALE (NOVOLOG) 1 VIAL SQ SCH ×4 (06:58→21:33)
[2017-05-25] MEDS: LEVOTHYROXINE NA 50 MCG TABLET (FP) PO SCH (06:59)
[2017-05-25 07:32] LABS: INR 1.64 (0.82-1.09); PROTHROMBIN TIME (PATIENT) 18.2 SEC (9.98-11.88)
[2017-05-25 07:35] LABS: ACTIVATED PTT 36.6 SECONDS (26.9-34.4)
[2017-05-25 07:58] LABS: MCH 35.1 pg (25.7-33.7); MCHC 33.4 g/dl (32.0-35.9); MEAN PLT VOLUME 8.4 fl (7.5-11.1); PLATELET COUNT 59 K/MM3 (134-434); RDW 16.4 % (11.9-15.9); WHITE BLOOD COUNT 3.7 K/mm3 (4.0-10.0)
[2017-05-25 08:19] LABS: ALK PHOS 130 U/L (45-117); ANION GAP 12 (8-16); BILIRUBIN,TOTAL 0.8 mg/dL (0.2-1.0); CO2 30 mmol/L (21-32); CREATININE 5.4 mg/dL (0.7-1.3); GLUCOSE,RANDOM 89 mg/dL (74-106); SGOT/AST 9 U/L (15-37); SGPT/ALT 11 U/L (12-78); TOT PROT 6.6 g/dl (6.4-8.2)
--- NOTE | 2017-05-25 08:58 | PN ---
Teaching Attending Note Name of Resident: Chandler Duncan ATTENDING PHYSICIAN STATEMENT I saw and evaluated the patient. I reviewed the resident's note and discussed the case with the resident. I agree with the resident's findings and plan as documented. SUBJECTIVE: pain in feet . no fever ro chills, no ABd or CP . denies SOB OBJECTIVE: NAD CV: RRR Lungs: CTAB ext : no edema, no erythema over legs or feet . warm feet ASSESSMENT AND PLAN: 57 y/o man with h/o CAD , s/p PCIs , ICMP , IDDM , S CHF , CVA , ESRD, MR , and other medical problems who presented with near syncope 1- Near syncope : could be due to bradycardia . cont BB carefully. 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 cont coumadin for therapeutic INR 2-3. give 5 mg today d/w Dr. Musa yesterday , as long as Plt > 50 OK with anticoagulation and antiplatelets from hematology stand point 3- CAD , s/p PCI s: cont BB ,statin , and ASA to avoid restenosis of stents . 4- Questionable cirrhosis on CTA , with ascitis . ? possibly form heart failure vs other etiologies. will need w/u and possibly EGD . Needs GI eval LFTS abnormalities can be due to that . improved already 5- Gall bladder stone , seen on US , with thick gall bladder wall. will have him evaluated by Dr. Palumbo. 6- Diarrehea :neg for C diff. possible IBS ( recurrent ) 7- ESRD: cont HD 8- HYpothyroidism: ? Flores's or other disorders . cont synthroid follow TPO abs . we don't have TG abs out pt follow up Dc planning pending GI and Sx work up
[2017-05-25] MEDS ORDERED: PT OWN MED DRAWER 7, Y5N ONE (10:14)
[2017-05-25] MEDS: PANTOPRAZOLE 40 MG TABLET (FP) PO SCH (10:23)
[2017-05-25] MEDS: ASPIRIN COATED 81 MG TABLET.EC PO SCH (10:23)
[2017-05-25] MEDS: CARVEDILOL 3.125 MG TABLET (FP) PO SCH ×2 (10:23→21:31)
[2017-05-25] MEDS: CALCITRIOL 0.25 MCG CAPSULE (FP) PO SCH (10:24)
[2017-05-25] MEDS: CALCIUM ACETATE 667 MG CAPSULE (FP) PO SCH (10:24)
[2017-05-25] MEDS: ACETAMINOPHEN 325 MG TABLET (FP) PO PRN (10:29)
--- NOTE | 2017-05-25 10:29 | PN ---
Progress Note (short form) - Note Progress Note: Chief Complaint: presyncope History of Present Illness: dizziness improved. no cp, sob no palpitations Current Medications Generic Name Dose Route Start Last Admin Trade Name Tino PRN Reason Stop Dose Admin Acetaminophen 650 mg 05/17/17 17:11 05/24/17 23:53 Tylenol - PO 650 mg Q6H PRN Administration FEVER OR PAIN Aspirin 81 mg 05/24/17 10:00 05/24/17 12:49 Ecotrin - PO 81 mg DAILY EVA Administration Atorvastatin Calcium 40 mg 05/17/17 22:00 05/24/17 21:33 Lipitor - PO 40 mg HS EVA Administration Calcitriol 0.5 mcg 05/17/17 10:15 05/23/17 12:47 Rocaltrol - PO 0.5 mcg TuThFr@1000 EVA Administration Calcium Acetate 667 mg 05/18/17 10:00 05/24/17 12:49 Phoslo - PO 667 mg DAILY@0800 EVA Administration Carvedilol 3.125 mg 05/18/17 10:00 05/24/17 21:33 Coreg - PO 3.125 mg BID EVA Administration Insulin Aspart 1 vial 05/17/17 11:00 05/25/17 06:58 Novolog Vial Sliding Scale - SQ Not Given ACHS [facility]ENDING S[facility] TO [facility] Protocol Levothyroxine Sodium 50 mcg 05/23/17 07:00 05/25/17 06:59 Synthroid - PO 50 mcg DAILY@0700 EVA Administration Pantoprazole Sodium 40 mg 05/18/17 10:00 05/24/17 12:49 Protonix - PO 40 mg DAILY EVA Administration Sevelamer Carbonate 2.4 gm 05/18/17 10:00 05/24/17 12:47 Renvela Powder Packet - PO 2.4 gm DAILY EVA Administration Simethicone 80 mg 05/18/17 15:46 05/22/17 03:20 Mylicon - PO 80 mg QID PRN Administration GAS Warfarin Sodium 5 mg 05/24/17 18:00 05/24/17 17:31 Coumadin - PO 5 mg DAILY@1800 EVA Administration Vital Signs Period Temp Pulse Resp BP Sys/Parham Pulse Ox Last 24 Hr 97.5 F-98.1 F 54-61 14-18 99-117/49-64 99-99 Constitutional: Yes: No Distress, Calm Eyes: No: Sclera Icterus HENT: No: Nasal Congestion Cardiovascular: Yes: Regular Rate and Rhythm, S1, S2, Other (PMI non diplaced). No: JVD, Gallop, Murmur Respiratory: Yes: ctab. No: Accessory Muscle Use, Rales, Wheezes Gastrointestinal: Yes: Normal Bowel Sounds, Soft. No: Tenderness Musculoskeletal: Yes: Other (No kyphosis) Extremities: No: Cold Edema: trace Integumentary: No: Jaundice Neurological: Yes: Alert. No: Seizure Psychiatric: No: Agitated Labs: CBC, BMP 05/25/17 05:35 05/25/17 05:35 tele: sr, occ pvcs ekg 05/17 4am: sr, rightward axis av delay, ivcd. inferolateral TWI, similar to priors echo here 04/2017: mild lv dilation. mod-sev decreased LV fn (global). nl rv mild eli. 1+ mr, severe tr. echo 12/2015: low nl lvef, no wma, mild lvh, nl rv, mild lae, mod mr, mac, mild tr, rvsp 50-60 persantine MIBI here (12/2015): no ST changes vs baseline; large area of inferior and inferolat infarct (with akinesis) with small samantha-infarct ischemia ; EF 35% Cath/PCI @ [place] 08/2015 : CBPTCA of ISR of RPL stent , rest of anatomy unchanged from 05/2015--decided not to stent OM or RPL--he has recurrent and fast ISR of stents and likely will not do not well with PCI strategy Cath/PCI @ [facility] 05/2015: Diag 2 : 100 % ISR of prior BMS at [facility], distal LAD 90 % (small vessel), OM1 90%, large RPL stented (ESME)--felt to be culprit Assessment/Plan 57 yo with h/o HTN, HPL, 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 CAD/ischemic CM/elevated troponin (sees dr portillo at [facility] for cardio): - patient with intermediate range troponin in setting of ESRD. No elevation in ck or mb. EKG unchanged. CP atypical. No suspicion of acs. - per outpatient cardiology record has known systolic cardiomyopathy, which is also seen on echo here. - currently with significant thrombocytopenia without clear etiology. Held coumadin and ASA. Per heme, asa/coumadin OK as long as platelets are > 50. Patient with high risk of ISR and h/o possible embolic CVA. - 05/22: ASA and AC on hold for PLTs 50sK--thus far holding in this range; if remains stable, consider resuming one or both anti-thrombotic agents in am - 05/23-: plts stable 50s-60s, ASA resumed, ac resumed -cont statin. con't bb. - imdur held for low bp's ischemic cardiomyopathy - Per outpatient cardiology record, pt has known systolic cardiomyopathy ( confirmed with discussion with outpatient blood typer), which is also seen on echo here. - Was not on ADELINE, will defer to renal/outpatient cardiology. Con't coreg for now with tele monitoring for worsened bradycardia given ongoing dizziness. - Management of thyroid abnormalities per pmd. - EF needs precise quantification and ICD decisions need to be made by outpt cardio (dr portillo)--will defer until his hematologic w/u is complete h/o embolic cva/s/p loop recorder now removed/afib - discussed with outpatient blood typer --> confirmed afib. Feels coumadin is priority, would prefer continuing coumadin over ASA if one has to take priority over other. Currently in SR. Discussed with pmd and heme --> heme would like to defer heparin bridge until HIT results are available and we have more info regarding patients risk for varices. Will defer to heme/pmd regarding when heparin bridge can be started. - further f/u with dr portillo after discharge presyncope - carotid us without significant stenosis. head CT negative for bleed - orthostatics negative - patient with mild bradycardia on tele (HR reported in 50s since admit), ? contribution to dizziness--suspect this will improve once his severe hypothyroidism is corrected (TSH > 200!), endo following - no indication for pacemaker at present hypothyroidism, uncontrolled - replacement per hospitalist/endo thrombocytopenia - stable 50sK-60 at present - w/u per heme - ASA/AC decisions as above ESRD on HD -HD per renal HTN: -running low on current meds, monitor HPL: -continue statin cardiac mackay stable, can dc tele
[2017-05-25] MEDS: SEVELAMER CARBONATE 2.4 GM POWDER PACKET PO SCH (10:42)
--- NOTE | 2017-05-25 13:11 | CON.GI ---
Consult Consult Specialty:: GI for Dr. Lizarraga Referred by:: Hospitalist Service Reason for Consultation:: ? cirrhosis, gallstone, ? EGD - History of Present Illness Chief Complaint: Partly [employer] [id number] utilized as patient primarily maldivian speaking. Admitted for syncope and SOB 05/17 History of Present Illness: 57M admitted for evaluation of SOB and syncope. Asked to evaluate for cirrhosis given that recent CVA revealed cirrhosis and he is thrombocytopenic. He has been thrombocytopenic from 2012. He does not recall ever being told of liver disease, haveing an EGD or colonoscopy in the past. He denies abdominal pain. He describes alcohol consumption in the past but seems to play down the amount he drank. his daughter confomred that he was a heavy alcohol drinker. 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 he denies rectal bleeding or change in bowel habits. he describes seeing blood in his urine intermittently and having nose bleeds. He has significant cardiac dysfunction with echocardiogram from 05/17 Moderate-severe global hypokinesis and severe tricuspid regurgitation with EF of 45.5%. He was also noted to be profoundly hypothyroid. Hepatitis serologies are negative except for hep B sAb and Hep A Ab. There is no family history of liver disease or colorectal cancer. - History Source History Provided By: Patient, Family Member, Medical Record Limitations to Obtaining History: No Limitations - Past Medical History Cardio/Vascular: Yes: CAD (patient reports having cath and PCI one year ago at [facility]), HTN, Hyperlipdemia, Mitral Insufficiency, Other (CHF) Renal/: Yes: Renal Failure (CKD on HD), Hemodialysis Endocrine: Yes: Diabetes Mellitus - Past Surgical History Past Surgical History: Yes: AV Fistula/Graft Additional Surgical History: Placement of defibililator with subsequent removal and describes having a "head surgery" - Alcohol/Substance Use Hx Alcohol Use: Yes (previous ETOH abuse) History of Substance Use: reports: Cocaine (intranasal cocaine abuse 30 years prior) - Smoking History Smoking history: Former smoker Have you smoked in the past 12 months: No Aproximately how many cigarettes per day: 0 If you are a former smoker, when did you quit?: 17 yrs ago - Social History ADL: Independent 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year[place] describes being in [place] since age 22 History of Recent Travel: No Home Medications - Allergies Allergies/Adverse Reactions: Allergies Allergy/AdvReac Type Severity Reaction Status Date / Time No Known Allergies Allergy Verified 05/17/17 04:51 - Home Medications Home Medications: Ambulatory Orders Aspirin [ASA -] 81 mg PO DAILY 03/08/17 Atorvastatin Ca [Lipitor] 40 mg PO HS 03/08/17 Calcitriol [Calcitriol -] 0.5 mcg PO .TUTHFR DAILY 03/08/17 Isosorbide Mononitrate [Imdur -] 30 mg PO DAILY 03/08/17 Omeprazole 40 mg PO DAILY 03/08/17 Sevelamer Carbonate [Renvela Powder Packet -] 2.4 gm PO DAILY 03/08/17 Warfarin Sodium [Coumadin] 2 mg PO DAILY 03/08/17 Calcium Acetate [Phoslo -] 667 mg PO DAILY 05/17/17 Carvedilol [Coreg -] 3.125 mg PO BID 05/17/17 Insulin Glargine,Hum.rec.anlog [Lantus (nf)] 0 units SQ DAILY 05/17/17 Family Disease History - Family Disease History Family Disease History: Heart Disease: Father ( in 60's: drowned), Other: Father, Mother (: 60's: "anemia"), Brother (2 healthy), Sister (1: healthy) , Son (3: healthy), Daughter (3: healthy) Other Family History: No family h/o thyroid disorder, colorectal cancer, Liver disease or other GI malignancy Review of Systems - Review of Systems HENT: reports: Epistaxis Cardiovascular: denies: Chest Pain Respiratory: reports: SOB (improved) Gastrointestinal: denies: Abdominal Pain, Constipation, Diarrhea, Rectal Bleeding, Vomiting Genitourinary: reports: Hematuria Physical Exam-GI Vital Signs: Vital Signs Temperature 98.1 F 05/25/17 06:00 Pulse Rate 58 L 05/25/17 06:00 Respiratory Rate 18 05/25/17 06:00 Blood Pressure 100/49 05/25/17 06:00 O2 Sat by Pulse Oximetry (%) 99 05/24/17 21:00 Constitutional: Yes: Calm Eyes: No: Sclera Icterus Cardiovascular: Yes: Regular Rate and Rhythm, Murmur (holosystolic) Respiratory: Yes: CTA Bilaterally Gastrointestinal Inspection: No: Distention ...Auscultate: Yes: Normoactive Bowel Sounds ...Palpate: No: Hepatomegaly, Splenomegaly, Tenderness ...Percussion: No: Tympanitic Edema: Yes Edema: LLE: 1+ (chronic stasis), RLE: 1+ (chronic stasis) Neurological: Yes: Alert, Oriented. No: Asterixis Labs: CBC, BMP 05/25/17 05:35 05/25/17 05:35 INR, PTT INR 1.64 (0.82-1.09) H 05/25/17 05:35 Fibrinogen 219.0 mg/dL (238-498) L 05/25/17 05:35 Hepatic Panel Total Bilirubin 0.8 mg/dL (0.2-1.0) D 05/25/17 05:35 Direct Bilirubin 0.5 mg/dL (0.0-0.2) H 05/22/17 06:00 AST 9 U/L (15-37) L D 05/25/17 05:35 ALT 11 U/L (12-78) L 05/25/17 05:35 Alkaline Phosphatase 130 U/L (45-117) H 05/25/17 05:35 Albumin 3.0 g/dl (3.4-5.0) L 05/25/17 05:35 Imaging - Results Cat Scan: Report Reviewed Ultrasound: Report Reviewed Problem List - Problems (1) Cirrhosis Assessment/Plan: Given history of heavy alcohol consumption and radiographic findings, cirrhosis would need to be considered in the differential and contributing to his thrombocytopenia. Unclear if there are any concomitant hematologic issues however heme is following. I explained the possibility of cirrhosis with Mr. French. I explained that it is a chronic disease that could predispose him to complications like but not limited to liver cancer and bleeding problems. I explained that he needs to completely refrain from alcohol consumption. I explained that another complication of cirrhosis are the development of varices in the esophagus/ stomach that could potentially lead to life threatening bleeding. I further explained that being maintained on anticoagulation with varices could potentially lead to exsanguination and if bleeding were to occur and that to screen for varices, upper endoscopy could be undertaken. We discussed potential risks of the procedure like but not limited to bleeding, perforation, infection and sedation medication effects all of which could be potentially life threatening. He did not agree to the procedure at this time and wanted to discuss things with his daughter. I asked if he wanted me to speak with his daughter as well and he said yes. I called his daughter liz french and discussed the above with her as well. I explained that he would be considered higher risk for procedures given his cardiac dysfunction. She asked if he could be trialed off of the anticoagulation. I explained that she would need to speak with the cardiologists evaluating Mr. French and discuss risks associates with being off of A/C such as CVA. She said that she would discuss things with her father and she seems interested in having her father further treated at [facility] for all his medical issues. I explained he could follow-up at the GI/Liver clinic there as well [phone]. I explained that she could try to find out if they performed ESO-Cam, a pill camera designed to evaluate the esophagus and could be a less invasive way of screening for varices. I fupper endoscopy is agreed upon once severe thyroid dysfunction corrected and patient cleared from a cardiac standpoint, then it can be performed. I called Dr. Sanchez to discuss further Mr. French needs Q6 Month AFP and tumor marker testing to screen for HCC Code(s): K74.60 - UNSPECIFIED CIRRHOSIS OF LIVER
--- NOTE | 2017-05-25 14:11 | PN ---
Progress Note, Physician Chief Complaint: Patient feels better. Diarrhea seems to be improving. Has underlying Cirrhosis. The patient has Coronary artery disease and Cardiomyopathy. The etiology of the sudden syncope remains obscure so far. - Current Medication List Current Medications: Active Medications Acetaminophen (Tylenol -) 650 mg PO Q6H PRN PRN Reason: FEVER OR PAIN Last Admin: 05/25/17 10:29 Dose: 650 mg Aspirin (Ecotrin -) 81 mg PO DAILY [facility] Last Admin: 05/25/17 10:23 Dose: 81 mg Atorvastatin Calcium (Lipitor -) 40 mg PO HS [facility] Last Admin: 05/24/17 21:33 Dose: 40 mg Calcitriol (Rocaltrol -) 0.5 mcg PO TuThFr@1000 [facility] Last Admin: 05/25/17 10:24 Dose: 0.5 mcg Calcium Acetate (Phoslo -) 667 mg PO DAILY@0800 [facility] Last Admin: 05/25/17 10:24 Dose: 667 mg Carvedilol (Coreg -) 3.125 mg PO BID [facility] Last Admin: 05/25/17 10:23 Dose: 3.125 mg Insulin Aspart (Novolog Vial Sliding Scale -) 1 vial SQ ACHS [facility] PRN Reason: Protocol Last Admin: 05/25/17 12:24 Dose: 4 units Levothyroxine Sodium (Synthroid -) 50 mcg PO DAILY@0700 [facility] Last Admin: 05/25/17 06:59 Dose: 50 mcg Pantoprazole Sodium (Protonix -) 40 mg PO DAILY [facility] Last Admin: 05/25/17 10:23 Dose: 40 mg Sevelamer Carbonate (Renvela Powder Packet -) 2.4 gm PO DAILY [facility] Last Admin: 05/25/17 10:42 Dose: 2.4 gm Simethicone (Mylicon -) 80 mg PO QID PRN PRN Reason: GAS Last Admin: 05/22/17 03:20 Dose: 80 mg Warfarin Sodium (Coumadin -) 5 mg PO DAILY@1800 [facility] Last Admin: 05/24/17 17:31 Dose: 5 mg - Objective Vital Signs: Vital Signs Temperature 98.2 F 05/25/17 10:00 Pulse Rate 67 05/25/17 10:00 Respiratory Rate 18 05/25/17 10:00 Blood Pressure 117/55 05/25/17 10:00 O2 Sat by Pulse Oximetry (%) 99 05/25/17 10:00 Constitutional: Yes: No Distress Eyes: Yes: Conjunctiva Clear HENT: Yes: Normocephalic Cardiovascular: Yes: S1, S2 Respiratory: Yes: CTA Bilaterally Gastrointestinal: Yes: Normal Bowel Sounds, Soft Edema: No Labs: CBC, BMP 05/25/17 05:35 05/25/17 05:35 INR, PTT INR 1.64 (0.82-1.09) H 05/25/17 05:35 Fibrinogen 219.0 mg/dL (238-498) L 05/25/17 05:35 Problem List - Problems (1) CAD (coronary artery disease) Code(s): I25.10 - ATHSCL HEART DISEASE OF [place] CORONARY ARTERY W/O ANG PCTRS Qualifiers: Coronary Disease-Associated Artery/Lesion type: [place] artery [place] vs. transplanted heart: [place] heart Associated angina: with stable angina Qualified Code(s): I25.118 - Atherosclerotic heart disease of [place] coronary artery with other forms of angina pectoris (2) ESRD on hemodialysis Code(s): N18.6 - END STAGE RENAL DISEASE Z99.2 - DEPENDENCE ON RENAL DIALYSIS (3) H/O: CVA (cerebrovascular accident) Code(s): Z86.73 - PRSNL HX OF TIA (TIA), AND CEREB INFRC W/O RESID DEFICITS (4) DM Diabetes mellitus type 2 Code(s): E11.9 - TYPE 2 DIABETES MELLITUS WITHOUT COMPLICATIONS (5) CHF (congestive heart failure) Code(s): I50.9 - HEART FAILURE, UNSPECIFIED (6) Cardiac ischemia Code(s): I25.9 - CHRONIC ISCHEMIC HEART DISEASE, UNSPECIFIED (7) Diabetes Code(s): E11.9 - TYPE 2 DIABETES MELLITUS WITHOUT COMPLICATIONS (8) Diarrhea Code(s): R19.7 - DIARRHEA, UNSPECIFIED Qualifiers: Diarrhea type: unspecified type Qualified Code(s): R19.7 - Diarrhea , unspecified (9) Anemia in CKD (chronic kidney disease) Code(s): N18.9 - CHRONIC KIDNEY DISEASE, UNSPECIFIED D63.1 - ANEMIA IN CHRONIC KIDNEY DISEASE (10) ESRD (end stage renal disease) Code(s): N18.6 - END STAGE RENAL DISEASE (11) Hypertension Code(s): I10 - ESSENTIAL (PRIMARY) HYPERTENSION Qualifiers: Hypertension type: renovascular hypertension Qualified Code(s): I15.0 - Renovascular hypertension Assessment/Plan 57 y/o male with ESRD, admitted with syncope. Work up so far inconclusive. Most likely multifactorial in etiology. Profound Hypothyroidism. On Synthroid. He will require higher doses, given the severity of his disease. Hemodialysis scheduled for tomorrow. Concur with the work up and management in progress. Roxanna Laughlin MD
--- NOTE | 2017-05-25 15:34 | PN ---
Physical Exam: SUBJECTIVE: Patient seen and examined at bedside. No new complaints. Lower leg and foot pain overnight. Denies CP, palpitations, SOB,N/V. OBJECTIVE: Vital Signs Period Temp Pulse Resp BP Sys/Parham Pulse Ox Last 24 Hr 97.5 F-98.2 F 56-67 16-18 99-117/49-64 99-99 GENERAL: AAOx3,no acute distress. HEAD: AT/NC EYES: PERRL, EOMI, sclera anicteric, conjunctiva clear. No ptosis. ENT: moist mucous membranes. NECK: supple, LUNGS:CTAB, no wheezing or rales. HEART: RRR, No M/G/R ABDOMEN: soft, NT, mild distention normal bowel sounds EXTREMITIES: 2+ pulses, warm, well-perfused, no edema. NEUROLOGICAL: Cranial nerves II through XII grossly intact. Normal speech, gait not observed. PSYCH: Normal mood, normal affect. SKIN: Bilateral LE stasis dermatitis. Laboratory Results - last 24 hr 05/24/17 05/24/17 05/24/17 17:29 21:25 23:46 WBC RBC Hgb Hct MCV MCHC RDW Plt Count MPV INR PTT (Actin FS) Fibrinogen Sodium Potassium Chloride Carbon Dioxide Anion Gap BUN Creatinine Creat Clearance w eGFR POC Glucometer 187 308 157 Random Glucose Calcium Total Bilirubin AST ALT Alkaline Phosphatase Total Protein Albumin Lkluq-9-Yelaqibiy (%) Zfjmc-5-Jhodqelza (%) Beta Globulins (%) Gamma Globulins (%) M-Reggie % Ref Test Comments 05/25/17 05/25/17 05/25/17 05:32 05:35 05:35 WBC RBC Hgb Hct MCV MCHC RDW Plt Count MPV INR 1.64 H PTT (Actin FS) 36.6 H Fibrinogen 219.0 L Sodium 139 Potassium 3.8 Chloride 97 L Carbon Dioxide 30 Anion Gap 12 BUN 33 H D Creatinine 5.4 H D Creat Clearance w eGFR 10.96 POC Glucometer 88 Random Glucose 89 D Calcium 9.0 Total Bilirubin 0.8 D AST 9 L D ALT 11 L Alkaline Phosphatase 130 H Total Protein 6.6 Albumin 3.0 L Bclgs-6-Fstcoruty (%) Uatot-1-Dcxgsjbyn (%) Beta Globulins (%) Gamma Globulins (%) M-Reggie % Ref Test Comments 06/05/25/17 05/25/17 05:35 05:35 11:57 WBC 3.7 L RBC 3.45 L Hgb 12.1 Hct 36.3 MCV 105.0 H MCHC 33.4 RDW 16.4 H Plt Count 59 L MPV 8.4 D INR PTT (Actin FS) Fibrinogen Sodium Potassium Chloride Carbon Dioxide Anion Gap BUN Creatinine Creat Clearance w eGFR POC Glucometer 244 Random Glucose Calcium Total Bilirubin AST ALT Alkaline Phosphatase Total Protein Albumin Bucjx-8-Olqkdfzgs (%) Cancelled Knkbm-4-Xyluvobvy (%) Cancelled Beta Globulins (%) Cancelled Gamma Globulins (%) Cancelled M-Reggie % Cancelled Ref Test Comments Cancelled Active Medications Generic Name Dose Route Start Last Admin Trade Name Freq PRN Reason Stop Dose Admin Acetaminophen 650 mg 05/17/17 17:11 05/25/17 10:29 Tylenol - PO 650 mg Q6H PRN Administration FEVER OR PAIN Aspirin 81 mg 05/24/17 10:00 05/25/17 10:23 Ecotrin - PO 81 mg DAILY EVA Administration Atorvastatin Calcium 40 mg 05/17/17 22:00 05/24/17 21:33 Lipitor - PO 40 mg HS EVA Administration Calcitriol 0.5 mcg 05/17/17 10:15 05/25/17 10:24 Rocaltrol - PO 0.5 mcg TuThFr@1000 EVA Administration Calcium Acetate 667 mg 05/18/17 10:00 05/25/17 10:24 Phoslo - PO 667 mg DAILY@0800 EVA Administration Carvedilol 3.125 mg 05/18/17 10:00 05/25/17 10:23 Coreg - PO 3.125 mg BID EVA Administration Insulin Aspart 1 vial 05/17/17 11:00 05/25/17 12:24 Novolog Vial Sliding Scale - SQ 4 units ACHS EVA Administration Protocol Levothyroxine Sodium 50 mcg 05/23/17 07:00 05/25/17 06:59 Synthroid - PO 50 mcg DAILY@0700 EVA Administration Pantoprazole Sodium 40 mg 05/18/17 10:00 05/25/17 10:23 Protonix - PO 40 mg DAILY EVA Administration Sevelamer Carbonate 2.4 gm 05/18/17 10:00 05/25/17 10:42 Renvela Powder Packet - PO 2.4 gm DAILY EVA Administration Simethicone 80 mg 05/18/17 15:46 05/22/17 03:20 Mylicon - PO 80 mg QID PRN Administration GAS Warfarin Sodium 5 mg 05/24/17 18:00 05/24/17 17:31 Coumadin - PO 5 mg DAILY@1800 EVA Administration IMAGING: * Ekg: Sinus Rhythm , rightward axis av delay, ivcd. inferolateral TWI, similar to priors tele: Sinus Rhythm * Carotids 04/2017: mod diz, no sig stenosis * Echo 04/2017: mild lv dilation. mod-sev decreased LV fn (global). nl rv mild eli. 1+ mr, severe tr. ASSESSMENT/PLAN: 57 yo man with ESRD on HD --, HTN, IDDM, CAD s/p stent and ID on coumadin and ASA, systolic CHF, embolic CVA and HLD who presents with multiple syncopal episodes . Problem List - Problems (1) Abnormal LFTs Assessment/Plan: * Possible cirrhosis seen on CTA with ascitis. * GI consult appreciated. * Not candidate for EGD at this point. * Can follow as outpatient at [facility]. (2) Gallstone Assessment/Plan: * Stone seen on US, with thick gallbladder wall * Surgery eval pending. (3) Hypothyroidism Assessment/Plan: * TSH 219 and Free T4 0.33 * Continue Levothyroxin 50mcg PO daily * Endocrine consult appreciated * Thyroid Ab pending. (4) Syncope Assessment/Plan: * Neuro consult appreciated. * Symptoms most likely related to bradycardia * Echo shows global decrease in LV funciton. * Carotid shows no significant stenosis. * CT head was negative for IC bleed. * Continue tele monitoring. (5) Diarrhea Assessment/Plan: * Continues to have intermittent diarrhea. * Stool cultures have been negative. * will continue Cholestyramine 4mg BID * Also consider hypothyroidism as cause of diarrhea. * Stool for O&P was negative * Stool cultures negative * C-diff negative. (6) Ischemic cardiomyopathy Assessment/Plan: * Systolic cardiomyopathy appreciated on ECHO * Fluid and salt restriction. * daily weights and strict I/O's (7) CAD (coronary artery disease) Assessment/Plan: * continue Coreg 3.125mg PO BID and lipitor 40mg PO HS * restarted ASA because of increased risk of re-stenosis of stented arteries. (8) ESRD on hemodialysis Assessment/Plan: * dialyzed today * Renal consult appreciated * UF as tolerated * trend phos. levels (9) Hyperlipidemia Assessment/Plan: * Continue statin therapy. (10) H/O: CVA (cerebrovascular accident) Assessment/Plan: * ASA restarted * Neuro checks qshift. (11) Thrombocytopenia Assessment/Plan: * Chronic issue * Possible secondary to hypersplenism noted on abd. US * Heme consult appreciated * will restart anticoagulation with ASA and coumadin. (12) A-fib Assessment/Plan: * restarted Coumadin at 5mg daily will monitor INR * BB continued * Continue to monitor on tele. * Cardiology consult appreciated. Visit type - Emergency Visit Emergency Visit: Yes ED Registration Date: 05/19/17 Care time: The patient presented to the Emergency Department on the above date and was hospitalized for further evaluation of their emergent condition. - New Patient This patient is new to me today: No - Critical Care Critical Care patient: No - Discharge Referral [facility]erred to [facility] Med [facility].: No
--- NOTE | 2017-05-25 17:01 | PN ---
Progress Note (short form) - Note Progress Note: PAtient seen and examined nospecific complaints Last Vital Signs Temp Pulse Resp BP Pulse Ox 97.6 F 56 L 18 112/53 99 05/25/17 14:17 05/25/17 14:17 05/25/17 14:17 05/25/17 14:17 05/25/17 10:00 Cor: RSR, No murmurs, No gallops Lungs: Clear to P&A Abd: Soft, Normal bowel sounds, No organomegaly Ext:No significant edema Skin: No rashes, Integument intact Abnormal Lab Results 05/25/17 05/25/17 05/25/17 05:35 05:35 05:35 WBC 3.7 L RBC 3.45 L MCV 105.0 H RDW 16.4 H Plt Count 59 L INR 1.64 H PTT (Actin FS) 36.6 H Fibrinogen 219.0 L Chloride 97 L BUN 33 H D Creatinine 5.4 H D AST 9 L D ALT 11 L Alkaline Phosphatase 130 H Albumin 3.0 L Active Medications Generic Name Dose Route Start Last Admin Trade Name Freq PRN Reason Stop Dose Admin Acetaminophen 650 mg 05/17/17 17:11 05/25/17 10:29 Tylenol - PO 650 mg Q6H PRN Administration FEVER OR PAIN Aspirin 81 mg 05/24/17 10:00 05/25/17 10:23 Ecotrin - PO 81 mg DAILY EVA Administration Atorvastatin Calcium 40 mg 05/17/17 22:00 05/24/17 21:33 Lipitor - PO 40 mg HS EVA Administration Calcitriol 0.5 mcg 05/17/17 10:15 05/25/17 10:24 Rocaltrol - PO 0.5 mcg TuThFr@1000 EVA Administration Calcium Acetate 667 mg 05/18/17 10:00 05/25/17 10:24 Phoslo - PO 667 mg DAILY@0800 [facility] Administration Carvedilol 3.125 mg 05/18/17 10:00 05/25/17 10:23 Coreg - PO 3.125 mg BID EVA Administration Insulin Aspart 1 vial 05/17/17 11:00 05/25/17 16:57 Novolog Vial Sliding Scale - SQ Not Given ACHS [facility] Protocol Levothyroxine Sodium 50 mcg 05/23/17 07:00 05/25/17 06:59 Synthroid - PO 50 mcg DAILY@0700 EVA Administration Pantoprazole Sodium 40 mg 05/18/17 10:00 05/25/17 10:23 Protonix - PO 40 mg DAILY EVA Administration Sevelamer Carbonate 2.4 gm 05/18/17 10:00 05/25/17 10:42 Renvela Powder Packet - PO 2.4 gm DAILY EVA Administration Simethicone 80 mg 05/18/17 15:46 05/22/17 03:20 Mylicon - PO 80 mg QID PRN Administration GAS Warfarin Sodium 5 mg 05/24/17 18:00 05/24/17 17:31 Coumadin - PO 5 mg DAILY@1800 EVA Administration A/P 57 year old Gentleman with PMhx of ESRD on HD (MWF), CAD s/p NC and PCI, Hypertension, IDDM, Hyperlipidemia who presented with syncope and SOB and found to have fluid overload. Chronic thrombocytopenia also macrocytosis worsening since 12/12 SUSPECT DUE TO LIVER DISEASE( CIRRHOSIS/ASCITES/SPLENOMEGALY) noted on CTA LOW FIBRINOGEN ALSO c/w liver disease Also severe hypothyroidism--- TSH --219---endocrine consult B12 high folate nl ASA/Coumadin to be decided by cardio/neuro Platelets<50,000 are a relative contraindication but patients plts have been above 50,000 GI input appreciated Very difficult situation as he is a high bleeding risk given dysfunctional platelets from ESRD, coagulopathy, thrombocytoenia from liver disease. Seems to be high stroke risk aswell. A very delicate balance of risks//benefits Will need close outpatient f/u with GI morrison at ? [facility] discussed this with patient
--- NOTE | 2017-05-25 17:18 | CONSULT ---
- Consultation REQUESTING PROVIDER: Marian CONSULT REQUEST: We have been asked to surgically evaluate this patient for abnormal gb US findings PCP:Joi Fonseca HISTORY OF PRESENT ILLNESS: Patient admitted w/near syncope; he has had an extensive inpatient w/u; he was found to have an abnormal gb US; he has no h/o FFI; RUQ post prandial pain or any symptoms attributable to symptomatic gb disease; he has ?ESLD and ascites and throbocytopenia. PMHx: reviewed PSHx: reviewed Home Medications Medication Instructions Recorded Aspirin [ASA -] 81 mg PO DAILY 03/08/17 Atorvastatin Ca [Lipitor] 40 mg PO HS 03/08/17 Calcitriol [Calcitriol -] 0.5 mcg PO .TUTHFR DAILY 03/08/17 Isosorbide Mononitrate [Imdur -] 30 mg PO DAILY 03/08/17 Omeprazole 40 mg PO DAILY 03/08/17 Sevelamer Carbonate [Renvela 2.4 gm PO DAILY 03/08/17 Powder Packet -] Warfarin Sodium [Coumadin] 2 mg PO DAILY 03/08/17 Calcium Acetate [Phoslo -] 667 mg PO DAILY 05/17/17 Carvedilol [Coreg -] 3.125 mg PO BID 05/17/17 Insulin Glargine,Hum.rec.anlog 0 units SQ DAILY 05/17/17 [Lantus (nf)] Allergies Allergy/AdvReac Type Severity Reaction Status Date / Time No Known Allergies Allergy Verified 05/17/17 04:51 PHYSICAL EXAM: GENERAL: Awake, alert, and fully oriented, in no acute distress. HEAD: Normal with no signs of trauma. EYES: PERRL, sclera anicteric, conjunctiva clear. NECK: Normal ROM, supple without lymphadenopathy, JVD, or masses. ABDOMEN: Soft, nontender, not distended, normoactive bowel sounds, no guarding, no rebound, no masses. No organomegaly. No hernias; positive fluid wave MUSCULOSKELETAL: Normal ROM at all joints. No bony deformities or tenderness. No CVA tenderness. UPPER EXTREMITIES: 2+ pulses, warm, well-perfused. No cyanosis. Cap refill <2 seconds. No peripheral edema. LOWER EXTREMITIES: 2+ pulses, warm, well-perfused. No calf tenderness. No peripheral edema. NEUROLOGICAL: Normal speech, gait not observed. PSYCH: Cooperative. Good eye contact. Appropriate mood and affect. SKIN: Warm, dry, normal turgor, no rashes or lesions noted. Vital Signs Temperature 97.6 F 05/25/17 14:17 Pulse Rate 56 L 05/25/17 14:17 Respiratory Rate 18 05/25/17 14:17 Blood Pressure 112/53 05/25/17 14:17 O2 Sat by Pulse Oximetry (%) 99 05/25/17 10:00 Lab Results WBC 3.7 K/mm3 (4.0-10.0) L 05/25/17 05:35 RBC 3.45 M/mm3 (4.00-5.60) L 05/25/17 05:35 Hgb 12.1 GM/dL (11.7-16.9) 05/25/17 05:35 Hct 36.3 % (35.4-49) 05/25/17 05:35 MCV 105.0 fl (80-96) H 05/25/17 05:35 MCHC 33.4 g/dl (32.0-35.9) 05/25/17 05:35 RDW 16.4 % (11.9-15.9) H 05/25/17 05:35 Plt Count 59 K/MM3 (134-434) L 05/25/17 05:35 Sodium 139 mmol/L (136-145) 05/25/17 05:35 Potassium 3.8 mmol/L (3.5-5.1) 05/25/17 05:35 Chloride 97 mmol/L (98-107) L 05/25/17 05:35 Carbon Dioxide 30 mmol/L (21-32) 05/25/17 05:35 Anion Gap 12 (8-16) 05/25/17 05:35 BUN 33 mg/dL (7-18) H D 05/25/17 05:35 Creatinine 5.4 mg/dL (0.7-1.3) H D 05/25/17 05:35 Random Glucose 89 mg/dL (74-106) D 05/25/17 05:35 Calcium 9.0 mg/dL (8.5-10.1) 05/25/17 05:35 INR 1.64 (0.82-1.09) H 05/25/17 05:35 Imaging w/u to date and labs and consults reviewed IMP: 1.no evidence of acute cholecystitis 2. incidental cholelithisasis PLAN No surgical intervention or f/u is indicated; d/w patient s's and s's of biliary colic and/or acute cholecystitis and what to do should that occur. Sj Palumbo MD FACS Visit type - Case Type Case Type: ED Admission - Emergency Emergency Visit: Yes ED Registration Date: 05/19/17 Care time: The patient presented to the Emergency Department on the above date and was hospitalized for further evaluation of their emergent condition. - New patient This patient is new to me today: Yes Date on this admission: 05/25/17 - Critical Care Critical Care patient: No
[2017-05-25] MEDS: WARFARIN NA 5 MG TABLET (UD) PO SCH (17:29)
--- NOTE | 2017-05-25 17:42 | PN ---
Teaching Attending Note Name of Resident: Chandler Duncan ATTENDING PHYSICIAN STATEMENT I saw and evaluated the patient. I reviewed the resident's note and discussed the case with the resident. I agree with the resident's findings and plan as documented. SUBJECTIVE: no fever or chills. has pain in his feet OBJECTIVE: 57 y/o man with h/o CAD , s/p PCIs , ICMP , IDDM , S CHF , CVA , ESRD, MR , and other medical problems who presented with near syncope 1- Near syncope : could be due to bradycardia . cont BB carefully. 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 cont coumadin for therapeutic INR 2-3. give 5 mg today d/w Dr. Musa yesterday , as long as Plt > 50 OK with anticoagulation and antiplatelets from hematology stand point 3- CAD , s/p PCI s: cont BB ,statin , and ASA to avoid restenosis of stents . 4- Questionable cirrhosis on CTA , with ascitis . ? possibly form heart failure vs other etiologies. will need w/u and possibly EGD . Needs GI eval LFTS abnormalities can be due to that . improved already 5- Gall bladder stone , seen on US , with thick gall bladder wall. will have him evaluated by Dr. Palumbo. 6- Diarrehea :neg for C diff. possible IBS ( recurrent ) 7- ESRD: cont HD 8- HYpothyroidism: ? Flores's or other disorders . cont synthroid follow TPO abs . we don't have TG abs out pt follow up Dc planning pending GI and Sx work up ASSESSMENT AND PLAN:
[2017-05-25] MEDS ORDERED: INSULIN (NOVOLOG) ASPART 100 UNITS/ML 10ML VIAL ONE (17:56)
[2017-05-25] MEDS: ATORVASTATIN CA 40 MG TABLET (FP) PO SCH (21:31)
[2017-05-26 06:06] LABS: IGG IMMUNOGLOBULIN 1552 mg/dL (700-1600); IGM IMMUNOGLOBULIN 116 mg/dL (20-172)
[2017-05-26] MEDS: LEVOTHYROXINE NA 50 MCG TABLET (FP) PO SCH (06:15)
[2017-05-26] MEDS: INSULIN SLIDING SCALE (NOVOLOG) 1 VIAL SQ SCH ×3 (06:16→17:23)
[2017-05-26 07:51] LABS: BASOPHIL 1.6 % (0-2.0); EOSINOPHIL 4.6 % (0-4.5); MCH 35.1 pg (25.7-33.7); MCHC 33.1 g/dl (32.0-35.9); MEAN PLT VOLUME 8.9 fl (7.5-11.1); NEUTROPHILS 58.9 % (42.8-82.8); PLATELET COUNT 63 K/MM3 (134-434); RDW 16.5 % (11.9-15.9); WHITE BLOOD COUNT 3.7 K/mm3 (4.0-10.0)
[2017-05-26 08:15] LABS: INR 2.06 (0.82-1.09)
[2017-05-26 08:29] LABS: ALBUMIN 3.1 g/dl (3.4-5.0); ANION GAP 11 (8-16); CALCIUM 9.1 mg/dL (8.5-10.1); CO2 29 mmol/L (21-32); CREATININE 7.2 mg/dL (0.7-1.3); GLUCOSE,RANDOM 205 mg/dL (74-106); SGOT/AST 8 U/L (15-37); SGPT/ALT 10 U/L (12-78)
[2017-05-26 08:31] LABS: ALK PHOS 130 U/L (45-117); BILIRUBIN,TOTAL 0.9 mg/dL (0.2-1.0); TOT PROT 6.9 g/dl (6.4-8.2)
[2017-05-26] MEDS: CALCIUM ACETATE 667 MG CAPSULE (FP) PO SCH (09:00)
[2017-05-26] MEDS: CARVEDILOL 3.125 MG TABLET (FP) PO SCH (10:41)
[2017-05-26] MEDS: PANTOPRAZOLE 40 MG TABLET (FP) PO SCH (10:42)
[2017-05-26] MEDS: ASPIRIN COATED 81 MG TABLET.EC PO SCH (10:42)
[2017-05-26] MEDS: CALCITRIOL 0.25 MCG CAPSULE (FP) PO SCH (10:42)
[2017-05-26] MEDS ORDERED: PT OWN MED DRAWER 7, Y5N ONE ×2 (10:44→11:30)
[2017-05-26] MEDS: SEVELAMER CARBONATE 2.4 GM POWDER PACKET PO SCH (10:45)
--- NOTE | 2017-05-26 13:16 | PN ---
Progress Note, Physician Chief Complaint: Patient feels better. No new complaints. Has underlying Cirrhosis. The patient has Coronary artery disease and Cardiomyopathy. The etiology of the sudden syncope remains obscure so far. ? Bradycardia The patient has undelying A Fib. - Current Medication List Current Medications: Active Medications Acetaminophen (Tylenol -) 650 mg PO Q6H PRN PRN Reason: FEVER OR PAIN Last Admin: 05/25/17 10:29 Dose: 650 mg Aspirin (Ecotrin -) 81 mg PO DAILY [facility] Last Admin: 05/26/17 10:42 Dose: 81 mg Atorvastatin Calcium (Lipitor -) 40 mg PO HS [facility] Last Admin: 05/25/17 21:31 Dose: 40 mg Calcitriol (Rocaltrol -) 0.5 mcg PO TuThFr@1000 [facility] Last Admin: 05/26/17 10:42 Dose: 0.5 mcg Calcium Acetate (Phoslo -) 667 mg PO DAILY@0800 [facility] Last Admin: 05/26/17 09:00 Dose: 667 mg Carvedilol (Coreg -) 3.125 mg PO BID [facility] Last Admin: 05/26/17 10:41 Dose: Not Given Insulin Aspart (Novolog Vial Sliding Scale -) 1 vial SQ ACHS [facility] PRN Reason: Protocol Last Admin: 05/26/17 11:38 Dose: 2 units Levothyroxine Sodium (Synthroid -) 50 mcg PO DAILY@0700 [facility] Last Admin: 05/26/17 06:15 Dose: 50 mcg Pantoprazole Sodium (Protonix -) 40 mg PO DAILY [facility] Last Admin: 05/26/17 10:42 Dose: 40 mg Sevelamer Carbonate (Renvela Powder Packet -) 2.4 gm PO DAILY [facility] Last Admin: 05/26/17 10:45 Dose: 2.4 gm Simethicone (Mylicon -) 80 mg PO QID PRN PRN Reason: GAS Last Admin: 05/22/17 03:20 Dose: 80 mg Warfarin Sodium (Coumadin -) 5 mg PO DAILY@1800 [facility] Last Admin: 05/25/17 17:29 Dose: 5 mg - Objective Vital Signs: Vital Signs Temperature 98.7 F 05/26/17 10:00 Pulse Rate 57 L 05/26/17 10:00 Respiratory Rate 18 05/26/17 10:00 Blood Pressure 98/50 05/26/17 10:00 O2 Sat by Pulse Oximetry (%) 97 05/26/17 09:00 Constitutional: Yes: No Distress, Calm Eyes: Yes: Conjunctiva Clear HENT: Yes: Normocephalic Neck: Yes: Supple Cardiovascular: Yes: Pulse Irregular, S1, S2 Respiratory: Yes: Diminished, Rhonchi. No: Rales Gastrointestinal: Yes: Normal Bowel Sounds, Soft. No: Tenderness, Tenderness, Rebound Edema: No Labs: CBC, BMP 05/26/17 06:20 05/26/17 06:20 INR, PTT INR 2.06 (0.82-1.09) H 05/26/17 06:20 Fibrinogen 219.0 mg/dL (238-498) L 05/25/17 05:35 Problem List - Problems (1) CAD (coronary artery disease) Code(s): I25.10 - ATHSCL HEART DISEASE OF [place] CORONARY ARTERY W/O ANG PCTRS Qualifiers: Coronary Disease-Associated Artery/Lesion type: [place] artery [place] vs. transplanted heart: [place] heart Associated angina: with stable angina Qualified Code(s): I25.118 - Atherosclerotic heart disease of [place] coronary artery with other forms of angina pectoris (2) ESRD on hemodialysis Code(s): N18.6 - END STAGE RENAL DISEASE Z99.2 - DEPENDENCE ON RENAL DIALYSIS (3) H/O: CVA (cerebrovascular accident) Code(s): Z86.73 - PRSNL HX OF TIA (TIA), AND CEREB INFRC W/O RESID DEFICITS (4) DM Diabetes mellitus type 2 Code(s): E11.9 - TYPE 2 DIABETES MELLITUS WITHOUT COMPLICATIONS (5) CHF (congestive heart failure) Code(s): I50.9 - HEART FAILURE, UNSPECIFIED (6) Cardiac ischemia Code(s): I25.9 - CHRONIC ISCHEMIC HEART DISEASE, UNSPECIFIED (7) Diabetes Code(s): E11.9 - TYPE 2 DIABETES MELLITUS WITHOUT COMPLICATIONS (8) Diarrhea Code(s): R19.7 - DIARRHEA, UNSPECIFIED Qualifiers: Diarrhea type: unspecified type Qualified Code(s): R19.7 - Diarrhea , unspecified (9) Anemia in CKD (chronic kidney disease) Code(s): N18.9 - CHRONIC KIDNEY DISEASE, UNSPECIFIED D63.1 - ANEMIA IN CHRONIC KIDNEY DISEASE (10) ESRD (end stage renal disease) Code(s): N18.6 - END STAGE RENAL DISEASE (11) Hypertension Code(s): I10 - ESSENTIAL (PRIMARY) HYPERTENSION Qualifiers: Hypertension type: renovascular hypertension Qualified Code(s): I15.0 - Renovascular hypertension Assessment/Plan 57 y/o male with ESRD, admitted with syncope. ? hypotension associated with bradycardia. Awaiting Cardiology imput. Most likely multifactorial in etiology. Profound Hypothyroidism. On Synthroid. He will require higher doses, given the severity of his disease. Hemodialysis in the acute unit today. Orders written and reviewed with the RN. Concur with the work up and management in progress. Roxanna Laughlin MD
[2017-05-26 15:18] VITALS: TEMP 97.8
--- NOTE | 2017-05-26 17:17 | PN ---
Progress Note (short form) - Note Progress Note: As per prevous note, awaiting decision regarding EGD. He is on coumadin now anyways and this would need to be held prior to evaluation of varices given potential provocation of bleeding if they were indeed noted. His daughter wanted to speak with the ammonia solution preparer as well regarding A/C. The patient does have a gallstone but is asymptomatic. he has no abdominal pain / biliary colic like pain and the thick walled appearance of the gallbladder I would not pursue elective surgeries in a patient with significant cardiac dysfunction and suspected chronic liver disease. Problem List - Problems (1) Cirrhosis Code(s): K74.60 - UNSPECIFIED CIRRHOSIS OF LIVER
[2017-05-26 17:23] VITALS: BP 107/67; PULSE 59
--- NOTE | 2017-05-26 17:25 | PN ---
Progress Note (short form) - Note Progress Note: Denies any complaints Eager to go home Vital Signs Period Temp Pulse Resp BP Sys/Parham Pulse Ox Last 24 Hr 97.7 F-98.7 F 54-88 16-20 85-108/45-64 94-97 PE: AOx3 Neck: Supple, NO JVD, NT, No TM HEENT: EOMI Lungs: CTA CVS: s1S2 Abd: Benign EXt; No edema Neuro: No focal deficit CMP Sodium 135 mmol/L (136-145) L 05/26/17 06:20 Potassium 4.9 mmol/L (3.5-5.1) D 05/26/17 06:20 Chloride 95 mmol/L (98-107) L 05/26/17 06:20 Carbon Dioxide 29 mmol/L (21-32) 05/26/17 06:20 Anion Gap 11 (8-16) 05/26/17 06:20 BUN 50 mg/dL (7-18) H D 05/26/17 06:20 Creatinine 7.2 mg/dL (0.7-1.3) H D 05/26/17 06:20 Creat Clearance w eGFR 7.87 (>60) 05/26/17 06:20 POC Glucometer 154 UNITS (()) 05/26/17 11:37 Random Glucose 205 mg/dL (74-106) H D 05/26/17 06:20 Calcium 9.1 mg/dL (8.5-10.1) 05/26/17 06:20 Phosphorus 3.9 mg/dL (2.5-4.9) D 05/18/17 06:00 Magnesium 2.1 mg/dL (1.8-2.4) 05/22/17 06:00 Total Bilirubin 0.9 mg/dL (0.2-1.0) 05/26/17 06:20 Direct Bilirubin 0.5 mg/dL (0.0-0.2) H 05/22/17 06:00 AST 8 U/L (15-37) L 05/26/17 06:20 ALT 10 U/L (12-78) L 05/26/17 06:20 Alkaline Phosphatase 130 U/L (45-117) H 05/26/17 06:20 Creatine Kinase 142 IU/L (39-308) 05/17/17 11:11 Creatine Kinase Index 1.7 % (0.0-5.0) 05/17/17 04:25 CK-MB (CK-2) 2.596 ng/ml (0.5-3.6) 05/17/17 04:25 CK-MB (CK-2) Rel Index Cancelled 05/17/17 04:25 Troponin I 0.31 ng/ml (0.00-0.05) H 05/17/17 17:10 B-Natriuretic Peptide 757023.6 pg/ml (5-125) H 05/17/17 04:25 Total Protein 6.9 g/dl (6.4-8.2) 05/26/17 06:20 Albumin 3.1 g/dl (3.4-5.0) L 05/26/17 06:20 Cnhwl-4-Bzuyzckxz (%) Cancelled 05/25/17 05:35 Ritcy-5-Wewfleaog (%) Cancelled 05/25/17 05:35 Beta Globulins (%) Cancelled 05/25/17 05:35 Gamma Globulins (%) Cancelled 05/25/17 05:35 M-Reggie % Cancelled 05/25/17 05:35 Triglycerides 75 mg/dL (35-160) D 05/18/17 06:00 Cholesterol 106 mg/dL (50-200) D 05/18/17 06:00 Total LDL Cholesterol 67 mg/dL (5-100) D 05/18/17 06:00 HDL Cholesterol 39 mg/dL (40-60) L D 05/18/17 06:00 Vitamin B12 1693 pg/ml (180-914) H D 05/21/17 06:25 Folate 1143 ng/mL (>498) 05/21/17 06:25 Serum Folate 7 ng/ml (3.1-17.5) 05/19/17 09:55 Folate Hemolysate 385.3 ng/mL (Not Estab.) 05/21/17 06:25 TSH 241.00 uIU/ml (0.358-3.74) H D 05/24/17 05:35 Free T4 0.33 ng/dl (0.76-1.16) L 05/21/17 06:25 Current Medications Generic Name Dose Route Start Last Admin Trade Name Freq PRN Reason Stop Dose Admin Acetaminophen 650 mg 05/17/17 17:11 05/25/17 10:29 Tylenol - PO 650 mg Q6H PRN Administration FEVER OR PAIN Aspirin 81 mg 05/24/17 10:00 05/26/17 10:42 Ecotrin - PO 81 mg DAILY EVA Administration Atorvastatin Calcium 40 mg 05/17/17 22:00 05/25/17 21:31 Lipitor - PO 40 mg HS EVA Administration Calcitriol 0.5 mcg 05/17/17 10:15 05/26/17 10:42 Rocaltrol - PO 0.5 mcg TuThFr@1000 EVA Administration Calcium Acetate 667 mg 05/18/17 10:00 05/26/17 09:00 Phoslo - PO 667 mg DAILY@0800 EVA Administration Carvedilol 3.125 mg 05/18/17 10:00 05/26/17 10:41 Coreg - PO Not Given BID [facility] Insulin Aspart 1 vial 05/17/17 11:00 05/26/17 17:23 Novolog Vial Sliding Scale - SQ Not Given ACHS [facility] Protocol Levothyroxine Sodium 50 mcg 05/23/17 07:00 05/26/17 06:15 Synthroid - PO 50 mcg DAILY@0700 EVA Administration Pantoprazole Sodium 40 mg 05/18/17 10:00 05/26/17 10:42 Protonix - PO 40 mg DAILY EVA Administration Sevelamer Carbonate 2.4 gm 05/18/17 10:00 05/26/17 10:45 Renvela Powder Packet - PO 2.4 gm DAILY EVA Administration Simethicone 80 mg 05/18/17 15:46 05/22/17 03:20 Mylicon - PO 80 mg QID PRN Administration GAS Warfarin Sodium 5 mg 05/24/17 18:00 05/25/17 17:29 Coumadin - PO 5 mg DAILY@1800 EVA Administration AP: Hypotthyroidism: TSH 241 FT4 0.3, TSH was 3.12 on 03/24/16 ?>Secondary to thyroiditis check TPO Ab and repeat TFT Increase LT4 75 for now. Increase dose slowly in view of CAD and CHF F/U in office in one week DM Syncope ESRD on HD Ischemic Cardiomyopathy Problem List - Problems (1) Chest pain Code(s): R07.9 - CHEST PAIN, UNSPECIFIED Qualifiers: Chest pain type: unspecified Qualified Code(s): R07.9 - Chest pain, unspecified (2) ESRD on hemodialysis Code(s): N18.6 - END STAGE RENAL DISEASE Z99.2 - DEPENDENCE ON RENAL DIALYSIS (3) Hypothyroidism Code(s): E03.9 - HYPOTHYROIDISM, UNSPECIFIED Qualifiers: Hypothyroidism type: unspecified Qualified Code(s): E03.9 - Hypothyroidism, unspecified (4) Syncope Code(s): R55 - SYNCOPE AND COLLAPSE Qualifiers: Syncope type: unspecified Qualified Code(s): R55 - Syncope and collapse (5) DM Diabetes mellitus type 2 Code(s): E11.9 - TYPE 2 DIABETES MELLITUS WITHOUT COMPLICATIONS
[2017-05-26] MEDS: WARFARIN NA 5 MG TABLET (UD) PO SCH (17:43)
--- NOTE | 2017-05-26 17:47 | DS ---
Physical Exam: SUBJECTIVE: Patient seen and examined at bedside. No overnight events. No new complaints.Feels much better today. Denies CP, palpitations, SOB,N/V. OBJECTIVE: Vital Signs Period Temp Pulse Resp BP Sys/Parham Pulse Ox Last 24 Hr 97.7 F-98.7 F 54-88 16-20 85-108/45-67 94-97 PHYSICAL EXAM GENERAL: AAOx3,no acute distress. HEAD: AT/NC EYES: PERRL, EOMI, sclera anicteric, conjunctiva clear. No ptosis. ENT: moist mucous membranes. NECK: supple, LUNGS:CTAB, no wheezing or rales. HEART: RRR, No M/G/R ABDOMEN: soft, NT, mild distention normal bowel sounds EXTREMITIES: 2+ pulses, warm, well-perfused, no edema. NEUROLOGICAL: Cranial nerves II through XII grossly intact. Normal speech, gait not observed. PSYCH: Normal mood, normal affect. SKIN: Bilateral LE stasis dermatitis. LABS Laboratory Results - last 24 hr 05/25/17 05/25/17 05/26/17 05:35 21:30 06:13 WBC RBC Hgb Hct MCV MCHC RDW Plt Count MPV Neutrophils % Lymphocytes % Monocytes % Eosinophils % Basophils % INR Sodium Potassium Chloride Carbon Dioxide Anion Gap BUN Creatinine Creat Clearance w eGFR POC Glucometer 235 202 Random Glucose Calcium Total Bilirubin AST ALT Alkaline Phosphatase Total Protein Albumin Nybkq-1-Ldqfsouoa (%) Cancelled Ksetw-3-Lpbjhjuwn (%) Cancelled Beta Globulins (%) Cancelled Gamma Globulins (%) Cancelled M-Reggie % Cancelled IgG 1552 IgA 416 H IgM 116 Ref Test Comments Cancelled 05/26/17 05/26/17 05/26/17 06:20 06:20 06:20 WBC 3.7 L RBC 3.45 L Hgb 12.1 Hct 36.6 MCV 106.0 H MCHC 33.1 RDW 16.5 H Plt Count 63 L MPV 8.9 Neutrophils % 58.9 Lymphocytes % 28.0 Monocytes % 6.9 Eosinophils % 4.6 H Basophils % 1.6 INR 2.06 H Sodium 135 L Potassium 4.9 D Chloride 95 L Carbon Dioxide 29 Anion Gap 11 BUN 50 H D Creatinine 7.2 H D Creat Clearance w eGFR 7.87 POC Glucometer Random Glucose 205 H D Calcium 9.1 Total Bilirubin 0.9 AST 8 L ALT 10 L Alkaline Phosphatase 130 H Total Protein 6.9 Albumin 3.1 L Sslqa-6-Dwufoiqhs (%) Vmakc-4-Hxdnkomaz (%) Beta Globulins (%) Gamma Globulins (%) M-Reggie % IgG IgA IgM Ref Test Comments 05/26/17 05/26/17 11:37 17:21 WBC RBC Hgb Hct MCV MCHC RDW Plt Count MPV Neutrophils % Lymphocytes % Monocytes % Eosinophils % Basophils % INR Sodium Potassium Chloride Carbon Dioxide Anion Gap BUN Creatinine Creat Clearance w eGFR POC Glucometer 154 130 Random Glucose Calcium Total Bilirubin AST ALT Alkaline Phosphatase Total Protein Albumin Legtx-7-Egiqnojus (%) Sorua-2-Huostrlud (%) Beta Globulins (%) Gamma Globulins (%) M-Reggie % IgG IgA IgM Ref Test Comments IMAGING: * Ekg: Sinus Rhythm , rightward axis av delay, ivcd. inferolateral TWI, similar to priors tele: Sinus Rhythm * Carotids 04/2017: mod diz, no sig stenosis * Echo 04/2017: mild lv dilation. mod-sev decreased LV fn (global). nl rv mild eli. 1+ mr, severe tr. HOSPITAL COURSE: 57 yo man with ESRD on HD -, HTN, IDDM, CAD s/p stent and PR on coumadin and ASA, systolic CHF, embolic CVA and HLD who presents with multiple syncopal episodes . He was placed on telemetry and worked up for various causes of syncope. Echo showed mild lv dilation. mod-sev decreased LV fn (global). nl rv mild eli. 1+ mr, severe tr. Carotid were negative for any significant stenosis. TSH was elevated and patient was started on thyroid hormone replacement. Endocrine was consulted and will follow him as outpatient. He is given a persciption and counseled on the importance of taking medication as directed first thing in the mornign. There were no events seen on tele. Syncope and bradycardia can be attributed to hypothyroidism. On CT and US there was gallstones and questionable cirrhosis seen for which he was seen by GI and surgery with no intervention at this time. He expressed the desire to follow up with GI in [facility] further workup. He was noted to have thrombocytopenia for which he was evalutated by Heme/Onc. The most likely cause is secondary to liver disease and splenomegallly. He will follow up as outpatient. Cardiology was also consulted and anticoagulation was continued with coumadin he will follow up with Dr. Lara as outpatient in 3 days for INR check. His INR was therapeutic at time of discharge. For his ESRD nephrology continued his MWF dialysis. His CAD, H/o CVA and Afib were managed with with home meds and he will resume them as directed upon discharge. He is stable at the time of discharge with follow up with Cardiology, GI, and endocrine in the next week. Date of Admission:05/19/17 Date of Discharge: 05/26/17 Minutes to complete discharge: 45 Discharge Summary Reason For Visit: ESRD, SYNCOPE, CHEST PAIN Current Active Problems Abnormal LFTs (Acute) Chest pain (Acute) Hypothyroidism (Acute) Syncope (Acute) A-fib (Chronic) Anticoagulated on Coumadin (Chronic) CAD (coronary artery disease) (Chronic) CHF (congestive heart failure) (Chronic) Cirrhosis (Chronic) DM Diabetes mellitus type 2 (Chronic) Diabetes (Chronic) ESRD (end stage renal disease) (Chronic) ESRD on hemodialysis (Chronic) Gallstone (Chronic) H/O: CVA (cerebrovascular accident) (Chronic) Hyperlipidemia (Chronic) Hypertension (Chronic) Ischemic cardiomyopathy (Chronic) Thrombocytopenia (Chronic) Condition: Stable - Instructions Diet, Activity, Other Instructions: -You will need to follow up with Dr. Chan in one week. -You will be given a script for blood work to check your INR on Monday -Your coumadin has been increased to 3mg daily -Please follow with Dr. Bains cardiology in on Monday 10am. -Please follow up liver studies with GI/Liver clinic at [facility] [phone] -Please follow up with Endocrinology Dr. Roberto in one week. -You have been given a perscription for your new thyroid mediation pleas make sure you take as directed first thing in the morning before any meals. -Please take all medication as directed. -Diabetic/Low sodium diet. -Increase activity as tolerated. - you need INR checked on Tuesday 05/29 English: -Tendr que hacer un seguimiento con el Dr. Chan en aamir semana. - Se le concepción un bijan para el trabajo de irene para revisar thurman INR el - Thurman coumadin se alfaro incrementado a 3 mg diarios -Por favor, siga con el Dr. Bains cardiologa en el 10am. -Por favor, siga los estudios de hgado con GI / clnica heptica en [facility] [phone] -Por favor, siga con Endocrinologa Dr. Roberto en aamir semana. -Usted se alfaro dado aamir perscription para james nuevos pleitos de la mediacin de la tiroides cercirese de que usted tome segn lo dirigido ritchie en la maana antes de cualquier comidas. -Eugene todos los medicamentos segn las indicaciones. -Diabtica / dieta baja en sodio. -Aumentar la actividad segn lo tolerado. - necesita INR comprobado el 05/29 Referrals: Herson Velázquez MD [Non Staff, Medical] - 05/29/17 10:00 am Radha Zarate MD [Primary Care Provider] - 1 Week Leonard Roberto MD [Staff Physician] - 1 Week Disposition: HOME - Home Medications Comprehensive Discharge Medication List: Ambulatory Orders Aspirin [ASA -] 81 mg PO DAILY 03/08/17 Atorvastatin Ca [Lipitor] 40 mg PO HS 03/08/17 Calcitriol [Calcitriol -] 0.5 mcg PO .TUTHFR DAILY 03/08/17 Isosorbide Mononitrate [Imdur -] 30 mg PO DAILY 03/08/17 Omeprazole 40 mg PO DAILY 03/08/17 Sevelamer Carbonate [Renvela Powder Packet -] 2.4 gm PO DAILY 03/08/17 Calcium Acetate [Phoslo -] 667 mg PO DAILY 05/17/17 Carvedilol [Coreg -] 3.125 mg PO BID 05/17/17 Insulin Glargine,Hum.rec.anlog [Lantus (10mL VIAL) -] 5 units SQ HS #0 vial Levothyroxine [Synthroid -] 50 mcg PO DAILY@0700 #30 tablet 05/26/17 Warfarin Sodium [Coumadin] 3 mg PO DAILY #30 tablet 05/26/17 Problem List - Problems (1) Abnormal LFTs (2) Gallstone (3) Hypothyroidism (4) Syncope (5) Diarrhea (6) Ischemic cardiomyopathy (7) CAD (coronary artery disease) (8) ESRD on hemodialysis (9) Hyperlipidemia (10) H/O: CVA (cerebrovascular accident) (11) Thrombocytopenia (12) A-fib This patient is new to me today: No Emergency Visit: Yes ED Registration Date: 05/19/17 Care time: The patient presented to the Emergency Department on the above date and was hospitalized for further evaluation of their emergent condition. Critical Care patient: No - Discharge Referral Referred to [facility] Med P.C.: No
--- NOTE | 2017-05-26 17:49 | HOSP ---
Subjective - Review of Symptoms Events since last encounter: To whom it may concern, This letter is to inform you that Mr. Vimal Tipton has been hospitalized for emergent condition from 05/17/17- 05/26/17. He should return to work on May 31. If you have any further question please call me at [phone]. Chandlre Duncan MD Physical Examination Vital Signs: Vital Signs Temperature 97.8 F 05/26/17 13:25 Pulse Rate 59 L 05/26/17 17:05 Respiratory Rate 18 05/26/17 17:05 Blood Pressure 107/67 05/26/17 17:05 O2 Sat by Pulse Oximetry (%) 97 05/26/17 09:00 Labs: CBC, BMP 05/26/17 06:20 05/26/17 06:20 Visit type - Emergency Visit Emergency Visit: Yes ED Registration Date: 05/19/17 Care time: The patient presented to the Emergency Department on the above date and was hospitalized for further evaluation of their emergent condition. - New Patient This patient is new to me today: No - Critical Care Critical Care patient: No
--- NOTE | 2017-05-26 19:26 | PN ---
Teaching Attending Note Name of Resident: Chandler Duncan ATTENDING PHYSICIAN STATEMENT I saw and evaluated the patient. I reviewed the resident's note and discussed the case with the resident. I agree with the resident's findings and plan as documented. SUBJECTIVE: no fever or chills. no complaints when seen earlier today OBJECTIVE: NAD CV: RRR Lungs: CTAB ext : no edema, no erythema over legs or feet . warm feet 57 y/o man with h/o CAD , s/p PCIs , ICMP , IDDM , S CHF , CVA , ESRD, MR , and other medical problems who presented with near syncope 1- Near syncope : could be due to bradycardia . cont BB . 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 coumadin in therapeutic range cont 3 mg of coumadin INR on Monday, case was d/w his cartridge belt puncher by resident . has APt onMonday at 10 CBC on monday 3- CAD , s/p PCI s: cont BB ,statin , and ASA to avoid restenosis of stents . 4- Questionable cirrhosis on CTA , with ascitis . ? possibly form heart failure vs other etiologies like alcohol . seen by GI. f/u with liver clinic 5- Gall bladder stone , seen on US ,no evidence of cholecystitis no sx indicated now 6- Diarrehea :neg for C diff. possible IBS 7- ESRD: cont HD 8- HYpothyroidism: ? Flores's or other disorders . cont synthroid follow TPO abs . out pt follow up dc home
[2017-05-27 00:07] LABS: A/G RATIO 0.9 (0.7-1.7); ALBUMIN 3.2 g/dL (2.9-4.4); GLOBULIN, TOTAL 3.4 g/dL (2.2-3.9); M-SPIKE Not Observed g/dL (Not Observed); TOTAL PROTEIN 6.6 g/dL (6.0-8.5)
[2017-05-27] MEDS ORDERED: LEVOTHYROXINE NA 75 MCG TABLET (FP) PO SCH (07:00)
--- NOTE | 2017-05-29 08:32 | PATH ---
Surgical Pathology Report Patient Name: FLO KIM [facility]. Rec. #: [id number] /Age/Gender: 1960 (Age: 57) / M Account: [id number] Location: [facility] MED/SURG Taken: 05/26/2017 Received: 05/26/2017 Reported: 05/29/2017 Physicians: Dimple Liu M.D. Specimen(s) Received PERIPHERAL BLOOD Clinical History Macrocytosis, thrombocytopenia, r/o MDS, lymphoproliferative disorder Final Diagnosis FLOW CYTOMETRY PERFORMED AND INTERPRETED [facility] [place] [place] ([id number]) SHOWED THE FOLLOWING: INTERPRETATION: No atypical flow cytometric findings seen. Phenotype: Lymphocytes include polyclonal B-cells, NK-cells and immunophenotypically normal CD4+ and CD8+ T-cells in normal proportions. No evidence of a clonal lymphoid expansion. The granulocyte at immunophenotypically mature. Cytomorphology: Smears from flow sample show no increase in myeloblasts or atypical lymphocytes. Electronically Signed Lance Guillen M.D. Addendum Reported: 05/29/2017 Addendum Diagnosis MDS FISH STUDIES PERFORMED AND INTERPRETED AT [place], [place] ([id number]) ARE FOLLOWS: INTERPRETATION: No evidence of deletion 5q or monosomy 5 is present. No evidence of deletion 7q or monosomy 7 is present. No evidence of trisomy8 (+8) is present. No evidence of deletion 13q14 is present. No evidence of a rearrangement of 11q23. No evidence of a deletion of the p53 (17p13) locus. No evidence of deletion 20q12 is present. Comments: The study is negative for many of the most common recurrent genetic abnormalities in Myelodysplastic Syndrome. Correlation with pending cytogenetics ([id number]) is recommended. Lance Guillen M.D. Addendum Reported: 06/02/2017 Addendum Diagnosis CYTOGENETIC KARYOTYPE ANALYSIS PERFORMED AND INTERPRETED AT [place], [place] ([id number]) SHOWED THE FOLLOWED: Test Results: 46,XY[20] DIAGNOSTIC INTERPRETATION: Normal male karyotype. Lance Guillen M.D. Gross Description Received are 2 green top tubes of peripheral blood which are [facility]. DL/05/26/2017/05/26/2017
[2017-06-05 16:22] LABS: THYROID PEROXIDASE(TPO) 12 IU/mL (0-34)
== END 2017-05-26 18:19 | disposition home or self-care (01) | DRG 424 ==
LOC: JER 03:47 → JERBED 09:22 → J4W 15:12 → J4S 05-18 17:18 → OBSVTOIN 05-19 09:31 → J8W 05-25 22:54
PROVIDERS: ADMIT Internal Medicine; ATTEND Internal Medicine
DX: E03.9 Hypothyroidism, unspecified (principal); E78.5 Hyperlipidemia, unspecified; I25.10 Atherosclerotic heart disease of native coronary artery without angina pectoris; I25.2 Old myocardial infarction; R55 Syncope and collapse; R07.89 Other chest pain; D69.6 Thrombocytopenia, unspecified; E78.00 Pure hypercholesterolemia, unspecified; I25.5 Ischemic cardiomyopathy; A08.8 Other specified intestinal infections; R00.1 Bradycardia, unspecified; I48.91 Unspecified atrial fibrillation; D63.8 Anemia in other chronic diseases classified elsewhere; K74.60 Unspecified cirrhosis of liver; R18.8 Other ascites; R94.5 Abnormal results of liver function studies; K80.20 Calculus of gallbladder without cholecystitis without obstruction; I34.0 Nonrheumatic mitral (valve) insufficiency; J81.1 Chronic pulmonary edema; I13.2 Hypertensive heart and chronic kidney disease with heart failure and with stage 5 chronic kidney disease, or end stage renal disease; E11.22 Type 2 diabetes mellitus with diabetic chronic kidney disease; N18.6 End stage renal disease; I50.20 Unspecified systolic (congestive) heart failure; W06.XXXA Fall from bed, initial encounter; Y93.89 Activity, other specified; Y92.230 Patient room in hospital as the place of occurrence of the external cause; Z79.01 Long term (current) use of anticoagulants; Z95.5 Presence of coronary angioplasty implant and graft; Z86.73 Personal history of transient ischemic attack (TIA), and cerebral infarction without residual deficits; Z79.4 Long term (current) use of insulin
CPT/HCPCS: 36415; 70450-TC; 71020-TC; 71275-TC; 74020-TC; 76700-TC; 80048; 80053; 80061; 80076; 82550; 82553; 82565; 82607; 82746; 82747; 82784; 83721; 83735; 83880; 84100; 84155; 84165; 84439; 84443; 84484; 84520; 85014; 85025; 85027; 85379; 85384; 85610; 85730; 86022; 86376; 86704; 86706; 86708; 86800; 86803; 87040; 87045; 87046; 87186; 87205; 87324; 87340; 87449; 88300-TC; 93005; 93010; 93306-TC; 93880-TC; 93970-TC; 97116-GP; 97162-GP; 99283-25; G0378; J0885

== ENCOUNTER 2017-06-20 19:12 | Inpatient (IN) | payer OTHER ==
--- NOTE | 2017-06-20 19:55 | PDOC ---
History of Present Illness - General Chief Complaint: Chest Pain Stated Complaint: HEADACHE, DIZZINESS Time Seen by Provider: 06/20/17 19:50 - History of Present Illness Initial Comments: 06/20/17 20:26 57-year-old male with history of end-stage renal disease(MWF), hypertension, diabetes, CAD s/p stent and MD on Coumadin and ASA, systolic CHF, embolic CVA, IDDM, ESRD on dialysis (M,W,F), and depression presents to ED complaining of headache dizziness and chest pain for 1 day. Patient denies nausea, vomiting, abdominal pain and fever. Patient reports occasional chills. denies pleuritic chest pain. Past History - Travel Traveled outside of the country in the last 30 days: Yes Close contact w/someone who was outside of country & ill: No - Past Medical History Allergies/Adverse Reactions: Allergies Allergy/AdvReac Type Severity Reaction Status Date / Time No Known Allergies Allergy Verified 06/20/17 20:38 Home Medications: Ambulatory Orders Aspirin [ASA -] 81 mg PO DAILY 03/08/17 Atorvastatin Ca [Lipitor] 40 mg PO HS 03/08/17 Calcitriol [Calcitriol -] 0.5 mcg PO .TUTHFR DAILY 03/08/17 Isosorbide Mononitrate [Imdur -] 30 mg PO DAILY 03/08/17 Omeprazole 40 mg PO DAILY 03/08/17 Sevelamer Carbonate [Renvela Powder Packet -] 2.4 gm PO DAILY 03/08/17 Calcium Acetate [Phoslo -] 667 mg PO DAILY 05/17/17 Carvedilol [Coreg -] 3.125 mg PO BID 05/17/17 Insulin Glargine,Hum.rec.anlog [Lantus (10mL VIAL) -] 5 units SQ HS #0 vial Levothyroxine [Synthroid -] 50 mcg PO DAILY@0700 #30 tablet 05/26/17 Warfarin Sodium [Coumadin] 1 mg PO DAILY 06/20/17 Anemia: Yes Asthma: No Cancer: No Cardiac Disorders: (,stent) CVA: Yes (no residual) COPD: No CHF: Yes Dementia: No Diabetes: Yes Dialysis: Yes (m-w-f lt arm fistula) GI Disorders: No Disorders: Yes (minimally urinates) HTN: Yes Hypercholesterolemia: Yes Liver Disease: No Suicide Attempt (Hx): No Seizures: No Thyroid Disease: No - Surgical History Abdominal Surgery: No Appendectomy: No Cardiac Surgery: Yes (Stents) Cholecystectomy: No Lung Surgery: No Neurologic Surgery: No Orthopedic Surgery: Yes - Immunization History Immunization Up to Date: No - Psycho/Social/Smoking Cessation Hx Anxiety: No Suicidal Ideation: No Smoking Status: No Smoking History: Former smoker Have you smoked in the past 12 months: No Number of Cigarettes Smoked Daily: 0 If you are a former smoker, when did you quit?: 17 yrs ago Information on smoking cessation initiated: No 'Breaking Loose' booklet given: 12/12/15 Hx Alcohol Use: No Drug/Substance Use Hx: No Substance Use Type: None Hx Substance Use Treatment: No Cardiac Specific PMH - Complaint Specific PMHX Cardiac Stent: Yes Pacemaker: No Review of Systems - Review of Systems Able to Perform ROS?: Yes Is the patient limited Romanian proficient: No Constitutional: Yes: Chills. No: Symptoms Reported, See HPI, Diaphoresis, Fever , Loss of Appetite, Malaise, Night Sweats, Weakness, Weight Stable, Unintentional Wgt. Loss, Unexplained wgt Loss, Other Cardiac (ROS): Yes: Chest Pain, Lightheadedness Neurological: Yes: Headache, Numbness (left arm that is now resolved) *Physical Exam - Vital Signs Last Vital Signs Temp Pulse Resp BP Pulse Ox 99.2 F 57 L 13 110/66 100 06/21/17 06:00 06/21/17 06:00 06/21/17 06:00 06/21/17 06:00 06/21/17 00:00 - Physical Exam General Appearance: Yes: Mild Distress HEENT: positive: Normal ENT Inspection Respiratory/Chest: positive: Rales (at masood bases) Cardiovascular: positive: Regular Rhythm Gastrointestinal/Abdominal: positive: Normal Bowel Sounds, Soft Musculoskeletal: positive: Normal Inspection Extremity: positive: Normal Capillary Refill, Normal Inspection, Normal Range of Motion Integumentary: positive: Normal Color, Dry, Warm Neurologic: positive: student liaison officer II-XII NML intact, Fully Oriented, Alert, Normal Mood/ Affect, Motor Strength 5/5, Other (+ nystagmus) Heart Score/ECG Review - ECG Intrepretation Rhythm: Regular Rhythm Comment:: 06/20/17 20:34 Sinus bradycardia (59) left posterior fascicular block, ST & t wave abnormality inferolateral ischemia ED Treatment Course - LABORATORY CBC & Chemistry Diagram: 06/20/17 20:30 06/20/17 20:30 - ADDITIONAL ORDERS Additional order review: Laboratory Results 06/20/17 06/20/17 06/20/17 20:35 20:30 20:30 INR Sodium Potassium Chloride Carbon Dioxide Anion Gap BUN Creatinine Creat Clearance w eGFR Random Glucose Calcium Magnesium Total Bilirubin AST ALT Alkaline Phosphatase Creatine Kinase Creatine Kinase Index CK-MB (CK-2) CK-MB (CK-2) Rel Index Cancelled Troponin I B-Natriuretic Peptide > 354499.00 H Total Protein Albumin TSH 198.00 H D 06/20/17 06/20/17 20:30 20:30 INR 2.00 H Sodium 131 L Potassium 4.9 Chloride 93 L Carbon Dioxide 27 Anion Gap 11 BUN 51 H Creatinine 7.0 H Creat Clearance w eGFR 8.13 Random Glucose 156 H D Calcium 9.4 Magnesium 2.4 Total Bilirubin 1.0 AST 11 L D ALT 13 D Alkaline Phosphatase 175 H D Creatine Kinase 186 D Creatine Kinase Index 2.0 CK-MB (CK-2) 3.640 H CK-MB (CK-2) Rel Index Troponin I 0.16 H D B-Natriuretic Peptide Total Protein 7.8 Albumin 3.6 TSH 06/20/17 20:30 RBC 3.12 L MCV 104.3 H MCHC 33.5 RDW 16.3 H MPV 10.1 D Neutrophils % 63.0 Lymphocytes % 21.9 D Monocytes % 9.3 Eosinophils % 4.7 H Basophils % 1.1 - RADIOLOGY Radiology Studies Ordered: Category Date Time Status HEAD CT WITHOUT CONTRAST [CT] Stat CT Scan 06/20/17 21:10 Completed CHEST PA & LAT [RAD] Stat Radiology 06/20/17 19:55 Taken Radiograph Interpretation: 06/20/17 21:35 CT head: Focal area of acute hemorrhage within the right temporal lobe. - Medications Given in the ED: ED Medications Discontinued Medications Generic Name Dose Route Start Last Admin Trade Name Freq PRN Reason Stop Dose Admin Acetaminophen 500 mg 06/20/17 22:37 06/20/17 23:04 Tylenol - PO 06/20/17 22:38 500 mg ONCE ONE Administration Sodium Chloride 250 mls @ 500 mls/hr 06/20/17 20:16 06/20/17 21:38 Normal Saline - IV 06/20/17 20:45 Not Given ASDIR STA Phytonadione 10 mg 06/20/17 22:27 06/20/17 22:41 Aqua Mephyton Injection - IVPB 06/20/17 22:28 10 mg ONCE ONE Administration Progress Note - Progress Note Progress Note: A: chest pain, headache, dizziness P: CBC CMp rectal temp: 97.9 chest xray BNP tsh CT head: Acute focal hemorrhage right temporal without mass shift Nerusurgery consult ICU admission patient to be admitted under hospitalist coverage Medical Decision Making - Critical Care Time Total Critical Care Time (minutes): 60 Critical Care Statement: The care of this patient involved high complexity decision making to prevent further life threatening deterioration of the patient 's condition and/or to evalute & treat vital organ system(s) failure or risk of failure. - Medical Decision Making 06/20/17 22:[address] Batres. reviewed Ct head. recommends no neurosurgical intervention at this time. will follow patient in the ICU 06/20/17 22:38 patient signed out to ICU [employer] Mr. Jun Hussein Patient signed out to hospitalist Dr. anderson *DC/Admit/Observation/Transfer Diagnosis at time of Disposition: Acute intra-cranial hemorrhage Headache Qualifiers: Headache type: post-traumatic Headache chronicity pattern: acute headache Intractability: intractable Qualified Code(s): G44.311 - Acute post-traumatic headache, intractable - Discharge Dispostion Admit: Yes - Referrals
--- NOTE | 2017-06-20 20:02 | PDOC ---
*Physical Exam - Vital Signs Last Vital Signs Temp Pulse Resp BP Pulse Ox 97.5 F L 88 21 118/65 100 06/20/17 19:32 06/20/17 19:32 06/20/17 19:32 06/20/17 19:32 06/20/17 19:32 ED Treatment Course - LABORATORY CBC & Chemistry Diagram: 06/21/17 16:00 06/21/17 05:25 Medical Decision Making - Medical Decision Making 06/20/17 20:02 agree with care from ALEX Ramirez *DC/Admit/Observation/Transfer Diagnosis at time of Disposition: Acute intra-cranial hemorrhage, Headache
[2017-06-20] MEDS ORDERED: SODIUM CHLORIDE 250 ML IV STA (20:16)
[2017-06-20 20:44] LABS: BASOPHIL 1.1 % (0-2.0); EOSINOPHIL 4.7 % (0-4.5); MCH 34.9 pg (25.7-33.7); MCHC 33.5 g/dl (32.0-35.9); MEAN CELL VOLUME 104.3 fl (80-96); MEAN PLT VOLUME 10.1 fl (7.5-11.1); PLATELET COUNT 55 K/MM3 (134-434); RDW 16.3 % (11.9-15.9); WHITE BLOOD COUNT 4.1 K/mm3 (4.0-10.0)
[2017-06-20 21:06] LABS: PROTHROMBIN TIME (PATIENT) 22.3 SEC (9.98-11.88)
[2017-06-20 21:23] LABS: ALBUMIN 3.6 g/dl (3.4-5.0); ANION GAP 11 (8-16); CALCIUM 9.4 mg/dL (8.5-10.1); CO2 27 mmol/L (21-32); GLUCOSE,RANDOM 156 mg/dL (74-106); MAGNESIUM 2.4 mg/dL (1.8-2.4); SGOT/AST 11 U/L (15-37); SGPT/ALT 13 U/L (12-78); TOT PROT 7.8 g/dl (6.4-8.2)
[2017-06-20 21:26] LABS: ALK PHOS 175 U/L (45-117); TROPONIN I 0.16 ng/ml (0.00-0.05)
[2017-06-20] MEDS ORDERED: PHYTONADIONE 10 MG/1 ML AMP IVPB ONE (22:27)
[2017-06-20] MEDS ORDERED: PHYTONADIONE 10 MG/1 ML AMP ONE (22:31)
[2017-06-20] MEDS ORDERED: ACETAMINOPHEN 500 MG TABLET (FP) PO ONE (22:37)
[2017-06-20] MEDS ORDERED: ACETAMINOPHEN 325 MG TABLET (FP) ONE (22:59)
--- NOTE | 2017-06-20 23:06 | CONSULT ---
Consult - text type - Consultation Consultation Note: PULM/CCM Pt seen and examined in ICU CC: headache HPI: Briefly Mr Tipton is a 57 y/o man with pmhx notable for HTN, CVA, DM, HL, ESRD on HD, CAD/AMI s/p multiple stents on asa and coumadin found to have spontaneous intercrainial hemorrhage. Pt relates have acute onset headache starting yesterday, denies falls/ trauma , photophobia, diplopia, gait disturbance. He relates pain was unrelieved with OTC> Underwent normal HD session yesterday. Relates med compliance. In ED pt was awake, alert, normothermic, normotensive. CT head revealed acute ICH in R temporal lobe, without mass effect. INR was 2. Given Vit K. Neurosurgery was consulted and do not recommend intervention. Other labs were largely unrevealing save thrombocytopenia with plts 55, which have been slowly downtrending since 11/2015. BUN 51, DDAVP not given. Transferred to ICU for overnight observation Past Medical History Cardio/Vascular CAD,HTN,Hyperlipdemia,Mitral Insufficiency, Other Renal/ Renal Failure,Hemodialysis Heme/Onc Anemia Endocrine Diabetes Mellitus Past Surgical History Past Surgical History AV Fistula/Graft Smoking History Smoking history Former smoker Aproximately how many 0 cigarettes per day If you are a former smoker, 17 yrs ago when did you quit? Alcohol/Substance Use Hx Alcohol Use No History of Substance Use Cocaine Social History ADL Independent Occupation [employer] Work History of Recent Travel No Ambulatory Orders Aspirin [ASA -] 81 mg PO DAILY 03/08/17 Atorvastatin Ca [Lipitor] 40 mg PO HS 03/08/17 Calcitriol [Calcitriol -] 0.5 mcg PO .TUTHFR DAILY 03/08/17 Isosorbide Mononitrate [Imdur -] 30 mg PO DAILY 03/08/17 Omeprazole 40 mg PO DAILY 03/08/17 Sevelamer Carbonate [Renvela Powder Packet -] 2.4 gm PO DAILY 03/08/17 Calcium Acetate [Phoslo -] 667 mg PO DAILY 05/17/17 Carvedilol [Coreg -] 3.125 mg PO BID 05/17/17 Insulin Glargine,Hum.rec.anlog [Lantus (10mL VIAL) -] 5 units SQ HS #0 vial Levothyroxine [Synthroid -] 50 mcg PO DAILY@0700 #30 tablet 05/26/17 Warfarin Sodium [Coumadin] 1 mg PO DAILY 06/20/17 CBC, BMP 06/20/17 20:30 06/20/17 20:30 EKG Sinus bradycardia (59) left posterior fascicular block, ST & t wave abnormality inferolateral ischemia CThead: small acute hemorrhage R temporal w/o mass effect/shift PE: Gen: pleasant ghanaian speaking man, INAD HEENT: surgical pupils bilaterally, otherwise EOMI PULM: clear anterior CV: RRR ABD: soft, NT EXT: LAVF with thrill, trace peripheral edema, cool, some venous stasis changes. NEURO: non focal exam, LOZANO x4 equal 4/5 throughout. No facial droop, no pronator drift, no dysphasia/dysarthria. A/ 57 y/o man with HTN, DM, ESRD, CAD, previous CVA now with acute ICH P/ -hold asa and coumadin -repeat CT head in 6hrs -Vit K given -if repeat imaging shows enlargement would give FFP, DDAVP, ? plts -neurosurgery following -HD as per renal -glycemic control -NPO until repeat head CT -SCDs, no heparin Jun Hubbard [facility] [id number]
--- NOTE | 2017-06-20 23:07 | PN ---
Teaching Attending Note Name of Resident: Shelly Crowell ATTENDING PHYSICIAN STATEMENT I saw and evaluated the patient. I reviewed the resident's note and discussed the case with the resident. I agree with the resident's findings and plan as documented. SUBJECTIVE: 57yo M with pmhx of HTN, CVA, DM, HLD. ESRD on HD M/W/F, CAD s/p [place] s/p stents ( on ASA/Coumadin) who presents with headache that started one day ago. States he also had chest pain. Pt. spoken to by qatari interrperter [id number]. Pt. states he doesn't currently have chest pain or pressure. No visual changes or headache currently. No lightheadednes, but does report occasional dizziness. ED Course: Neurosx. Consulted no intervention at this time. Vitamin K Administered in ED by Ed practioner OBJECTIVE: Physical: VS: Vital Signs Period Temp Pulse Resp BP Sys/Parham Pulse Ox Last 24 Hr 97.5 F-98.7 F 58-88 16-21 116-118/65-68 98-100 GEN: NAD, Resting in bed, AAOX3 HEENT: NCAT, PERRL, Throat without erythema or exudates CARD: RRR S1,S2 RESP: CTAB ABD: BSX4, Mild distension EXT: - C/C/E NEURO: CN II- XII intact, no focal defecits CBCD WBC 4.1 K/mm3 (4.0-10.0) 06/20/17 20:30 RBC 3.12 M/mm3 (4.00-5.60) L 06/20/17 20:30 Hgb 10.9 GM/dL (11.7-16.9) L 06/20/17 20:30 Hct 32.6 % (35.4-49) L 06/20/17 20:30 MCV 104.3 fl (80-96) H 06/20/17 20:30 MCHC 33.5 g/dl (32.0-35.9) 06/20/17 20:30 RDW 16.3 % (11.9-15.9) H 06/20/17 20:30 Plt Count 55 K/MM3 (134-434) L 06/20/17 20:30 MPV 10.1 fl (7.5-11.1) D 06/20/17 20:30 CMP Sodium 131 mmol/L (136-145) L 06/20/17 20:30 Potassium 4.9 mmol/L (3.5-5.1) 06/20/17 20:30 Chloride 93 mmol/L (98-107) L 06/20/17 20:30 Carbon Dioxide 27 mmol/L (21-32) 06/20/17 20:30 Anion Gap 11 (8-16) 06/20/17 20:30 BUN 51 mg/dL (7-18) H 06/20/17 20:30 Creatinine 7.0 mg/dL (0.7-1.3) H 06/20/17 20:30 Creat Clearance w eGFR 8.13 (>60) 06/20/17 20: Random Glucose 156 mg/dL (74-106) H D 06/20/17 20:30 Calcium 9.4 mg/dL (8.5-10.1) 06/20/17 20:30 Total Bilirubin 1.0 mg/dL (0.2-1.0) 06/20/17 20:30 AST 11 U/L (15-37) L D 06/20/17 20:30 ALT 13 U/L (12-78) D 06/20/17 20:30 Alkaline Phosphatase 175 U/L (45-117) H D 06/20/17 20:30 Total Protein 7.8 g/dl (6.4-8.2) 06/20/17 20:30 Albumin 3.6 g/dl (3.4-5.0) 06/20/17 20:30 CARDIAC ENZYMES Creatine Kinase 186 IU/L (39-308) D 06/20/17 20:30 Troponin I 0.16 ng/ml (0.00-0.05) H D 06/20/17 20:30 EKG: S YESI 59, L. post fasicular block, inferolateral ischemia CT HEAD: Focal Area of acute hemmorage in R. Temporal lobe, no mass effect CXR: Negative for any acute process Hepatitis Profile WBC 4.1 K/mm3 (4.0-10.0) 06/20/17 20:30 RBC 3.12 M/mm3 (4.00-5.60) L 06/20/17 20:30 Hgb 10.9 GM/dL (11.7-16.9) L 06/20/17 20:30 Hct 32.6 % (35.4-49) L 06/20/17 20:30 MCV 104.3 fl (80-96) H 06/20/17 20:30 Neutrophils % 63.0 % (42.8-82.8) 06/20/17 20:30 Lymphocytes % 21.9 % (8-40) D 06/20/17 20:30 Monocytes % 9.3 % (3.8-10.2) 06/20/17 20:30 Basophils % 1.1 % (0-2.0) 06/20/17 20:30 Ambulatory Orders Aspirin [ASA -] 81 mg PO DAILY 03/08/17 Atorvastatin Ca [Lipitor] 40 mg PO HS 03/08/17 Calcitriol [Calcitriol -] 0.5 mcg PO .TUTHFR DAILY 03/08/17 Isosorbide Mononitrate [Imdur -] 30 mg PO DAILY 03/08/17 Omeprazole 40 mg PO DAILY 03/08/17 Sevelamer Carbonate [Renvela Powder Packet -] 2.4 gm PO DAILY 03/08/17 Calcium Acetate [Phoslo -] 667 mg PO DAILY 05/17/17 Carvedilol [Coreg -] 3.125 mg PO BID 05/17/17 Insulin Glargine,Hum.rec.anlog [Lantus (10mL VIAL) -] 5 units SQ HS #0 vial Levothyroxine [Synthroid -] 50 mcg PO DAILY@0700 #30 tablet 05/26/17 Warfarin Sodium [Coumadin] 1 mg PO DAILY 06/20/17 ASSESSMENT AND PLAN: 57 yo M with pmhx of ESRD on HD M/W/F, HTN, DM, CAD s/p Stent, Afib w hx of Embolic cva on Coumadin/ASA, IDDM, Former alcholic, ? hx of Cirrohosis and depression 1.) Acute Cerebral Hemmorage - Hold Coumadin - Repeat CBC q 12 - Repeat coags - Coumadin held - Neurosx. on consult - Neuro checks q2H - Fall percautions - Repeat CT HEAD - ASA held - Monitor plts 2.) Afib w. hx of Embolic CVa - Rate controlled - AC held - Hold ASA 3.) Thrombocytopenia - Most likely due to liver disease - TRend 4.) ESRD on HD - Nephro consulted for HD 5.) CAD s/p Stent - C/W Home meds 6.) IDDM - FS - RAISS 7.) Hyperthyriodism - CHk Ft4 - Recent adjustment in Synthriod - Continue home dose 8.) Hx of Etoh Abuse - C/W Thiamine/Folic A 9.) DVt Ppx - SCDs CC Time: [address] in ICU Case discussed with Senior Civil Engineer
--- NOTE | 2017-06-20 23:34 | HP ---
CHIEF COMPLAINT: Headache, dizziness PCP: Dr. 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 The patient completed HD yesterday and has been compliant with medications. Patient denies SOB, changes in vision, including photophobia and diplopia. Denies any recent falls or trauma to head. No fever or chills. ER course was notable for: (1) Non-con Head CT shows acute hemorrhage in R temporal lobe with no midline shift or mass effect (2) Neurosurgery consulted (Dr. Batres) - surgical intervention not indicated at this time (3) INR 2.0 --> received Phytanodione 10mg IVPUSH ONCE Recent Travel: Yes PAST MEDICAL HISTORY: #Systolic HF - Echo 05/17/17: EF 45.5%, moderate-severe global hypokinesis and severe tricuspid regurgitation #CAD s/p PCIs - Per Dr. Momin note 05/17/2017: (1) persantine MIBI here (12/2015): no ST changes vs baseline; large area of inferior and inferolat infarct (with akinesis) with small samantha-infarct ischemia ; EF 35% (2) Cath/PCI @ [facility] 08/2015 : CBPTCA of ISR of RPL stent , rest of anatomy unchanged from 05/2015--decided not to stent OM or RPL--he has recurrent and fast ISR of stents and likely will not do not well with PCI strategy (3) Cath/PCI @ [facility] 05/2015: Diag 2 : 100 % IS[place] [facility] [place] distal LAD 90% (small vessel), OM1 90%, large RPL stented (ESME)--felt to be culprit #ESRD - HD M/W/F #IDDM - diagnosed approximately 20 years ago #Hypothyroidism #HTN #Afib on Coumadin #embolic CVA - no residual deficits #liver cirrhosis - Chest/Thorax CTA 05/17/2017 revealed cholelithiasis, ascites, and possible cirrhosis. Pt evaluated by GI (Dr. Aguilar) on 05/25/17 and recommended Q6 month AFP and tumor marker testing for HCC #Thrombocytopenia - chronic since 2012. possibly 2/2 heavy EtOH abuse #Macrocytic Anemia PAST SURGICAL HISTORY: #CABG #L AV fistula Social History: emigrated from [place] to at age 22 Smoking: quit 17y ago Alcohol: per chart, h/o heavy EtOH abuse; Patient denies EtOH since diabetes dx ~20y ago Drugs: past intranasal cocaine abuse Family History: non-contributory Allergies: NKDA No Known Allergies Allergy (Verified 06/20/17 20:38) HOME MEDICATIONS: Home Medications Medication Instructions Recorded Aspirin [ASA -] 81 mg PO DAILY 03/08/17 Atorvastatin Ca [Lipitor] 40 mg PO HS 03/08/17 Calcitriol [Calcitriol -] 0.5 mcg PO .TUTHFR DAILY 03/08/17 Isosorbide Mononitrate [Imdur -] 30 mg PO DAILY 03/08/17 Omeprazole 40 mg PO DAILY 03/08/17 Sevelamer Carbonate [Renvela 2.4 gm PO DAILY 03/08/17 Powder Packet -] Calcium Acetate [Phoslo -] 667 mg PO DAILY 05/17/17 Carvedilol [Coreg -] 3.125 mg PO BID 05/17/17 Insulin Glargine,Hum.rec.anlog 5 units SQ HS #0 vial 05/26/17 [Lantus (10mL VIAL) -] Levothyroxine [Synthroid -] 50 mcg PO DAILY@0700 #30 tablet 05/26/17 Warfarin Sodium [Coumadin] 1 mg PO DAILY 06/20/17 REVIEW OF SYSTEMS CONSTITUTIONAL: Absent: fever, chills, diaphoresis, generalized weakness, malaise, loss of appetite, weight change HEENT: Absent: rhinorrhea, nasal congestion, throat pain, throat swelling, difficulty swallowing, mouth swelling, ear pain, eye pain, visual changes CARDIOVASCULAR: +chest pain Absent: chest pain, syncope, palpitations, irregular heart rate, lightheadedness , peripheral edema RESPIRATORY: Absent: cough, shortness of breath, dyspnea with exertion, orthopnea, wheezing, stridor, hemoptysis GASTROINTESTINAL: Absent: abdominal pain, abdominal distension, nausea, vomiting, diarrhea, constipation, melena, hematochezia GENITOURINARY: Absent: dysuria, frequency, urgency, hesitancy, hematuria, flank pain, genital pain MUSCULOSKELETAL: Absent: myalgia, arthralgia, joint swelling, back pain, neck pain SKIN: Absent: rash, itching, pallor HEMATOLOGIC/IMMUNOLOGIC: Absent: easy bleeding, easy bruising, lymphadenopathy, frequent infections ENDOCRINE: Absent: unexplained weight gain, unexplained weight loss, heat intolerance, cold intolerance NEUROLOGIC: +headache Absent: headache, focal weakness or paresthesias, dizziness, unsteady gait, seizure, mental status changes, bladder or bowel incontinence PSYCHIATRIC: Absent: anxiety, depression, suicidal or homicidal ideation, hallucinations. PHYSICAL EXAMINATION Vital Signs - 24 hr 06/20/17 06/20/17 19:32 23:00 Temperature 97.5 F L 98.7 F Pulse Rate 88 Pulse Rate [ 58 L Right Radial] Respiratory 21 16 Rate Blood Pressure 118/65 Blood Pressure 116/68 [Right Arm] O2 Sat by Pulse 100 98 Oximetry (%) GENERAL: Awake, alert, and fully oriented, NAD HEAD: Normal with no signs of trauma. EYES: fixed dilated unequal non-round pupils (s/p cataract surgery), EOMI, sclera anicteric, conjunctiva clear EARS, NOSE, THROAT: Oropharynx clear without exudates. Moist mucous membranes. NECK: Supple without cervical LAD LUNGS: CTAB, no wheezes, and no crackles. No accessory muscle use. HEART: RRR, normal s1/s2. no murmur, rub or gallop. ABDOMEN: Soft, nontender, not distended, normoactive bowel sounds, tympanic to percussion. No hepatosplenomegaly UPPER EXTREMITIES: palpable thrill over L A/V fistula, no peripheral edema LOWER EXTREMITIES: 2+ pulses, warm, well-perfused. No peripheral edema. NEUROLOGICAL: Cranial nerves II-XII intact. Normal speech. Muscle strength 5/5 in all four extremities; No dysmetria or dysdiadochokinesia, No pronator drift, no UE postural tremor. PSYCHIATRIC: Cooperative. Good eye contact. Appropriate mood and affect. SKIN: Warm, dry, normal turgor, no rashes or lesions noted Laboratory Results - last 24 hr 06/20/17 06/20/17 06/20/17 20:30 20:30 20:30 WBC 4.1 RBC 3.12 L Hgb 10.9 L Hct 32.6 L MCV 104.3 H MCH 34.9 H MCHC 33.5 RDW 16.3 H Plt Count 55 L MPV 10.1 D Neutrophils % 63.0 Lymphocytes % 21.9 D Monocytes % 9.3 Eosinophils % 4.7 H Basophils % 1.1 INR 2.00 H Sodium 131 L Potassium 4.9 Chloride 93 L Carbon Dioxide 27 Anion Gap 11 BUN 51 H Creatinine 7.0 H Creat Clearance w eGFR 8.13 Random Glucose 156 H D Calcium 9.4 Magnesium 2.4 Total Bilirubin 1.0 AST 11 L D ALT 13 D Alkaline Phosphatase 175 H D Creatine Kinase 186 D CK-MB (CK-2) 3.640 H CK-MB (CK-2) Rel Index Troponin I 0.16 H D Total Protein 7.8 Albumin 3.6 TSH 198 IMAGING: Non-contrast Head CT (06/20/2017): "Focal area of acute intracranial hemorrhage within the medial aspect of the R temporal lobe adjacent to the occipital horn of the lateral ventricle. No significant mass effect is related to the bleed. There is no evidence of additional areas of acute intracranial hemorrhage, mass lesions or acute infarction." CXR (06/20/2017): Cardiomediastinal enlargement. No pneumothorax, pleural effusion, or consolidation EKG (06/20/2017): Sinus bradycardia rhythm, Rate 59, L post fascicular block, inferolateral infarct ASSESSMENT/PLAN: 57yo man with PMH of ESRD on HD (M,W,F), CAD s/p stent (on ASA, Lipitor), IDDM, Hypothyroidism (on Levothyroxine), 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 #Acute R temporal lobe hemorrhage -Neurosurgery consulted (Dr. Farmer)- no intervention at this time -Repeat Head CT in 6hr; next schedule for 3AM -Neuro checks q2h and fall precautions -Hold home ASA and Coumadin -Repeat coag studies in AM #ESRD on HD (M/W/F) -Nephrology consulted (Dr. Farooq) -Needs HD tomorrow -Continue home Sevelmer 2.4 g PO daily, Phosplo 667mg PO daily, Calcitriol 0.5mcg PO //Mon -Routine BMP in AM #Moderate thrombocytopenia: chronically low (40-60K); possibly 2/2 liver cirrhosis from heavy EtOH abuse (prior scan showed ascites, GI consult on evaluated for cirrhosis) -Routine CBC in AM -Transfuse if <10K or <30K with active bleeding #Atypical chest pain -First troponin 0.16, will trend q6h -Continuous cardiac monitoring #HTN -Continue home Isosorbide mononitrate 30mg PO daily -Continue home Carvedilol 3.125 mg PO daily #CAD -Continue home Atorvastatin 40mg PO HS #Hypothyroidism -TSH 198 (prior 241 in -Free T3/T4 pending -Continue home levothyroxine 50mcg PO Daily, and adjust cautiously due to significant according to TFTs #IDDM -BGM ACHS -ISS ACHS -Continue home insulin glargine 5U SQ HS #F/E/N -NO IVF needed at this time -Electrolytes wnl -NPO #Prophylaxis -DVT - moderate risk, hold Heparin due to acute intracranial hemorrhage -GI prophylaxis - continue home Omeprazole 40mg PO HS #Dispo -Admit to ICU -FULL Code d/w with medical team. Shelly Crowell MD PGY1 Visit type - Emergency Visit Emergency Visit: Yes ED Registration Date: 06/20/17 Care time: The patient presented to the Emergency Department on the above date and was hospitalized for further evaluation of their emergent condition. - New Patient This patient is new to me today: Yes Date on this admission: 06/20/17 - Critical Care Critical Care patient: No
--- NOTE | 2017-06-20 23:50 | HP ---
HISTORY OF PRESENT ILLNESS: Patient is a 57 year old male with a PMHx of HTN, CVA, HLD, ESRD on HD (M,W,F), CAD s/p multiple stents on Coumadin and ASA who presented today for increasing headache and dizziness for the last 24 hours. Patient reports going to work yesterday morning and began having acute headache that gradually worsened throughout the day. He denies any head trauma or falls. Otherwise, denies acute vision changes, gait changes, loss of consciousness, photophobia, fever, chills, nausea, vomiting, abdominal pain, diarrhea, constipation. PHYSICAL EXAMINATION Vital Signs - 24 hr 06/20/17 06/20/17 19:32 23:00 Temperature 97.5 F L 98.7 F Pulse Rate 88 Pulse Rate [ 58 L Right Radial] Respiratory 21 16 Rate Blood Pressure 118/65 Blood Pressure 116/68 [Right Arm] O2 Sat by Pulse 100 98 Oximetry (%) GENERAL: Awake, alert, and fully oriented, in no acute distress. HEAD: Normal with no signs of trauma. EYES: Pupils equal, round and reactive to light, extraocular movements intact, sclera anicteric, conjunctiva clear. LUNGS: Breath sounds equal, clear to auscultation bilaterally. No wheezes, and no crackles. No accessory muscle use. HEART: Regular rate and rhythm, normal S1 and S2 without murmur, rub or gallop. ABDOMEN: Soft, nontender, not distended, normoactive bowel sounds, no guarding, no rebound, no masses. UPPER EXTREMITIES: Left AV Fistula with palpable thrill. No peripheral edema. LOWER EXTREMITIES: trace pitting edema with chronic venous stasis bilaterally NEUROLOGICAL: Sensory intact. Motor strength 5/5 throughout. CN II-XII intact. No pronator drift. No facial droop. Speech intact Laboratory Results - last 24 hr 06/20/17 06/20/17 06/20/17 20:30 20:30 20:30 WBC 4.1 RBC 3.12 L Hgb 10.9 L Hct 32.6 L MCV 104.3 H MCH 34.9 H MCHC 33.5 RDW 16.3 H Plt Count 55 L MPV 10.1 D Neutrophils % 63.0 Lymphocytes % 21.9 D Monocytes % 9.3 Eosinophils % 4.7 H Basophils % 1.1 INR 2.00 H Sodium 131 L Potassium 4.9 Chloride 93 L Carbon Dioxide 27 Anion Gap 11 BUN 51 H Creatinine 7.0 H Creat Clearance w eGFR 8.13 Random Glucose 156 H D Calcium 9.4 Magnesium 2.4 Total Bilirubin 1.0 AST 11 L D ALT 13 D Alkaline Phosphatase 175 H D Creatine Kinase 186 D CK-MB (CK-2) 3.640 H CK-MB (CK-2) Rel Index Troponin I 0.16 H D Total Protein 7.8 Albumin 3.6 TSH 06/20/17 06/20/17 20:30 20:30 WBC RBC Hgb Hct MCV MCH MCHC RDW Plt Count MPV Neutrophils % Lymphocytes % Monocytes % Eosinophils % Basophils % INR Sodium Potassium Chloride Carbon Dioxide Anion Gap BUN Creatinine Creat Clearance w eGFR Random Glucose Calcium Magnesium Total Bilirubin AST ALT Alkaline Phosphatase Creatine Kinase CK-MB (CK-2) CK-MB (CK-2) Rel Index Cancelled Troponin I Total Protein Albumin TSH 198.[address] D IMAGES HEAD CT (06/20/17): Focal area of acute hemorrhage within the right temporal lobe. ASSESSMENT/PLAN: Patient is a 57 year old male with a PMHx of HTN, CVA, HLD, ESRD on HD (M,W,F), CAD s/p multiple stents on Coumadin and ASA, IDDMII, Hypothyroidism who presented for worsening dizziness and headache for the last 24 hours and was found to have an acute hemorrhage on the right temporal lobe on Head CT. Patient admitted for further monitoring and management. Acute Temporal Lobe Hemorrhage -Patient on Warfarin but is not supratherapeutic -Vitamin K given for warfarin reversal, as per ED -Repeat CT within 6 hours -Neurosurgeon consulted and no surgical intervention is required at this point -Hold all anticoagulations and anti platelets -Repeat Coags -Neuro checks and Fall precautions -Monitor in ICU Atypical Chest Pain -First Troponin 0.16. Will repeat -Cardiac monitoring -EKG Thrombocytopenia -Likely due to liver disease. Does have a history of alcohol abuse -Transfuse if <30,000 and actively bleeding otherwise transfuse <10,000 -Continue to monitor CBC ESRD on HD -Dialysis M,W,F -Resume Renvela and Phoslo -Nephrology consult placed for HD -Monitor BMP CAD s/p Multiple Stents -Will hold ASA -Continue lipitor A.fib with history of Embolic CVA -Currently Rate controlled -Will hold Warfarin -Continue Cardiac monitoring HTN -Continue with current home medications Coreg and Imdur -Continue to monitor BP -Hold medications if hypotensive HLD -Continue home medication Lipitor IDDMII -BGM and ISS Hypothyroidism -TSH 198 -Free t3/t4 ordered -Will continue home medication Synthroid and adjust accordingly Prophylaxis -High Risk. Will hold Coumadin due to acute temporal lobe hemorrhage. SCD's for DVT prophylaxis Disposition -Full code -Admit to ICU. Neurosurgeon evaluation Visit type - Emergency Visit Emergency Visit: Yes ED Registration Date: 06/20/17 Care time: The patient presented to the Emergency Department on the above date and was hospitalized for further evaluation of their emergent condition. - New Patient This patient is new to me today: Yes Date on this admission: 06/20/17 - Critical Care Critical Care patient: Yes Total Critical Care Time (in minutes): 45 Critical Care Statement: The care of this patient involved high complexity decision making to prevent further life threatening deterioration of the patient 's condition and/or to evalute & treat vital organ system(s) failure or risk of failure.
[2017-06-21 02:51] LABS: TROPONIN I 0.32 ng/ml (0.00-0.05)
[2017-06-21] MEDS: LEVOTHYROXINE NA 50 MCG TABLET (FP) PO SCH (06:07)
[2017-06-21] MEDS: INSULIN SLIDING SCALE (NOVOLOG) 1 VIAL SQ SCH ×4 (06:08→21:42)
[2017-06-21 06:35] LABS: MCH 35.6 pg (25.7-33.7); MCHC 33.9 g/dl (32.0-35.9); MEAN PLT VOLUME 9.2 fl (7.5-11.1); PLATELET COUNT 46 K/MM3 (134-434); RDW 15.9 % (11.9-15.9); WHITE BLOOD COUNT 4.1 K/mm3 (4.0-10.0)
[2017-06-21 07:04] LABS: ALBUMIN 3.4 g/dl (3.4-5.0); ANION GAP 10 (8-16); CALCIUM 8.9 mg/dL (8.5-10.1); CO2 26 mmol/L (21-32); GLUCOSE,RANDOM 112 mg/dL (74-106); SGOT/AST 11 U/L (15-37); SGPT/ALT 14 U/L (12-78); TOT PROT 7.5 g/dl (6.4-8.2)
[2017-06-21 07:10] LABS: ALK PHOS 167 U/L (45-117); CREATININE 7.4 mg/dL (0.7-1.3); FREE T4 0.61 ng/dl (0.76-1.16)
[2017-06-21 10:40] LABS: INR 1.69 (0.82-1.09); PROTHROMBIN TIME (PATIENT) 18.8 SEC (9.98-11.88)
[2017-06-21] MEDS: MUPIROCIN 2% TOPICAL OINTMENT FOR DECOLONIZATION NS SCH ×2 (11:00→21:16)
[2017-06-21] MEDS: CARVEDILOL 3.125 MG TABLET (FP) PO SCH ×2 (11:00→21:16)
[2017-06-21] MEDS: CALCITRIOL 0.25 MCG CAPSULE (FP) PO SCH (11:00)
[2017-06-21] MEDS: CALCIUM ACETATE 667 MG CAPSULE (FP) PO SCH (11:00)
[2017-06-21] MEDS: PANTOPRAZOLE 40 MG TABLET (FP) PO SCH (11:00)
[2017-06-21] MEDS: ISOSORBIDE MONONITRATE 60 MG TAB.SR.24H (FP) PO SCH (11:00)
[2017-06-21 11:02] VITALS: BMI 24.3
--- NOTE | 2017-06-21 11:02 | CON.NEP ---
Consult Consult Specialty:: Nephrology ([place]) Referred by:: Dr. Albright Reason for Consultation:: ESRD on HD/ICH - History of Present Illness Chief Complaint: Dizziness History of Present Illness: This is a 57 year old gentleman with PMhx of ESRD on HD (MWF), CAD s/p NC/PCI, Afib on warfarin, IDDM, Hyperlipdemia who presented with complaints of dizziness and found to have have a right ICH. Pt had symptoms for one day. Denies any fall or trauma. BP was not elevated on presentation. Pt last had dialysis on Monday w/o complication. + CUADRA, dizziness. No CP, SOB, Abd pain, N/V/ D. Pt is in the ICU. INR was 2, was given Vit K - History Source History Provided By: Patient Limitations to Obtaining History: No Limitations - Past Medical History Cardio/Vascular: Yes: CAD (patient reports having cath and PCI one year ago at [facility]), HTN, Hyperlipdemia, Mitral Insufficiency, Other (CHF) Renal/: Yes: Renal Failure (CKD on HD), Hemodialysis Endocrine: Yes: Diabetes Mellitus - Past Surgical History Past Surgical History: Yes: AV Fistula/Graft - Alcohol/Substance Use Hx Alcohol Use: No History of Substance Use: reports: Cocaine (intranasal cocaine abuse 30 years prior) - Smoking History Smoking history: Former smoker Have you smoked in the past 12 months: No Aproximately how many cigarettes per day: 0 If you are a former smoker, when did you quit?: 17 yrs ago - Social History ADL: Independent Occupation: [employer] Work History of Recent Travel: No Home Medications - Allergies Allergies/Adverse Reactions: Allergies Allergy/AdvReac Type Severity Reaction Status Date / Time No Known Allergies Allergy Verified 06/20/17 20:38 - Home Medications Home Medications: Ambulatory Orders Aspirin [ASA -] 81 mg PO DAILY 03/08/17 Atorvastatin Ca [Lipitor] 40 mg PO HS 03/08/17 Calcitriol [Calcitriol -] 0.5 mcg PO .TUTHFR DAILY 03/08/17 Isosorbide Mononitrate [Imdur -] 30 mg PO DAILY 03/08/17 Omeprazole 40 mg PO DAILY 03/08/17 Sevelamer Carbonate [Renvela Powder Packet -] 2.4 gm PO DAILY 03/08/17 Calcium Acetate [Phoslo -] 667 mg PO DAILY 05/17/17 Carvedilol [Coreg -] 3.125 mg PO BID 05/17/17 Insulin Glargine,Hum.rec.anlog [Lantus (10mL VIAL) -] 5 units SQ HS #0 vial Levothyroxine [Synthroid -] 50 mcg PO DAILY@0700 #30 tablet 05/26/17 Warfarin Sodium [Coumadin] 1 mg PO DAILY 06/20/17 Family Disease History - Family Disease History Family Disease History: Heart Disease: Father ( in 60's: drowned), Other: Father, Mother (: 60's: "anemia"), Brother (2 healthy), Sister (1: healthy) , Son (3: healthy), Daughter (3: healthy) Review of Systems - Review of Systems Constitutional: reports: No Symptoms Eyes: reports: No Symptoms HENT: reports: No Symptoms Neck: reports: No Symptoms Cardiovascular: reports: No Symptoms Respiratory: reports: No Symptoms Gastrointestinal: reports: No Symptoms Genitourinary: reports: No Symptoms Musculoskeletal: reports: No Symptoms Integumentary: reports: No Symptoms Neurological: reports: Dizziness, Incoordination. denies: Change in LOC, Change in Speech, Confusion Endocrine: reports: No Symptoms Hematology/Lymphatic: reports: No Symptoms Nephrology Consult - Height Height: 5 ft 5 in - Weight Weight: 146 lb 4.8 oz - BMI Body Mass Index (BMI): 24.3 - Lab Results CBC,BMP: CBC, BMP 06/21/17 05:25 06/21/17 05:25 Anion Gap: Anion Gap Anion Gap 10 (8-16) 06/21/17 05:25 - Imaging Chest X-ray: Report Reviewed Cat Scan: Report Reviewed - Physical Examination Vital Signs: Vital Signs Temperature 99.2 F 06/21/17 06:00 Pulse Rate 58 L 06/21/17 10:26 Respiratory Rate 13 06/21/17 06:00 Blood Pressure 110/66 06/21/17 06:00 O2 Sat by Pulse Oximetry (%) 99 06/21/17 10:26 Constitutional: Yes: No Distress, Calm HENT: Yes: Atraumatic, Normocephalic Neck: Yes: Supple Cardiovascular: Yes: Regular Rate and Rhythm. No: Murmur, Rub Respiratory: Yes: Regular, CTA Bilaterally. No: Rales, Wheezes Gastrointestinal: Yes: Normal Bowel Sounds, Soft Access for Hemodialysis: AV Fistula Extremities: No: Cold, Cool, Cyanosis, Erythema Edema: No Neurological: Yes: Alert, Oriented, Cran Nerves II-XII Intact. No: Facial Droop , Weakness Problem List - Problems (1) A-fib Code(s): I48.91 - UNSPECIFIED ATRIAL FIBRILLATION Qualifiers: Atrial fibrillation type: paroxysmal Qualified Code(s): I48.0 - Paroxysmal atrial fibrillation (2) CAD (coronary artery disease) Code(s): I25.10 - ATHSCL HEART DISEASE OF [place] CORONARY ARTERY W/O ANG PCTRS Qualifiers: Coronary Disease-Associated Artery/Lesion type: [place] artery [place] vs. transplanted heart: [place] heart Associated angina: with stable angina Qualified Code(s): I25.118 - Atherosclerotic heart disease of [place] coronary artery with other forms of angina pectoris (3) Diabetes Code(s): E11.9 - TYPE 2 DIABETES MELLITUS WITHOUT COMPLICATIONS (4) End stage chronic kidney disease Code(s): N18.6 - END STAGE RENAL DISEASE Z99.2 - DEPENDENCE ON RENAL DIALYSIS (5) ICH (intracerebral hemorrhage) Code(s): I61.9 - NONTRAUMATIC INTRACEREBRAL HEMORRHAGE, UNSPECIFIED Assessment/Plan 57 year old gentleman with PMhx of ESRD on HD (MWF), CAD s/p NC/PCI, Afib on warfarin, IDDM, Hyperlipdemia who presented with complaints of dizziness and found to have have a right ICH. #Spontaneous ICH in setting of Warfarin/Plavix/ASA Serial CT scans Neurosurgical follow up Vit K and FFP as needed to correct INR Plt transfusion as needed #ESRD on HD with Hyperkalemia will plan for HD today will use short duration treatment with low UF goal, Na modeling and low temps to minimize fluid shifts and cerebral hypoperfusion will not use heparin with dialysis Dose all meds for intermittent HD #Thrombocytopenia Plt transfusion as needed ? etiology of low plt counts #Renal Osteodystropy on Renvela Powder and phoslow Can change to renvela tablets and d/c phos low Trend Phos levels Thank you Will follow Yonis Farooq DO
--- NOTE | 2017-06-21 12:23 | PN ---
Teaching Attending Note Name of Resident: Trev Garner ATTENDING PHYSICIAN STATEMENT I saw and evaluated the patient. I reviewed the resident's note and discussed the case with the resident. I agree with the resident's findings and plan as documented. SUBJECTIVE: Pt seen and examined in the ICU. Denies headache, nausea or acute vision changes. Repeat CT head report pending. OBJECTIVE: Last Vital Signs Temp Pulse Resp BP Pulse Ox 99.2 F 58 L 13 110/66 99 06/21/17 06:00 06/21/17 10:26 06/21/17 06:00 06/21/17 06:00 06/21/17 10:26 Intake & Output 06/18/17 06/19/17 06/20/17 06/21/17 23:59 23:59 23:59 23:59 Weight 146 lb 12.8 oz 146 lb 4.8 oz Gen: NAD at rest Heart: RRR Lung: decreased breath sounds at the bases Abd: soft, nontender Ext: no edema Neuro: nonfocal CBC, BMP 06/21/17 05:25 06/21/17 05:25 Active Medications Atorvastatin Calcium (Lipitor -) 40 mg PO HS EVA Calcitriol (Rocaltrol -) 0.5 mcg PO TuThFr@1000 [facility] Calcium Acetate (Phoslo -) 667 mg PO DAILY [facility] Carvedilol (Coreg -) 3.125 mg PO BID [facility] Chlorhexidine Gluconate (Hibiclens For Decolonization -) 1 applic TP HS [facility] Insulin Aspart (Novolog Vial Sliding Scale -) 0 vial SQ ACHS [facility] PRN Reason: Protocol Last Admin: 06/21/17 06:08 Dose: Not Given Insulin Detemir (Levemir Vial) 5 units SQ HS [facility] Isosorbide Mononitrate (Imdur -) 30 mg PO DAILY [facility] Levothyroxine Sodium (Synthroid -) 50 mcg PO DAILY@0700 [facility] Last Admin: 06/21/17 06:07 Dose: 50 mcg Mupirocin (Bactroban Ointment (For Decolonization) -) 1 applic NS BID [facility] Stop: 06/26/17 09:59 Pantoprazole Sodium (Protonix -) 40 mg PO DAILY [facility] Sevelamer Carbonate (Renvela Powder Packet -) 2.4 gm PO DAILY@1200 [facility] ASSESSMENT AND PLAN: s/p Fall Intracranial Hemorrhage Atrial Fibrillation Platelet dysfunction from ASA ESRD on HD CAD h/o CVA HTN DM Hypothyroidism - transfuse platelets, FFP - f/u repeat CT head - neuro, neurosurgery eval - monitor CBC, coags - HD per renal - increase synthroid dose if pt compliant with home dose - DVT prophylaxis - continue ICU monitoring critical care time spent in reviewing chart, evaluating patient and formulating plan 35 min
[2017-06-21] MEDS: SEVELAMER CARBONATE 2.4 GM POWDER PACKET PO SCH (13:00)
--- NOTE | 2017-06-21 13:00 | EKG ---
Test Reason : Blood Pressure : / mmHG Vent. Rate : 059 BPM Atrial Rate : 059 BPM P-R Int : 232 ms QRS Dur : 112 ms QT Int : 482 ms P-R-T Axes : 039 123 -73 degrees QTc Int : 477 ms POOR DATA QUALITY, INTERPRETATION MAY BE ADVERSELY AFFECTED SINUS BRADYCARDIA WITH 1ST DEGREE A-V BLOCK LEFT POSTERIOR FASCICULAR BLOCK ABNORMAL ECG WHEN COMPARED WITH ECG OF 17-MAY-2017 17:21, T WAVE INVERSION MORE EVIDENT IN INFERIOR LEADS Confirmed by SHANTANU DALTON, CARLYLE ([id number]) on 06/21/2017 1:00:24 PM Referred By: Confirmed By:CARLYLE FOURNIER MD
--- NOTE | 2017-06-21 13:18 | PN ---
Teaching Attending Note Name of Resident: Neil Hines ATTENDING PHYSICIAN STATEMENT I saw and evaluated the patient. I reviewed the resident's note and discussed the case with the resident. I agree with the resident's findings and plan as documented. SUBJECTIVE: He admitted to having a fall and a head trauma , the fall was mechanical no fever or chills, denies any visual changes, has o weakness or tingling. has no numbness. has pain in L occipital area OBJECTIVE: NAD , Awale and alert HEENT: NC, EOMI, deformed pupils , not reactive to light . EOMI. MMM CV : RRR, no murmurs appreciated . R pulse1+ b/l , DP 1 + b/l Lungs : CTAB ext : no edema Neuro : EOMI, deformed pupils , not reactive to light , no facial droop, tongue and uvula at md line , nl facial sensation . Strength 5/5 in upper and lower extremities proximally and distally, sensation to light touch NL. reflexes 2+ knee jerk and biceps b/l ASSESSMENT AND PLAN: 57 y/o man with h/o CAD , s/p PCIs , ICMP , IDDM , S CHF , CVA , ESRD, MR ,P A fib on coumadin, recently diagnosed hypothyroidism , and other medical problems who presented a fall, and CUADRA 1- s/p Mechanical fall, s/p R temporal bleed: neuro exam is NL. - repat CT scan reviewed. - transfuse plt . - FFP, risk of worsening bleeding overweigh risk of stroke at this point - case was d/w Dr. Taylor by resident , no need fro intervention at this point . - hold anticoagulation - neuro checks 2- trop elevation , very mild , denies cp . likely due to renal failure . - EKG with no acute ischemic changes, no change from prior - trend to peak. - tele 3- ESRD: due for HD today . mild hyperkalemia , to be treatedw tih HD 4- Hypothyroidism: was started on Synthroid 50 mcg last admission 4 weeks ago. thyroglobulin and thyroid peroxidase Abs were neg last month -TSH has decreased from 241 last admission, will confirm that pt is taking synthroid. If yes , will increase dose to75 mcg. 5- THrombocytopenia , chronic , likely due to ? liver cirrhosis seen on a PREVIOUS ct SCAN . FURTHER W/U OUT PT 6- CAD , s/p PCI s: cont BB ,statin , and hold asa due to ICH Dispo : ICU level of care . Critical Care Total Critical Care Time (in minutes): 50 Critical Care Statement: The care of this patient involved high complexity decision making to prevent further life threatening deterioration of the patient 's condition and/or to evalute & treat vital organ system(s) failure or risk of failure.
--- NOTE | 2017-06-21 14:15 | PN ---
Physical Exam: SUBJECTIVE: Patient seen and examined at bedside in ICU. Pt states he feels better today but still has some CUADRA at site of fall. He denies dizziness currently. Denies N/V/F/C, SOB, CP. Pt states he is compliant with all meds at home including synthroid. OBJECTIVE: Vital Signs Temperature 99.2 F 06/21/17 06:00 Pulse Rate 58 L 06/21/17 10:26 Respiratory Rate 13 06/21/17 06:00 Blood Pressure 110/66 06/21/17 06:00 O2 Sat by Pulse Oximetry (%) 99 06/21/17 10:26 GENERAL: The patient is awake, alert, and fully oriented, in no acute distress. HEAD: pain at occiptal area of head. EYES: Pupils NOT reactive to light, extraocular movements intact, sclera anicteric, conjunctiva clear. No ptosis. ENT: Ears normal, nares patent, tongue midline. NECK: Trachea midline, full range of motion. LUNGS: Breath sounds equal, clear to auscultation bilaterally HEART: Bradycardic, S1, S2 without murmur, rub or gallop. ABDOMEN: Soft, nontender, nondistended, normoactive bowel sounds EXTREMITIES: warm, well-perfused, no edema. 5/5 UE and LE strength. NEUROLOGICAL: Normal speech, gait not observed. PSYCH: Normal mood, normal affect. SKIN: Warm, dry Laboratory Results - last 24 hr 06/21/17 06/21/17 06/21/17 02:15 02:15 05:25 WBC RBC Hgb Hct MCV MCH MCHC RDW Plt Count MPV INR Sodium 130 L Potassium 5.5 H Chloride 94 L Carbon Dioxide 26 Anion Gap 10 BUN 60 H Creatinine 7.4 H Creat Clearance w eGFR 7.62 POC Glucometer Random Glucose 112 H D Calcium 8.9 Total Bilirubin 1.0 AST 11 L ALT 14 Alkaline Phosphatase 167 H Creatine Kinase 153 Creatine Kinase Index 1.8 CK-MB (CK-2) 2.765 CK-MB (CK-2) Rel Index Cancelled Troponin I 0.32 H D Total Protein 7.5 Albumin 3.4 Free T4 0.61 L Blood Type Antibody Screen 06/21/17 06/21/17 06/21/17 05:25 05:56 08:25 WBC 4.1 RBC 3.21 L Hgb 11.5 L Hct 33.8 L MCV 105.0 H MCH 35.6 H MCHC 33.9 RDW 15.9 Plt Count 46 L MPV 9.2 INR Sodium Potassium Chloride Carbon Dioxide Anion Gap BUN Creatinine Creat Clearance w eGFR POC Glucometer [phone] Random Glucose Calcium Total Bilirubin AST ALT Alkaline Phosphatase Creatine Kinase Creatine Kinase Index CK-MB (CK-2) CK-MB (CK-2) Rel Index Troponin I 0.44 H D Total Protein Albumin Free T4 Blood Type Antibody Screen 06/21/17 06/21/17 06/21/17 09:30 11:15 13:20 WBC RBC Hgb Hct MCV MCH MCHC RDW Plt Count MPV INR 1.69 H Sodium Potassium Chloride Carbon Dioxide Anion Gap BUN Creatinine Creat Clearance w eGFR POC Glucometer [phone] Random Glucose Calcium Total Bilirubin AST ALT Alkaline Phosphatase Creatine Kinase Creatine Kinase Index CK-MB (CK-2) CK-MB (CK-2) Rel Index Troponin I Total Protein Albumin Free T4 Blood Type A POSITIVE Antibody Screen Negative Imaging: HEAD CT: 06/21/17 11:54 Impression. Acute intraventricular hemorrhage is seen in the atrium of the right lateral ventricle surrounding the choroid plexus, right occipital horn of lateral ventricle. Slightly increased volume of intraventricular hemorrhage with expansion of the occipital horn of right lateral ventricle, measuring on coronal 9.8 mm versus 6.4 mm, on axial 10 mm versus versus 8.5 mm, in comparison to the prior ct at 02:45 am. Reported By: Edgar Beal MD [id number] Active Medications Generic Name Dose Route Start Last Admin Trade Name Freq PRN Reason Stop Dose Admin Atorvastatin Calcium 40 mg 06/21/17 22:00 Lipitor - PO HS [facility] Calcitriol 0.5 mcg 06/21/17 10:00 Rocaltrol - PO TuThFr@1000 [facility] Calcium Acetate 667 mg 06/21/17 10:00 Phoslo - PO DAILY [facility] Carvedilol 3.125 mg 06/21/17 10:00 Coreg - PO BID [facility] Chlorhexidine Gluconate 1 applic 06/21/17 22:00 Hibiclens For Decolonization - TP HS [facility] Insulin Aspart 0 vial 06/21/17 07:00 06/21/17 06:08 Novolog Vial Sliding Scale - SQ Not Given ACHS [facility] Protocol Insulin Detemir 5 units 06/21/17 22:00 Levemir Vial SQ HS [facility] Isosorbide Mononitrate 30 mg 06/21/17 10:00 Imdur - PO DAILY [facility] Levothyroxine Sodium 50 mcg 06/21/17 07:00 06/21/17 06:07 Synthroid - PO 50 mcg DAILY@0700 [facility] Administration Mupirocin 1 applic 06/21/17 10:00 Bactroban Ointment (For Decolonization) - NS 06/26/17 09:59 BID [facility] Pantoprazole Sodium 40 mg 06/21/17 10:00 Protonix - PO DAILY [facility] Sevelamer Carbonate 2.4 gm 06/21/17 12:00 Renvela Powder Packet - PO DAILY@1200 [facility] ASSESSMENT/PLAN: 57 y/o M w/ PMH of ESRD on HD (MWF), IDDM, CAD s/p multiple stents, HTN, A-fib ( on coumadin), CVA (w/no deficits), HTN, hypothyroidism comes in s/p mechanical fall where he hit his head. Found to have acute intracranial hemorrhage and admitted to the ICU. -Neuro: -Acute Intracranial Hemorrhage -neurosurgery on board, neuro consulted -Head CT shows: -Hold A/C -No need for surgical intervention at this time as per neurosurgery. -Tranfuse w/platelets x1 and FFP x1. Given 10 mg IV Vit K as well. -No neurological deficits noted at this time. -Renal -ESRD -HD as per nephro -C/V -Elevated trops -likely secondary to ESRD, hx of multiple stents -No chest pain or pressure complaints at this time -Thrombocytopenia -Platelets transfused -Endocrine -Hypothyroidism -TSH 198, Free T4 0.61 -will need an increase in synthroid dose -Prophylaxis -DVT: SCDs -GI: Protonix 40 mg po qd -FEN -No fluids at this time -Monitor lytes, on HD -Diabetic, Renal Diet Visit type - Emergency Visit Emergency Visit: Yes ED Registration Date: 06/20/17 Care time: The patient presented to the Emergency Department on the above date and was hospitalized for further evaluation of their emergent condition. - New Patient This patient is new to me today: Yes Date on this admission: 06/21/17 - Critical Care Critical Care patient: Yes Total Critical Care Time (in minutes): 36 Critical Care Statement: The care of this patient involved high complexity decision making to prevent further life threatening deterioration of the patient 's condition and/or to evalute & treat vital organ system(s) failure or risk of failure.
--- NOTE | 2017-06-21 14:41 | CONSULT ---
Consult - text type - Consultation Consultation Note: Asked to see this patient in Neurosurgical Consultation. This is a 57 year old Latin male with a history of ESRD and multiple medical problems who developed headaches and dizziness yesterday after his Dialysis. He was brought to the [facility] ER where Head CT revealed a small hemorrhage in the vicinity of the atrium of the Right lateral ventricle. On examination, he is awake and alert and able to follow complex commands. He describes headaches, dizziness and unsteadiness. He recalls his history and expresses an understanding of the relevant issues. He has no pronator drift and does not extinguish to double simultaneous stimulation. Repeat Head CT from today shows settling of blood in the occipital horn of the Right lateral ventricle. There does not appear to be new hemorrhage despite anticoagulation with aspirin and Coumadin as well as a platelet count of 55,000. He received Vitamin K and his Coumadin has been held. The official report indicates that there is no Hydrocephalus on the new CT scan. At this point, there is no role for acute Neurosurgical intervention. Hopefully, he will not bleed further and can resume anticoagulation in 1-2 weeks. If he has persistance or progression of current symptoms or another bleeding episode, MRI scanning to seek an underlying lesion may be considered. He does not need to remain NPO or at bedrest from a Neurosurgery standpoint. The patient may benefit from Physical Therapy.
--- NOTE | 2017-06-21 16:10 | PN ---
Physical Exam: SUBJECTIVE: Patient seen and examined at bedside. Pt complains of posterior head pain and L shoulder pain when someone pushes on it. No other complaints at this time. Pt denies sob, abd pain, nausea, vomiting, diarrhea, disuria, weakness, malaise, fever. OBJECTIVE: Vital Signs Period Temp Pulse Resp BP Sys/Parham Pulse Ox Last 24 Hr 98.5 F-99.2 F 57-58 11-17 107-123/62-76 99-100 GENERAL: The patient is awake, alert, and fully oriented, in no acute distress. Follows commands without difficulty HEAD: Normal with no signs of trauma. EYES: fixed dilated unequal non-round pupils (s/p cataract surgery), EOMI, sclera anicteric, conjunctiva clear. No ptosis. ENT: oropharynx clear without exudates, moist mucous membranes. NECK: Trachea midline, full range of motion, supple. LUNGS: Breath sounds equal, clear to auscultation bilaterally, no wheezes, no crackles, no accessory muscle use. HEART: Regular rate and rhythm, normal S1, S2 without murmur, rub or gallop. ABDOMEN: Soft, nontender, nondistended, normoactive bowel sounds, no guarding, no rebound, no hepatosplenomegaly, no masses. EXTREMITIES: 1+ pulses, right hand colder than left, well-perfused, no edema. NEUROLOGICAL: Cranial nerves II through XII grossly intact. Normal speech, gait not observed. Strength 5/5 throughout incl shoulder abduction, elbow flexion/ extension, peer tutor, hip flexion, knee flexion/extension, plantar flexion, dorsiflexion. Sensation intact and equal bilaterally throughout. Reflexes 2+ biceps, brachioradialis, patellar PSYCH: Normal mood, normal affect. SKIN: Warm, dry, normal turgor, no rashes or lesions noted Laboratory Results - last 24 hr 06/21/17 06/21/17 06/21/17 02:15 02:15 05:25 WBC RBC Hgb Hct MCV MCH MCHC RDW Plt Count MPV INR Sodium 130 L Potassium 5.5 H Chloride 94 L Carbon Dioxide 26 Anion Gap 10 BUN 60 H Creatinine 7.4 H Creat Clearance w eGFR 7.62 POC Glucometer Random Glucose 112 H D Calcium 8.9 Total Bilirubin 1.0 AST 11 L ALT 14 Alkaline Phosphatase 167 H Creatine Kinase 153 Creatine Kinase Index 1.8 CK-MB (CK-2) 2.765 CK-MB (CK-2) Rel Index Cancelled Troponin I 0.32 H D Total Protein 7.5 Albumin 3.4 Free T4 0.61 L Blood Type Antibody Screen 06/21/17 06/21/17 06/21/17 05:25 05:56 08:25 WBC 4.1 RBC 3.21 L Hgb 11.5 L Hct 33.8 L MCV 105.0 H MCH 35.6 H MCHC 33.9 RDW 15.9 Plt Count 46 L MPV 9.2 INR Sodium Potassium Chloride Carbon Dioxide Anion Gap BUN Creatinine Creat Clearance w eGFR POC Glucometer 125.23795 Random Glucose Calcium Total Bilirubin AST ALT Alkaline Phosphatase Creatine Kinase Creatine Kinase Index CK-MB (CK-2) CK-MB (CK-2) Rel Index Troponin I 0.44 H D Total Protein Albumin Free T4 Blood Type Antibody Screen 06/21/17 06/21/17 06/21/17 09:30 11:15 13:20 WBC RBC Hgb Hct MCV MCH MCHC RDW Plt Count MPV INR 1.69 H Sodium Potassium Chloride Carbon Dioxide Anion Gap BUN Creatinine Creat Clearance w eGFR POC Glucometer 122.96509 Random Glucose Calcium Total Bilirubin AST ALT Alkaline Phosphatase Creatine Kinase Creatine Kinase Index CK-MB (CK-2) CK-MB (CK-2) Rel Index Troponin I Total Protein Albumin Free T4 Blood Type A POSITIVE Antibody Screen Negative Active Medications Generic Name Dose Route Start Last Admin Trade Name Freq PRN Reason Stop Dose Admin Atorvastatin Calcium 40 mg 06/21/17 22:00 Lipitor - PO HS [facility] Calcitriol 0.5 mcg 06/21/17 10:00 Rocaltrol - PO TuThFr@1000 [facility] Calcium Acetate 667 mg 06/21/17 10:00 Phoslo - PO DAILY [facility] Carvedilol 3.125 mg 06/21/17 10:00 Coreg - PO BID [facility] Chlorhexidine Gluconate 1 applic 06/21/17 22:00 Hibiclens For Decolonization - TP HS [facility] Insulin Aspart 0 vial 06/21/17 07:00 06/21/17 06:08 Novolog Vial Sliding Scale - SQ Not Given ACHS [facility] Protocol Insulin Detemir 5 units 06/21/17 22:00 Levemir Vial SQ HS [facility] Isosorbide Mononitrate 30 mg 06/21/17 10:00 Imdur - PO DAILY [facility] Levothyroxine Sodium 50 mcg 06/21/17 07:00 06/21/17 06:07 Synthroid - PO 50 mcg DAILY@0700 [facility] Administration Mupirocin 1 applic 06/21/17 10:00 Bactroban Ointment (For Decolonization) - NS 06/26/17 09:59 BID [facility] Pantoprazole Sodium 40 mg 06/21/17 10:00 Protonix - PO DAILY [facility] Sevelamer Carbonate 2.4 gm 06/21/17 12:00 Renvela Powder Packet - PO DAILY@1200 [facility] ASSESSMENT/PLAN: 57yo man with PMH of ESRD on HD (M,W,F), CAD s/p stent (on ASA, Lipitor), IDDM, Hypothyroidism (on Levothyroxine), 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 #Acute R temporal lobe hemorrhage -Neurosurgery consulted (Dr. Farmer)- no intervention at this time -Head CT 06/20: right temporal hemorrhage, 06/21 3am: R ventricle antrum hemorrhage, 06/21 10:56 am: slightly increased size of hemorrhage -Neuro checks q2h and fall precautions -Hold home ASA and Coumadin -Repeat coag studies in AM #ESRD on HD (M/W/F) -Nephrology consulted (Dr. Farooq) -HD today -Continue home Sevelmer 2.4 g PO daily, Phosplo 667mg PO daily, Calcitriol 0.5mcg PO //Mon -Routine BMP in AM #Moderate thrombocytopenia: chronically low (40-60K); possibly 2/2 liver cirrhosis from heavy EtOH abuse (prior scan showed ascites, GI consult on xx evaluated for cirrhosis, macrocytic anemia also c/w EtOH abuse) -repeat CBC: pending -Transfused platelets #Atypical chest pain -First troponin 0.16-> 0.32 -> 0.44 -Continuous cardiac monitoring -Reproducible pain only present with palpation -EKG: no ST changes #HTN -Continue home Isosorbide mononitrate 30mg PO daily -Continue home Carvedilol 3.125 mg PO daily #CAD -Continue home Atorvastatin 40mg PO HS #Hypothyroidism -TSH 198 (prior 241 in -Free T3/T4 pending -Continue home levothyroxine 50mcg PO Daily, and adjust cautiously due to significant according to TFTs -Will confirm meds with pt to ensure he is taking appropriate dose #IDDM -BGM ACHS -ISS ACHS -Continue home insulin glargine 5U SQ HS #F/E/N -NO IVF needed at this time -Electrolytes wnl -NPO #Prophylaxis -DVT - moderate risk, hold Heparin due to acute intracranial hemorrhage -GI prophylaxis - continue home Omeprazole 40mg PO HS #Dispo -Admit to ICU -FULL Code Visit type - Emergency Visit Emergency Visit: No - New Patient This patient is new to me today: No - Critical Care Critical Care patient: No - Discharge Referral Referred to [facility] Med [facility].: No
[2017-06-21 16:21] LABS: BASOPHIL 1.1 % (0-2.0); EOSINOPHIL 3.4 % (0-4.5); MCH 34.6 pg (25.7-33.7); MCHC 33.1 g/dl (32.0-35.9); MEAN CELL VOLUME 104.4 fl (80-96); MEAN PLT VOLUME 9.5 fl (7.5-11.1); PLATELET COUNT 82 K/MM3 (134-434); RDW 16.6 % (11.9-15.9); WHITE BLOOD COUNT 3.7 K/mm3 (4.0-10.0)
[2017-06-21] MEDS ORDERED: ACETAMINOPHEN 325 MG TABLET (FP) PO PRN ×2 (19:06→19:41)
[2017-06-21] MEDS ORDERED: LOPERAMIDE HCL 2 MG CAPSULE PO PRN (20:42)
--- NOTE | 2017-06-21 21:15 | CON.NEURO ---
Consult Consult Specialty:: NEUROLOGY-[facility] Reason for Consultation:: Intracerebral hemorrhage - History of Present Illness Chief Complaint: Dizziness History of Present Illness: 57yo Tanzanian-speaking man with PMH of ESRD on HD (M/W/F), IDDM, CAD s/p multiple stents (on ASA), HTN, ?liver, chronic thrombocytopenia(20-60,000) cirrhosisAfib with embolic CVA with no residual deficits (on Coumadin), HTN, Hypothyroidism (on Levothyroxine), who presents after worsening CUADRA and increasing dizziness for the past day. The patient completed HD yesterday and has been compliant with medications. Patient denies SOB, changes in vision, including photophobia and diplopia. Denies any recent falls or trauma to head. No fever or chills. ER course was notable for: (1) Non-con Head CT shows acute hemorrhage in R temporal lobe with no midline shift or mass effect (2) Neurosurgery consulted (Dr. Batres) - surgical intervention not indicated at this time (3) INR 2.0 --> received Phytanodione 10mg IVPUSH ONCE -Pt. ronak reports he has a very mild headache, denies dizziness and visual changes. States he feels better, nursing staff informs me he has had diarrheax 5 since admission. - Past Medical History Cardio/Vascular: Yes: CAD (patient reports having cath and PCI one year ago at [facility]), HTN, Hyperlipdemia, Mitral Insufficiency, Other (CHF) Renal/: Yes: Renal Failure (CKD on HD), Hemodialysis Endocrine: Yes: Diabetes Mellitus - Past Surgical History Past Surgical History: Yes: AV Fistula/Graft - Alcohol/Substance Use Hx Alcohol Use: No History of Substance Use: reports: Cocaine (intranasal cocaine abuse 30 years prior) - Smoking History Smoking history: Former smoker Have you smoked in the past 12 months: No Aproximately how many cigarettes per day: 0 If you are a former smoker, when did you quit?: 17 yrs ago - Social History ADL: Independent Occupation: [employer] Work History of Recent Travel: No Home Medications - Allergies Allergies/Adverse Reactions: Allergies Allergy/AdvReac Type Severity Reaction Status Date / Time No Known Allergies Allergy Verified 06/20/17 20:38 - Home Medications Home Medications: Ambulatory Orders Aspirin [ASA -] 81 mg PO DAILY 03/08/17 Atorvastatin Ca [Lipitor] 40 mg PO HS 03/08/17 Calcitriol [Calcitriol -] 0.5 mcg PO .TUTHFR DAILY 03/08/17 Isosorbide Mononitrate [Imdur -] 30 mg PO DAILY 03/08/17 Omeprazole 40 mg PO DAILY 03/08/17 Sevelamer Carbonate [Renvela Powder Packet -] 2.4 gm PO DAILY 03/08/17 Calcium Acetate [Phoslo -] 667 mg PO DAILY 05/17/17 Carvedilol [Coreg -] 3.125 mg PO BID 05/17/17 Levothyroxine [Synthroid -] 50 mcg PO DAILY@0700 #30 tablet 05/26/17 Insulin Glargine,Hum.rec.anlog [Lantus (10mL VIAL) -] 7 units SQ HS 06/21/17 Isosorbide Mononitrate [Imdur] 60 mg PO DAILY 06/21/17 Warfarin Sodium [Coumadin] 2 mg PO DAILY 06/21/17 Family Disease History - Family Disease History Family Disease History: Heart Disease: Father ( in 60's: drowned), Other: Father, Mother (: 60's: "anemia"), Brother (2 healthy), Sister (1: healthy) , Son (3: healthy), Daughter (3: healthy) Physical Exam-Neuro Vital Signs: Vital Signs Temperature 97.8 F 06/21/17 20:00 Pulse Rate 65 06/21/17 20:00 Respiratory Rate 18 06/21/17 20:21 Blood Pressure 110/71 06/21/17 20:00 O2 Sat by Pulse Oximetry (%) 100 06/21/17 20:24 Labs: CBC, BMP 06/21/17 16:00 06/21/17 05:25 INR, PTT INR 1.69 (0.82-1.09) H 06/21/17 09:30 - Neuro Exam Dominant Hand: Right Mini Mental Exam: Mildly impaired concentration only. Cranial Nerves II-XII Intact: Yes (No field cut noted) DTR's: 0 Left Achilles, 0 Right Achilles, 1+ Left Bicep, 1+ Right Bicep, 1+ Left Tricep, 1+ Right Tricep, 1+ Left Brachioradialis, 1+ Right Brachioradialis Babinski: Absent Response to light touch: Normal Response to pain prick: Normal Response to temperature: Normal Motor Strength: 4/5: Right Arm (?/due to old CVA), 5/5: Left Arm, Left Leg, Right Leg NIH Stroke Scale - Total Score NIH Stroke Scale Score: 0 Imaging - Results X-ray: Report Reviewed (CT Head at 3am- acute hemorrhage in atrium of right lat. ventricle extending in to occipital horn. Repeat CT head- same acute hge in atrium of right lat. vent surrounding choroid plexus in addition enlargement of occipital horn of lat vent. noted.) Assessment/Plan Pt. with right intraventricular hge likely due to anticoagulant/ thrombocytopenia combination. He does not appear to have a neurologic defuicit, hge. occured within ventricles where there is ample space for blood to expand. Given VitK, INR today 1.69. Pt. is neurologically stable. Suggest: -Neuro checks Q4hrs- -Monitor INR/Platelets -Please call us in case of worsening mental status/neurologic deficits -Diarrhea?? etiolog. Thank you, Cliff torres MD [phone]
[2017-06-21] MEDS ORDERED: ATORVASTATIN CA 40 MG TABLET (FP) PO SCH (22:00)
[2017-06-21] MEDS ORDERED: CHLORHEXIDINE GLUCONATE 4% CLEANSER FOR DECOLONIZATION TP SCH (22:00)
[2017-06-21] MEDS ORDERED: INSULIN DETEMIR 100 UNITS/ML MDV SQ SCH ×2 (22:00)
[2017-06-22 00:19] LABS: TROPONIN I 0.34 ng/ml (0.00-0.05)
[2017-06-22] MEDS: LEVOTHYROXINE NA 50 MCG TABLET (FP) PO SCH (06:14)
[2017-06-22] MEDS: INSULIN SLIDING SCALE (NOVOLOG) 1 VIAL SQ SCH ×4 (06:15→22:01)
[2017-06-22 07:02] LABS: INR 1.43 (0.82-1.09); PROTHROMBIN TIME (PATIENT) 15.9 SEC (9.98-11.88)
[2017-06-22 07:17] LABS: ALBUMIN 3.3 g/dl (3.4-5.0); ANION GAP 12 (8-16); CALCIUM 8.8 mg/dL (8.5-10.1); CO2 27 mmol/L (21-32); CREATININE 5.7 mg/dL (0.7-1.3); GLUCOSE,RANDOM 134 mg/dL (74-106); SGOT/AST 10 U/L (15-37); SGPT/ALT 12 U/L (12-78)
[2017-06-22 07:18] LABS: ALK PHOS 146 U/L (45-117); BILIRUBIN,TOTAL 1.2 mg/dL (0.2-1.0); TOT PROT 7.1 g/dl (6.4-8.2)
[2017-06-22] MEDS: CARVEDILOL 3.125 MG TABLET (FP) PO SCH ×2 (09:01→22:01)
[2017-06-22] MEDS: PANTOPRAZOLE 40 MG TABLET (FP) PO SCH (09:02)
[2017-06-22] MEDS: ISOSORBIDE MONONITRATE 60 MG TAB.SR.24H (FP) PO SCH (09:02)
[2017-06-22] MEDS: CALCIUM ACETATE 667 MG CAPSULE (FP) PO SCH (09:03)
[2017-06-22] MEDS: CALCITRIOL 0.25 MCG CAPSULE (FP) PO SCH (09:05)
--- NOTE | 2017-06-22 09:13 | PN ---
Physical Exam: SUBJECTIVE: Patient seen and examined at bedside. Pt states his pain has resolved. No other complaints at this time. Pt denies sob, abd pain, nausea, vomiting, diarrhea, disuria, weakness, malaise, fever. OBJECTIVE: Vital Signs Period Temp Pulse Resp BP Sys/Parham Pulse Ox Last 24 Hr 97.5 F-99 F 57-65 10-19 97-118/53-71 98-100 GENERAL: The patient is awake, alert, and fully oriented, in no acute distress. HEAD: Normal with no signs of trauma. EYES: fixed dilated unequal non-round pupils (s/p cataract surgery), EOMI, sclera anicteric, conjunctiva clear. No ptosis. ENT: Ears normal, nares patent, oropharynx clear without exudates, moist mucous membranes. NECK: Trachea midline, full range of motion, supple. LUNGS: Breath sounds equal, clear to auscultation bilaterally, no wheezes, no crackles, no accessory muscle use. HEART: Regular rate and rhythm, S1, S2 without murmur, rub or gallop. ABDOMEN: Soft, nontender, nondistended, normoactive bowel sounds, no guarding, no rebound, no hepatosplenomegaly, no masses. EXTREMITIES: 2+ pulses, warm, well-perfused, no edema. NEUROLOGICAL: Cranial nerves II through XII grossly intact. Normal speech, gait not observed. Unchanged from yest. strength 5/5 throughout, sensation intact. PSYCH: Normal mood, normal affect. SKIN: Warm, dry, normal turgor, no rashes or lesions noted Laboratory Results - last 24 hr 06/21/17 06/21/17 06/21/17 05:25 08:25 09:30 WBC RBC Hgb Hct MCV MCH MCHC RDW Plt Count MPV Neutrophils % Lymphocytes % Monocytes % Eosinophils % Basophils % INR 1.69 H Sodium Potassium Chloride Carbon Dioxide Anion Gap BUN Creatinine Creat Clearance w eGFR POC Glucometer Random Glucose Calcium Total Bilirubin AST ALT Alkaline Phosphatase Creatine Kinase Troponin I 0.44 H D Total Protein Albumin Free T3 1.6 L Blood Type Antibody Screen 06/21/17 06/21/17 06/21/17 11:15 13:20 16:00 WBC RBC Hgb Hct MCV MCH MCHC RDW Plt Count MPV Neutrophils % Lymphocytes % Monocytes % Eosinophils % Basophils % INR Sodium Potassium Chloride Carbon Dioxide Anion Gap BUN Creatinine Creat Clearance w eGFR POC Glucometer [phone] Random Glucose Calcium Total Bilirubin AST ALT Alkaline Phosphatase Creatine Kinase Troponin I 0.40 H Total Protein Albumin Free T3 Blood Type A POSITIVE Antibody Screen Negative 06/21/17 06/21/17 06/21/17 16:00 17:54 23:15 WBC 3.7 L RBC 3.01 L Hgb 10.4 L Hct 31.5 L MCV 104.4 H MCH 34.6 H MCHC 33.1 RDW 16.6 H Plt Count 82 L D MPV 9.5 Neutrophils % 65.0 Lymphocytes % 23.6 Monocytes % 6.9 Eosinophils % 3.4 Basophils % 1.1 INR Sodium Potassium Chloride Carbon Dioxide Anion Gap BUN Creatinine Creat Clearance w eGFR POC Glucometer [phone] Random Glucose Calcium Total Bilirubin AST ALT Alkaline Phosphatase Creatine Kinase 103 Troponin I 0.34 H Total Protein Albumin Free T3 Blood Type Antibody Screen 06/22/17 06/22/17 06/22/17 05:15 05:15 05:15 WBC RBC Hgb Hct MCV MCH MCHC RDW Plt Count MPV Neutrophils % Lymphocytes % Monocytes % Eosinophils % Basophils % INR 1.43 H Sodium 137 Potassium 4.3 D Chloride 98 Carbon Dioxide 27 Anion Gap 12 BUN 42 H D Creatinine 5.7 H D Creat Clearance w eGFR 10.30 POC Glucometer Random Glucose 134 H Calcium 8.8 Total Bilirubin 1.2 H AST 10 L ALT 12 Alkaline Phosphatase 146 H Creatine Kinase Troponin I 0.82 H* D Total Protein 7.1 Albumin 3.3 L Free T3 Blood Type Antibody Screen Active Medications Generic Name Dose Route Start Last Admin Trade Name Freq PRN Reason Stop Dose Admin Acetaminophen 650 mg 06/21/17 19:41 06/22/17 07:48 Tylenol - PO 650 mg Q6H PRN Administration PAIN SCALE 6-10 Atorvastatin Calcium 40 mg 06/21/17 22:00 06/21/17 21:16 Lipitor - PO 40 mg HS [facility] Administration Calcitriol 0.5 mcg 06/21/17 10:00 06/21/17 11:00 Rocaltrol - PO Not Given TuThFr@1000 [facility] Calcium Acetate 667 mg 06/21/17 10:00 06/21/17 11:00 Phoslo - PO Not Given DAILY [facility] Carvedilol 3.125 mg 06/21/17 10:00 06/21/17 21:16 Coreg - PO 3.125 mg BID [facility] Administration Chlorhexidine Gluconate 1 applic 06/21/17 22:00 06/21/17 21:16 Hibiclens For Decolonization - TP 1 applic HS [facility] Administration Insulin Aspart 0 vial 06/21/17 07:00 06/22/17 06:15 Novolog Vial Sliding Scale - SQ 2 unit ACHS [facility] Administration Protocol Insulin Detemir 7 units 06/21/17 22:00 06/21/17 21:41 Levemir Vial SQ 7 units HS [facility] Administration Isosorbide Mononitrate 30 mg 06/21/17 10:00 06/21/17 11:00 Imdur - PO Not Given DAILY [facility] Levothyroxine Sodium 50 mcg 06/21/17 07:00 06/22/17 06:14 Synthroid - PO 50 mcg DAILY@0700 [facility] Administration Loperamide HCl 4 mg 06/21/17 20:42 06/21/17 21:10 Imodium - PO 4 mg Q6H PRN Administration DIARRHEA Mupirocin 1 applic 06/21/17 10:00 06/21/17 21:16 Bactroban Ointment (For Decolonization) - NS 06/26/17 09:59 1 applic BID [facility] Administration Pantoprazole Sodium 40 mg 06/21/17 10:00 06/21/17 11:00 Protonix - PO Not Given DAILY [facility] Sevelamer Carbonate 2.4 gm 06/21/17 12:00 06/21/17 13:00 Renvela Powder Packet - PO Not Given DAILY@1200 [facility] ASSESSMENT/PLAN: 57yo man with PMH of ESRD on HD (M,W,F), CAD s/p stent (on ASA, Lipitor), IDDM, Hypothyroidism (on Levothyroxine), 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 #Acute R temporal lobe hemorrhage -Neurosurgery consulted (Dr. Farmer)- no intervention at this time -Head CT 06/20: right temporal hemorrhage, 06/21 3am: R ventricle antrum hemorrhage, 06/21 10:56 am: slightly increased size of hemorrhage -Neuro checks q2h and fall precautions -Hold home ASA and Coumadin -INR 1.43 (06/22) #ESRD on HD (M/W/F) -Nephrology consulted (Dr. Farooq) -HD (06/21) -Continue home Sevelmer 2.4 g PO daily, Phosplo 667mg PO daily, Calcitriol 0.5mcg PO //Mon -BMP (06/22) BUN 42, Laboratory Apparatus Glass Blower 5.7 #Moderate thrombocytopenia: chronically low (40-60K); possibly 2/2 liver cirrhosis from heavy EtOH abuse (prior scan showed ascites, GI consult on xx evaluated for cirrhosis, macrocytic anemia also c/w EtOH abuse) -Transfused platelets (06/21), f/u CBC (06/21) Hgb 10.4, Hct 31.5, plt 82 #Atypical chest pain -First troponin 0.16-> 0.32 -> 0.44 -> 0.40 -> HD -> 0.34 -> 0.82 -Continuous cardiac monitoring -Reproducible pain only present with palpation: RESOLVED -EKG: no ST changes #HTN -Continue home Isosorbide mononitrate 30mg PO daily -Continue home Carvedilol 3.125 mg PO daily #CAD -Continue home Atorvastatin 40mg PO HS #Hypothyroidism -TSH 198 (prior 241), T4 0.61, T3 1.6 -Continue home levothyroxine 50mcg PO Daily, and adjust cautiously due to significant according to TFTs -Pt reported compliance to another resident yest #IDDM -BGM ACHS -ISS ACHS -Continue home insulin glargine 5U SQ HS #F/E/N -NO IVF needed at this time -Electrolytes wnl -NPO #Prophylaxis -DVT - moderate risk, hold Heparin due to acute intracranial hemorrhage -GI prophylaxis - continue home Omeprazole 40mg PO HS #Dispo -Admit to ICU -FULL Code Visit type - Emergency Visit Emergency Visit: Yes ED Registration Date: 06/20/17 Care time: The patient presented to the Emergency Department on the above date and was hospitalized for further evaluation of their emergent condition. - New Patient This patient is new to me today: No - Critical Care Critical Care patient: No - Discharge Referral Referred to [facility] Med P.C.: No
--- NOTE | 2017-06-22 09:31 | PN ---
Physical Exam: SUBJECTIVE: Patient seen and examined at bedside in ICU. He states he had an all of sudden severe headache this morning that was mainly in his neck and worse on the left than on the right. He feels like it has improved somewhat after getting tylenol. He denies any fevers, chills, dizziness, nausea, vomiting, chest pain. He also says he slept well last night. OBJECTIVE: Vital Signs Temperature 97.6 F 06/22/17 06:00 Pulse Rate 60 06/22/17 06:00 Respiratory Rate 19 06/22/17 08:08 Blood Pressure 97/55 06/22/17 06:00 O2 Sat by Pulse Oximetry (%) 98 06/22/17 08:08 GENERAL: The patient is awake, alert, and fully oriented, in no acute distress. HEAD: pain at occiptal area of head. EYES: Pupils NOT reactive to light, extraocular movements intact, sclera anicteric, conjunctiva clear. No ptosis. ENT: Ears normal, nares patent, tongue midline. NECK: +Muscle spasm at L trapezius. Trachea midline, full range of motion. LUNGS: Breath sounds equal, clear to auscultation bilaterally HEART: Regular rate and rhythm, S1, S2 without murmur, rub or gallop. ABDOMEN: Soft, nontender, nondistended, normoactive bowel sounds EXTREMITIES: warm, well-perfused, no edema. 5/5 UE and LE strength. L arm AV fistula. NEUROLOGICAL: Normal speech, gait not observed. PSYCH: Normal mood, normal affect. SKIN: Warm, dry Laboratory Results - last 24 hr 06/21/17 06/21/17 06/21/17 05:25 09:30 11:15 WBC RBC Hgb Hct MCV MCH MCHC RDW Plt Count MPV Neutrophils % Lymphocytes % Monocytes % Eosinophils % Basophils % INR 1.69 H Sodium Potassium Chloride Carbon Dioxide Anion Gap BUN Creatinine Creat Clearance w eGFR POC Glucometer Random Glucose Calcium Total Bilirubin AST ALT Alkaline Phosphatase Creatine Kinase Troponin I Total Protein Albumin Free T3 1.6 L Blood Type A POSITIVE Antibody Screen Negative 06/21/17 06/21/17 06/21/17 13:20 16:00 16:00 WBC 3.7 L RBC 3.01 L Hgb 10.4 L Hct 31.5 L MCV 104.4 H MCH 34.6 H MCHC 33.1 RDW 16.6 H Plt Count 82 L D MPV 9.5 Neutrophils % 65.0 Lymphocytes % 23.6 Monocytes % 6.9 Eosinophils % 3.4 Basophils % 1.1 INR Sodium Potassium Chloride Carbon Dioxide Anion Gap BUN Creatinine Creat Clearance w eGFR POC Glucometer [phone] Random Glucose Calcium Total Bilirubin AST ALT Alkaline Phosphatase Creatine Kinase Troponin I 0.40 H Total Protein Albumin Free T3 Blood Type Antibody Screen 06/21/17 06/21/17 06/22/17 17:54 23:15 05:15 WBC RBC Hgb Hct MCV MCH MCHC RDW Plt Count MPV Neutrophils % Lymphocytes % Monocytes % Eosinophils % Basophils % INR 1.43 H Sodium Potassium Chloride Carbon Dioxide Anion Gap BUN Creatinine Creat Clearance w eGFR POC Glucometer [phone] Random Glucose Calcium Total Bilirubin AST ALT Alkaline Phosphatase Creatine Kinase 103 Troponin I 0.34 H Total Protein Albumin Free T3 Blood Type Antibody Screen 06/22/17 06/22/17 05:15 05:15 WBC RBC Hgb Hct MCV MCH MCHC RDW Plt Count MPV Neutrophils % Lymphocytes % Monocytes % Eosinophils % Basophils % INR Sodium 137 Potassium 4.3 D Chloride 98 Carbon Dioxide 27 Anion Gap 12 BUN 42 H D Creatinine 5.7 H D Creat Clearance w eGFR 10.30 POC Glucometer Random Glucose 134 H Calcium 8.8 Total Bilirubin 1.2 H AST 10 L ALT 12 Alkaline Phosphatase 146 H Creatine Kinase Troponin I 0.82 H* D Total Protein 7.1 Albumin 3.3 L Free T3 Blood Type Antibody Screen Active Medications Generic Name Dose Route Start Last Admin Trade Name Freq PRN Reason Stop Dose Admin Acetaminophen 650 mg 06/21/17 19:41 06/22/17 07:48 Tylenol - PO 650 mg Q6H PRN Administration PAIN SCALE 6-10 Atorvastatin Calcium 40 mg 06/21/17 22:00 06/21/17 21:16 Lipitor - PO 40 mg HS [facility] Administration Calcitriol 0.5 mcg 06/21/17 10:00 06/22/17 09:05 Rocaltrol - PO 0.5 mcg TuThFr@1000 [facility] Administration Calcium Acetate 667 mg 06/21/17 10:00 06/22/17 09:03 Phoslo - PO 667 mg DAILY [facility] Administration Carvedilol 3.125 mg 06/21/17 10:00 06/22/17 09:01 Coreg - PO 3.125 mg BID [facility] Administration Chlorhexidine Gluconate 1 applic 06/21/17 22:00 06/21/17 21:16 Hibiclens For Decolonization - TP 1 applic HS [facility] Administration Insulin Aspart 0 vial 06/21/17 07:00 06/22/17 06:15 Novolog Vial Sliding Scale - SQ 2 unit ACHS [facility] Administration Protocol Insulin Detemir 7 units 06/21/17 22:00 06/21/17 21:41 Levemir Vial SQ 7 units HS [facility] Administration Isosorbide Mononitrate 30 mg 06/21/17 10:00 06/22/17 09:02 Imdur - PO 30 mg DAILY [facility] Administration Levothyroxine Sodium 50 mcg 06/21/17 07:00 06/22/17 06:14 Synthroid - PO 50 mcg DAILY@0700 [facility] Administration Loperamide HCl 4 mg 06/21/17 20:42 06/21/17 21:10 Imodium - PO 4 mg Q6H PRN Administration DIARRHEA Mupirocin 1 applic 06/21/17 10:00 06/21/17 21:16 Bactroban Ointment (For Decolonization) - NS 06/26/17 09:59 1 applic BID [facility] Administration Pantoprazole Sodium 40 mg 06/21/17 10:00 06/22/17 09:02 Protonix - PO 40 mg DAILY [facility] Administration Sevelamer Carbonate 2.4 gm 06/21/17 12:00 06/21/17 13:00 Renvela Powder Packet - PO Not Given DAILY@1200 [facility] ASSESSMENT/PLAN: 57 y/o M w/ PMH of ESRD on HD (MWF), IDDM, CAD s/p multiple stents, HTN, A-fib ( on coumadin), CVA (w/no deficits), HTN, hypothyroidism comes in s/p mechanical fall where he hit his head. Found to have acute intracranial hemorrhage and admitted to the ICU. -Neuro: -Acute Intracranial Hemorrhage -neurosurgery on board, neuro on board -neuro checks q4h -Last Head CT shows: Acute intraventricular hemorrhage is seen in the atrium of the right lateral ventricle surrounding the choroid plexus, right occipital horn of lateral ventricle. Slightly increased volume of intraventricular hemorrhage with expansion of the occipital horn of right lateral ventricle, measuring on coronal 9.8 mm versus 6.4 mm, on axial 10 mm versus versus 8.5 mm, in comparison to the prior ct at 02:45 am. Reported By: Edgar Beal MD 06/21/17 1306 -Hold A/C - can resume in 1-2 weeks if pt remains stable as per neurosurgery -No need for surgical intervention at this time as per neurosurgery. -s/p Tranfusion w/platelets x1 and FFP x1. Given 10 mg IV Vit K as well during this admission -INR now 1.43 -No neurological deficits noted at this time. -Headache -IV ofirmev 1g once stat ordered. -appears to be musculoskeletal in nature from L trapezius muscle spasm -Renal -ESRD -HD as per nephro -C/V -Elevated trops - now at 0.82 -monitor -likely secondary to Intracrainal hemorrhage, ESRD and hx of multiple stents -No chest pain or pressure complaints at this time -Thrombocytopenia -Platelets transfused -Last platelet count now 82 s/p transfusion -monitor -Endocrine -Hypothyroidism -TSH 198, Free T4 0.61 -on synthroid 50 mcg po qd, may need increase in dose -Prophylaxis -DVT: SCDs -GI: Protonix 40 mg po qd -FEN -No fluids at this time -Monitor lytes, on HD -Diabetic, Renal Diet -Dispo: -Transfer to floors Visit type - Emergency Visit Emergency Visit: Yes ED Registration Date: 06/20/17 Care time: The patient presented to the Emergency Department on the above date and was hospitalized for further evaluation of their emergent condition. - New Patient This patient is new to me today: No - Critical Care Critical Care patient: Yes Total Critical Care Time (in minutes): 35 Critical Care Statement: The care of this patient involved high complexity decision making to prevent further life threatening deterioration of the patient 's condition and/or to evalute & treat vital organ system(s) failure or risk of failure.
[2017-06-22] MEDS: MUPIROCIN 2% TOPICAL OINTMENT FOR DECOLONIZATION NS SCH (09:57)
[2017-06-22 11:12] LABS: MCH 35.3 pg (25.7-33.7); MCHC 33.7 g/dl (32.0-35.9); MEAN CELL VOLUME 104.6 fl (80-96); MEAN PLT VOLUME 8.5 fl (7.5-11.1); PLATELET COUNT 67 K/MM3 (134-434); RDW 15.9 % (11.9-15.9); WHITE BLOOD COUNT 3.7 K/mm3 (4.0-10.0)
[2017-06-22] MEDS ORDERED: ACETAMINOPHEN 1000 MG/100 ML VIAL (NON FORMULARY) IVPB ONE (11:15)
--- NOTE | 2017-06-22 11:24 | PN ---
Teaching Attending Note Name of Resident: Trev Garner ATTENDING PHYSICIAN STATEMENT I saw and evaluated the patient. I reviewed the resident's note and discussed the case with the resident. I agree with the resident's findings and plan as documented. SUBJECTIVE: Pt seen and examined in the ICU. c/o pain in back of neck down left trapezius. No headache, nausea or visual disturbances. OBJECTIVE: Last Vital Signs Temp Pulse Resp BP Pulse Ox 98.6 F 60 20 107/60 98 06/22/17 10:00 06/22/17 10:00 06/22/17 10:00 06/22/17 10:00 06/22/17 08:08 Intake & Output 06/19/17 06/20/17 06/21/17 06/22/17 23:59 23:59 23:59 23:59 Intake Total 439 Balance 439 Weight 146 lb 12.8 oz 146 lb 4.8 oz 149 lb 8 oz Gen: NAD at rest Heart: RRR Lung: decreased breath sounds at the bases Abd: soft, nontender Ext: no edema CBC, BMP 06/22/17 11:05 06/22/17 05:15 Active Medications Acetaminophen (Tylenol -) 650 mg PO Q6H PRN PRN Reason: PAIN SCALE 6-10 Last Admin: 06/22/17 07:48 Dose: 650 mg Atorvastatin Calcium (Lipitor -) 40 mg PO [facility] Last Admin: 06/21/17 21:16 Dose: 40 mg Calcitriol (Rocaltrol -) 0.5 mcg PO TuThFr@1000 [facility] Last Admin: 06/22/17 09:05 Dose: 0.5 mcg Calcium Acetate (Phoslo -) 667 mg PO DAILY [facility] Last Admin: 06/22/17 09:03 Dose: 667 mg Carvedilol (Coreg -) 3.125 mg PO BID [facility] Last Admin: 06/22/17 09:01 Dose: 3.125 mg Chlorhexidine Gluconate (Hibiclens For Decolonization -) 1 applic TP [facility] Last Admin: 06/21/17 21:16 Dose: 1 applic Insulin Aspart (Novolog Vial Sliding Scale -) 0 vial SQ ACHS [facility] PRN Reason: Protocol Last Admin: 06/22/17 11:10 Dose: 4 unit Insulin Detemir (Levemir Vial) 7 units SQ [facility] Last Admin: 06/21/17 21:41 Dose: 7 units Isosorbide Mononitrate (Imdur -) 30 mg PO DAILY [facility] Last Admin: 06/22/17 09:02 Dose: 30 mg Levothyroxine Sodium (Synthroid -) 50 mcg PO DAILY@0700 [facility] Last Admin: 06/22/17 06:14 Dose: 50 mcg Loperamide HCl (Imodium -) 4 mg PO Q6H PRN PRN Reason: DIARRHEA Last Admin: 06/21/17 21:10 Dose: 4 mg Mupirocin (Bactroban Ointment (For Decolonization) -) 1 applic NS BID [facility] Stop: 06/26/17 09:59 Last Admin: 06/22/17 09:57 Dose: 1 applic Pantoprazole Sodium (Protonix -) 40 mg PO DAILY [facility] Last Admin: 06/22/17 09:02 Dose: 40 mg Sevelamer Carbonate (Renvela Powder Packet -) 2.4 gm PO DAILY@1200 [facility] Last Admin: 06/21/17 13:00 Dose: Not Given ASSESSMENT AND PLAN: s/p Fall Intracranial Hemorrhage Atrial Fibrillation Platelet dysfunction from ASA Thrombocytopenia from presumed liver disease ESRD on HD CAD h/o CVA HTN DM Hypothyroidism - pain control - monitor CBC, coags - HD per renal - increase synthroid dose if pt compliant with home dose - DVT prophylaxis - can monitor on floor
--- NOTE | 2017-06-22 12:48 | PN ---
Progress Note (short form) - Note Progress Note: Renal Follow up for ESRD on HD Pt seen and examined in the ICU awake and alert has pain on the left side of his neck no change in MS, CUADRA, N/V/D s/p dialysis yesterday Vital Signs Temperature 98.6 F 06/22/17 10:00 Pulse Rate 57 L 06/22/17 11:59 Respiratory Rate 19 06/22/17 11:59 Blood Pressure 106/55 06/22/17 11:59 O2 Sat by Pulse Oximetry (%) 98 06/22/17 08:08 Intake & Output 06/19/17 06/20/17 06/21/17 06/22/17 23:59 23:59 23:59 23:59 Intake Total 439 Balance 439 Weight 146 lb 12.8 oz 146 lb 4.8 oz 149 lb 8 oz Gen: NAD, awake and alert CVS: irregular, no M/R Lungs: CTA, no rales or wheeze Abd: soft NT Ext: no edema, clubbing or cyanosis CBC, BMP 06/22/17 11:05 06/22/17 05:15 Current Medications Acetaminophen (Tylenol -) 650 mg PO Q6H PRN PRN Reason: PAIN SCALE 6-10 Last Admin: 06/22/17 07:48 Dose: 650 mg Atorvastatin Calcium (Lipitor -) 40 mg PO [facility] Last Admin: 06/21/17 21:16 Dose: 40 mg Calcitriol (Rocaltrol -) 0.5 mcg PO TuThFr@1000 [facility] Last Admin: 06/22/17 09:05 Dose: 0.5 mcg Calcium Acetate (Phoslo -) 667 mg PO DAILY [facility] Last Admin: 06/22/17 09:03 Dose: 667 mg Carvedilol (Coreg -) 3.125 mg PO BID [facility] Last Admin: 06/22/17 09:01 Dose: 3.125 mg Chlorhexidine Gluconate (Hibiclens For Decolonization -) 1 applic TP [facility] Last Admin: 06/21/17 21:16 Dose: 1 applic Insulin Aspart (Novolog Vial Sliding Scale -) 0 vial SQ ACHS [facility] PRN Reason: Protocol Last Admin: 06/22/17 11:10 Dose: 4 unit Insulin Detemir (Levemir Vial) 7 units SQ [facility] Last Admin: 06/21/17 21:41 Dose: 7 units Isosorbide Mononitrate (Imdur -) 30 mg PO DAILY [facility] Last Admin: 06/22/17 09:02 Dose: 30 mg Levothyroxine Sodium (Synthroid -) 50 mcg PO DAILY@0700 [facility] Last Admin: 06/22/17 06:14 Dose: 50 mcg Loperamide HCl (Imodium -) 4 mg PO Q6H PRN PRN Reason: DIARRHEA Last Admin: 06/21/17 21:10 Dose: 4 mg Mupirocin (Bactroban Ointment (For Decolonization) -) 1 applic NS BID [facility] Stop: 06/26/17 09:59 Last Admin: 06/22/17 09:57 Dose: 1 applic Pantoprazole Sodium (Protonix -) 40 mg PO DAILY [facility] Last Admin: 06/22/17 09:02 Dose: 40 mg Sevelamer Carbonate (Renvela Powder Packet -) 2.4 gm PO DAILY@1200 [facility] Last Admin: 06/21/17 13:00 Dose: Not Given 57 year old gentleman with PMhx of ESRD on HD (MWF), CAD s/p ME/PCI, Afib on warfarin, IDDM, Hyperlipdemia who presented with complaints of dizziness and found to have have a right ICH. #Spontaneous ICH in setting of Warfarin/Plavix/ASA INR improved Neurology consult noted Serial CT scans performed Pt has CUADRA/Neck Pain ? Musculoskeletal in etiology management as per ICU/Neurology #ESRD on HD with Hyperkalemia s/p dialysis yesterday no acute indication for treatment today next dialysis tomorrow, will still do shorter HD with smaller dialyzer to minimize fluid shifts #Thrombocytopenia Plt transfusion as needed ? etiology of low plt counts #Renal Osteodystropy continue renvela Thank you Will follow Yonis Farooq DO Problem List - Problems (1) A-fib Code(s): I48.91 - UNSPECIFIED ATRIAL FIBRILLATION Qualifiers: Atrial fibrillation type: paroxysmal Qualified Code(s): I48.0 - Paroxysmal atrial fibrillation (2) CAD (coronary artery disease) Code(s): I25.10 - ATHSCL HEART DISEASE OF [place] CORONARY ARTERY W/O ANG PCTRS Qualifiers: Coronary Disease-Associated Artery/Lesion type: [place] artery [place] vs. transplanted heart: [place] heart Associated angina: with stable angina Qualified Code(s): I25.118 - Atherosclerotic heart disease of [place] coronary artery with other forms of angina pectoris (3) Diabetes Code(s): E11.9 - TYPE 2 DIABETES MELLITUS WITHOUT COMPLICATIONS (4) End stage chronic kidney disease Code(s): N18.6 - END STAGE RENAL DISEASE Z99.2 - DEPENDENCE ON RENAL DIALYSIS (5) ICH (intracerebral hemorrhage) Code(s): I61.9 - NONTRAUMATIC INTRACEREBRAL HEMORRHAGE, UNSPECIFIED
--- NOTE | 2017-06-22 14:27 | PN ---
Teaching Attending Note Name of Resident: Neil Hines ATTENDING PHYSICIAN STATEMENT I saw and evaluated the patient. I reviewed the resident's note and discussed the case with the resident. I agree with the resident's findings and plan as documented. SUBJECTIVE: no fever or chills, no CP or SOB . has L occipital CUADRA , reports weakness especially in L side OBJECTIVE: NAD , Awale and alert HEENT: AT, NC, EOMI, deformed pupils , not reactive to light . EOMI. MMM CV : RRR, 2/6 SM at RUSB . R pulse1+ b/l , DP 1 + b/l Lungs : CTAB ext : no edema Neuro : EOMI, deformed pupils , not reactive to light , no facial droop, tongue and uvula at md line , nl facial sensation . Strength 5/5 in upper and lower extremities proximally and distally, sensation to light touch NL. reflexes 2+ knee jerk and biceps b/l ASSESSMENT AND PLAN: 57 y/o man with h/o CAD , s/p PCIs , ICMP , IDDM , S CHF , CVA , ESRD, MR ,P A fib on coumadin, recently diagnosed hypothyroidism , and other medical problems who presented a fall, and CUADRA 1- S/p Mechanical fall, s/p R temporal bleed: neuro exam cont to be NL. s/p Vit K and FFP and PLT - Stable exam , no need for intervention . - hold anticoagulation ASA and plavix - neuro checks 2- Trop elevation , very mild , denies cp . could be due to renal disease but has h/o CAD and stents . last time was seen by card medical mgt was indicated - repeat EKG - can't give asa due to ICH - tele - card 3- ESRD: due for HD tomorrow mild hyperkalemia resolved 4- Hypothyroidism: was started on Synthroid 50 mcg last admission 4 weeks ago. reports to be compliant with his meds . -will avoid increasing his synthroid due to rising trop -thyroglobulin and thyroid peroxidase Abs were neg last month 5- THrombocytopenia , chronic , likely due to liver cirrhosis seen on a PREVIOUS ct SCAN . FURTHER W/U by GI OUT PT Dispo :Tx to Tele
--- NOTE | 2017-06-22 15:34 | EKG ---
Test Reason : Blood Pressure : / mmHG Vent. Rate : 056 BPM Atrial Rate : 056 BPM P-R Int : 264 ms QRS Dur : 120 ms QT Int : 502 ms P-R-T Axes : 067 120 241 degrees QTc Int : 484 ms SINUS BRADYCARDIA WITH 1ST DEGREE A-V BLOCK LEFT POSTERIOR FASCICULAR BLOCK ABNORMAL ECG WHEN COMPARED WITH ECG OF 20-JUN-2017 19:42, T WAVE INVERSION LESS EVIDENT IN INFERIOR LEADS Confirmed by TRAN DALTON, TAVIA ([id number]) on 06/22/2017 3:34:17 PM Referred By: CY YUN Confirmed By:TAVIA MAYFIELD MD
[2017-06-22] MEDS ORDERED: HEMOQUE TEST 1 EACH EACH ONE (16:07)
[2017-06-22] MEDS ORDERED: PT OWN MED DRAWER 7, Y5N ONE (16:08)
--- NOTE | 2017-06-22 17:17 | PN ---
Physical Exam: SUBJECTIVE: Patient seen and examined at bedside. Pt complains of mild pain in the left neck. No other complaints at this time. Pt denies sob, abd pain, nausea , vomiting, diarrhea, disuria, weakness, malaise, fever. OBJECTIVE: Vital Signs Period Temp Pulse Resp BP Sys/Parham Pulse Ox Last 24 Hr 97.6 F-99 F 56-65 12-20 91-118/50-71 98-100 GENERAL: The patient is awake, alert, and fully oriented, in no acute distress. HEAD: Normal with no signs of trauma. EYES: PERRL, extraocular movements intact, sclera anicteric, conjunctiva clear. No ptosis. ENT: oropharynx clear without exudates, moist mucous membranes. NECK: Trachea midline, full range of motion, supple. LUNGS: Breath sounds equal, clear to auscultation bilaterally, no wheezes, no crackles, no accessory muscle use. HEART: Regular rate and rhythm, normal S1, S2 3/6 systolic murmur L upper sternal border, no rub or gallop. ABDOMEN: Soft, nontender, nondistended, normoactive bowel sounds, no guarding, no rebound, no hepatosplenomegaly, no masses. EXTREMITIES: 2+ pulses, warm, well-perfused, no edema. NEUROLOGICAL: Cranial nerves II through XII grossly intact. Normal speech, gait not observed. strength 5/5 throughout. Sensation intact throughout. PSYCH: Normal mood, normal affect. SKIN: Warm, dry, normal turgor, no rashes or lesions noted Laboratory Results - last 24 hr 06/21/17 06/21/17 06/21/17 05:25 11:15 16:00 WBC RBC Hgb Hct MCV MCH MCHC RDW Plt Count MPV INR Sodium Potassium Chloride Carbon Dioxide Anion Gap BUN Creatinine Creat Clearance w eGFR POC Glucometer Random Glucose Calcium Total Bilirubin AST ALT Alkaline Phosphatase Creatine Kinase Troponin I 0.40 H Total Protein Albumin Free T3 1.6 L Blood Type A POSITIVE Antibody Screen Negative 06/21/17 06/21/17 06/21/17 17:54 21:20 23:15 WBC RBC Hgb Hct MCV MCH MCHC RDW Plt Count MPV INR Sodium Potassium Chloride Carbon Dioxide Anion Gap BUN Creatinine Creat Clearance w eGFR POC Glucometer [phone] Random Glucose Calcium Total Bilirubin AST ALT Alkaline Phosphatase Creatine Kinase 103 Troponin I 0.34 H Total Protein Albumin Free T3 Blood Type Antibody Screen 06/22/17 06/22/17 06/22/17 05:15 05:15 05:15 WBC RBC Hgb Hct MCV MCH MCHC RDW Plt Count MPV INR 1.43 H Sodium 137 Potassium 4.3 D Chloride 98 Carbon Dioxide 27 Anion Gap 12 BUN 42 H D Creatinine 5.7 H D Creat Clearance w eGFR 10.30 POC Glucometer Random Glucose 134 H Calcium 8.8 Total Bilirubin 1.2 H AST 10 L ALT 12 Alkaline Phosphatase 146 H Creatine Kinase Troponin I 0.82 H* D Total Protein 7.1 Albumin 3.3 L Free T3 Blood Type Antibody Screen 06/22/17 06/22/17 06/22/17 05:52 11:05 11:05 WBC 3.7 L RBC 2.93 L Hgb 10.3 L Hct 30.7 L MCV 104.6 H MCH 35.3 H MCHC 33.7 RDW 15.9 Plt Count 67 L MPV 8.5 D INR Sodium Potassium Chloride Carbon Dioxide Anion Gap BUN Creatinine Creat Clearance w eGFR POC Glucometer [phone] Random Glucose Calcium Total Bilirubin AST ALT Alkaline Phosphatase Creatine Kinase Troponin I 0.94 H* Total Protein Albumin Free T3 Blood Type Antibody Screen 06/22/17 06/22/17 11:06 16:11 WBC RBC Hgb Hct MCV MCH MCHC RDW Plt Count MPV INR Sodium Potassium Chloride Carbon Dioxide Anion Gap BUN Creatinine Creat Clearance w eGFR POC Glucometer [phone] Random Glucose Calcium Total Bilirubin AST ALT Alkaline Phosphatase Creatine Kinase Troponin I Total Protein Albumin Free T3 Blood Type Antibody Screen Active Medications Generic Name Dose Route Start Last Admin Trade Name Freq PRN Reason Stop Dose Admin Acetaminophen 650 mg 06/21/17 19:41 06/22/17 07:48 Tylenol - PO 650 mg Q6H PRN Administration PAIN SCALE 6-10 Atorvastatin Calcium 40 mg 06/21/17 22:00 06/21/17 21:16 Lipitor - PO 40 mg HS EVA Administration Calcitriol 0.5 mcg 06/21/17 10:00 06/22/17 09:05 Rocaltrol - PO 0.5 mcg TuThFr@1000 EVA Administration Calcium Acetate 667 mg 06/21/17 10:00 06/22/17 09:03 Phoslo - PO 667 mg DAILY EVA Administration Carvedilol 3.125 mg 06/21/17 10:00 06/22/17 09:01 Coreg - PO 3.125 mg BID EVA Administration Chlorhexidine Gluconate 1 applic 06/21/17 22:00 06/21/17 21:16 Hibiclens For Decolonization - TP 1 applic HS EVA Administration Epoetin Nolberto 4,000 units 06/23/17 06:00 Epogen - IVPUSH 06/23/17 06:01 ONCE ONE Insulin Aspart 0 vial 06/21/17 07:00 06/22/17 11:10 Novolog Vial Sliding Scale - SQ 4 unit ACHS EVA Administration Protocol Insulin Detemir 7 units 06/21/17 22:00 06/21/17 21:41 Levemir Vial SQ 7 units HS EVA Administration Isosorbide Mononitrate 30 mg 06/21/17 10:00 06/22/17 09:02 Imdur - PO 30 mg DAILY EVA Administration Levothyroxine Sodium 50 mcg 06/21/17 07:00 06/22/17 06:14 Synthroid - PO 50 mcg DAILY@0700 EVA Administration Loperamide HCl 4 mg 06/21/17 20:42 06/21/17 21:10 Imodium - PO 4 mg Q6H PRN Administration DIARRHEA Mupirocin 1 applic 06/21/17 10:00 06/22/17 09:57 Bactroban Ointment (For Decolonization) - NS 06/26/17 09:59 1 applic BID EVA Administration Pantoprazole Sodium 40 mg 06/21/17 10:00 06/22/17 09:02 Protonix - PO 40 mg DAILY EVA Administration Sevelamer Carbonate 2.4 gm 06/21/17 12:00 06/21/17 13:00 Renvela Powder Packet - PO Not Given DAILY@1200 [facility] ASSESSMENT/PLAN: 57yo man with PMH of ESRD on HD (M,W,F), CAD s/p stent (on ASA, Lipitor), IDDM, Hypothyroidism (on Levothyroxine), 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 #Acute R temporal lobe hemorrhage -Neurosurgery consulted (Dr. Farmer)- no intervention at this time -Head CT stable -Neuro checks q2h and fall precautions -Hold home ASA and Coumadin. Per ICU note, neurosurg recs resuming anticoag in 1 -2 weeks if pt stable -INR 1.43 (06/22) #ESRD on HD (M/W/F) -Nephrology consulted (Dr. Farooq) -HD per nephro -Continue home Sevelmer 2.4 g PO daily, Phosplo 667mg PO daily, Calcitriol 0.5mcg PO //Mon -BMP (06/22) BUN 42, Candle Molder Machine 5.7 -f/u am labs #Moderate thrombocytopenia: chronically low (40-60K); possibly 2/2 liver cirrhosis from heavy EtOH abuse (prior scan showed ascites) -Transfused platelets, FFP, Vit K (06/21), f/u CBC (06/21) Hgb 10.4, Hct 31.5, plt 82 -f/u am labs #Elevated troponin, likely due to ESRD -Troponin 0.16-> 0.32 -> 0.44 -> 0.40 -> HD -> 0.34 -> 0.82 -> 0.94 -Continuous cardiac monitoring -EKG T inversions less evident than prior EKG -No chest pain #HTN: controlled -Continue home Isosorbide mononitrate 30mg PO daily -Continue home Carvedilol 3.125 mg PO daily #CAD -Continue home Atorvastatin 40mg PO HS #Hypothyroidism -TSH 198 (prior 241), T4 0.61, T3 1.6 -Continue home levothyroxine 50mcg PO Daily, and adjust cautiously due to significant according to TFTs -will wait to increase Synthroid dose as pt is currently in ICU with pos troponins #IDDM -BGM ACHS -ISS ACHS -Continue home insulin glargine 5U SQ HS #F/E/N -NO IVF needed at this time -Electrolytes wnl -NPO #Prophylaxis -DVT - moderate risk, hold Heparin due to acute intracranial hemorrhage -GI prophylaxis - continue home Omeprazole 40mg PO HS #Dispo -Admit to ICU -FULL Code Visit type - Emergency Visit Emergency Visit: No - New Patient This patient is new to me today: No - Critical Care Critical Care patient: No - Discharge Referral Referred to [facility] Med [facility].C.: No
[2017-06-22] MEDS: SEVELAMER CARBONATE 2.4 GM POWDER PACKET PO SCH (17:50)
[2017-06-22] MEDS ORDERED: ACETAMINOPHEN 325 MG TABLET (FP) PO PRN (19:23)
[2017-06-22] MEDS ORDERED: LOPERAMIDE HCL 2 MG CAPSULE PO PRN (19:23)
[2017-06-22] MEDS ORDERED: INSULIN DETEMIR 100 UNITS/ML MDV SQ SCH (22:00)
[2017-06-22] MEDS ORDERED: CHLORHEXIDINE GLUCONATE 4% CLEANSER FOR DECOLONIZATION TP SCH (22:00)
[2017-06-22] MEDS ORDERED: ATORVASTATIN CA 40 MG TABLET (FP) PO SCH (22:00)
[2017-06-22] MEDS ORDERED: MUPIROCIN 2% TOPICAL OINTMENT FOR DECOLONIZATION NS SCH (22:00)
[2017-06-23] MEDS: INSULIN SLIDING SCALE (NOVOLOG) 1 VIAL SQ SCH ×2 (06:40→14:50)
[2017-06-23] MEDS ORDERED: LEVOTHYROXINE NA 50 MCG TABLET (FP) PO SCH (07:00)
[2017-06-23 07:28] LABS: MCH 35.4 pg (25.7-33.7); MCHC 33.8 g/dl (32.0-35.9); MEAN CELL VOLUME 104.7 fl (80-96); MEAN PLT VOLUME 9.3 fl (7.5-11.1); PLATELET COUNT 64 K/MM3 (134-434); WHITE BLOOD COUNT 3.7 K/mm3 (4.0-10.0)
[2017-06-23 07:43] LABS: INR 1.34 (0.82-1.09); PROTHROMBIN TIME (PATIENT) 14.8 SEC (9.98-11.88)
[2017-06-23 08:27] LABS: ALBUMIN 3.3 g/dl (3.4-5.0); ANION GAP 12 (8-16); CALCIUM 9.2 mg/dL (8.5-10.1); CO2 27 mmol/L (21-32); GLUCOSE,RANDOM 172 mg/dL (74-106)
--- NOTE | 2017-06-23 08:33 | PN ---
Progress Note (short form) - Note Progress Note: HPI: 57yo Czech-speaking man with PMH of ESRD on HD (M/W/F), IDDM, CAD s/p multiple stents (on ASA), HTN, ?liver, chronic thrombocytopenia(20-60,000) cirrhosisAfib with embolic CVA with no residual deficits (on Coumadin), HTN, Hypothyroidism (on Levothyroxine), who presents after worsening CUADRA and increasing dizziness for the past day. s/p fall ?-- HD CT showed R IVH. no surgical intervention. denies drinking. FU : awake and conversive, EOMI, no facial, left orbital bruise, motor 5/5 , walking steady [id number] CT/HEAD CT WITHOUT CONTRAST Formation. Increased hemorrhage Clinical information. CT scan of the brain C-. Comparison study CT brain June 23, 2017 at 02:45 AM Findings. Serial axial images of the brain were obtained from foramen magnum to the cranial vertex without intravenous contrast. Acute intraventricular hemorrhage is seen in the atrium of the right lateral ventricle surrounding the choroid plexus, right occipital horn of lateral ventricle. Increased expansion of the occipital horn of right lateral ventricle is noted measuring on coronal 9.8 mm versus 6.4 mm, axial 10 mm versus versus 8.5 mm, in comparison to the prior ct at 02:45 am No evidence of hydrocephalus. No evidence of parenchymal hemorrhage. No evidence of herniation. No CT evidence of acute territorial ischemic changes. Normal saunders matter white matter differentiation. The cortical sulci, sylvian fissures, perimesencephalic cisterns are not effaced. Examination of the bone windows show no fracture. Impression. Acute intraventricular hemorrhage is seen in the atrium of the right lateral ventricle surrounding the choroid plexus, right occipital horn of lateral ventricle. Slightly increased volume of intraventricular hemorrhage with expansion of the occipital horn of right lateral ventricle, measuring on coronal 9.8 mm versus 6.4 mm, on axial 10 mm versus versus 8.5 mm, in comparison to the prior ct at 02:45 am. - Past Medical History Cardio/Vascular: Yes: CAD (patient reports having cath and PCI one year ago at [facility]), HTN, Hyperlipdemia, Mitral Insufficiency, Other (CHF) Renal/: Yes: Renal Failure (CKD on HD), Hemodialysis Endocrine: Yes: Diabetes Mellitus - Past Surgical History Past Surgical History: Yes: AV Fistula/Graft - Alcohol/Substance Use Hx Alcohol Use: No History of Substance Use: reports: Cocaine (intranasal cocaine abuse 30 years prior) - Smoking History Smoking history: Former smoker Have you smoked in the past 12 months: No Aproximately how many cigarettes per day: 0 If you are a former smoker, when did you quit?: 17 yrs ago - Social History ADL: Independent Occupation: [employer] Work History of Recent Travel: No Home Medications - Allergies Allergies/Adverse Reactions: Allergies Allergy/AdvReac Type Severity Reaction Status Date / Time No Known Allergies Allergy Verified 06/20/17 20:38 - Home Medications Home Medications: Ambulatory Orders Aspirin [ASA -] 81 mg PO DAILY 03/08/17 Atorvastatin Ca [Lipitor] 40 mg PO HS 03/08/17 Calcitriol [Calcitriol -] 0.5 mcg PO .TUTHFR DAILY 03/08/17 Isosorbide Mononitrate [Imdur -] 30 mg PO DAILY 03/08/17 Omeprazole 40 mg PO DAILY 03/08/17 Sevelamer Carbonate [Renvela Powder Packet -] 2.4 gm PO DAILY 03/08/17 Calcium Acetate [Phoslo -] 667 mg PO DAILY 05/17/17 Carvedilol [Coreg -] 3.125 mg PO BID 05/17/17 Levothyroxine [Synthroid -] 50 mcg PO DAILY@0700 #30 tablet 05/26/17 Insulin Glargine,Hum.rec.anlog [Lantus (10mL VIAL) -] 7 units SQ HS 06/21/17 Isosorbide Mononitrate [Imdur] 60 mg PO DAILY 06/21/17 Warfarin Sodium [Coumadin] 2 mg PO DAILY 06/21/17 Family Disease History - Family Disease History Family Disease History: Heart Disease: Father ( in 60's: drowned), Other: Father, Mother (: 60's: "anemia"), Brother (2 healthy), Sister (1: healthy) , Son (3: healthy), Daughter (3: healthy) Physical Exam-Neuro Vital Signs: Vital Signs Temperature 97.7 F 06/23/17 06:00 Pulse Rate 58 L 06/23/17 06:00 Respiratory Rate 20 06/23/17 06:00 Blood Pressure 114/58 06/23/17 06:00 O2 Sat by Pulse Oximetry (%) 98 06/22/17 08:08 Labs: CBCD WBC 3.7 K/mm3 (4.0-10.0) L 06/23/17 05:35 RBC 2.78 M/mm3 (4.00-5.60) L 06/23/17 05:35 Hgb 9.8 GM/dL (11.7-16.9) L 06/23/17 05:35 Hct 29.1 % (35.4-49) L 06/23/17 05:35 MCV 104.7 fl (80-96) H 06/23/17 05:35 MCHC 33.8 g/dl (32.0-35.9) 06/23/17 05:35 RDW 16.0 % (11.9-15.9) H 06/23/17 05:35 Plt Count 64 K/MM3 (134-434) L 06/23/17 05:35 MPV 9.3 fl (7.5-11.1) 06/23/17 05:35 CMP Sodium 137 mmol/L (136-145) 06/22/17 05:15 Potassium 4.3 mmol/L (3.5-5.1) D 06/22/17 05:15 Chloride 98 mmol/L (98-107) 06/22/17 05:15 Carbon Dioxide 27 mmol/L (21-32) 06/22/17 05:15 Anion Gap 12 (8-16) 06/22/17 05:15 BUN 42 mg/dL (7-18) H D 06/22/17 05:15 Creatinine 5.7 mg/dL (0.7-1.3) H D 06/22/17 05:15 Creat Clearance w eGFR 10.30 (>60) 06/22/17 05:15 Calcium 8.8 mg/dL (8.5-10.1) 06/22/17 05:15 Total Bilirubin 1.2 mg/dL (0.2-1.0) H 06/22/17 05:15 AST 10 U/L (15-37) L 06/22/17 05:15 ALT 12 U/L (12-78) 06/22/17 05:15 Alkaline Phosphatase 146 U/L (45-117) H 06/22/17 05:15 Total Protein 7.1 g/dl (6.4-8.2) 06/22/17 05:15 Albumin 3.3 g/dl (3.4-5.0) L 06/22/17 05:15 - Neuro Exam Dominant Hand: Right Mini Mental Exam: Mildly impaired concentration only. Cranial Nerves II-XII Intact: Yes (No field cut noted) DTR's: 0 Left Achilles, 0 Right Achilles, 1+ Left Bicep, 1+ Right Bicep, 1+ Left Tricep, 1+ Right Tricep, 1+ Left Brachioradialis, 1+ Right Brachioradialis Babinski: Absent Response to light touch: Normal Response to pain prick: Normal Response to temperature: Normal Motor Strength: 4/5: Right Arm (?/due to old CVA), 5/5: Left Arm, Left Leg, Right Leg NIH Stroke Scale - Total Score NIH Stroke Scale Score: 0 Imaging - Results X-ray: Report Reviewed (CT Head at 3am- acute hemorrhage in atrium of right lat. ventricle extending in to occipital horn. Repeat CT head- same acute hge in atrium of right lat. vent surrounding choroid plexus in addition enlargement of occipital horn of lat vent. noted.) Assessment/Plan Pt. with HX of AFIB on AC, with right intraventricular hge likely due to anticoagulant/thrombocytopenia combination? component of trauma. neuro stable. would recheck HD CT in 2 weeks and if no residual bleed , can restart AC. if recurrent issue with bleeding/ high risk, may also consider cardiology eval for wacthman procedure,. Dr Rosario [phone]
[2017-06-23 08:45] LABS: ALK PHOS 146 U/L (45-117); CREATININE 7.2 mg/dL (0.7-1.3); SGOT/AST 9 U/L (15-37); SGPT/ALT 10 U/L (12-78)
[2017-06-23 09:08] LABS: TROPONIN I 0.86 ng/ml (0.00-0.05)
--- NOTE | 2017-06-23 09:17 | EKG ---
Test Reason : Blood Pressure : / mmHG Vent. Rate : 058 BPM Atrial Rate : 058 BPM P-R Int : 254 ms QRS Dur : 122 ms QT Int : 480 ms P-R-T Axes : 079 126 -86 degrees QTc Int : 471 ms SINUS BRADYCARDIA WITH 1ST DEGREE A-V BLOCK LEFT POSTERIOR FASCICULAR BLOCK ABNORMAL ECG WHEN COMPARED WITH ECG OF 22-JUN-2017 14:59, T WAVE INVERSION LESS EVIDENT IN LATERAL LEADS Confirmed by EVERETT HUBER MD ([id number]) on 06/23/2017 9:16:24 AM Referred By: MARQUITA SAN Confirmed By:EVERETT HUBER MD
[2017-06-23] MEDS ORDERED: CALCIUM ACETATE 667 MG CAPSULE (FP) PO SCH (10:00)
[2017-06-23] MEDS: CALCITRIOL 0.25 MCG CAPSULE (FP) PO SCH ×2 (10:43→16:03)
[2017-06-23] MEDS: CARVEDILOL 3.125 MG TABLET (FP) PO SCH ×2 (10:43→16:04)
[2017-06-23] MEDS: PANTOPRAZOLE 40 MG TABLET (FP) PO SCH ×2 (10:43→16:04)
[2017-06-23] MEDS: ISOSORBIDE MONONITRATE 30 MG TAB.SR.24H (FP) PO SCH ×2 (10:43→16:04)
[2017-06-23 11:07] LABS: BILIRUBIN,DIRECT 0.5 mg/dL (0.0-0.2)
--- NOTE | 2017-06-23 11:25 | PN ---
Progress Note (short form) - Note Progress Note: Renal Follow up for ESRD on HD Pt seen and examined at the bedside continues to have left sided neck pain/tightness denies any CUADRA for dialysis today Vital Signs Temperature 97.7 F 06/23/17 06:00 Pulse Rate 58 L 06/23/17 06:00 Respiratory Rate 20 06/23/17 06:00 Blood Pressure 114/58 06/23/17 06:00 O2 Sat by Pulse Oximetry (%) 98 06/22/17 08:08 Intake & Output 06/20/17 06/21/17 06/22/17 06/23/17 23:59 23:59 23:59 23:59 Intake Total 439 400 Balance 439 400 Weight 146 lb 12.8 oz 146 lb 4.8 oz 149 lb 8 oz 148 lb 12.8 oz Gen: NAD, awake and alert CVS: irregular, no M/R Lungs: CTA, no rales or wheeze Abd: soft NT Ext: no edema, clubbing or cyanosis CBC, BMP 06/23/17 05:35 06/23/17 05:35 Laboratory Tests 06/23/17 05:35 Calcium 9.2 Total Bilirubin 1.0 Troponin I 0.86 H* Albumin 3.3 L Current Medications Acetaminophen (Tylenol -) 650 mg PO Q6H PRN PRN Reason: PAIN SCALE 6-10 Atorvastatin Calcium (Lipitor -) 40 mg PO [facility] Last Admin: 06/22/17 22:01 Dose: 40 mg Calcitriol (Rocaltrol -) 0.5 mcg PO TuThFr@1000 [facility] Last Admin: 06/23/17 10:43 Dose: Not Given Calcium Acetate (Phoslo -) 667 mg PO DAILY [facility] Last Admin: 06/23/17 10:43 Dose: Not Given Carvedilol (Coreg -) 3.125 mg PO BID [facility] Last Admin: 06/23/17 10:43 Dose: Not Given Epoetin Nolberto (Epogen -) 4,000 units IVPUSH ONCE ONE Stop: 06/23/17 06:01 Insulin Aspart (Novolog Vial Sliding Scale -) 1 vial SQ [facility] PRN Reason: Protocol Last Admin: 06/23/17 06:40 Dose: Not Given Insulin Detemir (Levemir Vial) 7 units SQ [facility] Last Admin: 06/22/17 22:01 Dose: Not Given Isosorbide Mononitrate (Imdur -) 30 mg PO DAILY [facility] Last Admin: 06/23/17 10:43 Dose: Not Given Levothyroxine Sodium (Synthroid -) 50 mcg PO DAILY@0700 [facility] Last Admin: 06/23/17 06:40 Dose: Not Given Loperamide HCl (Imodium -) 4 mg PO Q6H PRN PRN Reason: DIARRHEA Pantoprazole Sodium (Protonix -) 40 mg PO DAILY [facility] Last Admin: 06/23/17 10:43 Dose: Not Given Sevelamer Carbonate (Renvela Powder Packet -) 2.4 gm PO DAILY@1200 [facility] 57 year old gentleman with PMhx of ESRD on HD (MWF), CAD s/p IA/PCI, Afib on warfarin, IDDM, Hyperlipdemia who presented with complaints of dizziness and found to have have a right ICH. #Spontaneous ICH in setting of Warfarin/Plavix/ASA mangemetn as per neurolgoy no acute surgical intervention warranted #ESRD on HD with Hyperkalemia HD today with low flow, shorter duration and small dialyzer #Thrombocytopenia Plt transfusion as needed ? etiology of low plt counts #Renal Osteodystropy check Phos levels continue renvela, can d/c phoslo Thank you Will follow Yonis Farooq DO Problem List - Problems (1) A-fib Code(s): I48.91 - UNSPECIFIED ATRIAL FIBRILLATION Qualifiers: Atrial fibrillation type: paroxysmal Qualified Code(s): I48.0 - Paroxysmal atrial fibrillation (2) CAD (coronary artery disease) Code(s): I25.10 - ATHSCL HEART DISEASE OF [place] CORONARY ARTERY W/O ANG PCTRS Qualifiers: Coronary Disease-Associated Artery/Lesion type: [place] artery [place] vs. transplanted heart: [place] heart Associated angina: with stable angina Qualified Code(s): I25.118 - Atherosclerotic heart disease of [place] coronary artery with other forms of angina pectoris (3) Diabetes Code(s): E11.9 - TYPE 2 DIABETES MELLITUS WITHOUT COMPLICATIONS (4) End stage chronic kidney disease Code(s): N18.6 - END STAGE RENAL DISEASE Z99.2 - DEPENDENCE ON RENAL DIALYSIS (5) ICH (intracerebral hemorrhage) Code(s): I61.9 - NONTRAUMATIC INTRACEREBRAL HEMORRHAGE, UNSPECIFIED
[2017-06-23] MEDS ORDERED: EPOETIN ALFA 2,000 UNITS/1 ML VIAL IVPUSH ONE (12:00)
[2017-06-23 12:19] LABS: PHOSPHOROUS 4.3 mg/dL (2.5-4.9)
[2017-06-23] MEDS: SEVELAMER CARBONATE 2.4 GM POWDER PACKET PO SCH ×2 (14:50→16:04)
[2017-06-23] MEDS ORDERED: PT OWN MED DRAWER 7, Y5N ONE (15:54)
[2017-06-23] MEDS ORDERED: INSULIN SLIDING SCALE (NOVOLOG) 1 VIAL SQ SCH (16:30)
--- NOTE | 2017-06-23 18:05 | PN ---
Teaching Attending Note Name of Resident: Neil Hines ATTENDING PHYSICIAN STATEMENT I saw and evaluated the patient. I reviewed the resident's note and discussed the case with the resident. I agree with the resident's findings and plan as documented. SUBJECTIVE: no fever or chills. posterior head and neck pain no weakness OBJECTIVE: NAD , Awale and alert HEENT: AT, NC, EOMI, deformed pupils , not reactive to light . EOMI. MMM CV : RRR, 2/6 SM at RUSB . R pulse1+ b/l , DP 1 + b/l Lungs : CTAB ext : no edema Neuro : EOMI, deformed pupils , not reactive to light , no facial droop, tongue and uvula at md line , nl facial sensation . Strength 5/5 in upper and lower extremities proximally and distally, sensation to light touch NL. reflexes 2+ knee jerk and biceps b/l ASSESSMENT AND PLAN: 57 y/o man with h/o CAD , s/p PCIs , ICMP , IDDM , S CHF , CVA , ESRD, MR ,P A fib on coumadin, recently diagnosed hypothyroidism , and other medical problems who presented a fall, and CUADRA 1- S/p Mechanical fall, s/p R temporal bleed: neuro exam cont to be NL. s/p Vit K and FFP and PLT cont to hold AC (coumadin and aspirin). Case d/w Dr. Rosario, recommends repeat CT scan in 2 weeks before deciding AC resumption. if to resume , can start asa in 2 weeks and coumadin in 4 weeks . to follow up with Dr. Rosario 2- Trop elevation , very mild , denies anthony Pitt due to renal dz. trended down , can't give ASA , for now . 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 reports to be compliant with his meds . in 1 week , needs increase of his synthroid to 75 mcg 5- THrombocytopenia , chronic , likely due to liver cirrhosis seen on a PREVIOUS ct SCAN . FURTHER W/U by GI OUT PT Dispo :dc home with VNS
--- NOTE | 2017-06-23 18:33 | DS ---
Physical Exam: SUBJECTIVE: Patient seen and examined at bedside. No acute events overnight. No complaints at this time. ROS neg. OBJECTIVE: Vital Signs Period Temp Pulse Resp BP Sys/Parham Pulse Ox Last 24 Hr 97.7 F-98.8 F 53-60 14-20 87-114/52-68 PHYSICAL EXAM GENERAL: The patient is awake, alert, and fully oriented, in no acute distress. HEAD: Normal with no signs of trauma. EYES: sclera anicteric, conjunctiva clear. ENT: oropharynx clear without exudates, moist mucous membranes. NECK: Trachea midline, full range of motion, supple. LUNGS: Breath sounds equal, clear to auscultation bilaterally, no wheezes, no crackles, no accessory muscle use. HEART: Regular rate and rhythm, normal S1, S2 without murmur, rub or gallop. ABDOMEN: Soft, nontender, nondistended, normoactive bowel sounds, no guarding, no rebound, no hepatosplenomegaly, no masses. EXTREMITIES: 2+ pulses, warm, well-perfused, no edema. NEUROLOGICAL: Cranial nerves II through XII grossly intact. Normal speech, gait not observed. PSYCH: Normal mood, normal affect. SKIN: Warm, dry, normal turgor, no rashes or lesions noted. LABS Laboratory Results - last 24 hr 06/21/17 06/21/17 06/22/17 16:00 16:00 21:58 WBC RBC Hgb Hct MCV MCH MCHC RDW Plt Count MPV INR Sodium Potassium Chloride Carbon Dioxide Anion Gap BUN Creatinine Creat Clearance w eGFR POC Glucometer 194 Random Glucose Calcium Phosphorus Total Bilirubin Direct Bilirubin AST ALT Alkaline Phosphatase Troponin I Total Protein Albumin Hepatitis A Ab Total Positive Hep Bs Antigen Negative Hep Bs Antibody Reactive Hep B Core Total Ab Negative Hepatitis C Antibody 0.1 06/23/17 06/23/17 06/23/17 05:35 05:35 05:35 WBC 3.7 L RBC 2.78 L Hgb 9.8 L Hct 29.1 L MCV 104.7 H MCH 35.4 H MCHC 33.8 RDW 16.0 H Plt Count 64 L MPV 9.3 INR 1.34 H Sodium 134 L Potassium 4.2 Chloride 95 L Carbon Dioxide 27 Anion Gap 12 BUN 57 H D Creatinine 7.2 H D Creat Clearance w eGFR 7.87 POC Glucometer Random Glucose 172 H D Calcium 9.2 Phosphorus 4.3 Total Bilirubin 1.0 Direct Bilirubin 0.5 H AST 9 L ALT 10 L Alkaline Phosphatase 146 H Troponin I 0.86 H* Total Protein 7.0 Albumin 3.3 L Hepatitis A Ab Total Hep Bs Antigen Hep Bs Antibody Hep B Core Total Ab Hepatitis C Antibody 06/23/17 06/23/17 06/23/17 05:35 06:28 09:15 WBC RBC Hgb Hct MCV MCH MCHC RDW Plt Count MPV INR Sodium Potassium Chloride Carbon Dioxide Anion Gap BUN Creatinine Creat Clearance w eGFR POC Glucometer 161 Random Glucose Calcium Phosphorus Total Bilirubin Cancelled Direct Bilirubin Cancelled AST Cancelled ALT Cancelled Alkaline Phosphatase Cancelled Troponin I Cancelled Total Protein Cancelled Albumin Cancelled Hepatitis A Ab Total Hep Bs Antigen Hep Bs Antibody Hep B Core Total Ab Hepatitis C Antibody 06/23/17 06/23/17 11:36 17:11 WBC RBC Hgb Hct MCV MCH MCHC RDW Plt Count MPV INR Sodium Potassium Chloride Carbon Dioxide Anion Gap BUN Creatinine Creat Clearance w eGFR POC Glucometer 178 Random Glucose Calcium Phosphorus Cancelled Total Bilirubin Direct Bilirubin AST ALT Alkaline Phosphatase Troponin I Total Protein Albumin Hepatitis A Ab Total Hep Bs Antigen Hep Bs Antibody Hep B Core Total Ab Hepatitis C Antibody HOSPITAL COURSE: Date of Admission:06/20/17 Date of Discharge: 06/23/17 57yo man with PMH of ESRD on HD (M,W,F), CAD s/p stent (on ASA, Lipitor), IDDM, Hypothyroidism (on Levothyroxine), 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 The patient was seen by Neurosurgery (Dr. Ivy) and Neurology (Dr. Rosario) who recommended no intervention. Serial head CTs showed that the brain bleed was stable over time. Anticoagulation was held during the surgery to be resumed out pt after another CT scan in 2 weeks. While inpatient, the patient was seen by Nephrology (Dr. Farooq) and received dialysis. The patient had thrombocytopenia and during his stay he received platelets, FFP , and Vit K. The patient's thyroid level was low during his stay. This will need to be adjusted out patient. The patient's troponin level was increased many times durig his stay trending up and down. This was attributed to his ESRD as he had stable serial EKGs and no chest pain. The patient's HTN was controlled with home meds. He received his statin for CAD and sliding scale for his DM. Minutes to complete discharge: 45 Discharge Summary Reason For Visit: ACUTE INTRACRANIAL HEMORRHAGE Current Active Problems Abnormal LFTs (Acute) Acute intra-cranial hemorrhage (Acute) Chest pain (Acute) End stage chronic kidney disease (Acute) Headache (Acute) Hypothyroidism (Acute) ICH (intracerebral hemorrhage) (Acute) Syncope (Acute) A-fib (Chronic) Anticoagulated on Coumadin (Chronic) CAD (coronary artery disease) (Chronic) CHF (congestive heart failure) (Chronic) Cirrhosis (Chronic) DM Diabetes mellitus type 2 (Chronic) Diabetes (Chronic) ESRD (end stage renal disease) (Chronic) ESRD on hemodialysis (Chronic) Gallstone (Chronic) H/O: CVA (cerebrovascular accident) (Chronic) Hyperlipidemia (Chronic) Hypertension (Chronic) Ischemic cardiomyopathy (Chronic) Thrombocytopenia (Chronic) Condition: Improved - Instructions Diet, Activity, Other Instructions: -you need a repeat CT scan of the head in 2 weeks to determine when to resume aspirin and coumadin (if there is no residual bleed , Aspirin can be started in 2 weeks, then Coumadin can be started in 4 weeks) -Your head cat scan scan needs to be reviewed by Dr. Rosario before you start any anticoagulation. -Please see Dr. Rosario in 1 week. Call tomorrow to schedule the appointment -Stop Aspirin and Coumadin for now -Continue taking Levemir for your diabetes and use a sliding scale with each meal. Insulin sliding scale: 101-150- 0 units 151-200- 2units 201-250- 4 Units 251-300- 6units 301-350-8 units 351-400- 10 units >400 units- Call the doctor. 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 -In 1 week, you need your Synthroid dose increased. Please follow up with your primary care doctor. Referrals: Julio Rosario DO [Staff Physician] - Radha Zarate MD [Primary Care Provider] - 1 Week Yonis Farooq MD [Staff Physician] - Disposition: [facility]NS/HOME HEALTH CARE - Home Medications Comprehensive Discharge Medication List: Ambulatory Orders Atorvastatin Ca [Lipitor] 40 mg PO HS 03/08/17 Calcitriol [Calcitriol -] 0.5 mcg PO .TUTHFR DAILY 03/08/17 Isosorbide Mononitrate [Imdur -] 30 mg PO DAILY 03/08/17 Omeprazole 40 mg PO DAILY 03/08/17 Sevelamer Carbonate [Renvela Powder Packet -] 2.4 gm PO DAILY 03/08/17 Calcium Acetate [Phoslo -] 667 mg PO DAILY 05/17/17 Carvedilol [Coreg -] 3.125 mg PO BID 05/17/17 Levothyroxine [Synthroid -] 50 mcg PO DAILY@0700 #30 tablet 05/26/17 Insulin Glargine,Hum.rec.anlog [Lantus (10mL VIAL) -] 7 units SQ HS 06/21/17 Insulin Sliding Scale [Novolog Vial Sliding Scale -] See Protocol SQ ACHS #2 pen 06/23/17 This patient is new to me today: Yes Date on this admission: 06/23/17 Emergency Visit: No Critical Care patient: No - Discharge Referral Referred to [facility] No
[2017-06-23 18:59] VITALS: BP 105/60; PULSE 60; TEMP 98
[2017-06-24 00:08] LABS: HEP B SURFACE AB Reactive (.)
== END 2017-06-23 19:30 | disposition home health service (06) | DRG 44 ==
LOC: JER 19:12 → JICU 23:13 → J4W 06-22 20:00
PROVIDERS: ADMIT Internal Medicine; ATTEND Internal Medicine
PROC: 30233R1 Transfusion of Nonautologous Platelets into Peripheral Vein, Percutaneous Approach (ICD-10-PCS; 2017-06-21)
PROC: 30233L1 Transfusion of Nonautologous Fresh Plasma into Peripheral Vein, Percutaneous Approach (ICD-10-PCS; 2017-06-21)
PROC: 30233K1 Transfusion of Nonautologous Frozen Plasma into Peripheral Vein, Percutaneous Approach (ICD-10-PCS; 2017-06-21)
PROC: 5A1D60Z (ICD-10-PCS; principal; 2017-06-23)
DX: I61.9 Nontraumatic intracerebral hemorrhage, unspecified (principal); I25.10 Atherosclerotic heart disease of native coronary artery without angina pectoris; Z98.61 Coronary angioplasty status; Z79.4 Long term (current) use of insulin; E03.9 Hypothyroidism, unspecified; I48.2 Chronic atrial fibrillation; I25.5 Ischemic cardiomyopathy; D69.6 Thrombocytopenia, unspecified; E87.5 Hyperkalemia; N25.0 Renal osteodystrophy; I13.2 Hypertensive heart and chronic kidney disease with heart failure and with stage 5 chronic kidney disease, or end stage renal disease; E11.22 Type 2 diabetes mellitus with diabetic chronic kidney disease; N18.6 End stage renal disease; I50.20 Unspecified systolic (congestive) heart failure; Z99.2 Dependence on renal dialysis; R07.89 Other chest pain; Z87.891 Personal history of nicotine dependence; D53.9 Nutritional anemia, unspecified; E78.5 Hyperlipidemia, unspecified
CPT/HCPCS: 36415; 36430; 70450-TC; 71020-TC; 80053; 80076; 82550; 82553; 83735; 83880; 84100; 84439; 84443; 84481; 84484; 85025; 85027; 85610; 86704; 86706; 86708; 86803; 86850; 86900; 86901; 87324; 87340; 87449; 93005; 93010; 97116-GP; 97161-GP; 99285-25; J0885; P9017; P9034; P9038